=== PATIENT | female | born 1960 | race Caucasian/White ===

== ENCOUNTER 2016-04-24 13:39 | Emergency (ER) | payer OTHER ==
[~2016-04-24] VITALS: Ht 162.6 cm; Wt 106.5 kg
[2016-04-24 13:49] VITALS: TEMP 36.8; Ht 162.6 cm; Wt 106.5 kg
[2016-04-24] MEDS ORDERED: PROMETHAZINE HCL INJ 25 MG/ML 1 ML VIAL IM STA (14:34)
[2016-04-24] MEDS ORDERED: HYDROmorphone INJ 1 MG/ML SYR IM STA (14:34)
[2016-04-24] MEDS ORDERED: SODIUM CHLORIDE 0.9% 1000ML 1,000 ML IV STA (14:34)
--- NOTE | 2016-04-24 14:44 | EMERGENCY ROOM VISIT NOTE ---
History Report prepared by Edmond: Eh Boyle Under the Supervision of: Dr. Kvng Vallejo M.D. First contact with patient: 14:28 Chief Complaint: DIARRHEA Stated Complaint: BOWEL PAIN, DIARRHEA, DRAINED FEELING Nursing Triage Summary: Triage note: pt reports right lower abd pain, nausea, vomitting, diarrhea since yesterday. History of Present Illness The patient is a 55 year old female who presents to the Emergency Room with complaints of constant RLQ abdominal pain beginning yesterday. She has associated nausea, diarrhea and subjective fevers. She was seen in the ED last week with similar symptoms. The patient has a history of an appendectomy. She denies any vomiting. She has a history of similar abdominal pain for many years. Extensive previous surgical history. No medications [employer]. Nothing makes better nor worse. No sick contacts. States similar pain to what she always has. Source of History: patient Onset: Yesterday Position: abdomen (RLQ) Timing: constant Associated Symptoms: + diarrhea, + fevers (subjective), + nausea, No vomiting Review of Systems See HPI for pertinent positives & negatives. A total of 10 systems reviewed and were otherwise negative. Past Medical & Surgical Medical Problems: (1) Benign hypertension (2) Chronic abdominal pain (3) Depression (4) Enterohemorrhagic E. coli infection (5) Fibromyalgia (6) Gastroparesis (7) History of Clostridium difficile colitis (8) History of renal calculi (9) History of suicide attempt (10) Hyperlipidemia (11) Hypothyroidism (12) Migraine Surgical Problems: (1) History of appendectomy (2) History of feeding tube placement (3) S/P appendectomy (4) S/P cholecystectomy (5) S/P tonsillectomy and adenoidectomy (6) Status post hernia repair (7) Status post hysterectomy (8) Status post left oophorectomy (9) Status post right oophorectomy (10) Status post sinus surgery Family History Cancer Diabetes mellitus FATHER FHx: diabetes FHx: gallbladder disease FHx: heart disease FATHER FHx: hypertension FATHER MOTHER FHx: seizures Social History Smoking Status: Never Smoker Alcohol Use: none Drug Use: none Marital Status: Housing Status: lives with significant other Occupation Status: disabled Current/Historical Medications Scheduled Atorvastatin (Atorvastatin Calcium), 10 MG PO HS Lamotrigine (Lamictal), 200 MG PO QAM Losartan Potassium (Losartan Potassium), 50 MG PO HS Olanzapine (Olanzapine), 15 MG PO HS Ranitidine Hcl (Zantac), 300 MG PO BID Topiramate (Topamax), 50 MG PO BID Venlafaxine Hcl (Effexor Extended Rel), 225 MG PO QAM Scheduled PRN Lorazepam (Lorazepam), 1 MG PO BID PRN for Anxiety/Insomnia Allergies Coded Allergies: CI Pigment Blue 63 (Verified Allergy, Unknown, shut down, heart and breathing slowed, 04/24/16) Fentanyl (Verified Adverse Reaction, Intermediate, GI SYMPTOMS, 04/24/16) Metoclopramide (Verified Adverse Reaction, Mild, TARDITIVE DYSKENESIA, 04/24) Ondansetron (Verified Adverse Reaction, Mild, HEADACHE, 04/14/16) Tramadol (Verified Adverse Reaction, Mild, VOMITING, 04/24/16) Chlorpromazine (Verified Adverse Reaction, Unknown, dry mouth, 04/24/16) Duloxetine (Verified Adverse Reaction, Unknown, LETHARGIC, 04/24/16) Physical Exam Vital Signs Date Time Temp Pulse Resp B/P Pulse Ox O2 Delivery O2 Flow Rate FiO2 04/24/16 16:04 89 16 175/113 95 Room Air 04/24/16 15:45 93 16 181/108 95 Room Air 04/24/16 13:49 36.8 102 18 163/82 96 Room Air Physical Exam GENERAL: Patient is well appearing and in no acute distress. HEENT: No acute trauma, normocephalic atraumatic, mucous membranes moist, no nasal congestion, no scleral icterus. NECK: No stridor, no adenopathy, no meningismus, trachea is midline. LUNGS: No dyspnea. Clear to auscultation and equal bilaterally. No wheeze, no rhonchi. HEART: Regular rate and rhythm. No murmurs, rubs, gallops appreciated. ABDOMEN: Extensive scarring of the abdomen. Mild RLQ tenderness to palpation. Soft, bowel sounds positive, no masses appreciated, no peritonitis. BACK: No midline tenderness, no CVA tenderness EXTREMITIES: Normal motion all extremities, no cyanosis, no edema. NEUROLOGIC: Alert and oriented, no acute motor or sensory deficits, no focal weakness, cranial nerves grossly intact. SKIN: No rash, no jaundice, no diaphoresis. Medical Decision & Procedures Laboratory Results 04/24/16 14:55 04/24/16 14:55 Test 04/24/16 14:55 Red Blood Count 4.36 M/uL (4.2-5.4) Mean Corpuscular Volume 97.0 fL (80-100) Mean Corpuscular Hemoglobin 33.7 pg (25-34) Mean Corpuscular Hemoglobin Concent 34.8 g/dl (32-36) RDW Standard Deviation 45.6 fL (36.4-46.3) RDW Coefficient of Variation 12.9 % (11.5-14.5) Mean Platelet Volume 9.8 fL (7.4-10.4) Anion Gap 11.0 mmol/L (3-11) Est Creatinine Clear Calc Drug Dose 91.2 ml/min Estimated GFR () 90.7 Estimated GFR (Non- 78.2 BUN/Creatinine Ratio 15.3 (10-20) Calcium Level 9.3 mg/dl (8.5-10.1) Laboratory results as reviewed by me. Medications Administered Medications (Trade) Dose Ordered Sig/Van Route Start Time Stop Time Status Last Admin Dose Admin Hydromorphone HCl (Dilaudid Inj) 1 mg NOW STAT IM 04/24/16 14:34 04/24/16 14:36 DC 04/24/16 14:45 1 MG Promethazine HCl 25 mg 25 mg NOW STAT IM 04/24/16 14:34 04/24/16 14:36 DC 04/24/16 14:45 25 MG Sodium Chloride (Nss 1000ml) 1,000 ml @ 999 mls/hr Q1H1M STAT IV 04/24/16 14:34 04/24/16 15:34 DC 04/24/16 15:03 999 MLS/HR ED Course 1429: The patient was evaluated in room C5. A complete history and physical exam was performed. 1434: Ordered NSS 1000 mL @ 999 mL/hr IV, Phenergan Inj 25 mg IM, Dilaudid Inj 1 mg IM. 1600: Reevaluated the patient. She would like to go home. Discussed results and discharge instructions: she verbalized understanding and agreement. The patient is ready for discharge. Medical Decision Differential: Appendicitis, Diverticulitis, PUD/Gastritis, Biliary Pathology, UTI, Pyelonephritis, Renal Colic, Bowel Obstruction, Aortic Pathology, Acute Coronary Syndrome, amongst other pathologies entertained. 55 yr old female arrives for evaluation of chronic abdominal pain. I know her well and she has had this for a long time. Labs are unremarkable. Exam is benign and patient feeling better with above. She is not septic, does not have acute abdomen, labs are normal and vitals are OK. I feel that given the chronicity of this and the many previous evaluations that doing further imaging/ testing is not necessary at this time. Stable at time of discharge. Impression Primary Impression: Chronic abdominal pain Additional Impressions: Nausea, Diarrhea Scribe Attestation The scribe's documentation has been prepared under my direction and personally reviewed by me in its entirety. I confirm that the note above accurately reflects all work, treatment, procedures, and medical decision making performed by me. Departure Information Dispostion Home / Self-Care Referrals Armando Ward D.O. (PCP) Patient Instructions A Signature Page, Diarrhea, My [facility]
[2016-04-24 15:05] LABS: HEMATOCRIT 42.3 % (37-47); MEAN CORPUSCULAR HEMOGLOBIN 33.7 pg (25-34); MEAN CORPUSCULAR HGB CONC 34.8 g/dl (32-36); MEAN PLATELET VOLUME 9.8 fL (7.4-10.4); PLATELET COUNT 268 K/uL (130-400); RED BLOOD COUNT 4.36 M/uL (4.2-5.4); WHITE BLOOD COUNT 10.28 K/uL (4.8-10.8)
[2016-04-24 15:22] LABS: BUN/CREATININE RATIO 15.3 (10-20); CALCIUM 9.3 mg/dl (8.5-10.1); CREATININE 0.85 mg/dl (0.60-1.20); POTASSIUM 4.2 mmol/L (3.5-5.1)
[2016-04-24 16:04] VITALS: BP 175/113; PULSE 89; O2SAT 95
[2016-05-17] MEDS ORDERED: COLE1TAB5 PO (19:00)
[2016-06-03] MEDS ORDERED: GABA-112 PO (08:38)
[2016-06-17] MEDS ORDERED: OXYC-57 PO (14:58)
[2016-07-02] MEDS ORDERED: AZIT-60 PO (20:29)
[2016-08-05] MEDS ORDERED: ZYP10 PO (15:41)
[2016-08-05] MEDS ORDERED: VNTHFA/IN INH (15:41)
[2016-08-05] MEDS ORDERED: EFFSR75 PO (18:39)
[2016-08-05] MEDS ORDERED: LAMO200T35 PO (20:31)
== END 2016-04-24 16:30 | disposition home or self-care (01) ==
LOC: C.EDB 13:41 → C.EDC 16:30
DX: R10.9 Unspecified abdominal pain (principal); G89.29 Other chronic pain; R11.0 Nausea; R19.7 Diarrhea, unspecified; E03.9 Hypothyroidism, unspecified; E78.5 Hyperlipidemia, unspecified; I10 Essential (primary) hypertension

== ENCOUNTER 2016-04-29 18:29 | Emergency (ER) | payer OTHER ==
[~2016-04-29] VITALS: Ht 162.6 cm; Wt 106.5 kg
[2016-04-29 18:34] VITALS: TEMP 36.8; Ht 162.6 cm; Wt 106.5 kg
[2016-04-29] MEDS ORDERED: PROMETHAZINE HCL INJ 25 MG/ML 1 ML VIAL IV STA (18:46)
[2016-04-29] MEDS ORDERED: SODIUM CHLORIDE 0.9% 1000ML 1,000 ML IV STA (18:46)
--- NOTE | 2016-04-29 18:54 | EMERGENCY ROOM VISIT NOTE ---
History Report prepared by Edmond: Shelby Rodriguez Under the Supervision of: Dr. Kwesi Nielsen M.D. First contact with patient: 18:40 Chief Complaint: ABDOMINAL PAIN Stated Complaint: SEVERE ABD PAIN,DIARRHEA,NAUSEA Nursing Triage Summary: abd pain all day n/v/d History of Present Illness The patient is a 55 year old female who presents to the Emergency Room with complaints of constant abdominal pain for the past day. She woke up with diffuse abdominal pain that is worse in the RLQ. It radiates into her right leg. She is experiencing nausea, vomiting, and diarrhea. The patient rates her pain as a 10/10. She had a scheduled appointment with her PCP today and he put her on prednisone and a medication for her diarrhea. She had an x-ray of her back at the office. The patient states that she is still experiencing symptoms. She denies any recent trauma or injury to her abdomen. She denies urinary symptoms. The patient has a history of abdominal pain, but notes that today's pain feels different than her typical pain. She was feeling fine yesterday. Source of History: patient Onset: the past day Position: abdomen Symptom Intensity: 10/10 Quality: other (radiating) Timing: constant Associated Symptoms: + diarrhea, + nausea, + vomiting, No urinary symptoms Review of Systems See HPI for pertinent positives & negatives. A total of 10 systems reviewed and were otherwise negative. Past Medical & Surgical Medical Problems: (1) Benign hypertension (2) Chronic abdominal pain (3) Depression (4) Enterohemorrhagic E. coli infection (5) Fibromyalgia (6) Gastroparesis (7) History of Clostridium difficile colitis (8) History of renal calculi (9) History of suicide attempt (10) Hyperlipidemia (11) Hypothyroidism (12) Migraine Surgical Problems: (1) History of appendectomy (2) History of feeding tube placement (3) S/P appendectomy (4) S/P cholecystectomy (5) S/P tonsillectomy and adenoidectomy (6) Status post hernia repair (7) Status post hysterectomy (8) Status post left oophorectomy (9) Status post right oophorectomy (10) Status post sinus surgery Family History Cancer Diabetes mellitus FATHER FHx: diabetes FHx: gallbladder disease FHx: heart disease FATHER FHx: hypertension FATHER MOTHER FHx: seizures Social History Smoking Status: Current Every Day Smoker Alcohol Use: none Drug Use: none Marital Status: Housing Status: lives with significant other Occupation Status: disabled Current/Historical Medications Scheduled Atorvastatin (Atorvastatin Calcium), 10 MG PO HS Colestipol Hcl (Colestipol Hcl), 1 GM PO BID Lamotrigine (Lamictal), 200 MG PO QAM Losartan Potassium (Losartan Potassium), 50 MG PO HS Olanzapine (Olanzapine), 15 MG PO HS Prednisone (Prednisone), 0 PO UD Ranitidine Hcl (Zantac), 300 MG PO BID Topiramate (Topamax), 50 MG PO BID Venlafaxine Hcl (Effexor Extended Rel), 225 MG PO QAM Scheduled PRN Lorazepam (Lorazepam), 1 MG PO BID PRN for Anxiety/Insomnia Allergies Coded Allergies: CI Pigment Blue 63 (Verified Allergy, Unknown, shut down, heart and breathing slowed, 04/29/16) Fentanyl (Verified Adverse Reaction, Intermediate, GI SYMPTOMS, 04/29/16) Metoclopramide (Verified Adverse Reaction, Mild, TARDITIVE DYSKENESIA, 04/29) Ondansetron (Verified Adverse Reaction, Mild, HEADACHE, 04/29/16) Tramadol (Verified Adverse Reaction, Mild, VOMITING, 04/29/16) Chlorpromazine (Verified Adverse Reaction, Unknown, dry mouth, 04/29/16) Duloxetine (Verified Adverse Reaction, Unknown, LETHARGIC, 04/29/16) Physical Exam Vital Signs Date Time Temp Pulse Resp B/P Pulse Ox O2 Delivery O2 Flow Rate FiO2 04/29/16 21:24 91 18 148/93 95 04/29/16 20:17 102 20 165/102 94 Room Air 04/29/16 18:34 36.8 114 20 187/83 93 Room Air Physical Exam GENERAL: Patient is in no acute distress. HEENT: No acute trauma, normocephalic atraumatic, mucous membranes moist, no nasal congestion, no scleral icterus. NECK: No stridor, no adenopathy, no meningismus, trachea is midline. LUNGS: Clear to auscultation bilaterally, no wheeze, no rhonchi, breath sounds equal. HEART: Mildly tachycardic, regular rhythm, without murmurs gallops or rubs. ABDOMEN: Soft, moderately tender in the RLQ, bowel sounds positive, no hernias, no peritonitis. EXTREMITIES: No cyanosis or edema, full range of motion of all the joints without pain or difficulty, no signs for acute trauma. NEUROLOGIC: Oriented x 3, no acute motor or sensory deficits, no focal weakness. SKIN: No rash, no jaundice, no diaphoresis. Medical Decision & Procedures Laboratory Results 04/29/16 19:44 Red Blood Count 4.38, Mean Corpuscular Volume 95.7, Mean Corpuscular Hemoglobin 34.2, Mean Corpuscular Hemoglobin Concent 35.8, Mean Platelet Volume 10.0, Neutrophils (%) (Auto) 87.3, Lymphocytes (%) (Auto) 10.8, Monocytes (%) (Auto) 1.4, Eosinophils (%) (Auto) 0.0, Basophils (%) (Auto) 0.1, Neutrophils # (Auto) 11.13, Lymphocytes # (Auto) 1.38, Monocytes # (Auto) 0.18, Eosinophils # (Auto) 0.00, Basophils # (Auto) 0.01 04/29/16 19:44 Test 04/29/16 19:44 04/29/16 20:00 White Blood Count 12.75 K/uL (4.8-10.8) Red Blood Count 4.38 M/uL (4.2-5.4) Hemoglobin 15.0 g/dL (12.0-16.0) Hematocrit 41.9 % (37-47) Mean Corpuscular Volume 95.7 fL (80-100) Mean Corpuscular Hemoglobin 34.2 pg (25-34) Mean Corpuscular Hemoglobin Concent 35.8 g/dl (32-36) Platelet Count 283 K/uL (130-400) Mean Platelet Volume 10.0 fL (7.4-10.4) Neutrophils (%) (Auto) 87.3 % Lymphocytes (%) (Auto) 10.8 % Monocytes (%) (Auto) 1.4 % Eosinophils (%) (Auto) 0.0 % Basophils (%) (Auto) 0.1 % Neutrophils # (Auto) 11.13 K/uL (1.4-6.5) Lymphocytes # (Auto) 1.38 K/uL (1.2-3.4) Monocytes # (Auto) 0.18 K/uL (0.11-0.59) Eosinophils # (Auto) 0.00 K/uL (0-0.5) Basophils # (Auto) 0.01 K/uL (0-0.2) RDW Standard Deviation 44.6 fL (36.4-46.3) RDW Coefficient of Variation 12.7 % (11.5-14.5) Immature Granulocyte % (Auto) 0.4 % Immature Granulocyte # (Auto) 0.05 K/uL (0.00-0.02) Urine Color YELLOW Urine Appearance CLEAR (CLEAR) Urine pH 6.0 (4.5-7.5) Urine Specific [place] 1.017 (1.000-1.030) Urine Protein NEG (NEG) Urine Glucose (UA) NEG (NEG) Urine Ketones NEG (NEG) Urine Occult Blood TRACE (NEG) Urine Nitrite NEG (NEG) Urine Bilirubin NEG (NEG) Urine Urobilinogen NEG (NEG) Urine Leukocyte Esterase NEG (NEG) Urine WBC (Auto) 1-5 /hpf (0-5) Urine RBC (Auto) 0-4 /hpf (0-4) Urine Hyaline Casts (Auto) 0 /lpf (0-5) Urine Epithelial Cells (Auto) >30 /lpf (0-5) Urine Bacteria (Auto) NEG (NEG) Anion Gap 12.0 mmol/L (3-11) Est Creatinine Clear Calc Drug Dose 77.5 ml/min Estimated GFR () 74.5 Estimated GFR (Non- 64.3 BUN/Creatinine Ratio 17.9 (10-20) Calcium Level 9.1 mg/dl (8.5-10.1) Total Bilirubin 0.2 mg/dl (0.2-1) Aspartate Amino Transf (AST/SGOT) 32 U/L (15-37) Alanine Aminotransferase (ALT/SGPT) 53 U/L (12-78) Alkaline Phosphatase 150 U/L (45-117) Total Protein 7.7 gm/dl (6.4-8.2) Albumin 3.6 gm/dl (3.4-5.0) Globulin 4.1 gm/dl (2.5-4.0) Albumin/Globulin Ratio 0.9 (0.9-2) Lipase 222 U/L (73-393) Lactic Acid Level 1.3 mmol/L (0.4-2.0) Laboratory results reviewed by me. Medications Administered Medications (Trade) Dose Ordered Sig/Van Route Start Time Stop Time Status Last Admin Dose Admin Promethazine HCl 12.5 mg 12.5 mg NOW STAT IV 04/29/16 18:46 04/29/16 18:52 DC 04/29/16 20:07 12.5 MG Sodium Chloride (Nss 1000ml) 1,000 ml @ 200 mls/hr Q5H STAT IV 04/29/16 18:46 04/29/16 21:46 DC 04/29/16 20:07 200 MLS/HR Hydromorphone HCl (Dilaudid Inj) 1 mg Q30M PRN IV 04/29/16 19:00 04/29/16 21:46 DC 04/29/16 20:09 1 MG Hydromorphone HCl (Dilaudid Inj) 1 mg STK-MED ONCE .ROUTE 04/29/16 21:15 04/29/16 21:16 DC 04/29/16 21:19 1 MG ED Course 1841: The patient was evaluated in room A11B. A complete history and physical exam was performed. 1846: NSS 1000 ml @ 200 mls/hr IV, Phenergan 12.5 mg IV 1900: Dilaudid 1 mg IV PRN 6: I reassessed the patient at this time. She is feeling better and resting comfortably. I discussed the results and treatment plan with the patient. I answered all pertaining questions that she had. She expressed understanding and verbalized agreement. The patient will be discharged home. 2107: Dilaudid 1 mg IV Medical Decision Differential diagnoses includes acute on chronic pain, hernia, UTI, adhesions, dehydration, renal failure, peritonitis, musculoskeletal pain, nerve impingement. There is a mild leukocytosis which could be consistent with infection or just her pain. No concerning anemia. No significant electrolyte abnormality, kidney failure, hepatitis or pancreatitis. Urinalysis does not show any significant hematuria or evidence for infection. On exam, there was no peritonitis, the patient was not febrile or toxic. The patient received IV Phenergan, IV saline and IV Dilaudid. She feels improved, her heart rate has decreased. The patient presents with abdominal pain, she has had chronic abdominal pain issues for a long time. Nothing today appears truly acute or new, I do think she can be discharged, she was advised to follow with pain management. Impression Primary Impression: Right sided abdominal pain Scribe Attestation The scribe's documentation has been prepared under my direction and personally reviewed by me in its entirety. I confirm that the note above accurately reflects all work, treatment, procedures, and medical decision making performed by me. Departure Information Dispostion Home / Self-Care Referrals Armando Ward D.O. (PCP) Forms Call Back Authorization, HOME CARE DOCUMENTATION FORM, IMPORTANT VISIT INFORMATION, My [facility] Patient Instructions A Signature Page Additional Instructions I would recommend pain management talk with your [facility] md monday about a pain management referral return for worsening symptoms
[2016-04-29] MEDS ORDERED: HYDROmorphone INJ 2 MG/ML SYR/VIAL IV PRN (19:00)
[2016-04-29] MEDS ORDERED: PRED10TA PO (19:06)
[2016-04-29] MEDS ORDERED: HYDROmorphone INJ 1 MG/ML SYR ONE ×2 (19:54→21:15)
[2016-04-29 20:09] LABS: BASO % 0.1 %; BASO ABS # 0.01 K/uL (0-0.2); COMPLETE YES; HEMATOCRIT 41.9 % (37-47); IG% 0.4 %; LYMPH % 10.8 %; LYMPH ABS # 1.38 K/uL (1.2-3.4); MEAN CELL VOLUME 95.7 fL (80-100); MEAN CORPUSCULAR HEMOGLOBIN 34.2 pg (25-34); MEAN CORPUSCULAR HGB CONC 35.8 g/dl (32-36); MONO % 1.4 %; NEUT % 87.3 %; PLATELET COUNT 283 K/uL (130-400); RED BLOOD COUNT 4.38 M/uL (4.2-5.4); WHITE BLOOD COUNT 12.75 K/uL (4.8-10.8)
[2016-04-29 20:14] LABS: URINE APPEARANCE CLEAR (CLEAR); URINE BILIRUBIN NEG (NEG); URINE COLOR YELLOW; URINE EPITHELIAL CELL AUTO >30 /lpf (0-5); URINE NITRITE NEG (NEG); URINE SPECIFIC GRAVITY 1.017 (1.000-1.030); UROBILINOGEN NEG (NEG); ZZUR CULT IF INDIC CLEAN CATCH NO
[2016-04-29 20:17] LABS: MANUAL MICROSCOPIC REQUIRED? NO; REVIEW REQ? NO
[2016-04-29 20:35] LABS: BUN/CREATININE RATIO 17.9 (10-20); CALCIUM 9.1 mg/dl (8.5-10.1); POTASSIUM 3.7 mmol/L (3.5-5.1)
[2016-04-29 20:38] LABS: ALB/GLOB RATIO 0.9 (0.9-2)
[2016-04-29] MEDS ORDERED: HYDROmorphone INJ 2 MG/ML SYR/VIAL IV STA (21:08)
[2016-04-29 21:24] VITALS: BP 148/93; PULSE 91; O2SAT 95
[2016-05-17] MEDS ORDERED: COLE1TAB5 PO (19:00)
[2016-06-03] MEDS ORDERED: GABA-112 PO (08:38)
[2016-06-17] MEDS ORDERED: OXYC-57 PO (14:58)
[2016-08-05] MEDS ORDERED: ZYP10 PO (15:41)
[2016-08-05] MEDS ORDERED: VNTHFA/IN INH (15:41)
[2016-08-05] MEDS ORDERED: EFFSR75 PO (18:39)
== END 2016-04-29 21:25 | disposition home or self-care (01) ==
LOC: C.EDB 18:32 → C.EDA 21:25
DX: R10.31 Right lower quadrant pain (principal); G89.29 Other chronic pain; R11.2 Nausea with vomiting, unspecified; R19.7 Diarrhea, unspecified; I10 Essential (primary) hypertension; E03.9 Hypothyroidism, unspecified; E78.5 Hyperlipidemia, unspecified; F32.9 Major depressive disorder, single episode, unspecified; Z79.899 Other long term (current) drug therapy; Z88.5 Allergy status to narcotic agent; Z88.6 Allergy status to analgesic agent; Z88.8 Allergy status to other drugs, medicaments and biological substances

== ENCOUNTER 2016-05-17 20:36 | Emergency (ER) | payer OTHER ==
[~2016-05-17] VITALS: Ht 162.6 cm; Wt 108.1 kg
[~2016-05-17 20:36] MED LIST: COLE1TAB5 PO; PRED10TA PO
[2016-05-17 20:40] VITALS: TEMP 36.5; Ht 162.6 cm; Wt 108.1 kg
--- NOTE | 2016-05-17 21:09 | EMERGENCY ROOM VISIT NOTE ---
History Report prepared by Edmond: Fei Mackenzie Under the Supervision of: Dr. Kvng Vallejo M.D. First contact with patient: 21:00 Chief Complaint: ABDOMINAL PAIN Stated Complaint: SEVERE ABD PAIN, DIARRHEA, NAUSEA History of Present Illness The patient is a 55 year old female who presents to the Emergency Room with complaints of episodes of black diarrhea that started earlier this afternoon. She also complains of abdominal pain, nausea, and pain radiating to her back. The patient notes that it is hard to breathe. She says she has not had any problems with her stools being black before. The patient denies any swelling to her ankles or legs, or any recent falls or injuries. She notes that nobody else is sick at her home. She does not take any blood thinners. The patient did take Tylenol today. She says she has not had any major bleeding in her bowels before. Source of History: patient Onset: Earlier this afternoon Position: other (global - black diarrhea) Timing: other (episodes) Associated Symptoms: + abdominal pain, + back pain, + nausea Note: Associated symptoms: Hard to breathe. Denies any swelling to ankles or legs. Review of Systems See HPI for pertinent positives & negatives. A total of 10 systems reviewed and were otherwise negative. Past Medical & Surgical Medical Problems: (1) Benign hypertension (2) Chronic abdominal pain (3) Depression (4) Enterohemorrhagic E. coli infection (5) Fibromyalgia (6) Gastroparesis (7) History of Clostridium difficile colitis (8) History of renal calculi (9) History of suicide attempt (10) Hyperlipidemia (11) Hypothyroidism (12) Migraine Surgical Problems: (1) History of appendectomy (2) History of feeding tube placement (3) S/P appendectomy (4) S/P cholecystectomy (5) S/P tonsillectomy and adenoidectomy (6) Status post hernia repair (7) Status post hysterectomy (8) Status post left oophorectomy (9) Status post right oophorectomy (10) Status post sinus surgery Family History Cancer Diabetes mellitus FATHER FHx: diabetes FHx: gallbladder disease FHx: heart disease FATHER FHx: hypertension FATHER MOTHER FHx: seizures Social History Smoking Status: Current Every Day Smoker Alcohol Use: none Drug Use: none Marital Status: Housing Status: lives with significant other Occupation Status: disabled Current/Historical Medications Scheduled Atorvastatin (Atorvastatin Calcium), 10 MG PO HS Colestipol Hcl (Colestipol Hcl), 1 GM PO BID Lamotrigine (Lamictal), 200 MG PO QAM Losartan Potassium (Losartan Potassium), 50 MG PO HS Lubiprostone (Amitiza), 24 MCG PO BID Olanzapine (Olanzapine), 15 MG PO HS Ranitidine Hcl (Zantac), 300 MG PO BID Topiramate (Topamax), 50 MG PO BID Venlafaxine Hcl (Effexor Extended Rel), 225 MG PO QAM Scheduled PRN Lorazepam (Lorazepam), 1 MG PO BID PRN for Anxiety/Insomnia Sumatriptan Succinate (Sumatriptan Succinate), 4 MG INJ UD PRN for Migraine Allergies Coded Allergies: CI Pigment Blue 63 (Verified Allergy, Unknown, shut down, heart and breathing slowed, 04/29/16) Fentanyl (Verified Adverse Reaction, Intermediate, GI SYMPTOMS, 04/29/16) Metoclopramide (Verified Adverse Reaction, Mild, TARDITIVE DYSKENESIA, 04/29) Ondansetron (Verified Adverse Reaction, Mild, HEADACHE, 04/29/16) Tramadol (Verified Adverse Reaction, Mild, VOMITING, 04/29/16) Chlorpromazine (Verified Adverse Reaction, Unknown, dry mouth, 04/29/16) Duloxetine (Verified Adverse Reaction, Unknown, LETHARGIC, 04/29/16) Physical Exam Vital Signs Date Time Temp Pulse Resp B/P Pulse Ox O2 Delivery O2 Flow Rate FiO2 05/17/16 21:52 89 20 141/89 96 Room Air 05/17/16 20:40 36.5 109 18 171/84 97 Room Air Physical Exam GENERAL: Patient is very anxious appearing and in mild distress. HEENT: No acute trauma, normocephalic atraumatic, mucous membranes moist, no nasal congestion, no scleral icterus. NECK: No stridor, no adenopathy, no meningismus, trachea is midline. LUNGS: No dyspnea. Clear to auscultation and equal bilaterally. No wheeze, no rhonchi. HEART: Mildly tachycardic rate and regular rhythm. No murmurs, rubs, gallops appreciated. ABDOMEN: Soft, vague tenderness over entire abdomen, bowel sounds positive, no masses appreciated, no peritonitis. BACK: No midline tenderness, no CVA tenderness EXTREMITIES: Normal motion all extremities, no cyanosis, no edema. RECTAL EXAM: Normal brown stool, no blood, heme negative. NEUROLOGIC: Alert and oriented, no acute motor or sensory deficits, no focal weakness, cranial nerves grossly intact. SKIN: No rash, no jaundice, no diaphoresis. Medical Decision & Procedures Laboratory Results 05/17/16 21:00 Red Blood Count 4.27, Mean Corpuscular Volume 94.8, Mean Corpuscular Hemoglobin 33.7, Mean Corpuscular Hemoglobin Concent 35.6, Mean Platelet Volume 9.9, Neutrophils (%) (Auto) 60.1, Lymphocytes (%) (Auto) 30.9, Monocytes (%) (Auto) 7.6, Eosinophils (%) (Auto) 1.0, Basophils (%) (Auto) 0.2, Neutrophils # (Auto) 7.88, Lymphocytes # (Auto) 4.05, Monocytes # (Auto) 1.00, Eosinophils # (Auto) 0.13, Basophils # (Auto) 0.03 05/17/16 21:00 Test 05/17/16 21:00 White Blood Count 13.11 K/uL (4.8-10.8) Red Blood Count 4.27 M/uL (4.2-5.4) Hemoglobin 14.4 g/dL (12.0-16.0) Hematocrit 40.5 % (37-47) Mean Corpuscular Volume 94.8 fL (80-100) Mean Corpuscular Hemoglobin 33.7 pg (25-34) Mean Corpuscular Hemoglobin Concent 35.6 g/dl (32-36) Platelet Count 274 K/uL (130-400) Mean Platelet Volume 9.9 fL (7.4-10.4) Neutrophils (%) (Auto) 60.1 % Lymphocytes (%) (Auto) 30.9 % Monocytes (%) (Auto) 7.6 % Eosinophils (%) (Auto) 1.0 % Basophils (%) (Auto) 0.2 % Neutrophils # (Auto) 7.88 K/uL (1.4-6.5) Lymphocytes # (Auto) 4.05 K/uL (1.2-3.4) Monocytes # (Auto) 1.00 K/uL (0.11-0.59) Eosinophils # (Auto) 0.13 K/uL (0-0.5) Basophils # (Auto) 0.03 K/uL (0-0.2) RDW Standard Deviation 44.3 fL (36.4-46.3) RDW Coefficient of Variation 12.9 % (11.5-14.5) Immature Granulocyte % (Auto) 0.2 % Immature Granulocyte # (Auto) 0.02 K/uL (0.00-0.02) Anion Gap 15.0 mmol/L (3-11) Est Creatinine Clear Calc Drug Dose 84.9 ml/min Estimated GFR () 82.4 Estimated GFR (Non- 71.1 BUN/Creatinine Ratio 11.6 (10-20) Calcium Level 9.2 mg/dl (8.5-10.1) Total Bilirubin 0.2 mg/dl (0.2-1) Direct Bilirubin < 0.1 mg/dl (0-0.2) Aspartate Amino Transf (AST/SGOT) 28 U/L (15-37) Alanine Aminotransferase (ALT/SGPT) 53 U/L (12-78) Alkaline Phosphatase 141 U/L (45-117) Total Protein 7.4 gm/dl (6.4-8.2) Albumin 3.7 gm/dl (3.4-5.0) Lipase 189 U/L (73-393) Laboratory results as reviewed by me. Medications Administered Medications (Trade) Dose Ordered Sig/Van Route Start Time Stop Time Status Last Admin Dose Admin Promethazine HCl (Phenergan Inj) 25 mg NOW STAT IM 05/17/16 21:10 05/17/16 21:12 DC 05/17/16 21:33 25 MG Diphenoxylate HCl/ Atropine (Lomotil Tab) 2 tab NOW ONCE PO 05/17/16 21:15 05/17/16 21:16 DC 05/17/16 21:33 2 TAB Diphenhydramine HCl (Benadryl Inj) 50 mg NOW STAT IM 05/17/16 21:10 05/17/16 21:12 DC 05/17/16 21:33 50 MG ED Course 2101: The patient was evaluated in room A4B. A complete history and physical exam was performed. 2109: Ordered Benadryl Inj 50 mg IM, Phenergan Inj 25 mg IM. 2114: Ordered Lomotil Tab 2 tab PO. 2199: I reevaluated the patient and she is resting comfortably. The patient verbally expressed understanding and agreement of the treatment plan. The patient will be discharged. Medical Decision Differential: Viral, Bacterial, Parasitic, Iatrogenic, C-Diff, Malabsorption, Irritable Bowel Disease, IBS, Ischemic Bowel, amongst other pathologies entertained. 55 yr old female well known to me and department arrives with complaint of diarrhea, nausea and associated lower abdominal cramping. She notes black stools though on exam they are brown and heme negative. Her HgB is stable and no evidence of acute GI bleed at this time. She requests that I give her dose of Narcotics and "count it" towards next month as she has been her twice already for her chronic abdominal pain. This pain is very much previously documented, she currently has no peritonitis nor surgical findings on exam, her WBC is at baseline, she does not have fever, is not actively vomiting nor appearing obstructed thus I feel it would be inappropriate to treat her with narcotics at this time. She was given nausea meds. While stating she has terrible pain she clearly does not appear in that much distress. She is stable and looks as she always does without evidence of acute surgical issue nor sepsis. She has had many previous CT scans and agrees with holding off on it. Impression Primary Impression: Diarrhea Additional Impression: Chronic abdominal pain Scribe Attestation The scribe's documentation has been prepared under my direction and personally reviewed by me in its entirety. I confirm that the note above accurately reflects all work, treatment, procedures, and medical decision making performed by me. Departure Information Dispostion Home / Self-Care Referrals Armando Ward D.O. (PCP) Patient Instructions Diarrhea, My [facility] Problem Qualifiers Primary Impression: Diarrhea Diarrhea type: presumed infectious Qualified Codes: A09 - Infectious gastroenteritis and colitis, unspecified
[2016-05-17] MEDS ORDERED: DiphenhydrAMINE HCL 50 MG/ML VIAL IM STA (21:10)
[2016-05-17] MEDS ORDERED: PROMETHAZINE HCL INJ 25 MG/ML 1 ML VIAL IM STA (21:10)
[2016-05-17] MEDS ORDERED: DIPHENOXYLATE/ATROPINE 2.5/0.025MG TAB PO ONE (21:15)
[2016-05-17 21:22] LABS: BASO % 0.2 %; BASO ABS # 0.03 K/uL (0-0.2); COMPLETE YES; HEMATOCRIT 40.5 % (37-47); IG% 0.2 %; LYMPH % 30.9 %; LYMPH ABS # 4.05 K/uL (1.2-3.4); MEAN CELL VOLUME 94.8 fL (80-100); MEAN CORPUSCULAR HEMOGLOBIN 33.7 pg (25-34); MEAN CORPUSCULAR HGB CONC 35.6 g/dl (32-36); MEAN PLATELET VOLUME 9.9 fL (7.4-10.4); MONO % 7.6 %; NEUT % 60.1 %; PLATELET COUNT 274 K/uL (130-400); RED BLOOD COUNT 4.27 M/uL (4.2-5.4); WHITE BLOOD COUNT 13.11 K/uL (4.8-10.8)
[2016-05-17 21:39] LABS: ALT/SGPT 53 U/L (12-78); BLOOD UREA NITROGEN 11 mg/dl (7-18); BUN/CREATININE RATIO 11.6 (10-20); CALCIUM 9.2 mg/dl (8.5-10.1); CARBON DIOXIDE 19 mmol/L (21-32); CHLORIDE 109 mmol/L (98-107); CREATININE 0.92 mg/dl (0.60-1.20); GLUCOSE 134 mg/dl (70-99); POTASSIUM 3.3 mmol/L (3.5-5.1); SODIUM 143 mmol/L (136-145)
[2016-05-17 21:42] LABS: ALKALINE PHOSPHATASE 141 U/L (45-117); AST/SGOT 28 U/L (15-37)
[2016-05-17 21:52] VITALS: BP 141/89; PULSE 89; O2SAT 96
[2016-06-03] MEDS ORDERED: GABA-112 PO (08:38)
[2016-06-17] MEDS ORDERED: OXYC-57 PO (14:58)
[2016-08-05] MEDS ORDERED: VNTHFA/IN INH (15:41)
[2016-08-05] MEDS ORDERED: ZYP10 PO (15:41)
[2016-08-05] MEDS ORDERED: EFFSR75 PO (18:39)
== END 2016-05-17 22:20 | disposition home or self-care (01) ==
LOC: C.EDB 20:38 → C.EDA 22:20
DX: A09 Infectious gastroenteritis and colitis, unspecified (principal); G89.29 Other chronic pain; R10.9 Unspecified abdominal pain; R11.0 Nausea; E78.5 Hyperlipidemia, unspecified; I10 Essential (primary) hypertension; Z86.39 Personal history of other endocrine, nutritional and metabolic disease; Z83.3 Family history of diabetes mellitus; Z82.49 Family history of ischemic heart disease and other diseases of the circulatory system; Z82.0 Family history of epilepsy and other diseases of the nervous system

== ENCOUNTER 2016-06-03 20:40 | Emergency (ER) | payer OTHER ==
[~2016-06-03] VITALS: Ht 162.6 cm; Wt 110.2 kg
[~2016-06-03 20:40] MED LIST changes: +GABA-112 PO; -PRED10TA PO
[2016-06-03 20:45] VITALS: TEMP 36.9; Ht 162.6 cm; Wt 110.2 kg
[2016-06-03] MEDS ORDERED: PROMETHAZINE HCL INJ 25 MG in SODIUM CHLORIDE 0.9% 50ML 50 ML IV STA (21:24)
[2016-06-03] MEDS ORDERED: SODIUM CHLORIDE 0.9% 1000ML 1,000 ML IV STA (21:24)
--- NOTE | 2016-06-03 21:38 | EMERGENCY ROOM VISIT NOTE ---
History Report prepared by Edmond: Lokesh Currie Under the Supervision of: Dr. Danilo Reeder D.O. First contact with patient: 21:14 Chief Complaint: ABDOMINAL PAIN Stated Complaint: PAIN IN RT ABD & RT LEG Nursing Triage Summary: Pt reports she is having right lower quadrant pain radiating down right leg. Pain most severe in right thigh. Pt recently admitted to [facility] May 25- for rlq pain. Reports they think the pain is caused from her "pain stimulation in my back". Pt has stimulator in back from chronic right foot pain. Is to have it removed, per her request, on 06/17. Denies nausea, vomiting. Has had normal bms. History of Present Illness The patient is a 56 year old female who presents to the Emergency Room with complaints of constant right lower abdominal pain beginning one day prior to arrival. She currently rates her discomfort as a 9/10 in severity. The patient associates right lower abdominal pain that radiates into her right leg and mid abdominal pain with today's symptoms. She states she has a stimulator in her back for chronic back pain. The patient notes she follows with Dr. Lundberg for her back, and she is scheduled to get the stimulator removed in two weeks for further evaluation of her symptoms. She states she was admitted to [facility] for observation in the beginning of May for three days. The patient notes she had a CT and upper GI performed that concluded her abdominal discomfort was not due to her bowels. She is concerned about the right leg pain that began one day ago. The patient denies a history of blood clots in her legs or lungs. She denies having a Doppler in the past. The patient states a history of a hernia repair, hysterectomy, cholecystectomy, and a feeding tube at one point. She denies vomiting. 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 A total of 10 systems reviewed and were otherwise negative. Past Medical & Surgical Medical Problems: (1) Benign hypertension (2) Chronic abdominal pain (3) Depression (4) Enterohemorrhagic E. coli infection (5) Fibromyalgia (6) Gastroparesis (7) History of Clostridium difficile colitis (8) History of renal calculi (9) History of suicide attempt (10) Hyperlipidemia (11) Hypothyroidism (12) Migraine Surgical Problems: (1) History of appendectomy (2) History of feeding tube placement (3) S/P appendectomy (4) S/P cholecystectomy (5) S/P tonsillectomy and adenoidectomy (6) Status post hernia repair (7) Status post hysterectomy (8) Status post left oophorectomy (9) Status post right oophorectomy (10) Status post sinus surgery Family History Cancer Diabetes mellitus FATHER FHx: diabetes FHx: gallbladder disease FHx: heart disease FATHER FHx: hypertension FATHER MOTHER FHx: seizures Social History Smoking Status: Current Every Day Smoker Alcohol Use: none Drug Use: none Marital Status: Housing Status: lives with significant other Occupation Status: disabled Current/Historical Medications Scheduled Atorvastatin (Atorvastatin Calcium), 10 MG PO HS Gabapentin (Neurontin), 100 MG PO TID Lamotrigine (Lamictal), 200 MG PO QAM Losartan Potassium (Losartan Potassium), 50 MG PO HS Lubiprostone (Amitiza), 24 MCG PO BID Olanzapine (Olanzapine), 15 MG PO HS Ranitidine Hcl (Zantac), 300 MG PO BID Topiramate (Topamax), 50 MG PO BID Venlafaxine Hcl (Effexor Extended Rel), 225 MG PO QAM Scheduled PRN Lorazepam (Lorazepam), 1 MG PO BID PRN for Anxiety/Insomnia Sumatriptan Succinate (Sumatriptan Succinate), 4 MG INJ UD PRN for Migraine Allergies Coded Allergies: CI Pigment Blue 63 (Verified Allergy, Unknown, shut down, heart and breathing slowed, 06/03/16) Fentanyl (Verified Adverse Reaction, Intermediate, GI SYMPTOMS, 06/03/16) Metoclopramide (Verified Adverse Reaction, Mild, TARDITIVE DYSKENESIA, 02/07) Ondansetron (Verified Adverse Reaction, Mild, HEADACHE, 06/03/16) Tramadol (Verified Adverse Reaction, Mild, VOMITING, 06/03/16) Chlorpromazine (Verified Adverse Reaction, Unknown, dry mouth, 06/03/16) Duloxetine (Verified Adverse Reaction, Unknown, LETHARGIC, 06/03/16) Physical Exam Vital Signs Date Time Temp Pulse Resp B/P Pulse Ox O2 Delivery O2 Flow Rate FiO2 06/03/16 23:06 88 18 133/81 96 Room Air 06/03/16 22:22 93 06/03/16 22:03 96 17 145/81 94 Room Air 06/03/16 20:45 36.9 105 18 153/89 96 Room Air Physical Exam GENERAL: Patient is awake, alert, and in no acute distress. Patient is resting comfortably and showing no signs of anxiety EYES: The conjunctivae are clear. The pupils are round and reactive. EARS, NOSE, MOUTH AND THROAT: The nose is without any evidence of any deformity. Mucous membranes are moist tongue is midline NECK: The neck is nontender and supple. RESPIRATORY: Normal respiratory effort is noted there is no evidence of wheezing rhonchi or rales CARDIOVASCULAR: Regular rate and rhythm noted there no murmurs rubs or gallops normal S1 normal S2 GASTROINTESTINAL: The abdomen is moderately distended but soft. There was no specific guarding or rigidity noted. Bowel sounds are present in all quadrants. BACK: Low lumbar spine tenderness to palpation. Range of motion appeared intact. No midline tenderness or or step-off noted range of motion in flexion extension as well as rotation no signs of muscle spasm noted MUSCULOSKELETAL/EXTREMITIES: There is no evidence of gross deformity full range of motion is noted in the hips and shoulders SKIN: There is no obvious evidence of any rash. There are no petechiae, pallor or cyanosis noted. NEUROLOGIC: Patient is awake alert and oriented x3 strength is symmetric patellar reflexes are 2+ bilaterally Medical Decision & Procedures ER Provider Diagnostic Interpretation: Radiology results as stated below per my review and radiologist interpretation: PA CHEST RADIOGRAPH AND UPRIGHT AND SUPINE AP RADIOGRAPHS OF THE ABDOMEN CLINICAL HISTORY: Abdominal pain. COMPARISON STUDY: Chest radiograph and abdominal series and CT of the abdomen and pelvis February 17, 2016. FINDINGS: Elevation of the right hemidiaphragm is unchanged. Intracanalicular electrodes are noted. Cardiac size is normal. Mediastinal contours are normal. There is no evidence of pulmonary edema. Linear left basilar opacity suggest atelectasis. No consolidation is identified. There are cholecystectomy clips. There is no free air. The bowel gas pattern is normal. Pelvic calcifications were shown to represent phleboliths on prior CT. IMPRESSION: 1. No free air or evidence of bowel obstruction. 2. No acute cardiopulmonary findings. Electronically signed by: Ric Hull M.D. 06/03/2016 10:44 PM RIGHT LOWER EXTREMITY VENOUS DOPPLER CLINICAL HISTORY: Right lower extremity pain. COMPARISON STUDY: Right lower extremity venous Doppler August. TECHNIQUE: Sonography of the deep venous system of the right lower extremity was performed. Compression and augmentation were evaluated. FINDINGS: The right common femoral, superficial femoral and popliteal veins were compressible. Augmentation was normal. Flow was shown within the deep calf vessels. IMPRESSION: No evidence of deep venous thrombus within the right lower extremity. Electronically signed by: Ric Hull M.D. 06/03/2016 10:50 PM Laboratory Results 06/03/16 21:50 Red Blood Count 4.04, Mean Corpuscular Volume 96.5, Mean Corpuscular Hemoglobin 33.7, Mean Corpuscular Hemoglobin Concent 34.9, Mean Platelet Volume 9.9, Neutrophils (%) (Auto) 51.8, Lymphocytes (%) (Auto) 37.1, Monocytes (%) (Auto) 9.2, Eosinophils (%) (Auto) 1.3, Basophils (%) (Auto) 0.3, Neutrophils # (Auto) 5.06, Lymphocytes # (Auto) 3.62, Monocytes # (Auto) 0.90, Eosinophils # (Auto) 0.13, Basophils # (Auto) 0.03 06/03/16 21:50 Test 06/03/16 21:50 06/03/16 22:00 White Blood Count 9.77 K/uL (4.8-10.8) Red Blood Count 4.04 M/uL (4.2-5.4) Hemoglobin 13.6 g/dL (12.0-16.0) Hematocrit 39.0 % (37-47) Mean Corpuscular Volume 96.5 fL (80-100) Mean Corpuscular Hemoglobin 33.7 pg (25-34) Mean Corpuscular Hemoglobin Concent 34.9 g/dl (32-36) Platelet Count 243 K/uL (130-400) Mean Platelet Volume 9.9 fL (7.4-10.4) Neutrophils (%) (Auto) 51.8 % Lymphocytes (%) (Auto) 37.1 % Monocytes (%) (Auto) 9.2 % Eosinophils (%) (Auto) 1.3 % Basophils (%) (Auto) 0.3 % Neutrophils # (Auto) 5.06 K/uL (1.4-6.5) Lymphocytes # (Auto) 3.62 K/uL (1.2-3.4) Monocytes # (Auto) 0.90 K/uL (0.11-0.59) Eosinophils # (Auto) 0.13 K/uL (0-0.5) Basophils # (Auto) 0.03 K/uL (0-0.2) RDW Standard Deviation 46.1 fL (36.4-46.3) RDW Coefficient of Variation 13.1 % (11.5-14.5) Immature Granulocyte % (Auto) 0.3 % Immature Granulocyte # (Auto) 0.03 K/uL (0.00-0.02) Anion Gap 10.0 mmol/L (3-11) Est Creatinine Clear Calc Drug Dose 78.1 ml/min Estimated GFR () 74.0 Estimated GFR (Non- 63.8 BUN/Creatinine Ratio 8.8 (10-20) Calcium Level 8.7 mg/dl (8.5-10.1) Total Bilirubin 0.2 mg/dl (0.2-1) Direct Bilirubin < 0.1 mg/dl (0-0.2) Aspartate Amino Transf (AST/SGOT) 27 U/L (15-37) Alanine Aminotransferase (ALT/SGPT) 47 U/L (12-78) Alkaline Phosphatase 142 U/L (45-117) Total Protein 7.3 gm/dl (6.4-8.2) Albumin 3.2 gm/dl (3.4-5.0) Lipase 280 U/L (73-393) Urine Color YELLOW Urine Appearance CLEAR (CLEAR) Urine pH 6.5 (4.5-7.5) Urine Specific [place] 1.001 (1.000-1.030) Urine Protein NEG (NEG) Urine Glucose (UA) NEG (NEG) Urine Ketones NEG (NEG) Urine Occult Blood NEG (NEG) Urine Nitrite NEG (NEG) Urine Bilirubin NEG (NEG) Urine Urobilinogen NEG (NEG) Urine Leukocyte Esterase NEG (NEG) Laboratory results per my review. Medications Administered Medications (Trade) Dose Ordered Sig/Van Route Start Time Stop Time Status Last Admin Dose Admin Sodium Chloride 1,000 ml @ 999 mls/hr Q1H1M STAT IV 06/03/16 21:24 06/03/16 22:24 DC 06/03/16 21:58 999 MLS/HR Promethazine HCl/ Sodium Chloride (Phenergan Inj/ Nss 50ml) 51 ml @ 204 mls/hr NOW STAT IV 06/03/16 21:24 06/03/16 21:38 DC 06/03/16 21:58 204 MLS/HR Hydromorphone HCl (Dilaudid Inj) 1 mg Q30M PRN IV 06/03/16 21:30 06/17/16 21:29 06/03/16 23:22 1 MG ED Course 2121: The patient was evaluated in room A12B. A complete history and physical examination were performed. 2123: Ordered Promethazine HCl 25 mg/Sodium Chloride 51 ml @ 204 mls/hr IV, Sodium Chloride 1,000 ml @ 999 mls/hr IV. 2129: Ordered Dilaudid Inj 1 mg IV. 0: Upon reevaluation, the patient is doing well. I discussed the results and treatment plan with her. She verbalized agreement of the treatment plan. The patient was discharged home. Medical Decision Etiologies such as DVT, musculoskeletal, infection, joint effusion, trauma, lymphedema, idiopathic, CHF, as well as others were entertained.. Nursing notes reviewed. Patient's previous electronic medical records reviewed. The patient is a 56-year-old female who presented to the emergency department with multiple complaints. The patient has been noticing diffuse abdominal pain. She also noticed right sided back pain which radiates to her right leg. The symptoms have been intermittent and ongoing for quite some time. She has known back problems. She also has a stimulator in her back. She has follow-up appointment scheduled with her back specialist. The patient has no focal neurologic deficits. She was able to ambulate without difficulty. I discussed the patient's laboratory and radiographic studies with her. She was treated with IV fluids and IV pain medication in the emergency department. On subsequent reevaluation she was feeling much better. She was encouraged to rest and avoid any strenuous activity. She was also encouraged to call her primary care physician to schedule a follow-up appointment and keep her appointment with her primary back specialist. Otherwise she was encouraged to return to the emergency department immediately if symptoms change worsen or the need arises. Impression Primary Impression: Lumbar radiculopathy Additional Impression: Chronic abdominal pain Scribe Attestation The scribe's documentation has been prepared under my direction and personally reviewed by me in its entirety. I confirm that the note above accurately reflects all work, treatment, procedures, and medical decision making performed by me. Departure Information Dispostion Home / Self-Care Referrals Armando Ward D.O. (PCP) Forms Call Back Authorization, HOME CARE DOCUMENTATION FORM, IMPORTANT VISIT INFORMATION Patient Instructions ED Back Pain Acute Chronic, My [facility] Additional Instructions Continue all medications as prescribed. Rest and avoid any strenuous activity. Problem Qualifiers
[2016-06-03] MEDS: HYDROmorphone INJ 1 MG/ML SYR IV PRN ×2 (21:58→23:22)
[2016-06-03 22:11] LABS: BASO % 0.3 %; BASO ABS # 0.03 K/uL (0-0.2); COMPLETE YES; EOS % 1.3 %; IG% 0.3 %; LYMPH % 37.1 %; LYMPH ABS # 3.62 K/uL (1.2-3.4); MEAN CELL VOLUME 96.5 fL (80-100); MEAN CORPUSCULAR HEMOGLOBIN 33.7 pg (25-34); MEAN CORPUSCULAR HGB CONC 34.9 g/dl (32-36); MEAN PLATELET VOLUME 9.9 fL (7.4-10.4); MONO % 9.2 %; NEUT % 51.8 %; PLATELET COUNT 243 K/uL (130-400); RED BLOOD COUNT 4.04 M/uL (4.2-5.4); WHITE BLOOD COUNT 9.77 K/uL (4.8-10.8)
[2016-06-03 22:20] LABS: MANUAL MICROSCOPIC REQUIRED? NO; REVIEW REQ? NO; URINE APPEARANCE CLEAR (CLEAR); URINE BILIRUBIN NEG (NEG); URINE COLOR YELLOW; URINE NITRITE NEG (NEG); URINE PH 6.5 (4.5-7.5); URINE SPECIFIC GRAVITY 1.001 (1.000-1.030); UROBILINOGEN NEG (NEG)
[2016-06-03 22:30] LABS: ALT/SGPT 47 U/L (12-78); BLOOD UREA NITROGEN 9 mg/dl (7-18); BUN/CREATININE RATIO 8.8 (10-20); CALCIUM 8.7 mg/dl (8.5-10.1); CARBON DIOXIDE 22 mmol/L (21-32); CHLORIDE 111 mmol/L (98-107); GLUCOSE 119 mg/dl (70-99); POTASSIUM 3.3 mmol/L (3.5-5.1); SODIUM 143 mmol/L (136-145)
[2016-06-03 22:33] LABS: ALKALINE PHOSPHATASE 142 U/L (45-117); AST/SGOT 27 U/L (15-37)
--- NOTE | 2016-06-03 22:45 | DIAGNOSTIC IMAGING REPORT ---
PA CHEST RADIOGRAPH AND UPRIGHT AND SUPINE AP RADIOGRAPHS OF THE ABDOMEN CLINICAL HISTORY: Abdominal pain. COMPARISON STUDY: Chest radiograph and abdominal series and CT of the abdomen and pelvis February 17, 2016. FINDINGS: Elevation of the right hemidiaphragm is unchanged. Intracanalicular electrodes are noted. Cardiac size is normal. Mediastinal contours are normal. There is no evidence of pulmonary edema. Linear left basilar opacity suggest atelectasis. No consolidation is identified. There are cholecystectomy clips. There is no free air. The bowel gas pattern is normal. Pelvic calcifications were shown to represent phleboliths on prior CT. IMPRESSION: 1. No free air or evidence of bowel obstruction. 2. No acute cardiopulmonary findings. Electronically signed by: Ric Hull M.D. 06/03/2016 10:44 PM Dictated Date/Time: 06/03/2016 10:42 PM
--- NOTE | 2016-06-03 22:51 | DIAGNOSTIC IMAGING REPORT ---
RIGHT LOWER EXTREMITY VENOUS DOPPLER CLINICAL HISTORY: Right lower extremity pain. COMPARISON STUDY: Right lower extremity venous Doppler August. TECHNIQUE: Sonography of the deep venous system of the right lower extremity was performed. Compression and augmentation were evaluated. FINDINGS: The right common femoral, superficial femoral and popliteal veins were compressible. Augmentation was normal. Flow was shown within the deep calf vessels. IMPRESSION: No evidence of deep venous thrombus within the right lower extremity. Electronically signed by: Ric Hull M.D. 06/03/2016 10:50 PM Dictated Date/Time: 06/03/2016 10:49 PM
[2016-06-03 23:06] VITALS: BP 133/81; PULSE 88; O2SAT 96
[2016-06-17] MEDS ORDERED: OXYC-57 PO (14:58)
[2016-08-05] MEDS ORDERED: VNTHFA/IN INH (15:41)
[2016-08-05] MEDS ORDERED: ZYP10 PO (15:41)
[2016-08-05] MEDS ORDERED: EFFSR75 PO (18:39)
== END 2016-06-03 23:30 | disposition home or self-care (01) ==
LOC: C.EDB 20:41 → C.EDA 23:30
DX: M54.16 Radiculopathy, lumbar region (principal); R10.9 Unspecified abdominal pain; G89.29 Other chronic pain; I10 Essential (primary) hypertension; E78.5 Hyperlipidemia, unspecified; F32.9 Major depressive disorder, single episode, unspecified; G43.909 Migraine, unspecified, not intractable, without status migrainosus; M79.7 Fibromyalgia; F17.200 Nicotine dependence, unspecified, uncomplicated; Z97.8 Presence of other specified devices; Z79.899 Other long term (current) drug therapy; Z83.3 Family history of diabetes mellitus; Z82.49 Family history of ischemic heart disease and other diseases of the circulatory system

== ENCOUNTER 2016-06-06 19:39 | Emergency (ER) | payer OTHER ==
[~2016-06-06] VITALS: Ht 162.6 cm; Wt 109.0 kg
[~2016-06-06 19:39] MED LIST changes: -COLE1TAB5 PO
[2016-06-06 19:52] VITALS: TEMP 37.2; Ht 162.6 cm; Wt 109.0 kg
[2016-06-06] MEDS ORDERED: PROMETHAZINE HCL INJ 12.5 MG in SODIUM CHLORIDE 0.9% 50ML 50 ML IV STA (20:58)
[2016-06-06] MEDS ORDERED: SODIUM CHLORIDE 0.9% 500ML 500 ML IV STA (20:58)
[2016-06-06] MEDS ORDERED: HYDROmorphone INJ 2 MG/ML SYR/VIAL IV PRN (21:00)
[2016-06-06] MEDS ORDERED: AMT24 PO (21:01)
[2016-06-06] MEDS ORDERED: ZYP15 PO (21:07)
--- NOTE | 2016-06-06 21:24 | EMERGENCY ROOM VISIT NOTE ---
History Report prepared by [place]: Michelle Mckenna Under the Supervision of: Dr. Kwesi Nielsen M.D. First contact with patient: 20:56 Chief Complaint: BACK PAIN Stated Complaint: ABD/BACK/RT LEG PAIN History of Present Illness The patient is a 56 year old female who presents to the Emergency Room with complaints of right leg pain that has been constant over the past 4 days. The pain starts in her right hip and radiates down her entire leg. The patient also complains of back pain and abdominal pain. She has a history of chronic right sided abdominal pain that she has been worked up for in the past. The patient notes that she has not been able to sleep the past 2 days secondary to her symptoms. The patient was in the emergency room on June 03 for right sided abdominal pain and right leg pain. She had an obstruction series and right lower extremity ultrasound which were both unrevealing and was discharged from the ED after receiving pain medications and fluids. The patient notes that she had a stimulator placed in her back about 3 years ago for left foot pain which she was told could be causing her right leg pain. She is having the stimulator removed on the . The patient notes that she has had diarrhea throughout the day today. The patient denies any recent falls or injuries. Denies fever, urinary symptoms, or other complaints. Source of History: patient Onset: 4 days ago Position: leg (right) Timing: constant Associated Symptoms: + abdominal pain, + back pain, + diarrhea, No fevers, No urinary symptoms Review of Systems See HPI for pertinent positives & negatives. A total of 10 systems reviewed and were otherwise negative. Past Medical & Surgical Medical Problems: (1) Benign hypertension (2) Chronic abdominal pain (3) Depression (4) Enterohemorrhagic E. coli infection (5) Fibromyalgia (6) Gastroparesis (7) History of Clostridium difficile colitis (8) History of renal calculi (9) History of suicide attempt (10) Hyperlipidemia (11) Hypothyroidism (12) Migraine Surgical Problems: (1) History of appendectomy (2) History of feeding tube placement (3) S/P appendectomy (4) S/P cholecystectomy (5) S/P tonsillectomy and adenoidectomy (6) Status post hernia repair (7) Status post hysterectomy (8) Status post left oophorectomy (9) Status post right oophorectomy (10) Status post sinus surgery Family History Cancer Diabetes mellitus FATHER FHx: diabetes FHx: gallbladder disease FHx: heart disease FATHER FHx: hypertension FATHER MOTHER FHx: seizures Social History Smoking Status: Current Every Day Smoker Alcohol Use: none Drug Use: none Marital Status: Housing Status: lives with significant other Occupation Status: disabled Current/Historical Medications Scheduled Atorvastatin (Atorvastatin Calcium), 10 MG PO HS Gabapentin (Gabapentin), 100 MG PO TID Lamotrigine (Lamictal), 200 MG PO QAM Losartan Potassium (Losartan Potassium), 50 MG PO HS Lubiprostone (Amitiza), 24 MCG PO BID Olanzapine (Olanzapine), 15 MG PO HS Ranitidine Hcl (Zantac), 300 MG PO BID Topiramate (Topamax), 50 MG PO BID Venlafaxine Hcl (Effexor Extended Rel), 225 MG PO QAM Scheduled PRN Lorazepam (Lorazepam), 1 MG PO BID PRN for Anxiety/Insomnia Sumatriptan Succinate (Sumatriptan Succinate), 4 MG INJ UD PRN for Migraine Allergies Coded Allergies: CI Pigment Blue 63 (Verified Allergy, Unknown, shut down, heart and breathing slowed, 06/06/16) Fentanyl (Verified Adverse Reaction, Intermediate, GI SYMPTOMS, 06/06/16) Metoclopramide (Verified Adverse Reaction, Mild, TARDITIVE DYSKENESIA, ) Ondansetron (Verified Adverse Reaction, Mild, HEADACHE, 06/06/16) Tramadol (Verified Adverse Reaction, Mild, VOMITING, 06/06/16) Chlorpromazine (Verified Adverse Reaction, Unknown, dry mouth, 06/06/16) Duloxetine (Verified Adverse Reaction, Unknown, LETHARGIC, 06/06/16) Physical Exam Vital Signs Date Time Temp Pulse Resp B/P Pulse Ox O2 Delivery O2 Flow Rate FiO2 06/06/16 19:52 37.2 109 20 165/87 95 Room Air Physical Exam GENERAL: Patient is in mild distress secondary to pain. HEENT: No acute trauma, normocephalic atraumatic, mucous membranes moist, no nasal congestion, no scleral icterus. NECK: No stridor, no adenopathy, no meningismus, trachea is midline. LUNGS: Clear to auscultation bilaterally, no wheeze, no rhonchi, breath sounds equal. HEART: Mildly tachycardic with a regular rhythm, no murmurs. ABDOMEN: Soft, tender in the right upper quadrant, bowel sounds positive, no hernias, no peritonitis. BACK: No bony step off in the lumbar area, no rash, diffusely mildly tender in the lumbar region. EXTREMITIES: No cyanosis, very mild bilateral pedal edema, no cellulitis, pain to palpate the right lateral hip, full range of motion of all the joints without pain or difficulty, no signs for acute trauma. NEUROLOGIC: Oriented x 3, no acute motor or sensory deficits, no focal weakness. SKIN: No rash, no jaundice, no diaphoresis. Medical Decision & Procedures ER Provider Diagnostic Interpretation: Radiology results and stated below per my review and radiologist interpretation: LUMBAR SPINE 5 VIEWS CLINICAL HISTORY: Chronic low back pain. FINDINGS: 5 views of the lumbar spine are correlated with CT scan of lumbar spine dated 09/02/2015. The skeletal structures are osteopenic. There is no radiographic evidence of fracture or malalignment. Vertebral body height and alignment are maintained. Anterior osteophytes are seen throughout. The transverse and spinous processes are intact. There is no evidence of spondylolysis. There is mild multilevel degenerative disc space narrowing. Mild facet arthropathy seen in the lower lumbar region. The visualized bony pelvis appears intact. There is a nonobstructed abdominal bowel gas pattern noting moderate colonic fecal retention. A neurostimulator device projects over the right lower quadrant. The leads likely anterior the central canal in the thoracic region. This is not visualized. Cholecystectomy clips are identified in the right upper quadrant. Calcified phleboliths are present in the pelvis. IMPRESSION: No acute bony abnormality is seen involving the lumbosacral spine. Electronically signed by: Kwesi Martinez M.D. 06/06/2016 9:32 PM Dictated Date/Time: 06/06/2016 9:30 PM SINGLE VIEW PELVIS CLINICAL HISTORY: Right hip pain. FINDINGS: An AP pelvic radiograph is correlated with pelvic CT dated 02/17/2016. The skeletal structures are osteopenic. No fracture is identified. A large enthesophyte arises from the right anterior superior iliac spine. There is only minimal arthritic change is noted in the hip joints. The sacroiliac joints are normal as imaged. A neurostimulator device projects over the right lower quadrant. Phleboliths are observed in the pelvis. There is a nonobstructed abdominal bowel gas pattern. IMPRESSION: No acute bony abnormality is seen in the hips or pelvis. Electronically signed by: Kwesi Martinez M.D. 06/06/2016 9:34 PM Dictated Date/Time: 06/06/2016 9:33 PM Laboratory Results 06/06/16 21:45 Red Blood Count 4.10, Mean Corpuscular Volume 97.1, Mean Corpuscular Hemoglobin 34.1, Mean Corpuscular Hemoglobin Concent 35.2, Mean Platelet Volume 10.0, Neutrophils (%) (Auto) 58.5, Lymphocytes (%) (Auto) 31.6, Monocytes (%) (Auto) 8.2, Eosinophils (%) (Auto) 1.0, Basophils (%) (Auto) 0.3, Neutrophils # (Auto) 6.52, Lymphocytes # (Auto) 3.52, Monocytes # (Auto) 0.91, Eosinophils # (Auto) 0.11, Basophils # (Auto) 0.03 06/06/16 21:45 Test 06/06/16 21:45 White Blood Count 11.13 K/uL (4.8-10.8) Red Blood Count 4.10 M/uL (4.2-5.4) Hemoglobin 14.0 g/dL (12.0-16.0) Hematocrit 39.8 % (37-47) Mean Corpuscular Volume 97.1 fL (80-100) Mean Corpuscular Hemoglobin 34.1 pg (25-34) Mean Corpuscular Hemoglobin Concent 35.2 g/dl (32-36) Platelet Count 232 K/uL (130-400) Mean Platelet Volume 10.0 fL (7.4-10.4) Neutrophils (%) (Auto) 58.5 % Lymphocytes (%) (Auto) 31.6 % Monocytes (%) (Auto) 8.2 % Eosinophils (%) (Auto) 1.0 % Basophils (%) (Auto) 0.3 % Neutrophils # (Auto) 6.52 K/uL (1.4-6.5) Lymphocytes # (Auto) 3.52 K/uL (1.2-3.4) Monocytes # (Auto) 0.91 K/uL (0.11-0.59) Eosinophils # (Auto) 0.11 K/uL (0-0.5) Basophils # (Auto) 0.03 K/uL (0-0.2) RDW Standard Deviation 45.6 fL (36.4-46.3) RDW Coefficient of Variation 12.9 % (11.5-14.5) Immature Granulocyte % (Auto) 0.4 % Immature Granulocyte # (Auto) 0.04 K/uL (0.00-0.02) Anion Gap 12.0 mmol/L (3-11) Est Creatinine Clear Calc Drug Dose 77.6 ml/min Estimated GFR () 74.0 Estimated GFR (Non- 63.8 BUN/Creatinine Ratio 10.9 (10-20) Calcium Level 8.7 mg/dl (8.5-10.1) Total Bilirubin 0.2 mg/dl (0.2-1) Aspartate Amino Transf (AST/SGOT) 27 U/L (15-37) Alanine Aminotransferase (ALT/SGPT) 40 U/L (12-78) Alkaline Phosphatase 141 U/L (45-117) Total Protein 7.4 gm/dl (6.4-8.2) Albumin 3.2 gm/dl (3.4-5.0) Globulin 4.2 gm/dl (2.5-4.0) Albumin/Globulin Ratio 0.8 (0.9-2) Chemistry Specimen Hemolysis Laboratory results reviewed by me. Medications Administered Medications (Trade) Dose Ordered Sig/Van Route Start Time Stop Time Status Last Admin Dose Admin Hydromorphone HCl 1 mg 1 mg Q30M PRN IV 06/06/16 21:00 06/20/16 20:59 06/06/16 21:59 1 MG Promethazine HCl 12.5 mg/Sodium Chloride 50.5 ml @ 204 mls/hr NOW STAT IV 06/06/16 20:58 06/06/16 21:12 DC 06/06/16 21:58 204 MLS/HR Sodium Chloride (Nss 500ml) 500 ml @ 999 mls/hr Q31M STAT IV 06/06/16 20:58 06/06/16 21:28 DC 06/06/16 21:58 999 MLS/HR Hydromorphone HCl (Dilaudid Inj) 1 mg NOW STAT IV 06/06/16 22:30 06/06/16 22:31 DC 06/06/16 22:38 1 MG ED Course 2056: The patient was evaluated in room B6. A complete history and physical exam was performed. Ordered NSS 500 ml @ 999 mls/hr IV, Promethazine HCl 12.5 mg /NSS 50.5 ml @ 204 mls/hr IV, Dilaudid Inj 1 mg IV. 2227: Reevaluated the patient. Discussed results and discharge instructions: She verbalized understanding and agreement. The patient is ready for discharge. 2229: Ordered Dilaudid Inj 1 mg IV. Medical Decision Differentials include musculoskeletal pain, sciatica, lumbar fracture, nerve impingement, DVT, cellulitis, acute on chronic pain, herniated disc. The patient presents with her chronic abdominal pain. She has had this issue for a long time. Her issue tonight though is complicating by some right leg pain. She was seen in this ER a few days ago and an ultrasound of the leg was negative, no clot was seen. She was told that her pain was likely sciatica. Patient received IV Dilaudid, IV Phenergan, IV saline, she does feel improved. There is a mild leukocytosis, this has been documented with her in the past, I think this is likely from her pain. There was no worrisome anemia. No significant electrolyte abnormality or kidney failure. There was no hepatitis. Films of the pelvis were done, no hip fracture, no significant arthritis. Lumbar spine series showed no malalignment or bony fracture. The patient was somewhat reassured. She is being discharged to follow as an outpatient for her up-coming surgery. She was encouraged to follow with her doctors office. She can return if worsening. Impression Primary Impression: RUQ abdominal pain Additional Impression: Right leg pain Scribe Attestation The scribe's documentation has been prepared under my direction and personally reviewed by me in its entirety. I confirm that the note above accurately reflects all work, treatment, procedures, and medical decision making performed by me. Departure Information Dispostion Home / Self-Care Referrals Armando Ward D.O. (PCP) Patient Instructions My [facility] Additional Instructions see your doctor in follow up xrays today were ok return for fever or if worsening Problem Qualifiers
--- NOTE | 2016-06-06 21:34 | DIAGNOSTIC IMAGING REPORT ---
LUMBAR SPINE 5 VIEWS CLINICAL HISTORY: Chronic low back pain. FINDINGS: 5 views of the lumbar spine are correlated with CT scan of lumbar spine dated 09/02/2015. The skeletal structures are osteopenic. There is no radiographic evidence of fracture or malalignment. Vertebral body height and alignment are maintained. Anterior osteophytes are seen throughout. The transverse and spinous processes are intact. There is no evidence of spondylolysis. There is mild multilevel degenerative disc space narrowing. Mild facet arthropathy seen in the lower lumbar region. The visualized bony pelvis appears intact. There is a nonobstructed abdominal bowel gas pattern noting moderate colonic fecal retention. A neurostimulator device projects over the right lower quadrant. The leads likely anterior the central canal in the thoracic region. This is not visualized. Cholecystectomy clips are identified in the right upper quadrant. Calcified phleboliths are present in the pelvis. IMPRESSION: No acute bony abnormality is seen involving the lumbosacral spine. Electronically signed by: Kwesi Martinez M.D. 06/06/2016 9:32 PM Dictated Date/Time: 06/06/2016 9:30 PM
--- NOTE | 2016-06-06 21:36 | DIAGNOSTIC IMAGING REPORT ---
SINGLE VIEW PELVIS CLINICAL HISTORY: Right hip pain. FINDINGS: An AP pelvic radiograph is correlated with pelvic CT dated 02/17/2016. The skeletal structures are osteopenic. No fracture is identified. A large enthesophyte arises from the right anterior superior iliac spine. There is only minimal arthritic change is noted in the hip joints. The sacroiliac joints are normal as imaged. A neurostimulator device projects over the right lower quadrant. Phleboliths are observed in the pelvis. There is a nonobstructed abdominal bowel gas pattern. IMPRESSION: No acute bony abnormality is seen in the hips or pelvis. Electronically signed by: Kwesi Martinez M.D. 06/06/2016 9:34 PM Dictated Date/Time: 06/06/2016 9:33 PM
[2016-06-06 22:00] LABS: BASO % 0.3 %; BASO ABS # 0.03 K/uL (0-0.2); COMPLETE YES; HEMATOCRIT 39.8 % (37-47); IG% 0.4 %; LYMPH % 31.6 %; LYMPH ABS # 3.52 K/uL (1.2-3.4); MEAN CELL VOLUME 97.1 fL (80-100); MEAN CORPUSCULAR HEMOGLOBIN 34.1 pg (25-34); MEAN CORPUSCULAR HGB CONC 35.2 g/dl (32-36); MONO % 8.2 %; NEUT % 58.5 %; PLATELET COUNT 232 K/uL (130-400); WHITE BLOOD COUNT 11.13 K/uL (4.8-10.8)
[2016-06-06] MEDS ORDERED: NRN100 PO (22:02)
[2016-06-06 22:24] LABS: ALB/GLOB RATIO 0.8 (0.9-2); BUN/CREATININE RATIO 10.9 (10-20); CALCIUM 8.7 mg/dl (8.5-10.1); POTASSIUM 3.6 mmol/L (3.5-5.1)
[2016-06-06] MEDS ORDERED: HYDROmorphone INJ 2 MG/ML SYR/VIAL IV STA (22:30)
[2016-06-06 23:08] VITALS: BP 139/92; PULSE 90; O2SAT 93
[2016-06-17] MEDS ORDERED: OXYC-57 PO (14:58)
[2016-08-05] MEDS ORDERED: ZYP10 PO (15:41)
[2016-08-05] MEDS ORDERED: VNTHFA/IN INH (15:41)
[2016-08-05] MEDS ORDERED: EFFSR75 PO (18:39)
== END 2016-06-06 23:09 | disposition home or self-care (01) ==
LOC: C.EDB 19:40
DX: R10.11 Right upper quadrant pain (principal); M79.604 Pain in right leg; I10 Essential (primary) hypertension; F32.9 Major depressive disorder, single episode, unspecified; M79.7 Fibromyalgia; K31.84 Gastroparesis; Z87.442 Personal history of urinary calculi; E78.5 Hyperlipidemia, unspecified; E03.9 Hypothyroidism, unspecified; G43.909 Migraine, unspecified, not intractable, without status migrainosus; F17.210 Nicotine dependence, cigarettes, uncomplicated; Z80.9 Family history of malignant neoplasm, unspecified; Z83.3 Family history of diabetes mellitus; Z83.79 Family history of other diseases of the digestive system; Z82.49 Family history of ischemic heart disease and other diseases of the circulatory system; Z79.899 Other long term (current) drug therapy

== ENCOUNTER 2016-06-17 12:20 | Day surgery (SDC) | payer OTHER ==
[2016-06-03 08:39] VITALS: BMI 41.0
--- NOTE | 2016-06-03 09:06 | PAT Medication Instructions ---
Service Date Jun 03, 2016. Current Home Medication List Atorvastatin (Atorvastatin Calcium), 10 MG PO HS Gabapentin (Neurontin), 100 MG PO TID Lamotrigine (Lamictal), 200 MG PO QAM Lorazepam (Lorazepam), 1 MG PO BID PRN for Anxiety/Insomnia Losartan Potassium (Losartan Potassium), 50 MG PO HS Lubiprostone (Amitiza), 24 MCG PO BID Olanzapine (Olanzapine), 15 MG PO HS Ranitidine Hcl (Zantac), 300 MG PO BID Sumatriptan Succinate (Sumatriptan Succinate), 4 MG INJ UD PRN for Migraine Topiramate (Topamax), 50 MG PO BID Venlafaxine Hcl (Effexor Extended Rel), 225 MG PO QAM Medication Instructions For Your Scheduled Surgery - Hold the following medications the morning of surgery: Lubiprostone (Amitiza), 24 MCG PO BID - Take the following medications the morning of surgery with a sip of water OTHERWISE NOTHING TO EAT OR DRINK AFTER MIDNIGHT: Gabapentin (Neurontin), 100 MG PO TID Ranitidine Hcl (Zantac), 300 MG PO BID Topiramate (Topamax), 50 MG PO BID Lamotrigine (Lamictal), 200 MG PO QAM Lorazepam (Lorazepam), 1 MG PO BID PRN for Anxiety/Insomnia Sumatriptan Succinate (Sumatriptan Succinate), 4 MG INJ UD PRN for Migraine Venlafaxine Hcl (Effexor Extended Rel), 225 MG PO QAM - Take the following medications as scheduled the night before surgery: Atorvastatin (Atorvastatin Calcium), 10 MG PO HS Gabapentin (Neurontin), 100 MG PO TID Ranitidine Hcl (Zantac), 300 MG PO BID Topiramate (Topamax), 50 MG PO BID Lorazepam (Lorazepam), 1 MG PO BID PRN for Anxiety/Insomnia Sumatriptan Succinate (Sumatriptan Succinate), 4 MG INJ UD PRN for Migraine Olanzapine (Olanzapine), 15 MG PO HS Lubiprostone (Amitiza), 24 MCG PO BID - DO NOT TAKE the following medications the night before surgery: Losartan Potassium (Losartan Potassium), 50 MG PO HS If you have any questions please call us at [phone] or [phone] or [phone]
[2016-06-03 11:29] LABS: URINE APPEARANCE CLEAR (CLEAR); URINE BILIRUBIN NEG (NEG); URINE COLOR YELLOW; URINE NITRITE NEG (NEG); URINE PH 5.5 (4.5-7.5); URINE SPECIFIC GRAVITY 1.001 (1.000-1.030); UROBILINOGEN NEG (NEG)
[2016-06-03 11:30] LABS: MANUAL MICROSCOPIC REQUIRED? NO; REVIEW REQ? NO
[~2016-06-17] VITALS: Ht 162.6 cm; Wt 109.2 kg
--- NOTE | 2016-06-17 07:28 | History & Physical Bridge Note ---
H&P Re-Evaluation Bridge Note: I have examined the patient, reviewed the History & Physical and in the interval since the performance of the History & Physical I have noted the following changes of clinical significance: No changes noted
--- NOTE | 2016-06-17 09:51 | History and Physical ---
History & Physical Date & Time of Service: Jun 17, 2016 at 09:47 Chief Complaint: Lumbar Stenosis Primary Care Physician: Armando Ward D.O. History of Present Illness Source: patient Patient has a non functioning SCS and presents for removal. Past Medical/Surgical History Medical Problems: (1) Benign hypertension Status: Chronic (2) Chronic abdominal pain Status: Chronic (3) Depression Status: Chronic (4) Enterohemorrhagic E. coli infection Status: Resolved (5) Fibromyalgia Status: Chronic (6) Gastroparesis Status: Chronic (7) History of Clostridium difficile colitis Status: Chronic (8) History of renal calculi Status: Chronic (9) History of suicide attempt Status: Chronic (10) Hyperlipidemia Status: Chronic (11) Hypothyroidism Status: Chronic (12) Migraine Status: Chronic Surgical Problems: (1) History of appendectomy Status: Resolved (2) History of feeding tube placement Permanent Comment: removed 2010 Status: Chronic (3) S/P appendectomy Status: Chronic (4) S/P cholecystectomy Status: Chronic (5) S/P tonsillectomy and adenoidectomy Status: Chronic (6) Status post hernia repair Status: Chronic (7) Status post hysterectomy Status: Chronic (8) Status post left oophorectomy Status: Chronic (9) Status post right oophorectomy Status: Chronic (10) Status post sinus surgery Status: Chronic Family History Cancer Diabetes mellitus FATHER FHx: diabetes FHx: gallbladder disease FHx: heart disease FATHER FHx: hypertension FATHER MOTHER FHx: seizures Social History Smoking Status: Current Every Day Smoker Drug Use: none Marital Status: Housing status: lives with significant other Occupational Status: disabled Immunizations History of Influenza Vaccine: Yes History of Tetanus Vaccine?: Yes Tetanus Immunization Date: Aug 11, 2003 History of Pneumococcal: No Pneumococcal Date: Jun 04, 2008 History of Hepatitis B Vaccine: No Multi-Drug Resistant Organisms History of MDRO: No Allergies Coded Allergies: CI Pigment Blue 63 (Verified Allergy, Unknown, shut down, heart and breathing slowed, 06/06/16) Fentanyl (Verified Adverse Reaction, Intermediate, GI SYMPTOMS, 06/06/16) Metoclopramide (Verified Adverse Reaction, Mild, TARDITIVE DYSKENESIA, ) Ondansetron (Verified Adverse Reaction, Mild, HEADACHE, 06/06/16) Tramadol (Verified Adverse Reaction, Mild, VOMITING, 06/06/16) Chlorpromazine (Verified Adverse Reaction, Unknown, dry mouth, 06/06/16) Duloxetine (Verified Adverse Reaction, Unknown, LETHARGIC, 06/06/16) Home Medications Scheduled Atorvastatin (Atorvastatin Calcium), 10 MG PO HS Gabapentin (Gabapentin), 100 MG PO TID Lamotrigine (Lamictal), 200 MG PO QAM Losartan Potassium (Losartan Potassium), 50 MG PO HS Lubiprostone (Amitiza), 24 MCG PO BID Olanzapine (Olanzapine), 15 MG PO HS Ranitidine Hcl (Zantac), 300 MG PO BID Topiramate (Topamax), 50 MG PO BID Venlafaxine Hcl (Effexor Extended Rel), 225 MG PO QAM Scheduled PRN Lorazepam (Lorazepam), 1 MG PO BID PRN for Anxiety/Insomnia Sumatriptan Succinate (Sumatriptan Succinate), 4 MG INJ UD PRN for Migraine Physical Exam General Appearance: WD/WN Head: normocephalic Eyes: normal inspection ENT: normal ENT inspection Neck: supple Respiratory/Chest: chest non-tender Cardiovascular: regular rate, rhythm Abdomen/GI: normal bowel sounds Back: normal inspection Extremities/Musculoskelatal: normal inspection, non-tender Neurologic/Psych: 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 Impression Assessment and Plan Non functioning SCS. Plan to surgically remove it today. Risks and benefits reviewed.
[~2016-06-17 12:20] MED LIST changes: +AMT24 PO; +CEFAZOLIN 1000MG/55 ML D5W IV SCH; -GABA-112 PO; +LACTATED RINGER'S 1000ML 1,000 ML IV SCH; +NRN100 PO; +ZYP15 PO
[2016-06-17] MEDS ORDERED: CEFAZOLIN 2000 MG/60 ML D5W IV SCH (12:45)
[2016-06-17 12:49] VITALS: BP 140/68; PULSE 96; TEMP 36.5; O2SAT 98; Ht 162.6 cm; Wt 109.2 kg
[2016-06-17] MEDS ORDERED: ATROPINE SULFATE 0.1 MG/ML 5ML SYR IV PRN (13:45)
[2016-06-17] MEDS ORDERED: ONDANSETRON INJ 2 MG/ML 2 ML VIAL IV PRN (13:45)
[2016-06-17] MEDS ORDERED: LABETALOL HCL IV 5 MG/ML 20ML IV PRN (13:45)
[2016-06-17] MEDS ORDERED: HYDROmorphone INJ 2 MG/ML SYR/VIAL IV PRN (13:45)
[2016-06-17] MEDS ORDERED: BUPIVACAINE/EPINEPHRINE 0.5% MPF 1:200,000 30 ML VIAL ONE (14:06)
[2016-06-17] MEDS ORDERED: BACITRACIN 50000 UNIT VIAL ONE (14:07)
[2016-06-17] MEDS ORDERED: FENTANYL CITRATE INJ 50 MCG/1 ML 2 ML VIAL ONE ×2 (14:09→14:28)
[2016-06-17] MEDS ORDERED: MIDAZOLAM HCL 1 MG/ML 2ML VIAL ONE (14:09)
[2016-06-17] MEDS ORDERED: HYDROmorphone INJ 2 MG/ML SYR/VIAL ONE (14:28)
[2016-06-17] MEDS ORDERED: NEOSTIGMINE METHYLSULFATE 1 MG/ML 10ML VIAL ONE (14:42)
[2016-06-17] MEDS ORDERED: GLYCOPYRROLATE INJ 0.2 MG/ML VIAL ONE (14:42)
[2016-06-17] MEDS ORDERED: ROCURONIUM BROMIDE 10 MG/ML 5 ML VIAL ONE (14:42)
[2016-06-17] MEDS ORDERED: DEXAMETHASONE SOD INJ 4 MG/ML VIAL ONE (14:42)
[2016-06-17] MEDS ORDERED: LIDOCAINE HCL 2% 2 ML VIAL (20MG/ML) ONE (14:42)
[2016-06-17] MEDS ORDERED: ONDANSETRON INJ 2 MG/ML 2 ML VIAL ONE (14:42)
[2016-06-17] MEDS ORDERED: KETOROLAC TROMETHAMINE 30 MG/ML VIAL ONE (14:42)
[2016-06-17] MEDS ORDERED: PROPOFOL IV EMULSION 10 MG/ML 20 ML VIAL IV ONE (14:42)
[2016-06-17] MEDS ORDERED: FLOSEAL HEMOSTATIC MATRIX 5ML TOP ONE (14:54)
--- NOTE | 2016-06-17 14:57 | [facility] Post Operative Brief Note ---
Immediate Operative Summary Operative Date Jun 17, 2016. Pre-Operative Diagnosis Non-functioning spinal cord stimulator Post-Operative Diagnosis Non-functioning spinal cord stimulator Procedure(s) Performed Dorsal Stim Removal Surgeon Dr. Lundberg Radiation Protection Engineer Surgeon(s) JB Mensah Estimated Blood Loss 5ML Findings none Specimens A) Dorsal Stim Explant
[2016-06-17] MEDS ORDERED: OXYC-57 PO (14:58)
--- NOTE | 2016-06-17 14:59 | Discharge Instructions ---
Discharge Instructions Admission Reason for Admission: Lumbar Stenosis Discharge Discharge Diagnosis / Problem: back pain Discharge Goals Goal(s): Improve function Activity Recommendations Activity Limitations: per Instructions/Follow-up section . Instructions / Follow-Up Instructions / Follow-Up ACTIVITY RECOMMENDATIONS: SELF CARE INSTRUCTIONS AFTER A LAMINECTOMY 1. No prolonged sitting (less than 30 minutes for the first 3 weeks after surgery). 2. No bending, lifting more than 5 pounds, or twisting (roll like a log when turning in bed). 3. You may shower 3 days after surgery if no drainage from wound. Thoroughly dry wound. Do not soak in the tub. 4. Please walk as much as you can for exercise. Gradually increase the distance that you walk as your endurance increases. 5. You may drive in 7-10 days if you are comfortable and no longer requiring pain medications. SPECIAL CARE INSTRUCTIONS: VERY IMPORTANT TO READ AND REVIEW A. Your surgical incision has been closed with a cosmetic suture under the skin that will dissolve in about 6 weeks. In 14 days, you can use a pair of clean scissors and cut the suture that is left outside of the skin at the ends of your incision. B. Complications are uncommon, but please contact us if you have any signs or symptoms of: 1. wound infection (fever higher than 102.5 degrees F, redness, separation of wound, drainage, or increasing pain from the incision) 2. blood clots in legs (pain, swelling, redness and warmth in legs) 3. urinary tract infection (fever higher than 102.5 degrees, burning upon urination or increased frequency of urination) 4. nerve problems (inability to walk on your toes or heels, numbness, loss of bowel or bladder control) 5. any other symptoms that concern you. C. Please call the office at if you have any concerns or questions about your operation or recovery. MANAGING PAIN AFTER SPINAL SURGERY 1. Narcotic medication is intended for short-term use and will be provided for surgical pain. Surgical pain usually lasts for a period of 4-6 weeks. Narcotic medication includes Percocet, Vicodin, Darvocet, Tylenol #3 or Lortab. 2. Longer-term pain is more appropriately treated with non-narcotic medication such as Tylenol ES. 3. Muscle spasm is not appropriately treated with narcotics. Muscle relaxers such as Soma, Flexeril or Skelaxin can be used along with Tylenol ES. 4. Remember that we all live with some "aches and pains". This is not unusual or uncommon after an injury or as we get older. 5. We will provide appropriate medication within the normal guidelines of their prescribed use. We will also be very cautious and aware of potential abuse and extended duration of patients' medication needs. 6. Please allow 2-3 days to process refills. Prescriptions will not be mailed but must be picked up at the office. FOLLOW UP VISIT: Keep your scheduled follow-up appointment. Any questions, please call the office at . Current Hospital Diet Patient's current hospital diet: Discharge Diet Recommended Diet: Regular Diet Procedures Procedures Performed: Dorsal Stim Removal Pending Studies Studies pending at discharge: no Medical Emergencies . Who to Call and When: Medical Emergencies: If at any time you feel your situation is an emergency, please call 911 immediately. . Non-Emergent Contact Non-Emergency issues call your: Primary Care Provider . "Provider Documentation" section prepared by Jonas Lundberg. VTE Core Measure Inpt VTE Proph given/why not?: Ronda Lopez, SCD's
[2016-06-17] MEDS ORDERED: ACETAMINOPHEN 325 MG TAB PO PRN (15:00)
[2016-06-17] MEDS ORDERED: HYDROmorphone INJ 1 MG/ML SYR IV PRN (15:00)
[2016-06-17] MEDS ORDERED: ACETAMINOPHEN 650 MG SUPP PR PRN (15:00)
[2016-06-17] MEDS ORDERED: KETOROLAC TROMETHAMINE 30 MG/ML VIAL IV. PRN (15:00)
--- NOTE | 2016-06-17 15:01 | DIAGNOSTIC IMAGING REPORT ---
LUMBAR SPINE, INTRAOPERATIVE FLUOROSCOPY HISTORY: Battery exchange/removal. FLUOROSCOPY TIME: 7 seconds. FINDINGS: Intraoperative fluoroscopy was provided for the lumbar spine. 4 fluoroscopic spot images were obtained. IMPRESSION: Fluoroscopy provided for a lead and battery removal. Electronically signed by: Eugenio Davidson M.D. 06/17/2016 3:00 PM Dictated Date/Time: 06/17/2016 2:58 PM
--- NOTE | 2016-06-17 15:25 | OPERATIVE REPORT ---
DATE OF OPERATION: 06/17/2016 PREOPERATIVE DIAGNOSIS: Nonfunctional spinal cord stimulator. POSTOPERATIVE DIAGNOSIS: Same. PROCEDURES PERFORMED: 1. Revision laminotomy T10. 2. Removal of dorsal column stimulator paddle and battery. SURGEON: Dr. Jonas Lundberg. DOUBLE NEEDLE OPERATOR: Juan Carlos Mckeon PA-C. Due to the complex nature of the procedure, the entire surgery was performed with the operational assistance of JB Rocha. The neurosurgical physician assistant, under direct supervision, was involved in the actual performance of all aspects of the surgical procedure including hemostasis, tissue retraction and incision, instrument management, patient positioning, and wound closure. ANESTHESIA: General. DISPOSITION: The patient awakened and taken to PACU in stable condition. HISTORY OF PATIENT'S PROBLEMS: A 56-year-old female that presents with the above-mentioned diagnosis. Subsequently, she elected to have the dorsal column stimulator removed. Risks, benefits, pros, cons, and alternatives were outlined in detail preoperatively. OPERATION AND FINDINGS: The patient was met with preoperatively, case discussed and all questions were addressed. At that point the patient was taken back to the operative suite and after undergoing successful general endotracheal intubation via the department of anesthesia was placed in prone position on [place] table with a chest pad and hip bolsters. All bony prominences were well padded and the eyes were inspected to ensure there was no external pressure placed upon them. At this point the thoracolumbar spine was prepped and draped in normal sterile fashion. With the assistance of fluoroscopy, we identified the T10 laminotomy site and sharp dissection with the assistance of Bovie cautery was performed down to and exposing the leads and laminotomy site of T10. I then performed a small revision decompression to adequately free up the dorsal column stimulator paddle from all scarring. It was removed without incident. The battery site was also exposed and battery removed without difficulty. We verified removal of all of the implant with fluoroscopy and copiously irrigated the incision sites and closed with subcutaneous Vicryl and 4-0 Monocryl for final skin closure. Steri-Strips and sterile dressing placed. The patient was awakened and taken to PACU in stable condition. I attest to the content of the Intraoperative Record and any orders documented therein. Any exceptio ns are noted below.
--- NOTE | 2016-06-17 15:46 | Anesthesiology Progress Note ---
Anesthesia Post Op Note Date & Time Jun 17, 2016 at 15:46 Vital Signs Pain Intensity: 1 Vital Signs Past 12 Hours Date Time Temp Pulse Resp B/P Pulse Ox O2 Delivery O2 Flow Rate FiO2 06/17/16 15:30 90 16 169/88 95 Mask 15 06/17/16 15:20 36.3 90 16 198/95 95 Mask 15 06/17/16 12:49 36.5 96 18 140/68 98 Room Air Notes Mental Status: alert / awake / arousable, participated in evaluation Pt Amnestic to Procedure: Yes Nausea / Vomiting: adequately controlled Pain: adequately controlled Airway Patency, RR, SpO2: stable & adequate BP & HR: stable & adequate Hydration State: stable & adequate Anesthetic Complications: no major complications apparent
[2016-06-17 16:05] VITALS: BP 155/65; PULSE 84; TEMP 36.4; O2SAT 93
[2016-06-17] MEDS ORDERED: OXYCODONE/ACETAMINOPHEN 5-325 TAB ONE (16:17)
[2016-06-17] MEDS ORDERED: NURSING VERBAL MED ORDER ONE (16:30)
[2016-06-17 16:35] VITALS: BP 138/64; PULSE 80; O2SAT 93
[2016-06-17 17:05] VITALS: BP 150/90; PULSE 80; TEMP 36.6; O2SAT 93
[2016-08-05] MEDS ORDERED: ZYP10 PO (15:41)
[2016-08-05] MEDS ORDERED: VNTHFA/IN INH (15:41)
[2016-08-05] MEDS ORDERED: EFFSR75 PO (18:39)
== END 2016-06-17 17:22 | disposition home or self-care (01) ==
LOC: C.ACU 12:20
PROVIDERS: ATTEND Orthopaedic Surgery Orthopaedic Surgery of the Spine
DX: T85.192A Other mechanical complication of implanted electronic neurostimulator of spinal cord electrode (lead), initial encounter (principal); Y84.8 Other medical procedures as the cause of abnormal reaction of the patient, or of later complication, without mention of misadventure at the time of the procedure; I10 Essential (primary) hypertension; M79.7 Fibromyalgia; K31.84 Gastroparesis; E78.5 Hyperlipidemia, unspecified; G43.909 Migraine, unspecified, not intractable, without status migrainosus; Z90.710 Acquired absence of both cervix and uterus; Z87.442 Personal history of urinary calculi; Z98.890 Other specified postprocedural states; Z90.49 Acquired absence of other specified parts of digestive tract

== ENCOUNTER → 2016-06-25 | Outpatient (CLI) | payer OTHER ==
[~2016-06-25] MED LIST changes: +ATV1 PO; +AZIT250T5 PO; -CEFAZOLIN 1000MG/55 ML D5W IV SCH; +CZR50 PO; +EFFSR75 PO; +FURO20TA PO; -LACTATED RINGER'S 1000ML 1,000 ML IV SCH; +LAMO200T38 PO; +LPT10 PO; +OXYC-57 PO; +POTA1CAP2 PO; +PRED20TA PO; +PRED50TA PO; +RANI300T PO; +TPM/50 PO; +VNTHFA/IN INH; +ZYP10 PO; +[UNRECOGNIZED DRUG - CODE] INJ
--- NOTE | 2016-06-25 16:12 | DIAGNOSTIC IMAGING REPORT ---
ULTRASOUND LEFT LOWER EXTREMITY VENOUS CLINICAL HISTORY: Left leg pain. Edema. COMPARISON STUDY: Left lower extremity venous ultrasound dated 11/23/2010. TECHNIQUE: Real-time, grayscale, and color Doppler sonography of the deep veins of the left lower extremity was performed from the inguinal crease to the calf. Compression and augmentation were utilized. FINDINGS: There is no sonographic evidence of deep venous thrombosis identified in the left lower extremity. The common femoral, superficial femoral, and popliteal veins are patent and normally compressible. The greater saphenous vein and the profunda femoris vein at the junction with the common femoral vein are clear. The visualized calf veins are patent. A popliteal cyst measures 3.7 x 1.3 x 3.3 cm. IMPRESSION: 1. There is no sonographic evidence of deep venous thrombosis identified in the left lower extremity. 2. Popliteal cyst. Electronically signed by: Kwesi Martinez M.D. 06/25/2016 4:11 PM Dictated Date/Time: 06/25/2016 4:10 PM
== END | disposition home or self-care (01) ==
LOC: C.ULTR 15:18
PROVIDERS: ATTEND Internal Medicine
DX: R60.0 Localized edema (principal); M79.662 Pain in left lower leg; Z98.890 Other specified postprocedural states; R63.5 Abnormal weight gain; M71.22 Synovial cyst of popliteal space [Baker], left knee

== ENCOUNTER 2016-06-26 08:01 | Emergency (ER) | payer OTHER ==
[~2016-06-26] VITALS: Ht 162.6 cm; Wt 113.0 kg
[~2016-06-26 08:01] MED LIST changes: -ATV1 PO; -AZIT250T5 PO; -CZR50 PO; -EFFSR75 PO; -FURO20TA PO; -LAMO200T38 PO; -LPT10 PO; -POTA1CAP2 PO; -PRED20TA PO; -PRED50TA PO; -RANI300T PO; -TPM/50 PO; -VNTHFA/IN INH; -ZYP10 PO; -[UNRECOGNIZED DRUG - CODE] INJ
[2016-06-26 08:04] VITALS: TEMP 36.4; Ht 162.6 cm; Wt 113.0 kg
--- NOTE | 2016-06-26 08:18 | EMERGENCY ROOM VISIT NOTE ---
History Report prepared by Edmond: Jaime Claudio Under the Supervision of: Dr. Ilan Brown M.D. First contact with patient: 08:10 Chief Complaint: SWELLING TO EXTREMITY Stated Complaint: PAIN/SWELLING OF FEET, ANKLES AND LEGS History of Present Illness The patient is a 56 year old female who presents to the Emergency Room with complaints of persistent bilateral leg pain for the past several days. The pain is rated 8/10 in severity. She also notes increased swelling of the lower extremities and shortness of breath. The patient's symptoms started after having a stimulator removed from her back by Dr. Lundberg. The patient has an ultrasound yesterday to rule out DVT. She is not currently on any diuretics. Source of History: patient Onset: several days Position: leg (bilateral) Symptom Intensity: 8/10 Timing: other (persistent) Associated Symptoms: + SOB Review of Systems All systems have been listed, reviewed, and are negative other than those previously mentioned. Please see Additional Medical History Sheet. Past Medical & Surgical Medical Problems: (1) Benign hypertension (2) Chronic abdominal pain (3) Depression (4) Enterohemorrhagic E. coli infection (5) Fibromyalgia (6) Gastroparesis (7) History of Clostridium difficile colitis (8) History of renal calculi (9) History of suicide attempt (10) Hyperlipidemia (11) Hypothyroidism (12) Migraine Surgical Problems: (1) History of appendectomy (2) History of feeding tube placement (3) S/P appendectomy (4) S/P cholecystectomy (5) S/P tonsillectomy and adenoidectomy (6) Status post hernia repair (7) Status post hysterectomy (8) Status post left oophorectomy (9) Status post right oophorectomy (10) Status post sinus surgery Family History Cancer Diabetes mellitus FATHER FHx: diabetes FHx: gallbladder disease FHx: heart disease FATHER FHx: hypertension FATHER MOTHER FHx: seizures Social History Smoking Status: Current Every Day Smoker Alcohol Use: none Drug Use: none Marital Status: Housing Status: lives with significant other Occupation Status: disabled Current/Historical Medications Scheduled Atorvastatin (Atorvastatin Calcium), 10 MG PO HS Furosemide (Lasix), 20 MG PO DAILY Lamotrigine (Lamictal), 200 MG PO QAM Losartan Potassium (Losartan Potassium), 50 MG PO HS Lubiprostone (Amitiza), 24 MCG PO BID Olanzapine (Olanzapine), 15 MG PO HS Ranitidine Hcl (Zantac), 300 MG PO BID Topiramate (Topamax), 50 MG PO BID Venlafaxine Hcl (Effexor Extended Rel), 225 MG PO QAM Scheduled PRN Lorazepam (Lorazepam), 1 MG PO BID PRN for Anxiety/Insomnia Oxycodone/Acetaminophen 5MG/325MG (Percocet 5MG/325MG), 1-2 TABLETS PO Q6 PRN for Pain Sumatriptan Succinate (Sumatriptan Succinate), 4 MG INJ UD PRN for Migraine Allergies Coded Allergies: CI Pigment Blue 63 (Verified Allergy, Unknown, shut down, heart and breathing slowed, 06/26/16) Fentanyl (Verified Adverse Reaction, Intermediate, GI SYMPTOMS, 06/26/16) Metoclopramide (Verified Adverse Reaction, Mild, TARDITIVE DYSKENESIA, 06/26) Ondansetron (Verified Adverse Reaction, Mild, HEADACHE, 06/26/16) Tramadol (Verified Adverse Reaction, Mild, VOMITING, 06/26/16) Chlorpromazine (Verified Adverse Reaction, Unknown, dry mouth, 06/26/16) Duloxetine (Verified Adverse Reaction, Unknown, LETHARGIC, 06/26/16) Physical Exam Vital Signs Date Time Temp Pulse Resp B/P Pulse Ox O2 Delivery O2 Flow Rate FiO2 06/26/16 08:53 90 20 152/86 95 06/26/16 08:04 36.4 104 18 165/92 96 Room Air Physical Exam GENERAL: Patient awake, alert, oriented x 3. Patient follows commands. Patient does not appear toxic. Patient is adequately hydrated and well- nourished. SKIN: No erythema, pallor, cyanosis or rash HEENT: Normal head, pupils equal, reactive to light and accommodation. Ears normal. Oral cavity and posterior pharynx appear normal. Neck: Without adenopathy, no neck vein distention. LUNGS: Clear to auscultation. No wheezes, no rales, no rhonchi. HEART: No murmurs. No gallops. No rubs ABDOMEN: Obese. BACK: Three healing incisions noted. EXTREMITIES: No signs of trauma. There is 2+ nonpitting pretibial edema. No calf or thigh tenderness. NEUROLOGIC: Cranial nerves II-XII within normal limits. No gross motor sensory function deficits. Medical Decision & Procedures Medications Administered Medications (Trade) Dose Ordered Sig/Van Route Start Time Stop Time Status Last Admin Dose Admin Furosemide (Lasix Tab) 20 mg NOW ONCE PO 06/26/16 08:30 06/26/16 08:31 DC 06/26/16 08:27 20 MG ED Course 0812: Past medical records reviewed. The patient was evaluated in room B9. A complete history and physical examination was performed. 0830: Lasix 20 mg PO. 0845: Reassessed the patient. Discussed the discharge instructions with her. She verbalized understanding and agreement. The patient is ready for discharge. Medical Decision I considered multiple diagnoses including CHF, peripheral edema, DVT. The patient recently had ultrasound to evaluate for DVTs. None was found. Patient has peripheral edema but does not appear to have any congestive failure by exam. The patient will be put on low-dose Lasix. I believe that will help to decrease swelling and ultimate pain. The patient is to follow-up with family physician. Electrolytes were checked within the past 3 weeks. Impression Primary Impression: Peripheral edema Scribe Attestation The scribe's documentation has been prepared under my direction and personally reviewed by me in its entirety. I confirm that the note above accurately reflects all work, treatment, procedures, and medical decision making performed by me. Departure Information Dispostion Home / Self-Care Prescriptions Furosemide (LASIX) 20 Mg Tab 20 MG PO DAILY for 30 Days, #30 TABS Prov: Ilan Brown M.D. 06/26/16 Referrals Armando Ward D.O. (PCP) Forms HOME CARE DOCUMENTATION FORM, IMPORTANT VISIT INFORMATION Patient Instructions ED Leg Swelling Bilateral, My [facility] Additional Instructions 20 mg of Lasix daily. Continue all of your current medications as prescribed. Follow-up with your family physician within the next 10 days. Elevate your legs as much as possible.
[2016-06-26] MEDS ORDERED: FUROSEMIDE 40 MG TAB PO ONE (08:30)
[2016-06-26] MEDS ORDERED: FURO20TA PO (08:40)
[2016-06-26 08:53] VITALS: BP 152/86; PULSE 90; O2SAT 95
[2016-08-05] MEDS ORDERED: VNTHFA/IN INH (15:41)
[2016-08-05] MEDS ORDERED: ZYP10 PO (15:41)
[2016-08-05] MEDS ORDERED: EFFSR75 PO (18:39)
== END 2016-06-26 08:54 | disposition home or self-care (01) ==
LOC: C.EDB 08:03
DX: R60.9 Edema, unspecified (principal); M79.604 Pain in right leg; M79.605 Pain in left leg; R06.02 Shortness of breath; E66.9 Obesity, unspecified; I10 Essential (primary) hypertension; E78.5 Hyperlipidemia, unspecified; E03.9 Hypothyroidism, unspecified; M79.7 Fibromyalgia; F32.9 Major depressive disorder, single episode, unspecified; Z79.899 Other long term (current) drug therapy; Z88.5 Allergy status to narcotic agent; Z88.8 Allergy status to other drugs, medicaments and biological substances; Z86.19 Personal history of other infectious and parasitic diseases; Z87.442 Personal history of urinary calculi; Z82.0 Family history of epilepsy and other diseases of the nervous system; Z82.49 Family history of ischemic heart disease and other diseases of the circulatory system; Z83.3 Family history of diabetes mellitus; Z83.79 Family history of other diseases of the digestive system; F17.200 Nicotine dependence, unspecified, uncomplicated

== ENCOUNTER 2016-06-28 14:33 | Emergency (ER) | payer OTHER ==
[~2016-06-28] VITALS: Ht 162.6 cm; Wt 111.0 kg
[~2016-06-28 14:33] MED LIST changes: +FURO20TA PO; -NRN100 PO
[2016-06-28 14:36] VITALS: TEMP 36.9; Ht 162.6 cm; Wt 111.0 kg
[2016-06-28 15:12] VITALS: O2SAT 97
[2016-06-28] MEDS ORDERED: HYDROmorphone INJ 2 MG/ML SYR/VIAL IV PRN (15:30)
[2016-06-28] MEDS ORDERED: PROMETHAZINE HCL INJ 25 MG/ML 1 ML VIAL IV STA (15:30)
[2016-06-28 15:45] LABS: BASO % 0.3 %; BASO ABS # 0.03 K/uL (0-0.2); COMPLETE YES; EOS % 2.2 %; HEMATOCRIT 39.4 % (37-47); IG% 0.3 %; LYMPH % 29.8 %; LYMPH ABS # 2.72 K/uL (1.2-3.4); MEAN CELL VOLUME 97.3 fL (80-100); MEAN CORPUSCULAR HEMOGLOBIN 34.1 pg (25-34); MEAN PLATELET VOLUME 9.8 fL (7.4-10.4); MONO % 7.7 %; NEUT % 59.7 %; PLATELET COUNT 243 K/uL (130-400); RED BLOOD COUNT 4.05 M/uL (4.2-5.4); WHITE BLOOD COUNT 9.13 K/uL (4.8-10.8)
[2016-06-28 15:48] LABS: URINE APPEARANCE CLEAR (CLEAR); URINE BILIRUBIN NEG (NEG); URINE COLOR YELLOW; URINE NITRITE NEG (NEG); URINE PH 6.5 (4.5-7.5); URINE SPECIFIC GRAVITY 1.003 (1.000-1.030); UROBILINOGEN NEG (NEG)
[2016-06-28 16:00] LABS: MANUAL MICROSCOPIC REQUIRED? NO; REVIEW REQ? NO
[2016-06-28] MEDS ORDERED: PROMETHAZINE HCL INJ 25 MG in SODIUM CHLORIDE 0.9% 50ML 50 ML IV ONE (16:00)
[2016-06-28] MEDS ORDERED: HYDROmorphone INJ 1 MG/ML SYR ONE (16:08)
[2016-06-28 16:12] LABS: ALT/SGPT 51 U/L (12-78); BLOOD UREA NITROGEN 6 mg/dl (7-18); BUN/CREATININE RATIO 7.3 (10-20); CALCIUM 8.7 mg/dl (8.5-10.1); CARBON DIOXIDE 23 mmol/L (21-32); CHLORIDE 109 mmol/L (98-107); CREATININE 0.81 mg/dl (0.60-1.20); GLUCOSE 82 mg/dl (70-99); POTASSIUM 3.2 mmol/L (3.5-5.1); SODIUM 144 mmol/L (136-145)
--- NOTE | 2016-06-28 16:13 | DIAGNOSTIC IMAGING REPORT ---
PA CHEST WITH ABDOMINAL SERIES CLINICAL HISTORY: Generalized abdominal pain. FINDINGS: A PA chest radiograph is compared to study dated 06/03/16. The examination is degraded by large body habitus. The cardiomediastinal silhouette is unremarkable. There is mild chronic elevation of the right hemidiaphragm and bibasilar atelectasis. The lungs and pleural spaces are otherwise clear. No pneumothorax is seen. The skeletal structures are osteopenic. The bony thorax is grossly intact. Supine and erect abdominal radiographs are compared to study dated 06/03/16 and correlated with abdominal CT dated 02/17/2016. Cholecystectomy clips are identified in the right upper quadrant. There is a nonobstructed abdominal bowel gas pattern noting mild colonic fecal retention. No intraperitoneal free air is seen. There is no radiographic evidence of nephrolithiasis. There is mild lumbosacral spondylosis. The bony pelvis appears intact. Calcified phleboliths in the pelvis are unchanged. IMPRESSION: 1. Mild bibasilar atelectasis with no active disease in the chest. 2. Nonobstructed abdominal bowel gas pattern. Electronically signed by: Kwesi Martinez M.D. 06/28/2016 4:11 PM Dictated Date/Time: 06/28/2016 4:07 PM
[2016-06-28 16:15] LABS: ALKALINE PHOSPHATASE 141 U/L (45-117); AST/SGOT 34 U/L (15-37)
[2016-06-28] MEDS ORDERED: POTA1CAP2 PO (16:37)
[2016-06-28 16:42] VITALS: BP 135/96; PULSE 93; O2SAT 95
--- NOTE | 2016-06-28 17:53 | EMERGENCY ROOM VISIT NOTE ---
ED Visit Note First contact with patient: 14:41 Patient was seen by our PA/PLANE CAPTAIN. I was involved in the patient's care and did evaluate the patient myself. I was involved in the care throughout the ER stay. The patient presents with abdominal pain, this is a ongoing issue for her. Her workup is benign, she is being discharged home.
--- NOTE | 2016-07-01 06:50 | EMERGENCY ROOM VISIT NOTE ---
ED Visit Note First contact with patient: 14:41 Chief Complaint: Abdominal pain and left leg swelling. History of Present Illness: Ms. Otto is a 56-year-old white female who ambulates into the ED accompanied by her complaining of right lower quadrant abdominal pain and left leg swelling. Historically patient has a history of chronic right lower quadrant abdominal pain and has been evaluated multiple times over the last month for her pain and no cause has been identified. Additionally on her last visit to the ED 2 days ago she was evaluated for her leg swelling including a ultrasound and no DVT was found. She was placed on Lasix and encouraged to keep her feet elevated and has not had follow-up with her PCP. Patient reports a acute onset of lower quadrant abdominal pain with right sided prominence that started approximately 4 hours ago. Since that time the pain has been constant. The pain is currently described as sharp. She rates her discomfort 9/10. The pain is nonradiating. She has not identified any aggravating or alleviating factors related to the pain. She has not taken any medications for her pain prior to arrival at the hospital. Associated with her pain she reports she has been nauseated but has not vomited and had one episode of watery stools. She has not taken any medications for her symptoms prior to arrival at the hospital. Additionally she reports she continues to have swelling in both legs with prominence in the left lower extremity. She reports she has been taking her Lasix as prescribed and does not feel like she has been urinating as much as she thought she would and has not seen any reduction in the swelling. She denies any associated symptoms with her swelling. Patient denies fevers, chills, sweats, skin eruptions, skin color changes, upper respiratory tract symptoms, shortness of breath, chest pain, constipation , rectal bleeding, black/tarry stools, urinary symptoms, hematuria, vaginal bleeding, vaginal discharge, back/flank pain. Review of Systems: As noted above in history of present illness. All body systems were reviewed and found to be negative as noted above. Past Medical History: (1) Benign hypertension (2) Chronic abdominal pain (3) Depression (4) Enterohemorrhagic E. coli infection (5) Fibromyalgia (6) Gastroparesis (7) History of Clostridium difficile colitis (8) History of renal calculi (9) History of suicide attempt (10) Hyperlipidemia (11) Hypothyroidism (12) Migraine Surgical Problems: (1) History of appendectomy (2) History of feeding tube placement (3) S/P appendectomy (4) S/P cholecystectomy (5) S/P tonsillectomy and adenoidectomy (6) Status post hernia repair (7) Status post hysterectomy (8) Status post left oophorectomy (9) Status post right oophorectomy (10) Status post sinus surgery Current Medications: Medications Dose Route/Sig Max Daily Dose Days Date Category Lasix (Furosemide) 20 Mg Tab 20 Mg PO DAILY 30 06/26/16 Rx Percocet 5MG/325MG (Oxycodone/Acetaminophen) Tab 1-2 Tablets PO Q6 PRN 30 06/17/16 Rx Sumatriptan Succinate 4 Mg/0.5 Ml Inj 4 Mg INJ UD PRN 05/17/16 Reported Amitiza (Lubiprostone) 24 Mcg Cap 24 Mcg PO BID 05/17/16 Reported Lorazepam 1 Mg Tab 1 Mg PO BID PRN 10/06/15 Reported Losartan Potassium 50 Mg Tab 50 Mg PO HS 10/06/15 Reported Atorvastatin Calcium (Atorvastatin) 10 Mg Tab 10 Mg PO HS 10/06/15 Reported Zantac (Ranitidine Hcl) 300 Mg Tab 300 Mg PO BID 10/06/15 Reported Olanzapine 15 Mg Tab 15 Mg PO HS 10/06/15 Reported Topamax (Topiramate) 50 Mg Tab 50 Mg PO BID 10/06/15 Reported Effexor Extended Rel (Venlafaxine Hcl) 75 Mg Capcr 225 Mg PO QAM 08/18/15 Reported Lamictal (Lamotrigine) 200 Mg Tab 200 Mg PO QAM 05/10/11 Reported Allergies to Medications: Fentanyl, tramadol, Zofran, Cymbalta, Reglan. Social History: Patient is not currently employed; she lives with her and feels safe in her home environment; she admits to tobacco use and denies alcohol use. Physical Examination: Vital Signs: Date Time Temp Pulse Resp B/P Pulse Ox O2 Delivery O2 Flow Rate FiO2 06/28/16 16:42 93 20 135/96 95 06/28/16 16:35 93 20 135/96 95 Room Air 06/28/16 16:22 85 16 139/77 95 Room Air 06/28/16 15:32 88 06/28/16 15:12 97 Room Air 06/28/16 14:36 36.9 85 18 150/94 95 Room Air GENERAL: 56-year-old female in mild to moderate distress due to pain, nontoxic- appearing, afebrile and hemodynamically stable. NEUROLOGICAL: Awake, alert and oriented to person, place and time. Answering questions appropriately and following commands. Normal gait. Good hand eye coordination. SKIN: Warm, dry and pink. No soft tissue eruptions or trauma noted. HEENT: Atraumatic and normocephalic. PERRLA. Sclera white and conjunctiva pink. Oral cavity moist and pink. Pharynx is nonerythematous or edematous. Speech normal. No lymphadenopathy. Trachea midline. No jugular venous distention. BACK: No tenderness over the bony spine. No CVA tenderness. THORAX: Lungs sounds are clear to auscultation and equal bilaterally with symmetrical chest wall. No wheezing, rales or rhonchi. No crepitus, tenderness , subcutaneous air or deformities noted. HEART: Regular rate and rhythm. No gallops, rubs or murmurs are appreciated. ABDOMEN: Flat and soft with mild tenderness in the right lower quadrant and no tenderness in the left lower quadrant. Positive bowel sounds in all quadrants. No guarding, rigidity or organomegaly. EXTREMITIES: Moves all extremities well on command and with purpose. All distal neurovascular statuses are intact and equal bilaterally. Trace dependent edema bilaterally slightly more prominent on the right. No calf tenderness or cords. ED Course: Patient is assessed as noted above. Laboratory Testing: Test 06/28/16 14:55 06/28/16 15:33 Range/Units Urine Color YELLOW Urine Appearance CLEAR CLEAR Urine pH 6.5 4.5-7.5 Urine Specific [place] 1.003 1.000-1.030 Urine Protein NEG NEG Urine Glucose (UA) NEG NEG Urine Ketones NEG NEG Urine Occult Blood NEG NEG Urine Nitrite NEG NEG Urine Bilirubin NEG NEG Urine Urobilinogen NEG NEG Urine Leukocyte Esterase NEG NEG White Blood Count 9.13 4.8-10.8 K/uL Red Blood Count 4.05 4.2-5.4 M/uL Hemoglobin 13.8 12.0-16.0 g/dL Hematocrit 39.4 37-47 % Mean Corpuscular Volume 97.3 80-100 fL Mean Corpuscular Hemoglobin 34.1 25-34 pg Mean Corpuscular Hemoglobin Concent 35.0 32-36 g/dl Platelet Count 243 130-400 K/uL Mean Platelet Volume 9.8 7.4-10.4 fL Neutrophils (%) (Auto) 59.7 % Lymphocytes (%) (Auto) 29.8 % Monocytes (%) (Auto) 7.7 % Eosinophils (%) (Auto) 2.2 % Basophils (%) (Auto) 0.3 % Neutrophils # (Auto) 5.45 1.4-6.5 K/uL Lymphocytes # (Auto) 2.72 1.2-3.4 K/uL Monocytes # (Auto) 0.70 0.11-0.59 K/uL Eosinophils # (Auto) 0.20 0-0.5 K/uL Basophils # (Auto) 0.03 0-0.2 K/uL RDW Standard Deviation 47.1 36.4-46.3 fL RDW Coefficient of Variation 13.3 11.5-14.5 % Immature Granulocyte % (Auto) 0.3 % Immature Granulocyte # (Auto) 0.03 0.00-0.02 K/uL Sodium Level 144 136-145 mmol/L Potassium Level 3.2 3.5-5.1 mmol/L Chloride Level 109 98-107 mmol/L Carbon Dioxide Level 23 21-32 mmol/L Anion Gap 12.0 3-11 mmol/L Blood Urea Nitrogen 6 7-18 mg/dl Creatinine 0.81 0.60-1.20 mg/dl Est Creatinine Clear Calc Drug Dose 96.8 ml/min Estimated GFR () 95.4 Estimated GFR (Non- 82.3 BUN/Creatinine Ratio 7.3 10-20 Random Glucose 82 70-99 mg/dl Calcium Level 8.7 8.5-10.1 mg/dl Total Bilirubin 0.2 0.2-1 mg/dl Direct Bilirubin < 0.1 0-0.2 mg/dl Aspartate Amino Transf (AST/SGOT) 34 15-37 U/L Alanine Aminotransferase (ALT/SGPT) 51 12-78 U/L Alkaline Phosphatase 141 45-117 U/L Total Protein 7.1 6.4-8.2 gm/dl Albumin 3.2 3.4-5.0 gm/dl Lipase 149 73-393 U/L Acute abdominal series: Read by myself and the radiologist and showed mild bibasilar atelectasis but no active disease process in the chest. Nonspecific and nonobstructive abdominal bowel gas pattern and no free air under the diaphragm. Patient was hydrated with normal saline, and she received 1 mg of Dilaudid IV for pain and 25 mg of promethazine IV for nausea. Patient was reassessed multiple times during her stay in the emergency department. Patient's case was reviewed with Dr. Nielsen; in apparently assessed the patient we agreed on diagnostic approach, treatment, disposition and plan. Patient was educated about claudia's findings and instructed on her treatment plan; she verbalizes understanding and agreement with this plan. Clinical Impression: Right lower quadrant abdominal pain. Hypokalemia. Left leg swelling. Decision-Making: Initially my differential diagnosis I considered bowel obstruction, perforated viscus, constipation, urinary tract infection, renal calculi, acute on chronic pain and other causes. Disposition: Patient discharged home in stable condition accompanied by her ; prior to departure patient was reassessed and subjectively reported she was feeling much better and rated her discomfort 3/10 and reported resolution of nausea. Plan: Patient was encouraged to continue her current medications as prescribed. Patient was prescribed 10 mEq of potassium 2 times a day until follow-up with family physician. Patient was encouraged to supplement her potassium with bananas and oranges. Patient was reminded that narcotics and bananas make her constipated she consider using a stool softener. Patient was encouraged to keep her feet elevated while at rest. Patient was encouraged to follow-up with family physician for recheck and reevaluation of her potassium. Patient was encouraged return ED for worsening/uncontrolled pain, fevers, worsening swelling, bloody stools or any new/concerning symptoms. Patient was encouraged to follow-up with personal physician for recheck in 1-2 days. Patient was encouraged return the ED for worsening symptoms, fevers, or any new/ concerning symptoms.
[2016-08-05] MEDS ORDERED: ZYP10 PO (15:41)
[2016-08-05] MEDS ORDERED: VNTHFA/IN INH (15:41)
[2016-08-05] MEDS ORDERED: EFFSR75 PO (18:39)
== END 2016-06-28 16:44 | disposition home or self-care (01) ==
LOC: C.EDB 14:36
DX: R10.31 Right lower quadrant pain (principal); E87.6 Hypokalemia; M79.89 Other specified soft tissue disorders; I10 Essential (primary) hypertension; F32.9 Major depressive disorder, single episode, unspecified; M79.7 Fibromyalgia; Z87.442 Personal history of urinary calculi; E78.5 Hyperlipidemia, unspecified; E03.9 Hypothyroidism, unspecified; G43.909 Migraine, unspecified, not intractable, without status migrainosus; Z79.899 Other long term (current) drug therapy; Z72.0 Tobacco use

== ENCOUNTER 2016-07-02 15:59 | Emergency (ER) | payer OTHER ==
[~2016-07-02] VITALS: Ht 162.6 cm; Wt 108.8 kg
[~2016-07-02 15:59] MED LIST changes: +POTA1CAP2 PO
[2016-07-02 16:02] VITALS: TEMP 36.5; Ht 162.6 cm; Wt 108.8 kg
[2016-07-02] MEDS ORDERED: SODIUM CHLORIDE 0.9% 1000ML 1,000 ML IV STA (16:18)
[2016-07-02] MEDS ORDERED: ALBUT/IPRATROP 3MG/0.5MG NEB 3 ML VIAL INH STA (16:18)
[2016-07-02] MEDS ORDERED: PROMETHAZINE HCL INJ 25 MG in SODIUM CHLORIDE 0.9% 50ML 50 ML IV STA (16:25)
[2016-07-02] MEDS ORDERED: HYDROmorphone INJ 1 MG/ML SYR IV STA (16:25)
[2016-07-02 16:30] VITALS: O2SAT 94
--- NOTE | 2016-07-02 16:36 | EMERGENCY ROOM VISIT NOTE ---
History First contact with patient: 16:05 Chief Complaint: FLU LIKE SX Stated Complaint: COUGH,CONGESTION,SHORT OF BREATH,DIARRHEA, CHILLS History of Present Illness The patient is a 56 year old female who presents to the Emergency Room via private vehicle accompanied by with complaints of "cough, congestion, shortness of breath, diarrhea, chills". The patient states that 4-5 days ago she began with a head cold, and that has settled in her chest 3 days ago and now she has shortness of breath. She also notes that she has diarrhea which is chronic for her, but now her abdominal pain has worsened. She denies any blood in the stool. She notes the stool is whitish in color. She states that if she coughs, she almost has a diarrhea episode. Her cough is nonproductive. She states that the abdominal pain is in the lower and upper quadrants, and states this is chronic and is similar to previous. She also states that the diarrhea is also chronic, and is not new for her. She does have a history of C. difficile, but is unsure if this is similar. With the shortness of breath, she states that she does cough and this is new onset. She does also have a minor headache, and sore throat as well as chest congestion/pain. She was at her family doctor on Monday, who prescribed her 2 prescriptions but her insurance did not cover these therefore she did not pick them up. They also performed a flu swab at that time but she does not know the results. Surgically, she has had a cholecystectomy, appendectomy and hysterectomy. She denies any recent steroid use, antibiotic use, history of asthma, history of COPD, neck pain, nausea, vomiting, chance of , control use, urinary symptoms, vaginal discharge, history of heart problems or blood clots, blood in the stool. Review of Systems A complete 10-point Review of Systems was discussed with the patient, with pertinent positives and negatives listed in the History of Present Illness. All remaining Review of Systems questions can be considered negative unless otherwise specified. Past Medical/Surgical History Medical Problems: (1) Benign hypertension (2) Chronic abdominal pain (3) Depression (4) Enterohemorrhagic E. coli infection (5) Fibromyalgia (6) Gastroparesis (7) History of Clostridium difficile colitis (8) History of renal calculi (9) History of suicide attempt (10) Hyperlipidemia (11) Hypothyroidism (12) Migraine Surgical Problems: (1) History of appendectomy (2) History of feeding tube placement (3) S/P appendectomy (4) S/P cholecystectomy (5) S/P tonsillectomy and adenoidectomy (6) Status post hernia repair (7) Status post hysterectomy (8) Status post left oophorectomy (9) Status post right oophorectomy (10) Status post sinus surgery Family History Cancer Diabetes mellitus FATHER FHx: diabetes FHx: gallbladder disease FHx: heart disease FATHER FHx: hypertension FATHER MOTHER FHx: seizures Social History Smoking Status: Current Every Day Smoker Alcohol Use: none Drug Use: none Marital Status: Housing Status: lives with significant other Occupation Status: disabled Current/Historical Medications Scheduled Atorvastatin (Atorvastatin Calcium), 10 MG PO HS Azithromycin (Zithromax), 250 MG PO DAILY Furosemide (Lasix), 20 MG PO DAILY Lamotrigine (Lamictal), 200 MG PO QAM Losartan Potassium (Losartan Potassium), 50 MG PO HS Lubiprostone (Amitiza), 24 MCG PO BID Olanzapine (Olanzapine), 15 MG PO HS Potassium Chloride (Potassium Chloride Er), 1 CAP PO BID Prednisone (Prednisone), 50 MG PO DAILY Ranitidine Hcl (Zantac), 300 MG PO BID Topiramate (Topamax), 50 MG PO BID Venlafaxine Hcl (Effexor Extended Rel), 225 MG PO QAM Scheduled PRN Lorazepam (Lorazepam), 1 MG PO BID PRN for Anxiety/Insomnia Sumatriptan Succinate (Sumatriptan Succinate), 4 MG INJ UD PRN for Migraine Allergies Coded Allergies: CI Pigment Blue 63 (Verified Allergy, Unknown, shut down, heart and breathing slowed, 07/02/16) Fentanyl (Verified Adverse Reaction, Intermediate, GI SYMPTOMS, 07/02/16) Metoclopramide (Verified Adverse Reaction, Mild, TARDITIVE DYSKENESIA, 03/10) Ondansetron (Verified Adverse Reaction, Mild, HEADACHE, 07/02/16) Tramadol (Verified Adverse Reaction, Mild, VOMITING, 07/02/16) Chlorpromazine (Verified Adverse Reaction, Unknown, dry mouth, 07/02/16) Duloxetine (Verified Adverse Reaction, Unknown, LETHARGIC, 07/02/16) Physical Exam Vital Signs Date Time Temp Pulse Resp B/P Pulse Ox O2 Delivery O2 Flow Rate FiO2 07/02/16 20:35 79 16 147/91 95 Room Air 07/02/16 18:42 91 22 173/101 96 Room Air 07/02/16 17:22 91 24 166/107 94 Room Air 07/02/16 16:33 94 07/02/16 16:30 94 Room Air 07/02/16 16:02 36.5 109 18 171/92 95 Room Air Physical Exam VITAL SIGNS - Vital signs and nursing notes were reviewed. GENERAL -56-year-old female appearing her stated age who is in no acute distress the patient is tachycardic, and does appear to be short of breath upon my exam. She is speaking in shorter sentences. Communicates well with provider and answers questions appropriately. SKIN - Without rashes. HEAD - NC/AT. EYES - Sclera anicteric. Palpebral conjunctiva pink and moist with no injection noted. EARS - No deformities of external structures noted on gross examination bilaterally. No pain elicited with palpation of the tragus bilaterally. External auditory canals without discharge or otorrhea. Tympanic membranes pearly quick without retraction or bulging. No fluid or purulent material visualized behind the TM. Handle of malleus, umbo, cone of light, pars tensa/ flaccid all easily visualized. NOSE - Midline and without cyanosis. No epistaxis or purulent drainage noted. Septum midline without deviation or septal hematoma noted. MOUTH/OROPHARYNX - Without perioral cyanosis. Buccal mucosa pink and moist and without leukoplakia. Tongue midline with equal elevation of palate bilaterally. No tonsillar hypertrophy, erythema, or exudates noted. No evidence of tonsillitis. No exudate of pharyngitis. Fair dentition noted. NECK - Neck with FROM. Supple to palpation. No lymphadenopathy noted. No nuchal rigidity. No meningismus. LUNGS - Chest wall symmetric without accessory muscle use, intercostals retractions, or central cyanosis. Normal vesicular breath sounds CTA B/L. No wheezes, rales, or rhonchi appreciated. CARDIAC - RRR with S1/S2. No murmur, rubs, or gallops appreciated. She still tachycardic. ABDOMEN - Abdominal contour without pulsations or visible masses. BS normoactive all four quadrants. There is generalized abdominal tenderness. No palpable masses, hepatosplenomegaly, or ascites noted. EXTREMITIES - No clubbing or peripheral cyanosis. No pretibial edema present. + 5/5 strength noted in UE/LE bilaterally. NEUROLOGIC - Cranial nerves II through XII grossly intact. Sensory intact to light touch throughout. PSYCH - Pt is very pleasant and interacts well with examiner. Medical Decision & Procedures ER Provider Diagnostic Interpretation: ABDOMEN 2VIEW W/PA CHEST RTN CLINICAL HISTORY: Atypical chest pain and dyspnea. Abdominal pain. Chills. Flulike symptoms. COMPARISON STUDY: 06/28/2016 FINDINGS: There is mild elevation right hemidiaphragm. There is no failure. There is no focal pulmonary consolidation. There are minor right basilar atelectatic changes.] Supine views the abdomen reveal surgical clips in the right paraspinal region. There are surgical clips the right upper quadrant consistent with a prior cholecystectomy. There are no abnormally dilated loops of large or small bowel. There are no transition zones indicate bowel obstruction. There are nonspecific pelvic basin calcifications, likely representing phleboliths. IMPRESSION: No evidence of bowel obstruction. No evidence of free air. Mild elevation of the right hemidiaphragm. Electronically signed by: Balwinder Sheridan M.D. 07/02/2016 5:58 PM Dictated Date/Time: 07/02/2016 5:[address] ANGIOGRAM OF THE CHEST CLINICAL HISTORY: Atypical chest pain and shortness of breath COMPARISON STUDY: Chest x-ray dated 07/02/2016 TECHNIQUE: Following the IV administration of 90 mL of Optiray-320, CT angiogram of the thorax was performed from the thoracic inlet to the lung bases utilizing the pulmonary embolus protocol. Images are reviewed in the axial, sagittal, and coronal planes. IV contrast was administered without complication. MIP imaging was performed. CT DOSE: 668.06 mGy.cm FINDINGS: There is hepatic steatosis. There is air present with focal fatty sparing within the lateral segment of the left lobe. The gallbladder surgically absent. Mediastinal and hilar lymph nodes are the upper limits of normal in size. There is no pathologic axillary lymphadenopathy. There was no evidence of thoracic aortic dilatation. There were no pulmonary artery filling defects to indicate acute pulmonary embolism. No pleural effusions are visualized. There is elevation right hemidiaphragm. There is mild right basilar atelectatic change. There is a 5 mm subpleural right lower lobe pulmonary nodule as visualized in image #117/273. There is a 3 mm right upper lobe pulmonary nodule as visualized in image #215/273. There is a 7 mm left lower lobe pulmonary nodule as visualized in image #115/273. IMPRESSION: 1. No CT evidence of acute pulmonary embolism 2. Elevation right hemidiaphragm with mild right basilar atelectatic change 3. Bilateral subcentimeter pulmonary nodules including a 7 mm left lower lobe pulmonary nodule. Follow-up per Fleischner criteria is recommended 4. Hepatic steatosis Please refer to below summary of Fleischner criteria recommendations for follow-up of incidental CT nodules (Ashley Thomas, Guidelines for management of small pulmonary nodules detected on CT scans: A statement from the Fleischner Society, Radiology 237: [phone].) Low Risk Patient: Minimal or no smoking or other known risk factors for malignancy <=4 mm: No follow-up needed. >4-6 mm: Initial follow-up CT at 12 months; if unchanged, no further follow-up. >6-8 mm: Initial follow-up CT at 6-12 months then at 18-24 months if no change. >8 mm: Follow-up CT at \\R\\3, 9, 24 months, or PET and/or biopsy. High Risk Patient: History of smoking or other known risk factors <=4 mm: Follow-up at 12 months; if unchanged, no further follow-up. >4-6 mm: Initial follow-up CT at 6-12 months then at 18-24 months if no change. >6-8 mm: Initial follow-up CT at 3-6 months then at 9-12 and 24 months if no change. >8 mm: Same as low risk patient. Note: Nodule size measured as average of length and width. Ground glass or partly solid nodules may require longer follow-up to exclude indolent adenocarcinoma. Laboratory Results 07/02/16 16:35 Red Blood Count 4.18, Mean Corpuscular Volume 96.9, Mean Corpuscular Hemoglobin 33.7, Mean Corpuscular Hemoglobin Concent 34.8, Mean Platelet Volume 10.2, Neutrophils (%) (Auto) 47.1, Lymphocytes (%) (Auto) 37.1, Monocytes (%) (Auto) 12.2, Eosinophils (%) (Auto) 2.8, Basophils (%) (Auto) 0.6, Neutrophils # (Auto ) 3.07, Lymphocytes # (Auto) 2.41, Monocytes # (Auto) 0.79, Eosinophils # (Auto ) 0.18, Basophils # (Auto) 0.04 07/02/16 16:35 Test 07/02/16 16:35 07/02/16 16:44 07/02/16 16:50 07/02/16 19:52 White Blood Count 6.50 K/uL (4.8-10.8) Red Blood Count 4.18 M/uL (4.2-5.4) Hemoglobin 14.1 g/dL (12.0-16.0) Hematocrit 40.5 % (37-47) Mean Corpuscular Volume 96.9 fL (80-100) Mean Corpuscular Hemoglobin 33.7 pg (25-34) Mean Corpuscular Hemoglobin Concent 34.8 g/dl (32-36) Platelet Count 255 K/uL (130-400) Mean Platelet Volume 10.2 fL (7.4-10.4) Neutrophils (%) (Auto) 47.1 % Lymphocytes (%) (Auto) 37.1 % Monocytes (%) (Auto) 12.2 % Eosinophils (%) (Auto) 2.8 % Basophils (%) (Auto) 0.6 % Neutrophils # (Auto) 3.07 K/uL (1.4-6.5) Lymphocytes # (Auto) 2.41 K/uL (1.2-3.4) Monocytes # (Auto) 0.79 K/uL (0.11-0.59) Eosinophils # (Auto) 0.18 K/uL (0-0.5) Basophils # (Auto) 0.04 K/uL (0-0.2) RDW Standard Deviation 47.1 fL (36.4-46.3) RDW Coefficient of Variation 13.3 % (11.5-14.5) Immature Granulocyte % (Auto) 0.2 % Immature Granulocyte # (Auto) 0.01 K/uL (0.00-0.02) Prothrombin Time 10.0 SECONDS (9.0-12.0) Prothromb Time International Ratio 0.9 (0.9-1.1) Activated Partial Thromboplast Time 25.7 SECONDS (21.0-31.0) Partial Thromboplastin Ratio 1.0 Anion Gap 10.0 mmol/L (3-11) Est Creatinine Clear Calc Drug Dose 85.2 ml/min Estimated GFR () 82.9 Estimated GFR (Non- 71.5 BUN/Creatinine Ratio 12.0 (10-20) Calcium Level 8.7 mg/dl (8.5-10.1) Magnesium Level 2.2 mg/dl (1.8-2.4) Total Bilirubin 0.2 mg/dl (0.2-1) Aspartate Amino Transf (AST/SGOT) 36 U/L (15-37) Alanine Aminotransferase (ALT/SGPT) 50 U/L (12-78) Alkaline Phosphatase 130 U/L (45-117) Total Creatine Kinase 335 U/L (26-192) Creatine Kinase MB 2.7 ng/ml (0.5-3.6) Creatine Kinase MB Ratio (0-3.0) Total Protein 7.2 gm/dl (6.4-8.2) Albumin 3.3 gm/dl (3.4-5.0) Globulin 3.9 gm/dl (2.5-4.0) Albumin/Globulin Ratio 0.8 (0.9-2) Lipase 287 U/L (73-393) Thyroid Stimulating Hormone (TSH) 1.130 uIu/ml (0.300-4.500) Monoscreen NEG (NEG) Bedside D-Dimer > 450 ng/mlFEU (0-450) IU-Hbn-J-Type Natriuretic Peptide 18 pg/ml (0-900) Influenza Type A Antigen Neg for Influ A (NEG) Influenza Type B Antigen Neg for Influ B (NEG) Bedside Troponin I 0.000 ng/ml (0-0.045) Medications Administered Medications (Trade) Dose Ordered Sig/Van Route Start Time Stop Time Status Last Admin Dose Admin Albuterol/ Ipratropium 3 ml 3 ml NOW STAT INH 07/02/16 16:18 07/02/16 16:23 DC 07/02/16 16:49 3 ML Sodium Chloride (Nss 1000ml) 1,000 ml @ 999 mls/hr Q1H1M STAT IV 07/02/16 16:18 07/02/16 17:18 DC 07/02/16 16:49 999 MLS/HR Hydromorphone HCl 1 mg 1 mg NOW STAT IV 07/02/16 16:25 07/02/16 16:26 DC 07/02/16 16:50 1 MG Promethazine HCl/ Sodium Chloride (Phenergan Inj/ Nss 50ml) 51 ml @ 204 mls/hr NOW STAT IV 07/02/16 16:25 07/02/16 16:39 DC 07/02/16 17:07 204 MLS/HR Hydromorphone HCl (Dilaudid Inj) 0.5 mg NOW STAT IV 07/02/16 19:23 07/02/16 19:24 DC 07/02/16 19:35 0.5 MG Azithromycin (Zithromax Tab) 500 mg NOW STAT PO 07/02/16 20:11 07/02/16 20:12 DC 07/02/16 20:38 500 MG Albuterol (Ventolin Hfa Inhaler) 2 puffs ONE STAT INH 07/02/16 20:11 07/02/16 20:12 DC 07/02/16 20:38 2 PUFFS Medical Decision Patient was seen and evaluated as above. After obtaining a thorough history and physical examination IV access was established, and the above workup was initiated secondary to subjective, and objective examination findings. The patient presents with a constellation of symptoms, to include a headache, sore throat, cough, chest discomfort/pain, abdominal pain, diarrhea. The patient is clinically nontoxic, however does appear to be short of breath. She was given a DuoNeb with little relief. There was concern for pulmonary embolism, and the appropriate workup was initiated. Patient's EKG reveals a normal sinus rhythm, rate of 94 bpm without ectopy or ischemic change. This was compared with EKG was performed on 12/05/2015, and no significant change was found. Patient's troponin was negative 2. D-dimer was elevated. CT scan of the chest was initiated. Prior to obtaining this I did elect to get a abdomen and chest 2 view. The patient has had several CT scans of the abdomen, and I do not feel that the benefit outweighs the risk of obtaining the scan. This was discussed with the patient. The diarrhea abdominal pain appear to be chronic. Rapid strep was negative. Flu swab was negative. Monospot was also negative. Red blood cell count of the low at 4.18, and is actually improved from her last previous visits. Coagulation studies were within normal limits except the point care d-dimer was elevated. Potassium was low at 3.4, however this is elevated from previous and the patient notes she is taking potassium supplementation. Chloride slightly elevated at 113. This has been noted to be elevated on previous visits. She did request something for pain, and was given promethazine and Dilaudid. This was 1 mg of Dilaudid, 25 mg of Phenergan IV. She was reevaluated still experiencing pain therefore another 0.5 mg was given. CPK was slightly elevated, however I do believe that increasing fluids will help this. CK-MB was also ordered noted to be within normal limits. With the negative troponin, no ischemic change on EKG I do not suspect any emergent cardiac abnormalities. With the CT scan the chest showing no pulmonary embolism , but there was evidence of pulmonary nodules these were discussed the patient. She was aware of these and is already receiving serial CAT scans, but nevertheless was instructed to follow-up with family doctor regarding this. She was hydrated here with 1 L of normal saline. The alkaline phosphatase was elevated at 1:30, total CK 335 as noted above. Albumin slightly low at 3.3, and TSH and lipase within normal limits. The alkaline phosphatase is noted below that has been on previous visits. Monospot and flu were both negative. I suspect the patient is experiencing perhaps bronchitis, with acute exacerbation of her chronic abdominal pain and diarrhea. Because of her poor air exchange clinically, I do feel that a bronchodilator will be beneficial therefore an inhaler was ordered with a narrow space chamber. Given the patient 's presentation I do believe that treatment with azithromycin is warranted, she was given 500 mg here by mouth with the remainder of the Z-Yoel dose sent to the pharmacy. She will also be prescribed prednisone for the next 4 days to help with the bronchitis. I do suspect this will be beneficial. She was educated upon today's findings, and was ready for discharge and appeared well. She seemed happy with plan of care. She was educated upon today's findings, educated upon the importance of follow-up with her family doctor as soon as possible, had questions answered prior to discharge, was educated upon worrisome symptoms which to return, and was discharged home in good condition. It is important to note that stool studies were ordered initially however samples were not obtained. I do not suspect C. difficile in this case after reviewing the labwork and further clinical history/physical examination, and do not believe that these would be diagnostic or would change my decision making, hence these were canceled. In the evaluation and treatment this patient the following differential diagnoses were entertained: Acute cardiac event, pulmonary embolism, pneumonia, acute exacerbation of chronic abdominal pain, diverticulitis, among others. Impression Primary Impression: Influenza-like symptoms Additional Impressions: Hypokalemia Acute bronchitis Departure Information Dispostion Home / Self-Care Condition GOOD Prescriptions Azithromycin (ZITHROMAX) 250 Mg Tab 250 MG PO DAILY, #4 TAB Prov: Matteo Wang PA-C 07/02/16 Prednisone (Prednisone) 50 Mg Tab 50 MG PO DAILY for 4 Days, #4 TAB Prov: Matteo Wang PA-C 07/02/16 Referrals Armando Ward D.O. (PCP) Patient Instructions My [facility] Additional Instructions You've been seen in the emergency Department for a flulike illness, and diagnosed with acute bronchitis. You've been sent home with an inhaler. This is one to 2 puffs every 6 hours as needed. You have prescribed azithromycin. This started 50 mg daily for the next 4 days. You have been prescribed Prednisone 50 mg to be taken orally once a day for the next 4 days. This is an anti-inflammatory medicine to be used to help minimize your symptoms. You should take the COMPLETE course of the medication. Please follow-up with her family doctor regarding today's visit as we discussed regarding the lung nodules, and blood work. Please have this repeated. Please drink plenty of fluids and eat a well-balanced healthy diet. Please return to the emergency department with any new/concerning symptoms. Problem Qualifiers Additional Impressions:
[2016-07-02 16:50] LABS: BASO % 0.6 %; BASO ABS # 0.04 K/uL (0-0.2); COMPLETE YES; EOS % 2.8 %; HEMATOCRIT 40.5 % (37-47); IG% 0.2 %; LYMPH % 37.1 %; LYMPH ABS # 2.41 K/uL (1.2-3.4); MEAN CELL VOLUME 96.9 fL (80-100); MEAN CORPUSCULAR HEMOGLOBIN 33.7 pg (25-34); MEAN CORPUSCULAR HGB CONC 34.8 g/dl (32-36); MEAN PLATELET VOLUME 10.2 fL (7.4-10.4); MONO % 12.2 %; NEUT % 47.1 %; PLATELET COUNT 255 K/uL (130-400); RED BLOOD COUNT 4.18 M/uL (4.2-5.4)
[2016-07-02 16:59] LABS: INR 0.9 (0.9-1.1)
[2016-07-02 17:04] LABS: CALCIUM 8.7 mg/dl (8.5-10.1); CREATININE 0.91 mg/dl (0.60-1.20); MAGNESIUM 2.2 mg/dl (1.8-2.4); POTASSIUM 3.4 mmol/L (3.5-5.1)
[2016-07-02 17:06] LABS: POINT OF CARE PRO-BNP 18 pg/ml (0-900)
[2016-07-02 17:15] LABS: ALB/GLOB RATIO 0.8 (0.9-2); THYROID STIMULATING HORMONE 1.13 uIu/ml (0.300-4.500)
[2016-07-02] MEDS ORDERED: OPTIRAY 320 IV PRN (17:45)
--- NOTE | 2016-07-02 17:59 | DIAGNOSTIC IMAGING REPORT ---
ABDOMEN 2VIEW W/PA CHEST RTN CLINICAL HISTORY: Atypical chest pain and dyspnea. Abdominal pain. Chills. Flulike symptoms. COMPARISON STUDY: 06/28/2016 FINDINGS: There is mild elevation right hemidiaphragm. There is no failure. There is no focal pulmonary consolidation. There are minor right basilar atelectatic changes.] Supine views the abdomen reveal surgical clips in the right paraspinal region. There are surgical clips the right upper quadrant consistent with a prior cholecystectomy. There are no abnormally dilated loops of large or small bowel. There are no transition zones indicate bowel obstruction. There are nonspecific pelvic basin calcifications, likely representing phleboliths. IMPRESSION: No evidence of bowel obstruction. No evidence of free air. Mild elevation of the right hemidiaphragm. Electronically signed by: Balwinder Sheridan M.D. 07/02/2016 5:58 PM Dictated Date/Time: 07/02/2016 5:56 PM
--- NOTE | 2016-07-02 18:32 | EMERGENCY ROOM VISIT NOTE ---
ED Visit Note First contact with patient: 16:05 I did evaluate and examine this patient myself. I did guide management for the patient. I agree with the PA's assessment as discussed. Please see the PAs dictation for further details. I did independently review the x-rays, CT scan and blood work.
--- NOTE | 2016-07-02 18:49 | DIAGNOSTIC IMAGING REPORT ---
CT ANGIOGRAM OF THE CHEST CLINICAL HISTORY: Atypical chest pain and shortness of breath COMPARISON STUDY: Chest x-ray dated 07/02/2016 TECHNIQUE: Following the IV administration of 90 mL of Optiray-320, CT angiogram of the thorax was performed from the thoracic inlet to the lung bases utilizing the pulmonary embolus protocol. Images are reviewed in the axial, sagittal, and coronal planes. IV contrast was administered without complication. MIP imaging was performed. CT DOSE: 668.06 mGy.cm FINDINGS: There is hepatic steatosis. There is air present with focal fatty sparing within the lateral segment of the left lobe. The gallbladder surgically absent. Mediastinal and hilar lymph nodes are the upper limits of normal in size. There is no pathologic axillary lymphadenopathy. There was no evidence of thoracic aortic dilatation. There were no pulmonary artery filling defects to indicate acute pulmonary embolism. No pleural effusions are visualized. There is elevation right hemidiaphragm. There is mild right basilar atelectatic change. There is a 5 mm subpleural right lower lobe pulmonary nodule as visualized in image #117/[id number]. There is a 3 mm right upper lobe pulmonary nodule as visualized in image #215/[id number]. There is a 7 mm left lower lobe pulmonary nodule as visualized in image #115/273. IMPRESSION: 1. No CT evidence of acute pulmonary embolism 2. Elevation right hemidiaphragm with mild right basilar atelectatic change 3. Bilateral subcentimeter pulmonary nodules including a 7 mm left lower lobe pulmonary nodule. Follow-up per Fleischner criteria is recommended 4. Hepatic steatosis Please refer to below summary of Fleischner criteria recommendations for follow-up of incidental CT nodules (Ashley Thomas, Guidelines for management of small pulmonary nodules detected on CT scans: A statement from the Fleischner Society, Radiology 237: [phone].) Low Risk Patient: Minimal or no smoking or other known risk factors for malignancy <=4 mm: No follow-up needed. >4-6 mm: Initial follow-up CT at 12 months; if unchanged, no further follow-up. >6-8 mm: Initial follow-up CT at 6-12 months then at 18-24 months if no change. >8 mm: Follow-up CT at \R\3, 9, 24 months, or PET and/or biopsy. High Risk Patient: History of smoking or other known risk factors <=4 mm: Follow-up at 12 months; if unchanged, no further follow-up. >4-6 mm: Initial follow-up CT at 6-12 months then at 18-24 months if no change. >6-8 mm: Initial follow-up CT at 3-6 months then at 9-12 and 24 months if no change. >8 mm: Same as low risk patient. Note: Nodule size measured as average of length and width. Ground glass or partly solid nodules may require longer follow-up to exclude indolent adenocarcinoma. Electronically signed by: Balwinder Sheridan M.D. 07/02/2016 6:47 PM Dictated Date/Time: 07/02/2016 6:41 PM
[2016-07-02] MEDS ORDERED: HYDROmorphone INJ 0.5 MG/0.5 ML SYR IV STA (19:23)
[2016-07-02] MEDS ORDERED: ALBUTEROL HFA 8 GM INHALER INH STA (20:11)
[2016-07-02] MEDS ORDERED: AZITHROMYCIN 250 MG TAB PO STA (20:11)
[2016-07-02] MEDS ORDERED: PRED50TA PO (20:29)
[2016-07-02] MEDS ORDERED: AZIT250T5 PO (20:29)
[2016-07-02 20:35] VITALS: BP 147/91; PULSE 79; O2SAT 95
[2016-08-05] MEDS ORDERED: ZYP10 PO (15:41)
[2016-08-05] MEDS ORDERED: VNTHFA/IN INH (15:41)
[2016-08-05] MEDS ORDERED: EFFSR75 PO (18:39)
== END 2016-07-02 20:48 | disposition home or self-care (01) ==
LOC: C.EDB 16:01
DX: R09.89 Other specified symptoms and signs involving the circulatory and respiratory systems (principal); E87.6 Hypokalemia; J20.9 Acute bronchitis, unspecified; D68.9 Coagulation defect, unspecified; R91.8 Other nonspecific abnormal finding of lung field; I10 Essential (primary) hypertension; F32.9 Major depressive disorder, single episode, unspecified; E78.5 Hyperlipidemia, unspecified; F17.200 Nicotine dependence, unspecified, uncomplicated; Z79.899 Other long term (current) drug therapy; Z86.19 Personal history of other infectious and parasitic diseases; Z83.3 Family history of diabetes mellitus; Z82.49 Family history of ischemic heart disease and other diseases of the circulatory system

== ENCOUNTER 2016-07-09 19:03 | Emergency (ER) | payer OTHER ==
[~2016-07-09] VITALS: Ht 162.6 cm; Wt 109.7 kg
[~2016-07-09 19:03] MED LIST changes: +AZIT250T5 PO; -OXYC-57 PO
[2016-07-09 19:11] VITALS: TEMP 37; Ht 162.6 cm; Wt 109.7 kg
[2016-07-09] MEDS ORDERED: LORAZEPAM 0.5 MG TAB PO STA (20:18)
[2016-07-09] MEDS ORDERED: ALBUT/IPRATROP 3MG/0.5MG NEB 3 ML VIAL INH STA (20:18)
[2016-07-09] MEDS ORDERED: DIPHENOXYLATE/ATROPINE 2.5/0.025MG TAB PO ONE (20:30)
--- NOTE | 2016-07-09 20:35 | DIAGNOSTIC IMAGING REPORT ---
CHEST ONE VIEW PORTABLE CLINICAL HISTORY: B08 - cough, shortness of breath dyspnea COMPARISON STUDY: 07/02/2016 FINDINGS: The bones soft tissues and hemidiaphragms are normal. The cardiomediastinal silhouette is normal. The lungs are clear. The pulmonary vasculature is normal. IMPRESSION: Negative chest. Electronically signed by: Eugenio Davidson M.D. 07/09/2016 8:34 PM Dictated Date/Time: 07/09/2016 8:33 PM
--- NOTE | 2016-07-09 22:39 | EMERGENCY ROOM VISIT NOTE ---
History Report prepared by Edmond: Princess Villarreal Under the Supervision of: Dr. Kvng Vallejo M.D. First contact with patient: 20:13 Chief Complaint: RESPIRATORY PROBLEMS Stated Complaint: HAD BRONCHITIS MOVED TO CHEST HURTS HARD TO BREATH Nursing Triage Summary: bronchitis settled in chest. abdominal pain and diarrhea. History of Present Illness The patient is a 56 year old female who presents to the Emergency Room with complaints of persistent shortness of breath starting this morning. She reports that she has bronchitis and is having trouble breathing. She has used her inhaler, but has experienced no significant relief. She also has chest pain, abdominal pain, and a dry cough which makes her gag occasionally. She has been having diarrhea every 15-20 minutes which is not watery, but soft. She is currently on antibiotics for the bronchitis. She has had C diff before. She denies being on any blood thinners. One week ago, she had a CTA of her chest with no acute findings, other than some lung nodules that will need follow up. Onset: this morning Position: other (global) Quality: other (SOB) Timing: other (persistent) Associated Symptoms: + abdominal pain, + chest pain, + cough (dry), + diarrhea Review of Systems See HPI for pertinent positives & negatives. A total of 10 systems reviewed and were otherwise negative. Past Medical & Surgical Medical Problems: (1) Benign hypertension (2) Chronic abdominal pain (3) Depression (4) Enterohemorrhagic E. coli infection (5) Fibromyalgia (6) Gastroparesis (7) History of Clostridium difficile colitis (8) History of renal calculi (9) History of suicide attempt (10) Hyperlipidemia (11) Hypothyroidism (12) Migraine Surgical Problems: (1) History of appendectomy (2) History of feeding tube placement (3) S/P appendectomy (4) S/P cholecystectomy (5) S/P tonsillectomy and adenoidectomy (6) Status post hernia repair (7) Status post hysterectomy (8) Status post left oophorectomy (9) Status post right oophorectomy (10) Status post sinus surgery Family History Cancer Diabetes mellitus FATHER FHx: diabetes FHx: gallbladder disease FHx: heart disease FATHER FHx: hypertension FATHER MOTHER FHx: seizures Social History Smoking Status: Current Every Day Smoker Alcohol Use: none Drug Use: none Marital Status: Housing Status: lives with significant other Occupation Status: disabled Current/Historical Medications Scheduled Atorvastatin (Atorvastatin Calcium), 10 MG PO HS Azithromycin (Zithromax), 250 MG PO DAILY Furosemide (Lasix), 20 MG PO DAILY Lamotrigine (Lamictal), 200 MG PO QAM Losartan Potassium (Losartan Potassium), 50 MG PO HS Lubiprostone (Amitiza), 24 MCG PO BID Olanzapine (Olanzapine), 15 MG PO HS Potassium Chloride (Potassium Chloride Er), 1 CAP PO BID Ranitidine Hcl (Zantac), 300 MG PO BID Topiramate (Topamax), 50 MG PO BID Venlafaxine Hcl (Effexor Extended Rel), 225 MG PO QAM Scheduled PRN Lorazepam (Lorazepam), 1 MG PO BID PRN for Anxiety/Insomnia Sumatriptan Succinate (Sumatriptan Succinate), 4 MG INJ UD PRN for Migraine Allergies Coded Allergies: CI Pigment Blue 63 (Verified Allergy, Unknown, shut down, heart and breathing slowed, 07/02/16) Fentanyl (Verified Adverse Reaction, Intermediate, GI SYMPTOMS, 07/02/16) Metoclopramide (Verified Adverse Reaction, Mild, TARDITIVE DYSKENESIA, 03/10) Ondansetron (Verified Adverse Reaction, Mild, HEADACHE, 07/02/16) Tramadol (Verified Adverse Reaction, Mild, VOMITING, 07/02/16) Chlorpromazine (Verified Adverse Reaction, Unknown, dry mouth, 07/02/16) Duloxetine (Verified Adverse Reaction, Unknown, LETHARGIC, 07/02/16) Physical Exam Vital Signs Date Time Temp Pulse Resp B/P Pulse Ox O2 Delivery O2 Flow Rate FiO2 07/09/16 22:09 95 20 145/92 97 Room Air 07/09/16 19:11 37.0 107 22 157/85 96 Room Air Physical Exam GENERAL: Patient is anxious appearing and in minimal distress. HEENT: No acute trauma, normocephalic atraumatic, mucous membranes moist, no nasal congestion, no scleral icterus. NECK: No stridor, no adenopathy, no meningismus, trachea is midline. LUNGS: Faint wheezing in the apexes of lungs. No rhonchi. HEART: Regular rate and rhythm. No murmurs, rubs, gallops appreciated. ABDOMEN: Soft, nontender, hyperactive bowel sounds, no masses appreciated, no peritonitis. BACK: No midline tenderness, no CVA tenderness EXTREMITIES: Normal motion all extremities, no cyanosis, no edema. NEUROLOGIC: Alert and oriented, no acute motor or sensory deficits, no focal weakness, cranial nerves grossly intact. SKIN: No rash, no jaundice, no diaphoresis. Medical Decision & Procedures ER Provider Diagnostic Interpretation: X ray results are stated below per my interpretation and the radiologist's interpretation. CHEST ONE VIEW PORTABLE CLINICAL HISTORY: B08 - cough, shortness of breath dyspnea COMPARISON STUDY: 07/02/2016 FINDINGS: The bones soft tissues and hemidiaphragms are normal. The cardiomediastinal silhouette is normal. The lungs are clear. The pulmonary vasculature is normal. IMPRESSION: Negative chest. Electronically signed by: Eugenio Davidson M.D. 07/09/2016 8:34 PM Dictated Date/Time: 07/09/2016 8:33 PM Laboratory Results Date/Time Source Procedure Growth Status 07/09/16 20:55 Stool C.difficile Toxin B Gene (PCR) - Final No C. difficile toxin B gene detected Complete Laboratory results as reviewed by me. Medications Administered Medications (Trade) Dose Ordered Sig/Van Route Start Time Stop Time Status Last Admin Dose Admin Lorazepam (Ativan Tab) 0.5 mg NOW STAT PO 07/09/16 20:18 07/09/16 20:21 DC 07/09/16 20:56 0.5 MG Albuterol/ Ipratropium (Duoneb) 3 ml NOW STAT INH 07/09/16 20:18 07/09/16 20:21 DC 07/09/16 20:56 3 ML Diphenoxylate HCl/ Atropine (Lomotil Tab) 2 tab NOW ONCE PO 07/09/16 20:30 07/09/16 20:31 DC 07/09/16 20:56 2 TAB ECG Indication: chest pain Rate (beats per minute): 92 Rhythm: normal sinus Findings: no acute ischemic change, no ectopy ED Course 2013: The patient was evaluated in room B8. A complete history and physical exam was performed. 2018: Duoneb 3 ml INH, Lorazepam 0.5 mg PO. 2030: Lomotil Tab 2 tab PO. 8: I reevaluated the patient. I discussed results and discharge instructions : she verbalized understanding and agreement. The patient is ready for discharge. Medical Decision 56 yr old female well known to me and department for frequent visits of similar complaints. History of CDiff thus sent off stool sample which was negative. Complaining worsening cough though CXR clear and she has no hypoxia. Just had CTA chest a few days ago thus I do not feel indication to repeat this. She just finished round zpack and I do not feel this is needed to repeat either. Neb made her feel better and she has inhalers at home. With stable vitals and no distress I do not feel that extensive labs necessary as just done last week. Impression Primary Impression: Diarrhea Additional Impression: Cough Scribe Attestation The scribe's documentation has been prepared under my direction and personally reviewed by me in its entirety. I confirm that the note above accurately reflects all work, treatment, procedures, and medical decision making performed by me. Departure Information Dispostion Home / Self-Care Referrals Armando Ward D.O. (PCP) Patient Instructions Diarrhea, My [facility] Problem Qualifiers Primary Impression: Diarrhea Diarrhea type: unspecified type Qualified Codes: R19.7 - Diarrhea, unspecified
[2016-07-09 22:46] VITALS: BP 136/100; PULSE 93; O2SAT 94
[2016-08-05] MEDS ORDERED: ZYP10 PO (15:41)
[2016-08-05] MEDS ORDERED: VNTHFA/IN INH (15:41)
[2016-08-05] MEDS ORDERED: EFFSR75 PO (18:39)
== END 2016-07-09 22:50 | disposition home or self-care (01) ==
LOC: C.EDB 19:04
DX: R19.7 Diarrhea, unspecified (principal); R05 Cough; R06.02 Shortness of breath; Z86.19 Personal history of other infectious and parasitic diseases; I10 Essential (primary) hypertension; Z87.442 Personal history of urinary calculi; E78.5 Hyperlipidemia, unspecified; E03.9 Hypothyroidism, unspecified; Z90.89 Acquired absence of other organs; Z90.49 Acquired absence of other specified parts of digestive tract; Z90.710 Acquired absence of both cervix and uterus; Z90.722 Acquired absence of ovaries, bilateral; F32.9 Major depressive disorder, single episode, unspecified; Z83.3 Family history of diabetes mellitus; Z83.79 Family history of other diseases of the digestive system; Z82.49 Family history of ischemic heart disease and other diseases of the circulatory system; Z82.0 Family history of epilepsy and other diseases of the nervous system; F17.210 Nicotine dependence, cigarettes, uncomplicated; Z91.048 Other nonmedicinal substance allergy status; Z88.5 Allergy status to narcotic agent; Z88.8 Allergy status to other drugs, medicaments and biological substances

== ENCOUNTER 2016-07-30 10:44 | Emergency (ER) | payer OTHER ==
[~2016-07-30] VITALS: Ht 162.6 cm; Wt 108.8 kg
[~2016-07-30 10:44] MED LIST changes: -AZIT250T5 PO
[2016-07-30 10:51] VITALS: TEMP 36.6; Ht 162.6 cm; Wt 108.8 kg
--- NOTE | 2016-07-30 11:38 | DIAGNOSTIC IMAGING REPORT ---
CHEST 2 VIEWS ROUTINE CLINICAL HISTORY: cough, wheezing COMPARISON STUDY: 07/09/2016 FINDINGS: The heart is normal in size. There is borderline elevation of the right hemidiaphragm.. There is no evidence of focal pulmonary consolidation. There is no evidence of failure. No pleural effusions are visualized.[ IMPRESSION: No active disease in the chest. Electronically signed by: Balwinder Sheridan M.D. 07/30/2016 11:36 AM Dictated Date/Time: 07/30/2016 11:35 AM
[2016-07-30] MEDS ORDERED: VNTHFA/IN INH (12:28)
[2016-07-30 12:47] VITALS: BP 141/104; PULSE 98; O2SAT 95
--- NOTE | 2016-08-05 09:30 | EMERGENCY ROOM VISIT NOTE ---
ED Visit Note First contact with patient: 11:10 CHIEF COMPLAINT: Congestion, aches, and cough HISTORY OF PRESENT ILLNESS: This 56-year-old white female patient has had diffuse body aches, a frequent cough, and head congestion for 6 days. They deny any nausea, vomiting, diarrhea, or shortness of breath. She states the cough is making her chest hurt. Cough is nonproductive. No ear pain, dizziness, or lightheadedness. No sore throat. No difficulty with speech or gait, no confusion or incoordination. Pain is 8/10. No treatment yet. No other complaints. No known ill contacts. REVIEW OF SYSTEM: HEENT: No dizziness, visual problems, hearing loss, or tinnitus. There is no difficulty swallowing and no oral lesions are present. LYMPH: No adenopathy. PULMONARY: No shortness of breath, sputum production or hemoptysis. CARDIOVASCULAR: No chest pain, palpitations, shortness of breath or peripheral edema. GASTROINTESTINAL: No diarrhea, constipation, nausea, vomiting, or abdominal pain. GENITOURINARY: No dysuria, frequency, urgency or nocturia. NEUROLOGIC: No weakness, muscle tenderness, epilepsy or history of neurological problems. MUSCULOSKELETAL: No history of joint tenderness/swelling. No history of arthritis or arthralgias. SKIN: No rashes or lesions. ENDOCRINE: No history of diabetes, thyroid disorders, or abnormal hair growth. PMH: Supplemental sheet was reviewed and signed. Previous surgeries: Hysterectomy, foot surgery, cholecystectomy, herniorrhaphy, tonsillectomy, G- tube placement and removal, pain stimulator placement and removal Medical history: Significant for hypertension, gastroparesis, cholecystectomy, kidney stones, fibromyalgia, depression, anxiety, and PTSD Current medications: Reviewed and filed in patient's chart Allergies: Extensive list. Reviewed and filed in patient's chart Family history: Significant for diabetes, heart disease, hypertension, cancer, gallbladder disease, seizures. Father is . SOCIAL HISTORY: Patient lives with her and son. Unemployed. Positive tobacco use of one pack per day, no EtOH use. PHYSICAL EXAM: Vital Signs: Temp 36.6. BP 173/117. Pulse 100. Respirations 16 O2 sat 93% on room air. Recheck of her BP reveals 141/104. Gen: Well- developed, well-nourished, middle-aged white female, in no acute distress. She is sitting on the bed. Alert and oriented. Skin: Warm and dry with good turgor. No rashes or lesions. No ecchymosis or erythema. The patient is not diaphoretic. No abrasions. HEAD: Atraumatic, without temporal or scalp tenderness. EYES: PERRL, EOMI, no discharge or injection. Nares: Clear nasal drainage is present. No epistaxis. THROAT: Pharynx without injection, exudate or tonsillar hypertrophy. Airway patent. Lymphatics: Anterior and posterior chains are palpated without enlargement or tenderness. HEART: Tachycardic with regular rhythm without murmurs, ectopy, gallops, or rubs. Peripheral pulses are 2+. LUNGS: Clear to auscultation and breath sounds equal, no wheezes, rales , or rhonchi. Good air movement. Patient is able to take a deep breath. Frequent deep cough. ABDOMEN: Was inspected, auscultated, and palpated. Soft, nontender, no hepatosplenomegaly, or masses. No rebound. No CVA tenderness. Neurologic: Gross sensation is intact across the upper and lower extremities by soft touch. Musculoskeletal: Patient has no discomfort with palpation over the cervical spine. Full range of motion of the neck. EMERGENCY DEPARTMENT COURSE: Chest x-ray obtained today was read by radiology as negative for active disease within the chest. No evidence of focal pulmonary consolidation or failure. DIAGNOSIS: Cough. Acute bronchitis. DISCHARGE INSTRUCTIONS: Patient was educated regarding today's findings. Conservative care measures were discussed. Maintain hydration. Rest as able. Stop smoking. Ibuprofen, 600 mg every 6 hours for fever or pain. Add Tylenol every 6 hours for breakthrough discomfort or fever. Delsym syrup 2 teaspoons b.i.d. as needed for cough. See your doctor in a few days if the symptoms persist. She should also follow up with her PCP for a recheck of her blood pressure. She may add Mucinex D as directed on the package for congestion. She may also return to the ED if persisting vomiting develops, or if she is unable to keep her temperature below 102 at home. She has an albuterol inhaler at home and should use 2 puffs every 4 hours as needed for any shortness of breath. She was reassured that I do not suspect pneumonia, TB, TB, COPD exacerbation, or tumor. Problem List Medical Problems: (1) Benign hypertension Status: Chronic (2) Bronchitis Status: Resolved (3) Chronic abdominal pain Status: Chronic (4) Depression Status: Chronic (5) Enterohemorrhagic E. coli infection Status: Resolved (6) Fibromyalgia Status: Chronic (7) Gastroparesis Status: Chronic (8) History of Clostridium difficile colitis Status: Chronic (9) History of renal calculi Status: Chronic (10) History of suicide attempt Status: Chronic (11) Hyperlipidemia Status: Chronic (12) Hypothyroidism Status: Chronic (13) Migraine Status: Chronic Surgical Problems: (1) History of appendectomy Status: Resolved (2) History of feeding tube placement Permanent Comment: removed 2010 Status: Chronic (3) S/P appendectomy Status: Chronic (4) S/P cholecystectomy Status: Chronic (5) S/P tonsillectomy and adenoidectomy Status: Chronic (6) Status post hernia repair Status: Chronic (7) Status post hysterectomy Status: Chronic (8) Status post left oophorectomy Status: Chronic (9) Status post right oophorectomy Status: Chronic (10) Status post sinus surgery Status: Chronic Current/Historical Medications Scheduled Atorvastatin (Atorvastatin Calcium), 10 MG PO HS Lamotrigine (Lamictal), 200 MG PO QAM Losartan Potassium (Losartan Potassium), 50 MG PO HS Olanzapine (Olanzapine), 10 MG PO DAILY Ranitidine Hcl (Zantac), 300 MG PO BID Topiramate (Topamax), 50 MG PO BID Venlafaxine Hcl (Effexor Extended Rel), 225 MG PO QAM Scheduled PRN Albuterol Hfa (Ventolin Hfa), 2 PUFFS INH Q4H PRN for SOB/Wheezing Lorazepam (Lorazepam), 1 MG PO BID PRN for Anxiety/Insomnia Sumatriptan Succinate (Sumatriptan Succinate), 4 MG INJ UD PRN for Migraine Allergies Coded Allergies: CI Pigment Blue 63 (Verified Allergy, Unknown, shut down, heart and breathing slowed, 07/30/16) Fentanyl (Verified Adverse Reaction, Intermediate, GI SYMPTOMS, 07/30/16) Metoclopramide (Verified Adverse Reaction, Mild, TARDITIVE DYSKENESIA, 07/30) Ondansetron (Verified Adverse Reaction, Mild, HEADACHE, 07/30/16) Tramadol (Verified Adverse Reaction, Mild, VOMITING, 07/30/16) Chlorpromazine (Verified Adverse Reaction, Unknown, dry mouth, 07/30/16) Duloxetine (Verified Adverse Reaction, Unknown, LETHARGIC, 07/30/16) Vital Signs Date Time Temp Pulse Resp B/P Pulse Ox O2 Delivery O2 Flow Rate FiO2 07/30/16 12:47 98 20 141/104 95 Room Air 07/30/16 11:06 93 Room Air 07/30/16 10:51 36.6 100 16 173/117 93 Room Air Departure Information Impression Primary Impression: Cough Additional Impression: Acute bronchitis Dispostion Home / Self-Care Condition GOOD Forms ALBUTEROL INHALER INSTRUCTIONS, HOME CARE DOCUMENTATION FORM, COOL MIST HUMIDIFIER, IMPORTANT VISIT INFORMATION Patient Instructions My [facility] Additional Instructions Use your albuterol inhaler 2 puffs every 4 hours as needed for shortness of breath/wheezing Maintain hydration Stop smoking Delsym syrup every 12 hours as needed for cough Add Mucinex D as directed on the package for congestion Problem Qualifiers
[2016-08-05] MEDS ORDERED: ZYP10 PO (15:41)
[2016-08-05] MEDS ORDERED: VNTHFA/IN INH (15:41)
[2016-08-05] MEDS ORDERED: EFFSR75 PO (18:39)
== END 2016-07-30 12:49 | disposition home or self-care (01) ==
LOC: C.EDB 10:45 → C.EDC 12:49
DX: J20.9 Acute bronchitis, unspecified (principal); R05 Cough; I10 Essential (primary) hypertension; E03.9 Hypothyroidism, unspecified; E78.5 Hyperlipidemia, unspecified; M79.7 Fibromyalgia; F32.9 Major depressive disorder, single episode, unspecified; F17.210 Nicotine dependence, cigarettes, uncomplicated

== ENCOUNTER 2016-08-01 14:56 | Emergency (ER) | payer OTHER ==
[~2016-08-01] VITALS: Ht 162.6 cm; Wt 108.3 kg
[~2016-08-01 14:56] MED LIST changes: +VNTHFA/IN INH
[2016-08-01 15:02] VITALS: TEMP 36.7; Ht 162.6 cm; Wt 108.3 kg
[2016-08-01] MEDS ORDERED: SODIUM CHLORIDE 0.9% 1000ML 1,000 ML IV STA (15:21)
[2016-08-01] MEDS ORDERED: MoRPHine SULFATE 10 MG/ML CARP/VIAL IV STA (15:21)
[2016-08-01] MEDS ORDERED: METHYLPREDNISOLONE 125 MG VIAL IV STA (15:21)
[2016-08-01] MEDS ORDERED: ALBUT/IPRATROP 3MG/0.5MG NEB 3 ML VIAL INH STA (15:21)
[2016-08-01 16:31] LABS: BASO % 0.3 %; BASO ABS # 0.03 K/uL (0-0.2); COMPLETE YES; EOS % 1.9 %; HEMATOCRIT 43.6 % (37-47); IG% 0.2 %; LYMPH % 33.2 %; LYMPH ABS # 3.32 K/uL (1.2-3.4); MEAN CORPUSCULAR HEMOGLOBIN 34.1 pg (25-34); MEAN CORPUSCULAR HGB CONC 35.6 g/dl (32-36); MONO % 7.2 %; NEUT % 57.2 %; PLATELET COUNT 286 K/uL (130-400); RED BLOOD COUNT 4.54 M/uL (4.2-5.4); WHITE BLOOD COUNT 10.01 K/uL (4.8-10.8)
[2016-08-01 16:35] VITALS: O2SAT 94
[2016-08-01 16:42] LABS: PARTIAL THROMBOPLASTIN RATIO 0.9; PROTHROMBIN TIME (PATIENT) 10.2 SECONDS (9.0-12.0)
[2016-08-01 16:46] LABS: URINE APPEARANCE CLOUDY (CLEAR); URINE BILIRUBIN NEG (NEG); URINE COLOR YELLOW; URINE EPITHELIAL CELL AUTO >30 /lpf (0-5); URINE NITRITE NEG (NEG); URINE SPECIFIC GRAVITY 1.024 (1.000-1.030); UROBILINOGEN NEG (NEG)
[2016-08-01 17:04] LABS: MANUAL MICROSCOPIC REQUIRED? NO; REVIEW REQ? YES
--- NOTE | 2016-08-01 17:11 | DIAGNOSTIC IMAGING REPORT ---
ABDOMEN 2VIEW W/PA CHEST RTN CLINICAL HISTORY: generalized abd pain pain. Nausea. COMPARISON STUDY: No previous studies for comparison. FINDINGS: The soft tissues, psoas shadows, renal outlines and intestinal gas pattern appear normal. There is no evidence for bowel obstruction. There is no evidence for free intraperitoneal air. No abnormal abdominal calcifications are seen. A frontal view of the chest was performed and is unremarkable. IMPRESSION: Normal study. Electronically signed by: Eugenio Davidson M.D. 08/01/2016 5:09 PM Dictated Date/Time: 08/01/2016 5:09 PM
[2016-08-01 17:23] LABS: ALKALINE PHOSPHATASE 150 U/L (45-117); ALT/SGPT 54 U/L (12-78); BLOOD UREA NITROGEN 11 mg/dl (7-18); BUN/CREATININE RATIO 9.7 (10-20); CALCIUM 8.9 mg/dl (8.5-10.1); CARBON DIOXIDE 20 mmol/L (21-32); CHLORIDE 110 mmol/L (98-107); GLUCOSE 114 mg/dl (70-99); SODIUM 140 mmol/L (136-145); THYROID STIMULATING HORMONE 0.419 uIu/ml (0.300-4.500)
[2016-08-01 18:38] LABS: AST/SGOT 72 U/L (15-37); MAGNESIUM 2.2 mg/dl (1.8-2.4); POTASSIUM 3.7 mmol/L (3.5-5.1)
[2016-08-01] MEDS ORDERED: MoRPHine SULFATE 4 MG/ML 1 ML CARP\\VIAL IV STA (18:40)
[2016-08-01] MEDS ORDERED: PRED20TA PO (19:05)
[2016-08-01 19:15] VITALS: BP 136/68; PULSE 97; O2SAT 94
--- NOTE | 2016-08-01 23:21 | EMERGENCY ROOM VISIT NOTE ---
History Report prepared by Edmond: Lokesh Currie Under the Supervision of: Dr. Davon Garcia M.D. First contact with patient: 15:11 Chief Complaint: ABDOMINAL PAIN Stated Complaint: COLD,COUGH,ABDOMINAL PAIN,DIARHHEA,DIZZY, History of Present Illness The patient is a 56 year old female who presents to the Emergency Room with complaints of persistent abdominal pain beginning nine days prior to arrival. She currently rates her discomfort as a 9/10 in severity. The patient associates diarrhea, dry cough, chest and back discomfort with coughing, dizziness with coughing, and muffled hearing with today's symptoms. The patient notes she sleeps in her recliner to alleviate her cough. She states she was seen in the ED two days ago and diagnosed with acute bronchitis. The patient notes she was told to take Mucinex and Delsym for her symptoms. She states she experienced episodes of diarrhea last month but this is a new episode. The patient notes she experiences around four episodes of diarrhea per day. She states she has been using her inhaler for her symptoms. The patient notes she is an everyday smoker. Pt denies LOC, headache, fevers, chills, diaphoresis, visual changes, neck pain, breathing difficulties, nausea, vomiting, melena, hematochezia, urinary symptoms, numbness, weakness, swelling in the legs, lymphadenopathy, rash, or other complaints. 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 Review of Systems See HPI for pertinent positives and negatives. A total of ten systems were reviewed and were otherwise negative. Past Medical & Surgical Medical Problems: (1) Benign hypertension (2) Bronchitis (3) Chronic abdominal pain (4) Depression (5) Enterohemorrhagic E. coli infection (6) Fibromyalgia (7) Gastroparesis (8) History of Clostridium difficile colitis (9) History of renal calculi (10) History of suicide attempt (11) Hyperlipidemia (12) Hypothyroidism (13) Migraine Surgical Problems: (1) History of appendectomy (2) History of feeding tube placement (3) S/P appendectomy (4) S/P cholecystectomy (5) S/P tonsillectomy and adenoidectomy (6) Status post hernia repair (7) Status post hysterectomy (8) Status post left oophorectomy (9) Status post right oophorectomy (10) Status post sinus surgery Family History Cancer Diabetes mellitus FATHER FHx: diabetes FHx: gallbladder disease FHx: heart disease FATHER FHx: hypertension FATHER MOTHER FHx: seizures Social History Smoking Status: Current Every Day Smoker Alcohol Use: none Drug Use: none Marital Status: Housing Status: lives with significant other Occupation Status: disabled Current/Historical Medications Scheduled Atorvastatin (Atorvastatin Calcium), 10 MG PO HS Lamotrigine (Lamictal), 200 MG PO QAM Losartan Potassium (Losartan Potassium), 50 MG PO HS Olanzapine (Olanzapine), 10 MG PO DAILY Prednisone (Prednisone), 40 MG PO DAILY Ranitidine Hcl (Zantac), 300 MG PO BID Topiramate (Topamax), 50 MG PO BID Venlafaxine Hcl (Effexor Extended Rel), 225 MG PO QAM Scheduled PRN Albuterol Hfa (Ventolin Hfa), 2 PUFFS INH Q4H PRN for SOB/Wheezing Lorazepam (Lorazepam), 1 MG PO BID PRN for Anxiety/Insomnia Sumatriptan Succinate (Sumatriptan Succinate), 4 MG INJ UD PRN for Migraine Allergies Coded Allergies: CI Pigment Blue 63 (Verified Allergy, Unknown, shut down, heart and breathing slowed, 07/30/16) Fentanyl (Verified Adverse Reaction, Intermediate, GI SYMPTOMS, 07/30/16) Metoclopramide (Verified Adverse Reaction, Mild, TARDITIVE DYSKENESIA, 07/30) Ondansetron (Verified Adverse Reaction, Mild, HEADACHE, 07/30/16) Tramadol (Verified Adverse Reaction, Mild, VOMITING, 07/30/16) Chlorpromazine (Verified Adverse Reaction, Unknown, dry mouth, 07/30/16) Duloxetine (Verified Adverse Reaction, Unknown, LETHARGIC, 07/30/16) Physical Exam Vital Signs Date Time Temp Pulse Resp B/P Pulse Ox O2 Delivery O2 Flow Rate FiO2 08/01/16 19:15 97 22 136/68 94 08/01/16 17:52 90 4/10/17 16:35 94 Room Air 08/01/16 16:30 95 22 129/74 94 Room Air 08/01/16 15:02 36.7 102 18 150/94 96 Room Air Physical Exam GENERAL: Awake, alert, uncomfortable-appearing, in no distress. Nonproductive cough present. HENT: Normocephalic, atraumatic. Oropharynx unremarkable. EYES: Normal conjunctiva. Sclera non-icteric. NECK: Supple. No nuchal rigidity. FROM. No JVD. RESPIRATORY: Clear to auscultation. CARDIAC: Regular rate, normal rhythm. Extremities warm and well perfused. Pulses equal. ABDOMEN: Generalized abdominal pain. Soft, non-distended. No rebound or guarding. No masses. RECTAL: Deferred. MUSCULOSKELETAL: Chest examination reveals no tenderness. The back is symmetrical on inspection without obvious abnormality. There is no CVA tenderness to palpation. No joint edema. LOWER EXTREMITIES: Calves are equal size bilaterally and non-tender. No edema. No discoloration. NEURO: Normal sensorium. No sensory or motor deficits noted. SKIN: No rash or jaundice noted. Medical Decision & Procedures ER Provider Diagnostic Interpretation: X-ray: Per my interpretation, radiologist review. ABDOMEN 2VIEW W/PA CHEST RTN CLINICAL HISTORY: generalized abd pain pain. Nausea. COMPARISON STUDY: No previous studies for comparison. FINDINGS: The soft tissues, psoas shadows, renal outlines and intestinal gas pattern appear normal. There is no evidence for bowel obstruction. There is no evidence for free intraperitoneal air. No abnormal abdominal calcifications are seen. A frontal view of the chest was performed and is unremarkable. IMPRESSION: Normal study. Electronically signed by: Eugenio Davidson M.D. 08/01/2016 5:09 PM Laboratory Results 08/01/16 16:17 Red Blood Count 4.54, Mean Corpuscular Volume 96.0, Mean Corpuscular Hemoglobin 34.1, Mean Corpuscular Hemoglobin Concent 35.6, Mean Platelet Volume 10.0, Neutrophils (%) (Auto) 57.2, Lymphocytes (%) (Auto) 33.2, Monocytes (%) (Auto) 7.2, Eosinophils (%) (Auto) 1.9, Basophils (%) (Auto) 0.3, Neutrophils # (Auto) 5.73, Lymphocytes # (Auto) 3.32, Monocytes # (Auto) 0.72, Eosinophils # (Auto) 0.19, Basophils # (Auto) 0.03 08/01/16 16:17 08/01/16 17:45 Test 08/01/16 16:00 08/01/16 16:17 08/01/16 17:45 Urine Color YELLOW Urine Appearance CLOUDY (CLEAR) Urine pH 5.0 (4.5-7.5) Urine Specific [place] 1.024 (1.000-1.030) Urine Protein NEG (NEG) Urine Glucose (UA) NEG (NEG) Urine Ketones NEG (NEG) Urine Occult Blood NEG (NEG) Urine Nitrite NEG (NEG) Urine Bilirubin NEG (NEG) Urine Urobilinogen NEG (NEG) Urine Leukocyte Esterase NEG (NEG) Urine WBC (Auto) 1-5 /hpf (0-5) Urine RBC (Auto) 0-4 /hpf (0-4) Urine Hyaline Casts (Auto) 5-10 /lpf (0-5) Urine Epithelial Cells (Auto) >30 /lpf (0-5) Urine Bacteria (Auto) 1+ (NEG) White Blood Count 10.01 K/uL (4.8-10.8) Red Blood Count 4.54 M/uL (4.2-5.4) Hemoglobin 15.5 g/dL (12.0-16.0) Hematocrit 43.6 % (37-47) Mean Corpuscular Volume 96.0 fL (80-100) Mean Corpuscular Hemoglobin 34.1 pg (25-34) Mean Corpuscular Hemoglobin Concent 35.6 g/dl (32-36) Platelet Count 286 K/uL (130-400) Mean Platelet Volume 10.0 fL (7.4-10.4) Neutrophils (%) (Auto) 57.2 % Lymphocytes (%) (Auto) 33.2 % Monocytes (%) (Auto) 7.2 % Eosinophils (%) (Auto) 1.9 % Basophils (%) (Auto) 0.3 % Neutrophils # (Auto) 5.73 K/uL (1.4-6.5) Lymphocytes # (Auto) 3.32 K/uL (1.2-3.4) Monocytes # (Auto) 0.72 K/uL (0.11-0.59) Eosinophils # (Auto) 0.19 K/uL (0-0.5) Basophils # (Auto) 0.03 K/uL (0-0.2) RDW Standard Deviation 45.6 fL (36.4-46.3) RDW Coefficient of Variation 13.1 % (11.5-14.5) Immature Granulocyte % (Auto) 0.2 % Immature Granulocyte # (Auto) 0.02 K/uL (0.00-0.02) Prothrombin Time 10.2 SECONDS (9.0-12.0) Prothromb Time International Ratio 1.0 (0.9-1.1) Activated Partial Thromboplast Time 23.3 SECONDS (21.0-31.0) Partial Thromboplastin Ratio 0.9 Anion Gap 10.0 mmol/L (3-11) Est Creatinine Clear Calc Drug Dose 70.3 ml/min Estimated GFR () 65.9 Estimated GFR (Non- 56.9 BUN/Creatinine Ratio 9.7 (10-20) Calcium Level 8.9 mg/dl (8.5-10.1) Total Bilirubin 0.5 mg/dl (0.2-1) Alanine Aminotransferase (ALT/SGPT) 54 U/L (12-78) Alkaline Phosphatase 150 U/L (45-117) Troponin I < 0.015 ng/ml (0-0.045) Total Protein 7.7 gm/dl (6.4-8.2) Albumin 3.5 gm/dl (3.4-5.0) Lipase 230 U/L (73-393) Thyroid Stimulating Hormone (TSH) 0.419 uIu/ml (0.300-4.500) Magnesium Level 2.2 mg/dl (1.8-2.4) Direct Bilirubin mg/dl (0-0.2) Aspartate Amino Transf (AST/SGOT) 72 U/L (15-37) Laboratory results reviewed by me Medications Administered Medications (Trade) Dose Ordered Sig/Van Route Start Time Stop Time Status Last Admin Dose Admin Sodium Chloride (Nss 1000ml) 1,000 ml @ 999 mls/hr Q1H1M STAT IV 08/01/16 15:21 08/01/16 16:21 DC 08/01/16 16:35 999 MLS/HR Albuterol/ Ipratropium (Duoneb) 3 ml NOW STAT INH 08/01/16 15:21 08/01/16 15:25 DC 08/01/16 16:35 3 ML Methylprednisolone Sodium Succinate (Solu-Medrol IV) 125 mg NOW STAT IV 08/01/16 15:21 08/01/16 15:25 DC 08/01/16 16:35 125 MG Morphine Sulfate (MoRPHine SULFATE INJ) 6 mg NOW STAT IV 08/01/16 15:21 08/01/16 15:25 DC 08/01/16 16:35 6 MG Morphine Sulfate (MoRPHine SULFATE INJ) 2 mg NOW STAT IV 08/01/16 18:40 08/01/16 18:41 DC 08/01/16 18:51 2 MG ECG Indication: abdominal pain Rate (beats per minute): 96 Rhythm: normal sinus Findings: no acute ischemic change, no ectopy, other (poor R wave progression) ED Course 151: The patient was evaluated in room B12B. A complete history and physical exam was performed. 1521: Ordered Morphine Sulfate 6 mg IV, Solu-Medrol IV 125 mg IV, Duoneb 3 ml INH, Sodium Chloride 1,000 ml @ 999 mls/hr IV. 1616: Reevaluated the patient at this time, and she notes her lungs are feeling a little better. 1715: Reevaluated the patient at this time, and she is feeling a little better. 1817: Reevaluated the patient at this time, and she is feeling better but would like more medication for her discomfort. 1840: Ordered Morphine Sulfate 2 mg IV. 1855: I reevaluated the patient. Discussed results and discharge instructions: She verbalized understanding and agreement. The patient is ready for discharge. Medical Decision Triage Nursing notes reviewed. The patient's presentation and history were concerning for cough, abdominal pain , and diarrhea. Etiologies such as pneumonia, COPD, reactive airway disease, CHF, cardiac ischemia, pulmonary embolism, pneumothorax, musculoskeletal, infections, gastrointestinal, C. difficile colitis, infectious diarrhea, obstruction, as well as others were entertained. The Patient Was Evaluated. She Did Not Have Any Peritoneal Findings. She Had a Nonproductive Cough Present. She Was Given Solu-Medrol, DuoNeb, and Fluids. She Also Of Generalized Pain Mostly from Her Muscles with Coughing. She was feeling better after the DuoNeb. The patient also had some relief with the pain. X- ray imaging did not reveal any acute findings. CBC was unremarkable. Coags and urinalysis are also unremarkable. Chest x-ray did not reveal any evidence of pneumonia. Chemistry panel was unremarkable. The patient did not provide a stool specimen the patient did receive a small dose of morphine initially to help with her pains and cramping. She requested a second dose and was given a 2 mg dose. She was informed that she is on a limited treatment plan. I gave my usual and customary discussion regarding this issue. The patient has bronchitis -like symptoms. She has a history of C. difficile. I think that since she has no evidence of pneumonia and has no leukocytosis or fever treatment of her symptoms with an antibiotic would be inappropriate. The patient was in agreement. I did recommend Tessalon Perles for her cough as her current over- the-counter medications are not helping as much. The patient states that she cannot fill the Tessalon since her insurance won't cover. The patient will continue to use her current medications. Given the fact that she is a smoker I did recommend a short course of prednisone. She is not diabetic. The patient will continue her inhaler. By the evaluation outlined above other emergent etiologies such as those listed in the differential, as well as others, were deemed relatively unlikely. Patient and were Informed about the findings as listed above. All questions were answered and they were pleased with the treatment. Return instructions were outlined and the patient was discharged in stable condition. The patient was referred to her PCP for follow-up for a recheck of the current condition. The chart was completed utilizing [employer] Speech voice recognition software. Grammatical errors, random word insertions, pronoun errors, and incomplete sentences are an occasional consequence of this system due to software limitations, ambient noise, and hardware issues. Any formal questions or concerns about the content, text, or information contained within the body of this dictation should be directly addressed to the physician for clarification. Impression Primary Impression: Cough Additional Impressions: Generalized abdominal pain Diarrhea Acute bronchitis Scribe Attestation The scribe's documentation has been prepared under my direction and personally reviewed by me in its entirety. I confirm that the note above accurately reflects all work, treatment, procedures, and medical decision making performed by me. Departure Information Dispostion Home / Self-Care Prescriptions Prednisone (Prednisone) 20 Mg Tab 40 MG PO DAILY for 3 Days, #6 TAB Prov: Davon Garcia MD 08/01/16 Referrals Armando Ward D.O. (PCP) Forms Call Back Authorization, HOME CARE DOCUMENTATION FORM, IMPORTANT VISIT INFORMATION Patient Instructions My [facility] Additional Instructions Prednisone 40 mg: Once daily until the prescription is finished. Continue the cough medicine as previously prescribed. Acetaminophen(Tylenol) may be used for fever or pain. Use 1000mg every six hours as needed. Avoid using more than 4000mg in a 24 hour period. Albuterol Inhaler: Take 2 puffs four times daily for seven days, then as needed. Rest and drink plenty of fluids. Wash your hands after nose blowing, sneezing, or coughing. Most germs are spread through contact, therefore improper hygiene may result in your close contacts and loved ones becoming ill just like you. Return to the ER for severe headache, neck stiffness, chest pain, difficulty breathing, fevers, vomiting, worsening of your condition, or as needed. Follow up with your primary physician this week for a recheck of your current condition. Problem Qualifiers
[2016-08-05] MEDS ORDERED: VNTHFA/IN INH (15:41)
[2016-08-05] MEDS ORDERED: ZYP10 PO (15:41)
[2016-08-05] MEDS ORDERED: EFFSR75 PO (18:39)
== END 2016-08-01 19:22 | disposition home or self-care (01) ==
LOC: C.EDB 14:58
DX: R05 Cough (principal); R10.84 Generalized abdominal pain; R19.7 Diarrhea, unspecified; J20.9 Acute bronchitis, unspecified; I10 Essential (primary) hypertension; E78.5 Hyperlipidemia, unspecified; E03.9 Hypothyroidism, unspecified; F32.9 Major depressive disorder, single episode, unspecified; K31.84 Gastroparesis; M79.7 Fibromyalgia; Z83.3 Family history of diabetes mellitus; Z82.49 Family history of ischemic heart disease and other diseases of the circulatory system; Z82.0 Family history of epilepsy and other diseases of the nervous system; F17.200 Nicotine dependence, unspecified, uncomplicated

== ENCOUNTER 2016-08-05 20:17 | Emergency (ER) | payer OTHER ==
[~2016-08-05] VITALS: Ht 162.6 cm; Wt 109.6 kg
[~2016-08-05 20:17] MED LIST changes: -AMT24 PO; +EFFSR75 PO; -FURO20TA PO; -POTA1CAP2 PO; +PRED20TA PO; +ZYP10 PO; -ZYP15 PO
[2016-08-05 20:21] VITALS: TEMP 36.3; Ht 162.6 cm; Wt 109.6 kg
[2016-08-05] MEDS ORDERED: LAMO200T38 PO (20:31)
[2016-08-05] MEDS ORDERED: HYDROmorphone INJ 1 MG/ML SYR IV STA ×2 (20:32→22:27)
[2016-08-05] MEDS ORDERED: SODIUM CHLORIDE 0.9% 1000ML 1,000 ML IV STA (20:32)
[2016-08-05] MEDS ORDERED: KETOROLAC TROMETHAMINE 30 MG/ML VIAL IV STA (20:32)
[2016-08-05] MEDS ORDERED: PROMETHAZINE HCL INJ 25 MG in SODIUM CHLORIDE 0.9% 50ML 50 ML IV STA (20:32)
--- NOTE | 2016-08-05 20:34 | EMERGENCY ROOM VISIT NOTE ---
History Report prepared by Edmond: Pinky Rivas Under the Supervision of: Dr. Juancarlos Issa M.D. First contact with patient: 20:28 Chief Complaint: ABDOMINAL PAIN Stated Complaint: ABD PAIN,NAUSEA History of Present Illness The patient is a 56 year old female who presents to the Emergency Room with complaints of worsening lower abdominal pain beginning a few hours prior to arrival. The patient states that she has chronic abdominal pain and that these symptoms are baseline with her chronic pain. She is also experiencing nausea. The patient notes she feels constipated. Source of History: patient Onset: a fews hours [employer] REPA[employer]ER Position: abdomen (lower) Timing: worsening Associated Symptoms: + nausea Note: Patient has chronic abdominal pain and is experiencing constipation. Review of Systems See HPI for pertinent positives & negatives. A total of 10 systems reviewed and were otherwise negative. Past Medical & Surgical Medical Problems: (1) Benign hypertension (2) Bronchitis (3) Chronic abdominal pain (4) Depression (5) Enterohemorrhagic E. coli infection (6) Fibromyalgia (7) Gastroparesis (8) History of Clostridium difficile colitis (9) History of renal calculi (10) History of suicide attempt (11) Hyperlipidemia (12) Hypothyroidism (13) Migraine Surgical Problems: (1) History of appendectomy (2) History of feeding tube placement (3) S/P appendectomy (4) S/P cholecystectomy (5) S/P tonsillectomy and adenoidectomy (6) Status post hernia repair (7) Status post hysterectomy (8) Status post left oophorectomy (9) Status post right oophorectomy (10) Status post sinus surgery Family History Cancer Diabetes mellitus FATHER FHx: diabetes FHx: gallbladder disease FHx: heart disease FATHER FHx: hypertension FATHER MOTHER FHx: seizures Social History Smoking Status: Current Every Day Smoker Alcohol Use: none Drug Use: none Marital Status: Housing Status: lives with significant other Occupation Status: disabled Current/Historical Medications Scheduled Atorvastatin (Atorvastatin Calcium), 10 MG PO HS Lamotrigine (Lamictal), 200 MG PO QAM Losartan Potassium (Losartan Potassium), 50 MG PO HS Olanzapine (Olanzapine), 10 MG PO DAILY Ranitidine Hcl (Zantac), 300 MG PO BID Topiramate (Topamax), 50 MG PO BID Venlafaxine Hcl (Effexor Extended Rel), 225 MG PO QAM Scheduled PRN Albuterol Hfa (Ventolin Hfa), 2 PUFFS INH Q4H PRN for SOB/Wheezing Lorazepam (Lorazepam), 1 MG PO BID PRN for Anxiety/Insomnia Sumatriptan Succinate (Sumatriptan Succinate), 4 MG INJ UD PRN for Migraine Allergies Coded Allergies: CI Pigment Blue 63 (Verified Allergy, Unknown, shut down, heart and breathing slowed, 07/30/16) Fentanyl (Verified Adverse Reaction, Intermediate, GI SYMPTOMS, 07/30/16) Metoclopramide (Verified Adverse Reaction, Mild, TARDITIVE DYSKENESIA, 07/30) Ondansetron (Verified Adverse Reaction, Mild, HEADACHE, 07/30/16) Tramadol (Verified Adverse Reaction, Mild, VOMITING, 07/30/16) Chlorpromazine (Verified Adverse Reaction, Unknown, dry mouth, 07/30/16) Duloxetine (Verified Adverse Reaction, Unknown, LETHARGIC, 07/30/16) Physical Exam Vital Signs Date Time Temp Pulse Resp B/P Pulse Ox O2 Delivery O2 Flow Rate FiO2 08/05/16 22:46 86 20 131/78 95 Room Air 08/05/16 21:09 95 08/05/16 21:00 95 20 165/91 94 Room Air 08/05/16 20:21 36.3 106 18 164/82 93 Room Air Physical Exam GENERAL: Patient is a healthy-appearing well-nourished HEAD: Normocephalic atraumatic EYES: Ocular movements intact pupils equal and react to light OROPHARYNX mucous membranes are moist no exudates present no erythema or edema present NECK: Supple no nuchal rigidity CHEST: Good equal expansion LUNGS: Clear and equal to auscultation CARDIAC: Normal S1 and S2 ABDOMEN: Soft nontender no guarding BACK: No CVA tenderness EXTREMITIES: No pain upon palpation normal muscle strength in all groups no clubbing cyanosis or edema NEURO: Patient is following commands is answering questions appropriately. Alert and oriented x3 Cranial Nerves 2-12 grossly intact Medical Decision & Procedures ER Provider Diagnostic Interpretation: X-ray results as stated below per interpretation by me and the radiologist: PA CHEST WITH ABDOMINAL SERIES CLINICAL HISTORY: Generalized abdominal pain. FINDINGS: A PA chest radiograph is compared to study dated 08/01/2016. The examination is degraded by large body habitus. The cardiomediastinal silhouette is unremarkable. There is chronic elevation of the right hemidiaphragm and bibasilar atelectasis. The lungs and pleural spaces are otherwise clear. No pneumothorax is seen. The skeletal structures are osteopenic. The bony thorax is grossly intact. Supine and erect abdominal radiographs are compared to study dated 08/01/2016 and correlated with abdominal CT dated 02/17/2016. Cholecystectomy clips are identified in the right upper quadrant. There is a nonobstructed abdominal bowel gas pattern noting mild colonic fecal retention. No intraperitoneal free air is seen. There is no radiographic evidence of nephrolithiasis. There is mild lumbosacral spondylosis. The bony pelvis appears intact. Calcified phleboliths in the pelvis are unchanged. IMPRESSION: 1. Mild bibasilar atelectasis with no active disease in the chest. 2. Nonobstructed abdominal bowel gas pattern. 3. No significant change from 08/01/2016. Electronically signed by: Kwesi Martinez M.D. 08/05/2016 9:57 PM Dictated Date/Time: 08/05/2016 9:56 PM Laboratory Results 08/05/16 20:55 Red Blood Count 4.36, Mean Corpuscular Volume 94.7, Mean Corpuscular Hemoglobin 33.0, Mean Corpuscular Hemoglobin Concent 34.9, Mean Platelet Volume 9.9, Neutrophils (%) (Auto) 53.5, Lymphocytes (%) (Auto) 33.4, Monocytes (%) (Auto) 10.4, Eosinophils (%) (Auto) 2.1, Basophils (%) (Auto) 0.3, Neutrophils # (Auto ) 6.26, Lymphocytes # (Auto) 3.89, Monocytes # (Auto) 1.21, Eosinophils # (Auto ) 0.24, Basophils # (Auto) 0.03 08/05/16 20:55 Test 08/05/16 20:40 08/05/16 20:55 Urine Color YELLOW Urine Appearance CLEAR (CLEAR) Urine pH 5.5 (4.5-7.5) Urine Specific [place] 1.006 (1.000-1.030) Urine Protein NEG (NEG) Urine Glucose (UA) NEG (NEG) Urine Ketones NEG (NEG) Urine Occult Blood NEG (NEG) Urine Nitrite NEG (NEG) Urine Bilirubin NEG (NEG) Urine Urobilinogen NEG (NEG) Urine Leukocyte Esterase NEG (NEG) White Blood Count 11.66 K/uL (4.8-10.8) Red Blood Count 4.36 M/uL (4.2-5.4) Hemoglobin 14.4 g/dL (12.0-16.0) Hematocrit 41.3 % (37-47) Mean Corpuscular Volume 94.7 fL (80-100) Mean Corpuscular Hemoglobin 33.0 pg (25-34) Mean Corpuscular Hemoglobin Concent 34.9 g/dl (32-36) Platelet Count 290 K/uL (130-400) Mean Platelet Volume 9.9 fL (7.4-10.4) Neutrophils (%) (Auto) 53.5 % Lymphocytes (%) (Auto) 33.4 % Monocytes (%) (Auto) 10.4 % Eosinophils (%) (Auto) 2.1 % Basophils (%) (Auto) 0.3 % Neutrophils # (Auto) 6.26 K/uL (1.4-6.5) Lymphocytes # (Auto) 3.89 K/uL (1.2-3.4) Monocytes # (Auto) 1.21 K/uL (0.11-0.59) Eosinophils # (Auto) 0.24 K/uL (0-0.5) Basophils # (Auto) 0.03 K/uL (0-0.2) RDW Standard Deviation 44.4 fL (36.4-46.3) RDW Coefficient of Variation 12.8 % (11.5-14.5) Immature Granulocyte % (Auto) 0.3 % Immature Granulocyte # (Auto) 0.03 K/uL (0.00-0.02) Anion Gap 10.0 mmol/L (3-11) Est Creatinine Clear Calc Drug Dose 81.1 ml/min Estimated GFR () 77.7 Estimated GFR (Non- 67.0 BUN/Creatinine Ratio 10.7 (10-20) Calcium Level 8.8 mg/dl (8.5-10.1) Total Bilirubin 0.3 mg/dl (0.2-1) Direct Bilirubin mg/dl (0-0.2) Aspartate Amino Transf (AST/SGOT) U/L (15-37) Alanine Aminotransferase (ALT/SGPT) 69 U/L (12-78) Alkaline Phosphatase 150 U/L (45-117) Total Protein 7.2 gm/dl (6.4-8.2) Albumin 3.4 gm/dl (3.4-5.0) Lipase 289 U/L (73-393) Labs reviewed by ED physician. Medications Administered Medications (Trade) Dose Ordered Sig/Van Route Start Time Stop Time Status Last Admin Dose Admin Hydromorphone HCl 1 mg 1 mg NOW STAT IV 08/05/16 20:32 08/05/16 20:34 DC 08/05/16 20:47 1 MG Sodium Chloride (Nss 1000ml) 1,000 ml @ 999 mls/hr Q1H1M STAT IV 08/05/16 20:32 08/05/16 21:32 DC 08/05/16 21:03 999 MLS/HR Ketorolac Tromethamine 30 mg 30 mg NOW STAT IV 08/05/16 20:32 08/05/16 20:34 DC 08/05/16 20:46 30 MG Promethazine HCl/ Sodium Chloride (Phenergan Inj/ Nss 50ml) 51 ml @ 204 mls/hr NOW STAT IV 08/05/16 20:32 08/05/16 20:46 DC 08/05/16 20:47 204 MLS/HR Hydromorphone HCl (Dilaudid Inj) 1 mg NOW STAT IV 08/05/16 22:27 08/05/16 22:28 DC 08/05/16 22:34 1 MG ED Course 2030: Past medical records reviewed. The patient was evaluated in room A10. A complete history and physical examination was performed. 2031: Promethazine HCl 25 mg/ Sodium Chloride 51 ml @ 204 mls/hr IV, Toradol Inj 30 mg IV, Sodium Chloride 1,000 ml @ 999 mls/hr IV, Dilaudid Inj 1 mg IV. 7: Dilaudid Inj 1 mg IV. 2231: Upon reexamination the patient is hemodynamically stable. I discussed results and treatment plan with the patient. She verbalizes agreement and understanding. The patient is ready for discharge. Medical Decision The patient is a 56 year old female who presents to the ED with complaints of abdominal pain. Differential diagnosis: Etiologies such as appendicitis, diverticulitis, PUD, biliary pathology, UTI, pancreatitis, obstruction, mesenteric ischemia, aortic pathology, infections, inflammatory bowel disease, renal colic, as well as others were entertained. This is a 56-year-old female who presents emergency department complaining of abdominal pain. The patient reports that this is her chronic abdominal pain area serial abdominal examinations were performed on the patient in the emergency department and at no time did she exhibit a surgical abdomen. Based on these findings I felt that the radiation exposure from a CAT scan would not justify doing 1. Patient does have a slight elevation in her white blood cell count however she is afebrile. She has no evidence of urinary tract infection. Her renal profile pancreas and liver profile are normal. She has is no evidence of obstruction. The patient is on a treatment plan for 2 shots a month. This is her second visit for this month's to receive a shot. For this reason she was given 1 mg of Ativan along with Phenergan. I do believe that the patient can be safely discharged home for follow-up with her primary care physician. Patient was in agreement with the treatment plan. Impression Primary Impression: Recurrent abdominal pain Scribe Attestation The scribe's documentation has been prepared under my direction and personally reviewed by me in its entirety. I confirm that the note above accurately reflects all work, treatment, procedures, and medical decision making performed by me. Departure Information Dispostion Home / Self-Care Referrals Armando Ward D.O. (PCP) Forms Call Back Authorization, HOME CARE DOCUMENTATION FORM, IMPORTANT VISIT INFORMATION, School Instructions, Work Instructions Patient Instructions ED Abd Pain Unkn Cause Fem, ED Diet Clear Liquid, My [facility] Additional Instructions You received narcotic or benzodiazepene medication while in the emergency room today. Do not drive, operate heavy machinery, or drink alcohol under the influence of this medication. Clear liquid diet next 48 hours You have been examined and treated today on an emergency basis only. This is not a substitute for, or an effort to provide, complete comprehensive medical care. It is impossible to recognize and treat all injuries or illnesses in a single emergency department visit. It is therefore important that you follow up closely with Dr Ward. Call as soon as possible for an appointment. Thank you for your time and consideration. I look forward to speaking with you again soon. Please don't hesitate to call us if you have any questions.
[2016-08-05] MEDS ORDERED: [UNRECOGNIZED DRUG - CODE] INJ (21:01)
[2016-08-05 21:06] LABS: HEMATOCRIT 41.3 % (37-47); MEAN CELL VOLUME 94.7 fL (80-100); MEAN CORPUSCULAR HGB CONC 34.9 g/dl (32-36); MEAN PLATELET VOLUME 9.9 fL (7.4-10.4); PLATELET COUNT 290 K/uL (130-400); RED BLOOD COUNT 4.36 M/uL (4.2-5.4); WHITE BLOOD COUNT 11.66 K/uL (4.8-10.8)
[2016-08-05 21:06] LABS: URINE APPEARANCE CLEAR (CLEAR); URINE BILIRUBIN NEG (NEG); URINE COLOR YELLOW; URINE NITRITE NEG (NEG); URINE PH 5.5 (4.5-7.5); URINE SPECIFIC GRAVITY 1.006 (1.000-1.030); UROBILINOGEN NEG (NEG)
[2016-08-05 21:07] LABS: MANUAL MICROSCOPIC REQUIRED? NO; REVIEW REQ? NO
[2016-08-05] MEDS ORDERED: RANI300T PO (21:07)
[2016-08-05] MEDS ORDERED: LPT10 PO (21:07)
[2016-08-05] MEDS ORDERED: TPM/50 PO (21:07)
[2016-08-05] MEDS ORDERED: CZR50 PO (21:07)
[2016-08-05] MEDS ORDERED: ATV1 PO (21:10)
[2016-08-05 21:27] LABS: ALKALINE PHOSPHATASE 150 U/L (45-117); ALT/SGPT 69 U/L (12-78); BLOOD UREA NITROGEN 10 mg/dl (7-18); BUN/CREATININE RATIO 10.7 (10-20); CARBON DIOXIDE 21 mmol/L (21-32); CHLORIDE 110 mmol/L (98-107); CREATININE 0.96 mg/dl (0.60-1.20); GLUCOSE 113 mg/dl (70-99); SODIUM 141 mmol/L (136-145)
[2016-08-05 21:33] LABS: BASO % 0.3 %; BASO ABS # 0.03 K/uL (0-0.2); COMPLETE YES; EOS % 2.1 %; IG% 0.3 %; LYMPH % 33.4 %; LYMPH ABS # 3.89 K/uL (1.2-3.4); MONO % 10.4 %; NEUT % 53.5 %
--- NOTE | 2016-08-05 21:59 | DIAGNOSTIC IMAGING REPORT ---
PA CHEST WITH ABDOMINAL SERIES CLINICAL HISTORY: Generalized abdominal pain. FINDINGS: A PA chest radiograph is compared to study dated 08/01/2016. The examination is degraded by large body habitus. The cardiomediastinal silhouette is unremarkable. There is chronic elevation of the right hemidiaphragm and bibasilar atelectasis. The lungs and pleural spaces are otherwise clear. No pneumothorax is seen. The skeletal structures are osteopenic. The bony thorax is grossly intact. Supine and erect abdominal radiographs are compared to study dated 08/01/2016 and correlated with abdominal CT dated 02/17/2016. Cholecystectomy clips are identified in the right upper quadrant. There is a nonobstructed abdominal bowel gas pattern noting mild colonic fecal retention. No intraperitoneal free air is seen. There is no radiographic evidence of nephrolithiasis. There is mild lumbosacral spondylosis. The bony pelvis appears intact. Calcified phleboliths in the pelvis are unchanged. IMPRESSION: 1. Mild bibasilar atelectasis with no active disease in the chest. 2. Nonobstructed abdominal bowel gas pattern. 3. No significant change from 08/01/2016. Electronically signed by: Kwesi Martinez M.D. 08/05/2016 9:57 PM Dictated Date/Time: 08/05/2016 9:56 PM
[2016-08-05 22:03] LABS: CALCIUM 8.8 mg/dl (8.5-10.1)
[2016-08-05 22:46] VITALS: BP 131/78; PULSE 86; O2SAT 95
== END 2016-08-05 22:49 | disposition home or self-care (01) ==
LOC: C.EDB 20:18 → C.EDA 22:49
DX: R10.30 Lower abdominal pain, unspecified (principal); I10 Essential (primary) hypertension; E78.5 Hyperlipidemia, unspecified; E03.9 Hypothyroidism, unspecified; K31.84 Gastroparesis; F32.9 Major depressive disorder, single episode, unspecified; G89.29 Other chronic pain; F17.200 Nicotine dependence, unspecified, uncomplicated; Z87.442 Personal history of urinary calculi; Z86.19 Personal history of other infectious and parasitic diseases; Z90.710 Acquired absence of both cervix and uterus; Z90.722 Acquired absence of ovaries, bilateral; Z90.49 Acquired absence of other specified parts of digestive tract; Z98.890 Other specified postprocedural states; Z79.899 Other long term (current) drug therapy; Z88.8 Allergy status to other drugs, medicaments and biological substances; Z80.9 Family history of malignant neoplasm, unspecified; Z83.3 Family history of diabetes mellitus; Z83.79 Family history of other diseases of the digestive system; Z82.49 Family history of ischemic heart disease and other diseases of the circulatory system; Z82.0 Family history of epilepsy and other diseases of the nervous system

== ENCOUNTER 2016-08-27 17:50 | Emergency (ER) | payer OTHER ==
[~2016-08-27] VITALS: Ht 162.6 cm; Wt 108.9 kg
[~2016-08-27 17:50] MED LIST changes: +ATV1 PO; +CZR50 PO; +LAMO200T38 PO; +LPT10 PO; -PRED20TA PO; +RANI300T PO; +TPM/50 PO; +[UNRECOGNIZED DRUG - CODE] INJ
[2016-08-27 17:56] VITALS: TEMP 36.8; Ht 162.6 cm; Wt 108.9 kg
[2016-08-27] MEDS ORDERED: SODIUM CHLORIDE 0.9% 1000ML 1,000 ML IV STA (18:30)
[2016-08-27] MEDS ORDERED: PROMETHAZINE HCL INJ 25 MG/ML 1 ML VIAL IV STA (18:30)
[2016-08-27] MEDS ORDERED: MoRPHine SULFATE 10 MG/ML CARP/VIAL IV PRN (18:30)
[2016-08-27] MEDS ORDERED: SODIUM CHLORIDE 0.9% 1000ML 500 ML IV STA (18:30)
[2016-08-27] MEDS ORDERED: KETOROLAC TROMETHAMINE 30 MG/ML VIAL IV STA (18:30)
--- NOTE | 2016-08-27 18:37 | EMERGENCY ROOM VISIT NOTE ---
History Report prepared by Edmond: Fei Mackenzie Under the Supervision of: Dr. Kwesi Nielsen M.D. First contact with patient: 18:22 Chief Complaint: ABDOMINAL PAIN Stated Complaint: ABD PAIN Nursing Triage Summary: Lower abd pain with a burning sensation per the pt, started at approx 2 pm today. History of Present Illness The patient is a 56 year old female who presents to the Emergency Room with complaints of worsening lower abdominal pain that started around 4 and a half hours ago. The patient says she has gotten this pain in the past before intermittently, but now it won't go away this afternoon. She describes the pain as a burning and a 9 out of 10 in severity. The patient notes that the pain is more on the right side. She says that she is also nauseous. The patient says that her bowel movements have been really soft, and she had to stop half way on the way here to go to the bathroom. She denies any fevers, vomiting, or urinary symptoms. The patient is scheduled to see a surgeon in [place] in 12 days. The patient's surgeon says that the patient's problem may be due to adhesions. She has a vast abdominal surgery history, including a hysterectomy, an oophorectomy , a cholecystectomy, hernia surgery, an appendectomy, and a feeding tube. Source of History: patient, spouse/significant other Onset: 4 and a half hours ago Position: abdomen (lower) Symptom Intensity: 9/10 Quality: burning Timing: worsening Associated Symptoms: + nausea, No fevers, No urinary symptoms, No vomiting Note: Associated symptoms: Soft bowels. Review of Systems See HPI for pertinent positives & negatives. A total of 10 systems reviewed and were otherwise negative. Past Medical & Surgical Medical Problems: (1) Benign hypertension (2) Bronchitis (3) Chronic abdominal pain (4) Depression (5) Enterohemorrhagic E. coli infection (6) Fibromyalgia (7) Gastroparesis (8) History of Clostridium difficile colitis (9) History of renal calculi (10) History of suicide attempt (11) Hyperlipidemia (12) Hypothyroidism (13) Migraine Surgical Problems: (1) History of appendectomy (2) History of feeding tube placement (3) S/P appendectomy (4) S/P cholecystectomy (5) S/P tonsillectomy and adenoidectomy (6) Status post hernia repair (7) Status post hysterectomy (8) Status post left oophorectomy (9) Status post right oophorectomy (10) Status post sinus surgery Family History Cancer Diabetes mellitus FATHER FHx: diabetes FHx: gallbladder disease FHx: heart disease FATHER FHx: hypertension FATHER MOTHER FHx: seizures Social History Smoking Status: Current Every Day Smoker Alcohol Use: none Drug Use: none Marital Status: Housing Status: lives with significant other Occupation Status: disabled Current/Historical Medications Scheduled Atorvastatin (Atorvastatin Calcium), 10 MG PO HS Lamotrigine (Lamictal), 200 MG PO QAM Losartan Potassium (Losartan Potassium), 50 MG PO HS Olanzapine (Olanzapine), 10 MG PO DAILY Potassium Chloride (Potassium Chloride Er), 10 MEQ PO BID Ranitidine Hcl (Zantac), 300 MG PO BID Topiramate (Topamax), 50 MG PO BID Venlafaxine Hcl (Effexor Extended Rel), 225 MG PO QAM Scheduled PRN Lorazepam (Lorazepam), 1 MG PO BID PRN for Anxiety/Insomnia Sumatriptan Succinate (Sumatriptan Succinate), 4 MG INJ UD PRN for Migraine Allergies Coded Allergies: CI Pigment Blue 63 (Verified Allergy, Unknown, shut down, heart and breathing slowed, 07/30/16) Fentanyl (Verified Adverse Reaction, Intermediate, GI SYMPTOMS, 07/30/16) Metoclopramide (Verified Adverse Reaction, Mild, TARDITIVE DYSKENESIA, 07/30) Ondansetron (Verified Adverse Reaction, Mild, HEADACHE, 07/30/16) Tramadol (Verified Adverse Reaction, Mild, VOMITING, 07/30/16) Chlorpromazine (Verified Adverse Reaction, Unknown, dry mouth, 07/30/16) Duloxetine (Verified Adverse Reaction, Unknown, LETHARGIC, 07/30/16) Physical Exam Vital Signs Date Time Temp Pulse Resp B/P Pulse Ox O2 Delivery O2 Flow Rate FiO2 08/27/16 21:12 84 18 142/83 95 08/27/16 19:40 90 18 158/109 95 Room Air 08/27/16 17:56 36.8 105 20 157/83 96 Room Air Physical Exam GENERAL: Patient is in no acute distress. HEENT: No acute trauma, normocephalic atraumatic, mucous membranes moist, no nasal congestion, no scleral icterus. NECK: No stridor, no adenopathy, no meningismus, trachea is midline. LUNGS: Clear to auscultation bilaterally, no wheeze, no rhonchi, breath sounds equal. HEART: Without murmurs gallops or rubs, regular rate and rhythm. ABDOMEN: Soft, tender along the lower quadrants and pelvis bilaterally, bowel sounds positive, no hernias, no peritonitis. EXTREMITIES: No cyanosis or edema, full range of motion of all the joints without pain or difficulty, no signs for acute trauma. NEUROLOGIC: Oriented x 3, no acute motor or sensory deficits, no focal weakness. SKIN: No rash, no jaundice, no diaphoresis. Medical Decision & Procedures Laboratory Results 08/27/16 19:05 Red Blood Count 4.71, Mean Corpuscular Volume 96.8, Mean Corpuscular Hemoglobin 32.7, Mean Corpuscular Hemoglobin Concent 33.8, Mean Platelet Volume 9.6, Neutrophils (%) (Auto) 53.7, Lymphocytes (%) (Auto) 33.0, Monocytes (%) (Auto) 11.1, Eosinophils (%) (Auto) 1.8, Basophils (%) (Auto) 0.2, Neutrophils # (Auto ) 4.84, Lymphocytes # (Auto) 2.97, Monocytes # (Auto) 1.00, Eosinophils # (Auto ) 0.16, Basophils # (Auto) 0.02 08/27/16 19:05 Test 08/27/16 19:05 08/27/16 19:45 White Blood Count 9.01 K/uL (4.8-10.8) Red Blood Count 4.71 M/uL (4.2-5.4) Hemoglobin 15.4 g/dL (12.0-16.0) Hematocrit 45.6 % (37-47) Mean Corpuscular Volume 96.8 fL (80-100) Mean Corpuscular Hemoglobin 32.7 pg (25-34) Mean Corpuscular Hemoglobin Concent 33.8 g/dl (32-36) Platelet Count 282 K/uL (130-400) Mean Platelet Volume 9.6 fL (7.4-10.4) Neutrophils (%) (Auto) 53.7 % Lymphocytes (%) (Auto) 33.0 % Monocytes (%) (Auto) 11.1 % Eosinophils (%) (Auto) 1.8 % Basophils (%) (Auto) 0.2 % Neutrophils # (Auto) 4.84 K/uL (1.4-6.5) Lymphocytes # (Auto) 2.97 K/uL (1.2-3.4) Monocytes # (Auto) 1.00 K/uL (0.11-0.59) Eosinophils # (Auto) 0.16 K/uL (0-0.5) Basophils # (Auto) 0.02 K/uL (0-0.2) RDW Standard Deviation 46.0 fL (36.4-46.3) RDW Coefficient of Variation 13.0 % (11.5-14.5) Immature Granulocyte % (Auto) 0.2 % Immature Granulocyte # (Auto) 0.02 K/uL (0.00-0.02) Anion Gap 10.0 mmol/L (3-11) Est Creatinine Clear Calc Drug Dose 70.5 ml/min Estimated GFR () 65.9 Estimated GFR (Non- 56.9 BUN/Creatinine Ratio 10.5 (10-20) Calcium Level 9.1 mg/dl (8.5-10.1) Total Bilirubin 0.3 mg/dl (0.2-1) Aspartate Amino Transf (AST/SGOT) 39 U/L (15-37) Alanine Aminotransferase (ALT/SGPT) 57 U/L (12-78) Alkaline Phosphatase 150 U/L (45-117) Total Protein 7.0 gm/dl (6.4-8.2) Albumin 3.5 gm/dl (3.4-5.0) Globulin 3.5 gm/dl (2.5-4.0) Albumin/Globulin Ratio 1.0 (0.9-2) Lipase 253 U/L (73-393) Urine Color DK YELLOW Urine Appearance CLOUDY (CLEAR) Urine pH 5.5 (4.5-7.5) Urine Specific [place] 1.025 (1.000-1.030) Urine Protein NEG (NEG) Urine Glucose (UA) NEG (NEG) Urine Ketones TRACE (NEG) Urine Occult Blood TRACE (NEG) Urine Nitrite NEG (NEG) Urine Bilirubin NEG (NEG) Urine Urobilinogen NEG (NEG) Urine Leukocyte Esterase NEG (NEG) Urine WBC (Auto) 1-5 /hpf (0-5) Urine RBC (Auto) 0-4 /hpf (0-4) Urine Hyaline Casts (Auto) 1-5 /lpf (0-5) Urine Epithelial Cells (Auto) >30 /lpf (0-5) Urine Bacteria (Auto) 1+ (NEG) Laboratory results reviewed by me. Medications Administered Medications (Trade) Dose Ordered Sig/Van Route Start Time Stop Time Status Last Admin Dose Admin Sodium Chloride (Nss 1000ml) 500 ml @ 999 mls/hr Q31M STAT IV 08/27/16 18:30 08/27/16 19:00 DC 08/27/16 19:41 999 MLS/HR Morphine Sulfate (MoRPHine SULFATE INJ) 6 mg Q30M PRN IV 08/27/16 18:30 08/27/16 21:37 DC 08/27/16 19:42 6 MG Ketorolac Tromethamine 30 mg 30 mg NOW STAT IV 08/27/16 18:30 08/27/16 18:33 DC 08/27/16 19:42 30 MG Promethazine HCl/ Sodium Chloride (Phenergan Inj/ Nss 50ml) 50.5 ml @ 202 mls/hr NOW ONCE IV 08/27/16 19:15 08/27/16 19:29 DC 08/27/16 19:41 202 MLS/HR ED Course 1826: The patient was evaluated in room C9. A complete history and physical exam was performed. 1829: Ordered Toradol Inj 30 mg IV, Morphine Sulfate Inj 6 mg IV PRN, NSS 1000 ml @ 200 mls/hr IV, Phenergan Inj 12.5 mg IV, NSS 500 ml @ 999 mls/hr IV. 1914: Ordered Promethazine HCl 12.5/Sodium Chloride 50.5 ml @ 202 mls/hr IV. 2043: Reevaluated the patient. Discussed results and discharge instructions: She verbalized understanding and agreement. The patient is ready for discharge. Medical Decision Differential diagnosis includes but is not limited to adhesions, bowel obstruction, acute on chronic pain, UTI, pancreatitis, hernia, diverticulitis. There is no leukocytosis or concerning anemia. No significant electrolyte abnormality, kidney failure, hepatitis or pancreatitis. Urinalysis shows contamination, no obvious infection. On exam, the patient was not febrile or toxic. There was no peritonitis. Looking at her old records, she has been to this ER before for complaints of abdominal pain. The patient was given IV saline, IV morphine, IV Toradol and IV Phenergan. She does feel improved. She is comfortable. She is being discharged home. She was encouraged to follow with her surgeon as scheduled. I think her presentation today is consistent with her previous presentations, she has chronic abdominal pain. Impression Primary Impression: Lower abdominal pain Scribe Attestation The scribe's documentation has been prepared under my direction and personally reviewed by me in its entirety. I confirm that the note above accurately reflects all work, treatment, procedures, and medical decision making performed by me. Departure Information Dispostion Home / Self-Care Referrals Armando Ward D.O. (PCP) Forms Call Back Authorization, HOME CARE DOCUMENTATION FORM, IMPORTANT VISIT INFORMATION Patient Instructions My [facility] Additional Instructions fluids rest follow with surgery as scheduled all testing today was ok as we discussed return if worsening
[2016-08-27] MEDS ORDERED: POTA1CAP2 PO (18:51)
[2016-08-27] MEDS ORDERED: PROMETHAZINE HCL INJ 12.5 MG in SODIUM CHLORIDE 0.9% 50ML 50 ML IV ONE (19:15)
[2016-08-27 19:16] LABS: BASO % 0.2 %; BASO ABS # 0.02 K/uL (0-0.2); COMPLETE YES; EOS % 1.8 %; HEMATOCRIT 45.6 % (37-47); IG% 0.2 %; LYMPH ABS # 2.97 K/uL (1.2-3.4); MEAN CELL VOLUME 96.8 fL (80-100); MEAN CORPUSCULAR HEMOGLOBIN 32.7 pg (25-34); MEAN CORPUSCULAR HGB CONC 33.8 g/dl (32-36); MEAN PLATELET VOLUME 9.6 fL (7.4-10.4); MONO % 11.1 %; NEUT % 53.7 %; PLATELET COUNT 282 K/uL (130-400); RED BLOOD COUNT 4.71 M/uL (4.2-5.4); WHITE BLOOD COUNT 9.01 K/uL (4.8-10.8)
[2016-08-27 19:28] LABS: CALCIUM 9.1 mg/dl (8.5-10.1)
[2016-08-27 19:32] LABS: BUN/CREATININE RATIO 10.5 (10-20); CREATININE 1.1 mg/dl (0.60-1.20); POTASSIUM 3.4 mmol/L (3.5-5.1)
[2016-08-27 20:02] LABS: MANUAL MICROSCOPIC REQUIRED? NO; REVIEW REQ? NO; URINE APPEARANCE CLOUDY (CLEAR); URINE BILIRUBIN NEG (NEG); URINE COLOR DK YELLOW; URINE EPITHELIAL CELL AUTO >30 /lpf (0-5); URINE NITRITE NEG (NEG); URINE PH 5.5 (4.5-7.5); URINE SPECIFIC GRAVITY 1.025 (1.000-1.030); UROBILINOGEN NEG (NEG); ZZUR CULT IF INDIC CLEAN CATCH YES
[2016-08-27 21:12] VITALS: BP 142/83; PULSE 84; O2SAT 95
== END 2016-08-27 21:14 | disposition home or self-care (01) ==
LOC: C.EDB 17:51 → C.EDC 21:14
DX: R10.30 Lower abdominal pain, unspecified (principal); E03.9 Hypothyroidism, unspecified; R11.0 Nausea; I10 Essential (primary) hypertension; F32.9 Major depressive disorder, single episode, unspecified; M79.7 Fibromyalgia; E78.5 Hyperlipidemia, unspecified; Z79.899 Other long term (current) drug therapy; Z86.19 Personal history of other infectious and parasitic diseases; Z87.09 Personal history of other diseases of the respiratory system; Z87.19 Personal history of other diseases of the digestive system; Z87.442 Personal history of urinary calculi; Z91.5 Personal history of self-harm; Z82.0 Family history of epilepsy and other diseases of the nervous system; Z82.49 Family history of ischemic heart disease and other diseases of the circulatory system; Z83.3 Family history of diabetes mellitus; Z83.79 Family history of other diseases of the digestive system; F17.200 Nicotine dependence, unspecified, uncomplicated

== ENCOUNTER 2016-08-29 18:21 | Emergency (ER) | payer OTHER ==
[~2016-08-29] VITALS: Ht 162.6 cm; Wt 110.0 kg
[~2016-08-29 18:21] MED LIST changes: +POTA1CAP2 PO; -VNTHFA/IN INH
[2016-08-29 18:25] VITALS: TEMP 36.8; Ht 162.6 cm; Wt 110.0 kg
[2016-08-29] MEDS ORDERED: PROMETHAZINE HCL INJ 25 MG/ML 1 ML VIAL IM STA (18:45)
[2016-08-29] MEDS ORDERED: MoRPHine SULFATE 10 MG/ML CARP/VIAL IM STA (18:45)
--- NOTE | 2016-08-29 18:52 | EMERGENCY ROOM VISIT NOTE ---
History Report prepared by Edmond: Bryan Ge Under the Supervision of: Dr. Juancarlos Landa D.O. First contact with patient: 18:37 Chief Complaint: ABDOMINAL PAIN Stated Complaint: ABD PAIN,VOMITING Nursing Triage Summary: Pt c/o severe abd pain with vomiting "I was here the other night with it." History of Present Illness The patient is a 56 year old female who presents to the Emergency Room with complaints of worsening abdominal pain that began recently. She rates her pain a 10/10 in severity. She was here in the ED two days ago with the same symptoms. She states that she has had multiple CT scans that were all normal. She also had a colonoscopy as well that was normal. She is waiting on her colon biopsy results. Her pain is causing her to experience episodes of emesis. She is supposed to see a Surgeon in [place] in ten days. She says that the doctors she has seen think that it has something to do with adhesions. She denies any fevers or urinary symptoms. Source of History: patient Onset: recently Position: abdomen Symptom Intensity: 10/10 Quality: sharp Timing: worsening Associated Symptoms: + vomiting, No fevers, No urinary symptoms Review of Systems See HPI for pertinent positives & negatives. A total of 10 systems reviewed and were otherwise negative. Past Medical & Surgical Medical Problems: (1) Benign hypertension (2) Bronchitis (3) Chronic abdominal pain (4) Depression (5) Enterohemorrhagic E. coli infection (6) Fibromyalgia (7) Gastroparesis (8) History of Clostridium difficile colitis (9) History of renal calculi (10) History of suicide attempt (11) Hyperlipidemia (12) Hypothyroidism (13) Migraine Surgical Problems: (1) History of appendectomy (2) History of feeding tube placement (3) S/P appendectomy (4) S/P cholecystectomy (5) S/P tonsillectomy and adenoidectomy (6) Status post hernia repair (7) Status post hysterectomy (8) Status post left oophorectomy (9) Status post right oophorectomy (10) Status post sinus surgery Family History Cancer Diabetes mellitus FATHER FHx: diabetes FHx: gallbladder disease FHx: heart disease FATHER FHx: hypertension FATHER MOTHER FHx: seizures Social History Smoking Status: Current Every Day Smoker Alcohol Use: none Drug Use: none Marital Status: Housing Status: lives with significant other Occupation Status: disabled Current/Historical Medications Scheduled Atorvastatin (Atorvastatin Calcium), 10 MG PO HS Lamotrigine (Lamictal), 200 MG PO QAM Losartan Potassium (Losartan Potassium), 50 MG PO HS Olanzapine (Olanzapine), 10 MG PO DAILY Potassium Chloride (Potassium Chloride Er), 10 MEQ PO BID Ranitidine Hcl (Zantac), 300 MG PO BID Topiramate (Topamax), 50 MG PO BID Venlafaxine Hcl (Effexor Extended Rel), 225 MG PO QAM Scheduled PRN Lorazepam (Lorazepam), 1 MG PO BID PRN for Anxiety/Insomnia Sumatriptan Succinate (Sumatriptan Succinate), 4 MG INJ UD PRN for Migraine Allergies Coded Allergies: CI Pigment Blue 63 (Verified Allergy, Unknown, shut down, heart and breathing slowed, 07/30/16) Fentanyl (Verified Adverse Reaction, Intermediate, GI SYMPTOMS, 07/30/16) Metoclopramide (Verified Adverse Reaction, Mild, TARDITIVE DYSKENESIA, 07/30) Ondansetron (Verified Adverse Reaction, Mild, HEADACHE, 07/30/16) Tramadol (Verified Adverse Reaction, Mild, VOMITING, 07/30/16) Chlorpromazine (Verified Adverse Reaction, Unknown, dry mouth, 07/30/16) Duloxetine (Verified Adverse Reaction, Unknown, LETHARGIC, 07/30/16) Physical Exam Vital Signs Date Time Temp Pulse Resp B/P Pulse Ox O2 Delivery O2 Flow Rate FiO2 08/29/16 18:25 36.8 112 18 155/86 95 Room Air Physical Exam CONSTITUTIONAL/VITAL SIGNS: Reviewed / noted above. GENERAL: Non-toxic in appearance. INTEGUMENTARY: Warm, dry, and [place]. HEAD: Normocephalic. EYES: without scleral icterus or trauma. ENT/OROPHARYNX: clear and moist. LYMPHADENOPATHY/NECK: Is supple without lymphadenopathy or meningismus. RESPIRATORY: Lungs clear and equal. CARDIOVASCULAR: Regular rate and rhythm. GI/ABDOMEN: Soft and nontender. No organomegaly or pulsatile mass. No rebound or guarding. Normal bowel sounds. EXTREMITIES: Warm and well perfused. BACK: No CVA tenderness. NEUROLOGICAL: Intact without focal deficits. PSYCHIATRIC: normal affect. MUSCULOSKELETAL: Normally developed with good muscle tone. Medical Decision & Procedures ED Course 1837: Previous medical records were reviewed. The patient was evaluated in room A4. A complete history and physical examination was performed. 1844: Ordered Phenergan Inj 25 mg IM, Morphine Sulfate 10 mg IM 1853: On reevaluation, the patient is resting. I discussed the results and findings with the patient. She verbalized agreement of the treatment plan. She was discharged home. Medical Decision Differential diagnosis: Etiologies such as appendicitis, diverticulitis, PUD, biliary pathology, UTI, pancreatitis, obstruction, mesenteric ischemia, aortic pathology, infections, inflammatory bowel disease, renal colic, as well as others were entertained. This is a 56-year-old female who presents to the ED with a chief complaint of abdominal pain. The patient's symptoms are chronic. She has been seen 3 times so far the past 30 days. She had blood work done and x-rays done 2 days ago. The source of her pain is on discovered. The patient does have follow-up with Gen. surgery in [place] for possible adhesions. The patient has been seen by GI and multiple visits here. She is on 2 shots per month treatment plan and is requesting a second shot of the month. She was given morphine 10 mg IM and Phenergan 25 mg IM for her discomfort. At this point I did not feel workup would be beneficial as she was seen 2 days ago and her blood work at that time was unremarkable. She is felt to be stable for discharge. She is also not to receive prescription narcotics. Impression Primary Impression: Generalized abdominal pain Scribe Attestation The scribe's documentation has been prepared under my direction and personally reviewed by me in its entirety. I confirm that the note above accurately reflects all work, treatment, procedures, and medical decision making performed by me. Departure Information Dispostion Home / Self-Care Referrals Armando Ward D.O. (PCP) Forms Call Back Authorization, HOME CARE DOCUMENTATION FORM, IMPORTANT VISIT INFORMATION Patient Instructions My [facility] Additional Instructions Follow-up with your doctor for further care and evaluation in 1-2 days. Return to the emergency department for worsening or new symptoms or any concerns. You have been examined and treated today on an emergency basis only. This is not a substitute for, or an effort to provide, complete comprehensive medical care. It is impossible to recognize and treat all injuries or illnesses in a single emergency department visit. It is therefore important that you follow up closely with your doctor. Call as soon as possible for an appointment.
[2016-08-29 19:12] VITALS: BP 138/98; PULSE 102; O2SAT 95
== END 2016-08-29 19:15 | disposition home or self-care (01) ==
LOC: C.EDB 18:22 → C.EDA 19:15
DX: R10.84 Generalized abdominal pain (principal); I10 Essential (primary) hypertension; E78.5 Hyperlipidemia, unspecified; E03.9 Hypothyroidism, unspecified; F33.41 Major depressive disorder, recurrent, in partial remission; Z83.3 Family history of diabetes mellitus; Z82.49 Family history of ischemic heart disease and other diseases of the circulatory system; Z82.0 Family history of epilepsy and other diseases of the nervous system; F17.200 Nicotine dependence, unspecified, uncomplicated

== ENCOUNTER 2016-09-14 14:55 | Emergency (ER) | payer OTHER ==
[~2016-09-14] VITALS: Ht 162.6 cm; Wt 107.3 kg
[2016-09-14 15:00] VITALS: Ht 162.6 cm; Wt 107.3 kg
[2016-09-14] MEDS ORDERED: SODIUM CHLORIDE 0.9% 1000ML 1,000 ML IV STA (15:27)
[2016-09-14] MEDS ORDERED: PROMETHAZINE HCL INJ 12.5 MG in SODIUM CHLORIDE 0.9% 50ML 50 ML IV STA (15:31)
[2016-09-14] MEDS ORDERED: ONDANSETRON INJ 2 MG/ML 2 ML VIAL IV STA (15:33)
[2016-09-14] MEDS ORDERED: KETOROLAC TROMETHAMINE 30 MG/ML VIAL IV STA (15:34)
[2016-09-14 16:03] LABS: URINE APPEARANCE CLEAR (CLEAR); URINE BILIRUBIN NEG (NEG); URINE COLOR DK YELLOW; URINE EPITHELIAL CELL AUTO >30 /lpf (0-5); URINE NITRITE NEG (NEG); URINE SPECIFIC GRAVITY 1.027 (1.000-1.030); UROBILINOGEN NEG (NEG); ZZUR CULT IF INDIC CLEAN CATCH YES
[2016-09-14 16:04] LABS: MANUAL MICROSCOPIC REQUIRED? NO; REVIEW REQ? NO
[2016-09-14 16:05] LABS: BASO % 0.2 %; BASO ABS # 0.02 K/uL (0-0.2); COMPLETE YES; EOS % 0.6 %; HEMATOCRIT 46.4 % (37-47); IG% 0.3 %; LYMPH % 24.5 %; LYMPH ABS # 2.64 K/uL (1.2-3.4); MEAN CELL VOLUME 96.5 fL (80-100); MEAN CORPUSCULAR HEMOGLOBIN 33.7 pg (25-34); MEAN CORPUSCULAR HGB CONC 34.9 g/dl (32-36); MEAN PLATELET VOLUME 10.2 fL (7.4-10.4); NEUT % 66.4 %; PLATELET COUNT 259 K/uL (130-400); RED BLOOD COUNT 4.81 M/uL (4.2-5.4); WHITE BLOOD COUNT 10.79 K/uL (4.8-10.8)
[2016-09-14 16:23] LABS: ALT/SGPT 57 U/L (12-78); AMYLASE 28 U/L (25-115); AST/SGOT 44 U/L (15-37); BLOOD UREA NITROGEN 10 mg/dl (7-18); BUN/CREATININE RATIO 9.9 (10-20); CALCIUM 8.7 mg/dl (8.5-10.1); CARBON DIOXIDE 21 mmol/L (21-32); CHLORIDE 114 mmol/L (98-107); CREATININE 0.97 mg/dl (0.60-1.20); GLUCOSE 108 mg/dl (70-99); POTASSIUM 3.4 mmol/L (3.5-5.1); SODIUM 146 mmol/L (136-145)
[2016-09-14 16:28] LABS: ALKALINE PHOSPHATASE 179 U/L (45-117)
--- NOTE | 2016-09-14 17:11 | DIAGNOSTIC IMAGING REPORT ---
ABDOMINAL ULTRASOUND, RIGHT UPPER QUADRANT HISTORY: Epigastric abdominal pain, emesis, nausea, yellow stools. COMPARISON: CT of the abdomen and pelvis February 17, 2016. FINDINGS: This exam is compromised by suboptimal penetration. Hepatic echogenicity is diffusely increased. Mild dilatation of the common bile duct is unchanged since CT of February 17, 2016 and likely related to prior cholecystectomy. The pancreas is largely obscured by overlying bowel gas. There is no right hydronephrosis. IMPRESSION: 1. Fatty infiltration of the liver. 2. Mild dilatation of the common bile duct which is unchanged since CT of February 17, 2016 and likely related to prior cholecystectomy. 3. Largely obscured pancreas. Electronically signed by: Ric Hull M.D. 09/14/2016 5:10 PM Dictated Date/Time: 09/14/2016 5:05 PM
--- NOTE | 2016-09-14 17:13 | DIAGNOSTIC IMAGING REPORT ---
PA CHEST RADIOGRAPH AND UPRIGHT AND SUPINE AP RADIOGRAPHS OF THE ABDOMEN CLINICAL HISTORY: Epigastric abdominal pain. COMPARISON STUDY: Radiograph abdominal series August 05, 2016. FINDINGS: Mild elevation of the right hemidiaphragm is unchanged. No consolidation is identified. There is no evidence of pulmonary edema. Cardiomediastinal silhouette is normal. There are abdominal surgical clips. There is no free air. The bowel gas pattern is normal. Pelvic calcifications likely reflect phleboliths. IMPRESSION: 1. No free air or evidence of bowel obstruction. 2. No acute cardiopulmonary findings. Electronically signed by: Ric Hull M.D. 09/14/2016 5:11 PM Dictated Date/Time: 09/14/2016 5:10 PM
--- NOTE | 2016-09-14 18:00 | EMERGENCY ROOM VISIT NOTE ---
History First contact with patient: 15:18 Chief Complaint: GI ASSESSMENT Stated Complaint: YELLOW BOWEL,V/D,UPPER ABD PAIN, PANCRIATITIS SENT Nursing Triage Summary: Patient c/o left upper abdominal pain, vomiting and yellow diarrhea x 3 days. Has lost 8 pounds. Hx pancreatitis. History of Present Illness The patient is a 56 year old female who presents to the Emergency Room via private vehicle with complaints of "yellow bile, vomiting/diarrhea, upper abdominal pain, pancreatitis, sent by family doctor". The patient states that 3 days ago she began with bright yellow diarrhea, and minimal epigastric pain. She notes that this has increased now to a 10/10 in the epigastric region. She began with emesis this morning. She also has an 8 pound weight loss in the past 3 days. She states that she is unable to eat or drink because the vomiting and diarrhea. She points to the epigastric region as the location of pain. There is associated chills. She denies any history of heart troubles, blood clots, urinary symptoms, blood in the vomit, or stool. Review of Systems A complete 10-point Review of Systems was discussed with the patient, with pertinent positives and negatives listed in the History of Present Illness. All remaining Review of Systems questions can be considered negative unless otherwise specified. Past Medical/Surgical History Medical Problems: (1) Benign hypertension (2) Bronchitis (3) Chronic abdominal pain (4) Depression (5) Enterohemorrhagic E. coli infection (6) Fibromyalgia (7) Gastroparesis (8) History of Clostridium difficile colitis (9) History of renal calculi (10) History of suicide attempt (11) Hyperlipidemia (12) Hypothyroidism (13) Migraine Surgical Problems: (1) History of appendectomy (2) History of feeding tube placement (3) S/P appendectomy (4) S/P cholecystectomy (5) S/P tonsillectomy and adenoidectomy (6) Status post hernia repair (7) Status post hysterectomy (8) Status post left oophorectomy (9) Status post right oophorectomy (10) Status post sinus surgery Family History Cancer Diabetes mellitus FATHER FHx: diabetes FHx: gallbladder disease FHx: heart disease FATHER FHx: hypertension FATHER MOTHER FHx: seizures Social History Smoking Status: Current Every Day Smoker Alcohol Use: none Drug Use: none Marital Status: Housing Status: lives with significant other Occupation Status: disabled Current/Historical Medications Scheduled Atorvastatin (Atorvastatin Calcium), 10 MG PO HS Lamotrigine (Lamictal), 200 MG PO QAM Losartan Potassium (Losartan Potassium), 50 MG PO HS Olanzapine (Olanzapine), 10 MG PO HS Potassium Chloride (Potassium Chloride Er), 10 MEQ PO BID Ranitidine Hcl (Zantac), 300 MG PO BID Topiramate (Topamax), 50 MG PO BID Venlafaxine Hcl (Effexor Extended Rel), 225 MG PO QAM Scheduled PRN Lorazepam (Lorazepam), 1 MG PO BID PRN for Anxiety/Insomnia Sumatriptan Succinate (Sumatriptan Succinate), 4 MG INJ UD PRN for Migraine Allergies Coded Allergies: CI Pigment Blue 63 (Verified Allergy, Unknown, shut down, heart and breathing slowed, 09/14/16) Fentanyl (Verified Adverse Reaction, Intermediate, GI SYMPTOMS, 09/14/16) Metoclopramide (Verified Adverse Reaction, Mild, TARDITIVE DYSKENESIA, ) Ondansetron (Verified Adverse Reaction, Mild, HEADACHE, 09/14/16) Tramadol (Verified Adverse Reaction, Mild, VOMITING, 09/14/16) Chlorpromazine (Verified Adverse Reaction, Unknown, dry mouth, 09/14/16) Duloxetine (Verified Adverse Reaction, Unknown, LETHARGIC, 09/14/16) Physical Exam Vital Signs Date Time Temp Pulse Resp B/P Pulse Ox O2 Delivery O2 Flow Rate FiO2 09/14/16 18:10 37.3 93 20 176/99 98 09/14/16 17:59 37.3 09/14/16 17:28 91 20 120/89 97 Room Air 09/14/16 15:00 36.7 109 22 152/90 95 Room Air Physical Exam VITAL SIGNS - Vital signs and nursing notes were reviewed. Patient is afebrile , hypertensive at 152/90, pulse of 109 bpm, and is saturating well on room air 95%. GENERAL -56-year-old female appearing her stated age who is in no acute distress. Communicates well with provider and answers questions appropriately. SKIN - Without rashes. No petechial rashes. HEAD - NC/AT. EYES - Sclera anicteric. Palpebral conjunctiva pink and moist with no injection noted. EARS - No deformities of external structures noted on gross examination bilaterally. NOSE - Midline and without cyanosis. No epistaxis or purulent drainage noted. MOUTH/OROPHARYNX - Without perioral cyanosis. Buccal mucosa pink and moist and without leukoplakia. Tongue midline with equal elevation of palate bilaterally. No tonsillar hypertrophy, erythema, or exudates noted. Fair dentition noted. No blood in the posterior pharynx. NECK - no meningismus. LUNGS - Chest wall symmetric without accessory muscle use, intercostals retractions, or central cyanosis. Normal vesicular breath sounds CTA B/L. No wheezes, rales, or rhonchi appreciated. CARDIAC - RRR with S1/S2. No murmur, rubs, or gallops appreciated. ABDOMEN - Abdominal contour without pulsations or visible masses. BS normoactive all four quadrants. There is epigastric tenderness. No palpable masses, hepatosplenomegaly, or ascites noted. EXTREMITIES - No clubbing or peripheral cyanosis. No pretibial edema present. +5 /5 strength noted in UE/LE bilaterally. NEUROLOGIC - Cranial nerves II through XII grossly intact. Sensory intact to light touch throughout. PSYCH - Pt is very pleasant and interacts well with examiner. Medical Decision & Procedures ER Provider Diagnostic Interpretation: PA CHEST RADIOGRAPH AND UPRIGHT AND SUPINE AP RADIOGRAPHS OF THE ABDOMEN CLINICAL HISTORY: Epigastric abdominal pain. COMPARISON STUDY: Radiograph abdominal series August 05, 2016. FINDINGS: Mild elevation of the right hemidiaphragm is unchanged. No consolidation is identified. There is no evidence of pulmonary edema. Cardiomediastinal silhouette is normal. There are abdominal surgical clips. There is no free air. The bowel gas pattern is normal. Pelvic calcifications likely reflect phleboliths. IMPRESSION: 1. No free air or evidence of bowel obstruction. 2. No acute cardiopulmonary findings. Electronically signed by: Ric Hull M.D. 09/14/2016 5:11 PM Dictated Date/Time: 09/14/2016 5:10 PM ABDOMINAL ULTRASOUND, RIGHT UPPER QUADRANT HISTORY: Epigastric abdominal pain, emesis, nausea, yellow stools. COMPARISON: CT of the abdomen and pelvis February 17, 2016. FINDINGS: This exam is compromised by suboptimal penetration. Hepatic echogenicity is diffusely increased. Mild dilatation of the common bile duct is unchanged since CT of February 17, 2016 and likely related to prior cholecystectomy. The pancreas is largely obscured by overlying bowel gas. There is no right hydronephrosis. IMPRESSION: 1. Fatty infiltration of the liver. 2. Mild dilatation of the common bile duct which is unchanged since CT of February 17, 2016 and likely related to prior cholecystectomy. 3. Largely obscured pancreas. Electronically signed by: Ric Hull M.D. 09/14/2016 5:10 PM Dictated Date/Time: 09/14/2016 5:05 PM Laboratory Results 09/14/16 15:50 Red Blood Count 4.81, Mean Corpuscular Volume 96.5, Mean Corpuscular Hemoglobin 33.7, Mean Corpuscular Hemoglobin Concent 34.9, Mean Platelet Volume 10.2, Neutrophils (%) (Auto) 66.4, Lymphocytes (%) (Auto) 24.5, Monocytes (%) (Auto) 8.0, Eosinophils (%) (Auto) 0.6, Basophils (%) (Auto) 0.2, Neutrophils # (Auto) 7.18, Lymphocytes # (Auto) 2.64, Monocytes # (Auto) 0.86, Eosinophils # (Auto) 0.06, Basophils # (Auto) 0.02 09/14/16 15:50 Test 09/14/16 15:38 09/14/16 15:50 Urine Color DK YELLOW Urine Appearance CLEAR (CLEAR) Urine pH 5.0 (4.5-7.5) Urine Specific [place] 1.027 (1.000-1.030) Urine Protein TRACE (NEG) Urine Glucose (UA) NEG (NEG) Urine Ketones TRACE (NEG) Urine Occult Blood 1+ (NEG) Urine Nitrite NEG (NEG) Urine Bilirubin NEG (NEG) Urine Urobilinogen NEG (NEG) Urine Leukocyte Esterase NEG (NEG) Urine WBC (Auto) 1-5 /hpf (0-5) Urine RBC (Auto) 0-4 /hpf (0-4) Urine Hyaline Casts (Auto) 1-5 /lpf (0-5) Urine Epithelial Cells (Auto) >30 /lpf (0-5) Urine Bacteria (Auto) 1+ (NEG) White Blood Count 10.79 K/uL (4.8-10.8) Red Blood Count 4.81 M/uL (4.2-5.4) Hemoglobin 16.2 g/dL (12.0-16.0) Hematocrit 46.4 % (37-47) Mean Corpuscular Volume 96.5 fL (80-100) Mean Corpuscular Hemoglobin 33.7 pg (25-34) Mean Corpuscular Hemoglobin Concent 34.9 g/dl (32-36) Platelet Count 259 K/uL (130-400) Mean Platelet Volume 10.2 fL (7.4-10.4) Neutrophils (%) (Auto) 66.4 % Lymphocytes (%) (Auto) 24.5 % Monocytes (%) (Auto) 8.0 % Eosinophils (%) (Auto) 0.6 % Basophils (%) (Auto) 0.2 % Neutrophils # (Auto) 7.18 K/uL (1.4-6.5) Lymphocytes # (Auto) 2.64 K/uL (1.2-3.4) Monocytes # (Auto) 0.86 K/uL (0.11-0.59) Eosinophils # (Auto) 0.06 K/uL (0-0.5) Basophils # (Auto) 0.02 K/uL (0-0.2) RDW Standard Deviation 47.0 fL (36.4-46.3) RDW Coefficient of Variation 13.2 % (11.5-14.5) Immature Granulocyte % (Auto) 0.3 % Immature Granulocyte # (Auto) 0.03 K/uL (0.00-0.02) Anion Gap 11.0 mmol/L (3-11) Est Creatinine Clear Calc Drug Dose 79.3 ml/min Estimated GFR () 76.7 Estimated GFR (Non- 66.2 BUN/Creatinine Ratio 9.9 (10-20) Calcium Level 8.7 mg/dl (8.5-10.1) Total Bilirubin 0.4 mg/dl (0.2-1) Aspartate Amino Transf (AST/SGOT) 44 U/L (15-37) Alanine Aminotransferase (ALT/SGPT) 57 U/L (12-78) Alkaline Phosphatase 179 U/L (45-117) Troponin I < 0.015 ng/ml (0-0.045) Total Protein 7.6 gm/dl (6.4-8.2) Albumin 3.8 gm/dl (3.4-5.0) Globulin 3.8 gm/dl (2.5-4.0) Albumin/Globulin Ratio 1.0 (0.9-2) Amylase Level 28 U/L (25-115) Lipase 221 U/L (73-393) Medications Administered Medications (Trade) Dose Ordered Sig/Van Route Start Time Stop Time Status Last Admin Dose Admin Sodium Chloride (Nss 1000ml) 1,000 ml @ 999 mls/hr Q1H1M STAT IV 09/14/16 15:27 09/14/16 16:27 DC 09/14/16 16:00 999 MLS/HR Ondansetron HCl (Zofran Inj) 4 mg NOW STAT IV 09/14/16 15:33 09/14/16 15:35 DC 09/14/16 16:04 4 MG Ketorolac Tromethamine (Toradol Inj) 30 mg NOW STAT IV 09/14/16 15:34 09/14/16 15:36 DC 09/14/16 16:04 30 MG Medical Decision Patient was seen and evaluated as above. This is the patient's third visit for abdominal pain this month. Shortly into my history taking of the patient, the male accompanying the patient asked if I was wanted to give her her pain shot. The patient is on a 2 shot per month narcotic injection treatment plan. It was recommended that chronic pain medication is not provided this patient. This is as per the treatment plan set forth here in the emergency department. The patient does not appear toxic. I informed the patient that I would not be able to provide her narcotic medications unless she has a diagnosis of which would warrant higher pain medication. She then seemed to become agitated, and I offered her Toradol and she said that does not work. She said nothing else works. I was concerned of this behavior, as this does seem drug seeking in nature. I informed her that I be happy to provide her any other pain medication other than narcotic medication at this time that would be beneficial. She initially declined Toradol but then requested. I also provided her Zofran, and although she does have an allergy listed she states that now it is no longer causes her headaches. She was also hydrated with normal saline. Patient has had numerous CT scans in the past, and benefits versus risk was discussed with the patient regarding obtaining a CT scan. Clinically there are no signs of peritonitis or of which would need to be assessed up on CT scan. An ultrasound was obtained of the abdomen, as well as plain films. Plain tones were negative. Ultrasound unremarkable for acute process, pancreas obscured on imaging. However, amylase and lipase are within normal limits. It is possible she may be experiencing pancreatitis, however labs and imaging are unremarkable. I do believe that treatment for a viral GI process or potential pancreatitis is reasonable. She was told to begin with a bland diet, drink plenty of fluids such as water and slowly increase her diet. She is to return if worsening. The male who was present did ask if the patient could be admitted, and I informed him that if we would pursue with a by mouth fluid trial or eating and the patient was unable to tolerate this that that may be warranted. The patient and states that she just wanted to go home. At this time I do believe this is reasonable, as she has not vomited since her time here in the emergency department and I'm aware of. She appears nontoxic. CBC reveals no leukocytosis or anemia. Hemoglobin is slightly elevated, she may be dehydrated. Sodium high at 146, potassium of 3.4, chloride high at 114. Random glucose 108. AST high at 44. Alkaline phosphatase elevated at 179. This appears to be a chronic elevation. She has had a higher value in the past. Troponin negative. Amylase and lipase unremarkable. Urine reveals trace protein, trace ketones, 1+ occult blood, greater than 30 epithelial cells and 1+ urine bacteria. No acute findings. She is to follow-up with her family doctor regarding today's findings. She did request discharge. I do believe this is reasonable. No emergent process identified. No surgical process in a fight. She was educated upon worrisome symptoms which to return, had questions prior to discharge, and was discharged home. In evaluation treatment this patient following differential diagnoses were entertained: Chronic pain syndrome, fibromyalgia, drug-seeking behavior, pancreatitis, GERD, hiatal hernia, PR, PE, peritonitis, among others. Impression Primary Impression: Epigastric abdominal pain Additional Impressions: Nausea & vomiting Diarrhea Hypokalemia Departure Information Dispostion Home / Self-Care Condition GOOD Referrals Armando Ward D.O. (PCP) Patient Instructions My [facility] Additional Instructions You have been treated in the Emergency Department your Abdominal Pain. Laboratory results and imaging studies have ruled out any emergent causes for your abdominal pain which would warrant admission or surgery. For pain control, you can use the following [id number] medicines (if >12 yo): If you are not allergic. - Regular strength (325mg/tab) Tylenol (acetaminophen) 2 tabs every 4-6 hours as needed. Do not exceed 12 tablets in a 24 hour period. Avoid taking more than 3 grams (3000 mg) of Tylenol per day. This includes any other sources of acetaminophen you may take on a regular basis. - Regular strength (200 mg/tab) Advil (ibuprofen) 1-2 tabs every 4-6 hours as needed. Do not exceed a dose of 3200 mg per day. Drink plenty of water and stay well hydrated. Please start with a soft and bland diet for the next 2 days. As with any trip to the Emergency Department, you should follow-up with your Primary Care Provider from today's visit. Please call them first thing tomorrow morning to schedule follow-up. Return to the emergency department if your symptoms persist despite treatment plan outlined above or if the following symptoms occur: increased fevers, chills , worsening nausea/vomiting, blood in your stool or urine. Please return to the emergency department with any new/concerning symptoms. Problem Qualifiers
[2016-09-14 18:10] VITALS: BP 176/99; PULSE 93; TEMP 37.3; O2SAT 98
== END 2016-09-14 18:11 | disposition home or self-care (01) ==
LOC: C.EDB 14:57 → C.EDA 18:11
DX: R10.13 Epigastric pain (principal); R11.2 Nausea with vomiting, unspecified; R19.7 Diarrhea, unspecified; E87.6 Hypokalemia; R63.4 Abnormal weight loss; I10 Essential (primary) hypertension; E78.5 Hyperlipidemia, unspecified; E03.9 Hypothyroidism, unspecified; F32.9 Major depressive disorder, single episode, unspecified; Z79.899 Other long term (current) drug therapy; Z87.09 Personal history of other diseases of the respiratory system; Z87.19 Personal history of other diseases of the digestive system; Z87.442 Personal history of urinary calculi; Z82.0 Family history of epilepsy and other diseases of the nervous system; Z82.49 Family history of ischemic heart disease and other diseases of the circulatory system; Z83.3 Family history of diabetes mellitus; Z83.79 Family history of other diseases of the digestive system; F17.200 Nicotine dependence, unspecified, uncomplicated

== ENCOUNTER 2016-10-01 17:40 | Emergency (ER) | payer OTHER ==
[~2016-10-01] VITALS: Ht 162.6 cm; Wt 111.5 kg
[2016-10-01 17:42] VITALS: TEMP 36.7; Ht 162.6 cm; Wt 111.5 kg
[2016-10-01] MEDS ORDERED: SODIUM CHLORIDE 0.9% 500ML 500 ML IV STA (18:08)
[2016-10-01] MEDS ORDERED: PROMETHAZINE HCL INJ 25 MG/ML 1 ML VIAL IM STA (18:17)
[2016-10-01] MEDS ORDERED: MoRPHine SULFATE 10 MG/ML CARP/VIAL IM STA (18:17)
[2016-10-01] MEDS ORDERED: MoRPHine SULFATE 4 MG/ML 1 ML CARP\\VIAL ONE (18:39)
[2016-10-01] MEDS ORDERED: PROMETHAZINE HCL INJ 25 MG/ML 1 ML VIAL ONE (18:39)
[2016-10-01 18:46] LABS: BASO % 0.4 %; BASO ABS # 0.04 K/uL (0-0.2); COMPLETE YES; EOS % 0.8 %; HEMATOCRIT 41.9 % (37-47); IG% 0.3 %; LYMPH % 27.6 %; LYMPH ABS # 2.72 K/uL (1.2-3.4); MEAN CELL VOLUME 96.3 fL (80-100); MEAN CORPUSCULAR HEMOGLOBIN 32.4 pg (25-34); MEAN CORPUSCULAR HGB CONC 33.7 g/dl (32-36); MEAN PLATELET VOLUME 9.9 fL (7.4-10.4); MONO % 8.3 %; NEUT % 62.6 %; PLATELET COUNT 227 K/uL (130-400); RED BLOOD COUNT 4.35 M/uL (4.2-5.4); WHITE BLOOD COUNT 9.84 K/uL (4.8-10.8)
[2016-10-01 18:49] LABS: URINE APPEARANCE CLEAR (CLEAR); URINE BILIRUBIN NEG (NEG); URINE COLOR YELLOW; URINE EPITHELIAL CELL AUTO >30 /lpf (0-5); URINE NITRITE NEG (NEG); URINE PH 6.5 (4.5-7.5); UROBILINOGEN NEG (NEG); ZZUR CULT IF INDIC CLEAN CATCH NO
[2016-10-01 18:53] LABS: MANUAL MICROSCOPIC REQUIRED? NO; REVIEW REQ? NO
[2016-10-01 19:03] LABS: ALT/SGPT 119 U/L (12-78); AST/SGOT 69 U/L (15-37); BLOOD UREA NITROGEN 8 mg/dl (7-18); CALCIUM 8.1 mg/dl (8.5-10.1); CARBON DIOXIDE 23 mmol/L (21-32); CHLORIDE 110 mmol/L (98-107); CREATININE 0.98 mg/dl (0.60-1.20); GLUCOSE 113 mg/dl (70-99); POTASSIUM 3.2 mmol/L (3.5-5.1); SODIUM 143 mmol/L (136-145)
--- NOTE | 2016-10-01 19:03 | DIAGNOSTIC IMAGING REPORT ---
PA CHEST RADIOGRAPH AND UPRIGHT AND SUPINE AP RADIOGRAPHS OF THE ABDOMEN CLINICAL HISTORY: Abdominal pain and diarrhea. COMPARISON STUDY: Chest radiograph with abdominal series September 14, 2016. FINDINGS: There is no pneumothorax or pleural effusion. Mild elevation the right hemidiaphragm is unchanged. Mild bibasilar opacities favor atelectasis. Cardiac size is normal. There is no evidence of pulmonary edema. There is no free air. Abdominal surgical clips are noted. Bowel gas pattern is normal. IMPRESSION: 1. No free air or evidence of bowel obstruction. 2. No acute cardiopulmonary findings. Electronically signed by: Ric Hull M.D. 10/01/2016 7:02 PM Dictated Date/Time: 10/01/2016 6:59 PM
[2016-10-01 19:08] LABS: ALKALINE PHOSPHATASE 188 U/L (45-117)
--- NOTE | 2016-10-01 20:59 | DIAGNOSTIC IMAGING REPORT ---
ABDOMINAL ULTRASOUND, RIGHT UPPER QUADRANT HISTORY: Elevated liver function tests. COMPARISON: CT of the abdomen and pelvis February 17, 2016 and right upper quadrant ultrasound September 14, 2016. FINDINGS: Hepatic echogenicity is increased. No hepatic lesions are identified. Caliber of the common bile duct is mildly increased status post cholecystectomy, measuring 7 mm. This is either stable or unchanged since prior exam. No common bile duct calculi are identified although the distal common bile duct is obscured. The pancreatic body is normal. The head and tail are obscured by overlying bowel gas. There is no right hydronephrosis. IMPRESSION: 1. Fatty infiltration of the liver. 2. No significant change in mild dilatation of the common bile duct, likely related to prior cholecystectomy. 3. Largely obscured pancreas. Electronically signed by: Ric Hull M.D. 10/01/2016 8:57 PM Dictated Date/Time: 10/01/2016 8:55 PM
[2016-10-01 21:26] VITALS: BP 134/90; PULSE 90; O2SAT 96
--- NOTE | 2016-10-02 00:22 | EMERGENCY ROOM VISIT NOTE ---
History Report prepared by Mitulibbasia: Carlos Alberto Coffman Under the Supervision of: Dr. Aaron Haile D.O. First contact with patient: 17:57 Chief Complaint: ABDOMINAL PAIN Stated Complaint: HORRIBLE ABD PAIN,SOFT STOOLS,NAUSEA History of Present Illness The patient is a 56 year old female who presents to the Emergency Room with complaints of worsening abdominal pain starting an hour ago. She reports the pain at a 10/10 in severity. The patient states that she typically has an abdominal pain flare ups and this feels exactly like her previous abdominal flareups. She states that she went to the bathroom an hour ago and felt a scratching pain in her abdomen. The patient reports that the pain is worse on her right lower side. The patient states that she also has been experiencing shortness of breath starting a week ago. He has been unchanged. She denies any chest pain. No exacerbating or remitting factors. The patient states that she smokes regularly. She admits to a history of a hysterectomy, cholecystectomy , appendectomy, bilateral oophorectomy, appendectomy, and hernia repair. The patient also states that she has been on a feeding tube before. The patient states that she is going to follow up on her abdominal pain with a surgeon in three days. The patient denies any headache, change in vision, fevers, chest pain, vomiting, diarrhea, pain with urination, hematochezia, and melena. She is not taking Tylenol on a regular basis. Source of History: patient Onset: an hour ENROLLED AGENT Position: abdomen Symptom Intensity: 10/10 Quality: other (scratching) Timing: worsening Associated Symptoms: + SOB, No fevers, No headache, No nausea, No vomiting, No melena, No hematochezia, No diarrhea, No urinary symptoms Review of Systems See HPI for pertinent positives & negatives. A total of 10 systems reviewed and were otherwise negative. Past Medical & Surgical Medical Problems: (1) Anxiety (2) Benign hypertension (3) Bronchitis (4) Chronic abdominal pain (5) Depression (6) Enterohemorrhagic E. coli infection (7) Fibromyalgia (8) Gastroparesis (9) History of Clostridium difficile colitis (10) History of renal calculi (11) History of suicide attempt (12) Hyperlipidemia (13) Hypothyroidism (14) Migraine (15) PTSD (post-traumatic stress disorder) Surgical Problems: (1) History of appendectomy (2) History of feeding tube placement (3) S/P appendectomy (4) S/P cholecystectomy (5) S/P tonsillectomy and adenoidectomy (6) Status post hernia repair (7) Status post hysterectomy (8) Status post left oophorectomy (9) Status post right oophorectomy (10) Status post sinus surgery Family History Cancer Diabetes mellitus FATHER FHx: diabetes FHx: gallbladder disease FHx: heart disease FATHER FHx: hypertension FATHER MOTHER FHx: seizures Social History Smoking Status: Current Every Day Smoker Alcohol Use: none Drug Use: none Marital Status: Housing Status: lives with significant other Occupation Status: disabled Current/Historical Medications Scheduled Atorvastatin (Atorvastatin Calcium), 10 MG PO HS Lamotrigine (Lamictal), 200 MG PO QAM Losartan Potassium (Losartan Potassium), 50 MG PO HS Olanzapine (Olanzapine), 10 MG PO HS Potassium Chloride (Potassium Chloride Er), 10 MEQ PO BID Ranitidine Hcl (Zantac), 300 MG PO BID Topiramate (Topamax), 50 MG PO BID Venlafaxine Hcl (Effexor Extended Rel), 225 MG PO QAM Scheduled PRN Lorazepam (Lorazepam), 1 MG PO BID PRN for Anxiety/Insomnia Sumatriptan Succinate (Sumatriptan Succinate), 4 MG INJ UD PRN for Migraine Allergies Coded Allergies: CI Pigment Blue 63 (Verified Allergy, Unknown, shut down, heart and breathing slowed, 10/01/16) Fentanyl (Verified Adverse Reaction, Intermediate, GI SYMPTOMS, 10/01/16) Metoclopramide (Verified Adverse Reaction, Mild, TARDITIVE DYSKENESIA, 02/07) Tramadol (Verified Adverse Reaction, Mild, VOMITING, 10/01/16) Chlorpromazine (Verified Adverse Reaction, Unknown, dry mouth, 10/01/16) Duloxetine (Verified Adverse Reaction, Unknown, LETHARGIC, 09/14/16) Physical Exam Vital Signs Date Time Temp Pulse Resp B/P (MAP) Pulse Ox O2 Delivery O2 Flow Rate FiO2 10/01/16 21:26 90 18 134/90 96 10/01/16 19:38 92 18 149/96 95 Room Air 10/01/16 17:42 36.7 106 20 141/75 96 Room Air Physical Exam GENERAL: sitting upright in bed. alert, well appearing, well nourished, no distress, non-toxic EYE EXAM: normal conjunctiva, PERRL and EOM's grossly intact OROPHARYNX: no exudate, no erythema, lips, buccal mucosa, and tongue normal and mucous membranes are moist NECK: supple, no nuchal rigidity, no adenopathy, non-tender LUNGS: Clear to auscultation. Normal chest wall mechanics HEART: no murmurs, S1 normal and S2 normal ABDOMEN: holding abdomen, but no pain when distracted. Old abdomen incisions in tact. abdomen soft, non-tender, normo-active bowel sounds, no masses, no rebound or guarding. BACK: Back is symmetrical on inspection and there is no deformity, no midline tenderness, no CVA tenderness. SKIN: no rashes and no bruising UPPER EXTREMITIES: upper extremities are grossly normal. LOWER EXTREMITIES:Calves are equal bilaterally No pitting edema. NEURO EXAM: Normal sensorium, cranial nerves II-XII grossly intact, normal speech, no gross weakness of arms, no gross weakness of legs. Medical Decision & Procedures ER Provider Diagnostic Interpretation: Radiology results as stated below per my review and the radiologist's interpretation: PA CHEST RADIOGRAPH AND UPRIGHT AND SUPINE AP RADIOGRAPHS OF THE ABDOMEN CLINICAL HISTORY: Abdominal pain and diarrhea. COMPARISON STUDY: Chest radiograph with abdominal series September 14, 2016. FINDINGS: There is no pneumothorax or pleural effusion. Mild elevation the right hemidiaphragm is unchanged. Mild bibasilar opacities favor atelectasis. Cardiac size is normal. There is no evidence of pulmonary edema. There is no free air. Abdominal surgical clips are noted. Bowel gas pattern is normal. IMPRESSION: 1. No free air or evidence of bowel obstruction. 2. No acute cardiopulmonary findings. Electronically signed by: Ric Hull M.D. 10/01/2016 7:02 PM Dictated Date/Time: 10/01/2016 6:59 PM Laboratory Results 10/01/16 18:30 Red Blood Count 4.35, Mean Corpuscular Volume 96.3, Mean Corpuscular Hemoglobin 32.4, Mean Corpuscular Hemoglobin Concent 33.7, Mean Platelet Volume 9.9, Neutrophils (%) (Auto) 62.6, Lymphocytes (%) (Auto) 27.6, Monocytes (%) (Auto) 8.3, Eosinophils (%) (Auto) 0.8, Basophils (%) (Auto) 0.4, Neutrophils # (Auto) 6.15, Lymphocytes # (Auto) 2.72, Monocytes # (Auto) 0.82, Eosinophils # (Auto) 0.08, Basophils # (Auto) 0.04 10/01/16 18:30 Test 10/01/16 18:18 10/01/16 18:30 Urine Color YELLOW Urine Appearance CLEAR (CLEAR) Urine pH 6.5 (4.5-7.5) Urine Specific [place] 1.010 (1.000-1.030) Urine Protein NEG (NEG) Urine Glucose (UA) NEG (NEG) Urine Ketones NEG (NEG) Urine Occult Blood NEG (NEG) Urine Nitrite NEG (NEG) Urine Bilirubin NEG (NEG) Urine Urobilinogen NEG (NEG) Urine Leukocyte Esterase NEG (NEG) Urine WBC (Auto) 1-5 /hpf (0-5) Urine RBC (Auto) 0-4 /hpf (0-4) Urine Hyaline Casts (Auto) 0 /lpf (0-5) Urine Epithelial Cells (Auto) >30 /lpf (0-5) Urine Bacteria (Auto) NEG (NEG) Urine Test NEG (NEG) White Blood Count 9.84 K/uL (4.8-10.8) Red Blood Count 4.35 M/uL (4.2-5.4) Hemoglobin 14.1 g/dL (12.0-16.0) Hematocrit 41.9 % (37-47) Mean Corpuscular Volume 96.3 fL (80-100) Mean Corpuscular Hemoglobin 32.4 pg (25-34) Mean Corpuscular Hemoglobin Concent 33.7 g/dl (32-36) Platelet Count 227 K/uL (130-400) Mean Platelet Volume 9.9 fL (7.4-10.4) Neutrophils (%) (Auto) 62.6 % Lymphocytes (%) (Auto) 27.6 % Monocytes (%) (Auto) 8.3 % Eosinophils (%) (Auto) 0.8 % Basophils (%) (Auto) 0.4 % Neutrophils # (Auto) 6.15 K/uL (1.4-6.5) Lymphocytes # (Auto) 2.72 K/uL (1.2-3.4) Monocytes # (Auto) 0.82 K/uL (0.11-0.59) Eosinophils # (Auto) 0.08 K/uL (0-0.5) Basophils # (Auto) 0.04 K/uL (0-0.2) RDW Standard Deviation 47.1 fL (36.4-46.3) RDW Coefficient of Variation 13.4 % (11.5-14.5) Immature Granulocyte % (Auto) 0.3 % Immature Granulocyte # (Auto) 0.03 K/uL (0.00-0.02) D-Dimer 350 ug/L FEU (0-500) Anion Gap 10.0 mmol/L (3-11) Est Creatinine Clear Calc Drug Dose 80.2 ml/min Estimated GFR () 75.8 Estimated GFR (Non- 65.4 BUN/Creatinine Ratio 8.0 (10-20) Calcium Level 8.1 mg/dl (8.5-10.1) Total Bilirubin 0.3 mg/dl (0.2-1) Direct Bilirubin < 0.1 mg/dl (0-0.2) Aspartate Amino Transf (AST/SGOT) 69 U/L (15-37) Alanine Aminotransferase (ALT/SGPT) 119 U/L (12-78) Alkaline Phosphatase 188 U/L (45-117) Troponin I < 0.015 ng/ml (0-0.045) Total Protein 6.8 gm/dl (6.4-8.2) Albumin 3.2 gm/dl (3.4-5.0) Lipase 224 U/L (73-393) Acetaminophen Level < 2 ug/ml (10-30) Laboratory results per my review. Medications Administered Medications (Trade) Dose Ordered Sig/Van Route Start Time Stop Time Status Last Admin Dose Admin Sodium Chloride 500 ml @ 999 mls/hr Q31M STAT IV 10/01/16 18:08 10/01/16 18:38 DC 10/01/16 18:08 999 MLS/HR Promethazine HCl (Phenergan Inj) 25 mg NOW STAT IM 10/01/16 18:17 10/01/16 18:19 DC 10/01/16 18:42 25 MG Morphine Sulfate (MoRPHine SULFATE INJ) 8 mg STK-MED ONCE .ROUTE 10/01/16 18:39 10/01/16 18:40 DC 10/01/16 18:43 8 MG ECG Indication: abdominal pain Rate (beats per minute): 97 Rhythm: sinus rhythm Findings: no ectopy, other (Flattening in inferior leads) Comparison ECG Date: 09/14/16 Change: no significant change ED Course ED COURSE: Vital signs were reviewed and showed hypertension and tachycardia. The patients medical record was reviewed The above diagnostic studies were performed and reviewed. ED treatments and interventions as stated above. 180: The patient was evaluated in room B08. A complete history and physical examination was performed. 1807: Ordered Sodium Chloride 500 ml @ 999 mls/hr IV. 1816: Phenergan Injection 25 mg IM 1838: Morphine Sulfate 8 mg IM. 2111 Upon reevaluation, the patient is feeling better. I discussed the findings and the treatment plan with the patient. She verbalizes agreement and understanding. She was discharged home. Medical Decision Differential diagnoses includes but is not limited to gastritis, peptic ulcer disease, GERD, gallbladder disease, pancreatitis, small bowel obstruction, acute coronary syndrome, pericarditis, ischemic bowel, irritable bowel disease, irritable bowel syndrome, appendicitis, diverticulitis, malignancy, hernia, urinary tract infection, torsion, /ectopic (if female), perforation, trauma, infectious. Patient is a 56-year-old female who presents the ER for lower abdominal pain which feels like her previous abdominal flareups. On exam she is no signs peritonitis. Previous cholecystectomy, appendectomy and complete hysterectomy. She is having normal bowel movements. CBC was unremarkable. BMP shows a mild hypokalemia. LFTs were elevated at 119 and 69. Tylenol level was normal. Ultrasound right upper quadrant shows a persistently elevated CBD without stones. Tylenol was negative. Lipase is negative. Urine was negative. was negative. Patient was given IM morphine and Phenergan with improvement. Ultrasound was performed following a discussion with GI. They recommend following up as an outpatient for possible ERCP versus MRCP. Patient has no right upper quadrant abdominal pain was discharged to follow-up with her primary care doctor and GI. Discussed with Pt concerning signs and symptoms to watch out for. Pt was instructed to follow up with their PCP and discussed with the patient their option to return to the ED at anytime for persistent or worsening symptoms. The appropriate anticipatory guidance and out-patient management, including indications for return to the emergency department, were explained at length to the patient and understood. Impression Primary Impression: Abdominal pain Additional Impression: Transaminitis Scribe Attestation The scribe's documentation has been prepared under my direction and personally reviewed by me in its entirety. I confirm that the note above accurately reflects all work, treatment, procedures, and medical decision making performed by me. Departure Information Dispostion Home / Self-Care Referrals Armando Ward D.O. (PCP) Forms Call Back Authorization, HOME CARE DOCUMENTATION FORM, IMPORTANT VISIT INFORMATION Patient Instructions Abdominal Pain - [facility], My [facility] Additional Instructions Please follow up with your primary care doctor with in the next 24 hours. Any worsening of your symptoms, please return to the ED immediately. This includes fevers greater than 100.4, worsening abdominal pain, persistent nausea vomiting , or any other concerning signs or symptoms from your standpoint. Please follow up with gastroenterology as your LFTs are slightly elevated. You may need additional imaging. Problem Qualifiers Primary Impression: Abdominal pain Abdominal location: unspecified location Qualified Codes: R10.9 - Unspecified abdominal pain
== END 2016-10-01 21:32 | disposition home or self-care (01) ==
LOC: C.EDB 17:40
DX: R10.9 Unspecified abdominal pain (principal); R78.89 Finding of other specified substances, not normally found in blood; I10 Essential (primary) hypertension; F41.9 Anxiety disorder, unspecified; K31.84 Gastroparesis; E78.5 Hyperlipidemia, unspecified; E03.9 Hypothyroidism, unspecified; F32.9 Major depressive disorder, single episode, unspecified; F17.200 Nicotine dependence, unspecified, uncomplicated; Z86.19 Personal history of other infectious and parasitic diseases; Z87.442 Personal history of urinary calculi; Z90.49 Acquired absence of other specified parts of digestive tract; Z90.710 Acquired absence of both cervix and uterus; Z90.722 Acquired absence of ovaries, bilateral; Z98.890 Other specified postprocedural states; Z88.8 Allergy status to other drugs, medicaments and biological substances; Z80.9 Family history of malignant neoplasm, unspecified; Z83.3 Family history of diabetes mellitus; Z83.79 Family history of other diseases of the digestive system; Z82.49 Family history of ischemic heart disease and other diseases of the circulatory system; Z82.0 Family history of epilepsy and other diseases of the nervous system

== ENCOUNTER 2016-10-14 19:02 | Emergency (ER) | payer OTHER ==
[~2016-10-14] VITALS: Ht 162.6 cm; Wt 110.0 kg
[2016-10-14 19:12] VITALS: TEMP 36.8; Ht 162.6 cm; Wt 110.0 kg
[2016-10-14] MEDS ORDERED: HYDROmorphone INJ 2 MG/ML SYR/VIAL IM STA (19:36)
[2016-10-14] MEDS ORDERED: PROMETHAZINE HCL INJ 25 MG/ML 1 ML VIAL IM STA (19:36)
--- NOTE | 2016-10-14 19:52 | EMERGENCY ROOM VISIT NOTE ---
History Report prepared by Mitulibbasia: Carlos Alberto Coffman Under the Supervision of: Dr. Juancarlos Landa D.O. First contact with patient: 19:29 Chief Complaint: ABDOMINAL PAIN Stated Complaint: HORRIBLE ABDOMINAL PAIN MAKING ME VOMIT History of Present Illness The patient is a 56 year old female who presents to the Emergency Room with complaints of worsening lower abdominal pain starting at 1300 today. She rates her pain as a 10/10 in severity. The patient states that she had an appendectomy with Dr. Thorne, surgery at [facility] when he found a hernia in her lower abdomen. She states that she has an appointment scheduled with Dr. Lizarraga, surgery at [facility] in three days to repair the hernia and adhesions. The patient states that she has been experiencing abdominal pain this afternoon that has been causing her to vomit. Source of History: patient Onset: 1300 Position: abdomen (lower) Symptom Intensity: 10/10 Timing: worsening Associated Symptoms: + vomiting Review of Systems See HPI for pertinent positives & negatives. A total of 10 systems reviewed and were otherwise negative. Past Medical & Surgical Medical Problems: (1) Anxiety (2) Benign hypertension (3) Bronchitis (4) Chronic abdominal pain (5) Depression (6) Enterohemorrhagic E. coli infection (7) Fibromyalgia (8) Gastroparesis (9) History of Clostridium difficile colitis (10) History of renal calculi (11) History of suicide attempt (12) Hyperlipidemia (13) Hypothyroidism (14) Migraine (15) PTSD (post-traumatic stress disorder) Surgical Problems: (1) History of appendectomy (2) History of feeding tube placement (3) S/P appendectomy (4) S/P cholecystectomy (5) S/P tonsillectomy and adenoidectomy (6) Status post hernia repair (7) Status post hysterectomy (8) Status post left oophorectomy (9) Status post right oophorectomy (10) Status post sinus surgery Family History Cancer Diabetes mellitus FATHER FHx: diabetes FHx: gallbladder disease FHx: heart disease FATHER FHx: hypertension FATHER MOTHER FHx: seizures Social History Smoking Status: Current Every Day Smoker Alcohol Use: none Drug Use: none Marital Status: Housing Status: lives with significant other Occupation Status: disabled Current/Historical Medications Scheduled Atorvastatin (Atorvastatin Calcium), 10 MG PO HS Lamotrigine (Lamictal), 200 MG PO QAM Losartan Potassium (Losartan Potassium), 50 MG PO HS Olanzapine (Olanzapine), 10 MG PO HS Potassium Chloride (Potassium Chloride Er), 10 MEQ PO BID Ranitidine Hcl (Zantac), 300 MG PO BID Topiramate (Topamax), 50 MG PO BID Venlafaxine Hcl (Effexor Extended Rel), 225 MG PO QAM Scheduled PRN Lorazepam (Lorazepam), 1 MG PO BID PRN for Anxiety/Insomnia Sumatriptan Succinate (Sumatriptan Succinate), 4 MG INJ UD PRN for Migraine Allergies Coded Allergies: CI Pigment Blue 63 (Verified Allergy, Unknown, shut down, heart and breathing slowed, 10/01/16) Fentanyl (Verified Adverse Reaction, Intermediate, GI SYMPTOMS, 10/01/16) Metoclopramide (Verified Adverse Reaction, Mild, TARDITIVE DYSKENESIA, 02/07) Tramadol (Verified Adverse Reaction, Mild, VOMITING, 10/01/16) Chlorpromazine (Verified Adverse Reaction, Unknown, dry mouth, 10/01/16) Duloxetine (Verified Adverse Reaction, Unknown, LETHARGIC, 09/14/16) Physical Exam Vital Signs Date Time Temp Pulse Resp B/P (MAP) Pulse Ox O2 Delivery O2 Flow Rate FiO2 10/14/16 19:12 36.8 106 20 151/92 95 Room Air Physical Exam CONSTITUTIONAL/VITAL SIGNS: Reviewed / noted above. GENERAL: Non-toxic in appearance. INTEGUMENTARY: Warm, dry, and Peerless. HEAD: Normocephalic. EYES: without scleral icterus or trauma. ENT/OROPHARYNX: clear and moist. LYMPHADENOPATHY/NECK: Is supple without lymphadenopathy or meningismus. RESPIRATORY: Lungs clear and equal. CARDIOVASCULAR: Regular rate and rhythm. GI/ABDOMEN: Soft and nontender. No organomegaly or pulsatile mass. No rebound or guarding. Normal bowel sounds. EXTREMITIES: Warm and well perfused. BACK: No CVA tenderness. NEUROLOGICAL: Intact without focal deficits. PSYCHIATRIC: normal affect. MUSCULOSKELETAL: Normally developed with good muscle tone. Medical Decision & Procedures ED Course 1926: Previous medical records were reviewed. The patient was evaluated in room C01. A complete history and physical examination was performed. 1936: Phenergan Injection 50 mg IM, Dilaudid Injection 2 mg IM. 1949: On reevaluation, the patient is doing well. I discussed the results and findings with the patient. She verbalized agreement of the treatment plan. She was discharged home. Medical Decision Differential considered: pancreatitis, hepatitis, or acute cholecystitis, AAA, UTI, pyelonephritis, kidney stones, appendicitis, diverticulitis, shingles, bowel obstruction mesenteric ischemia, intussusception,hernia, testicular torsion, ovarian torsion, ruptured ovarian cyst,ectopic , . Medication Reconciliation: I attest that I have personally reviewed the patient' s current medication list. Patient was found to have a slightly elevated blood pressure due to circumstances. I do not believe that the patient requires hypertension monitoring. This is a 56-year-old female who presents to the ED with a chief complaint of acute on chronic abdominal pain. The patient states that she is going to be having surgery next week by Dr. Hollingsworth in [place] to take care of adhesions and possibly a hernia. She reports this is a chronic pain. She is looking for some relief. She was advised that this would be the last shot that she would receive here as she is being referred to the narcotic list from the 2 shots per month plan. He states that she would not return. She was advised that she could return for emergent issues that she feels is necessary to evaluate but would not receive narcotics unless something was found with regards to her complaint. She understands this. She was given Dilaudid and Phenergan IM. She was discharged. Impression Primary Impression: Chronic abdominal pain Scribe Attestation The scribe's documentation has been prepared under my direction and personally reviewed by me in its entirety. I confirm that the note above accurately reflects all work, treatment, procedures, and medical decision making performed by me. Departure Information Dispostion Home / Self-Care Referrals Armando Ward D.O. (PCP) Patient Instructions My [facility] Additional Instructions Feel free to return for any concerns or problems you feel are emergencies. Routine narcotic pain management will no longer be provided for chronic issues or acute issues that are not substantiated with testing. Follow-up with your doctor for further care and evaluation in 1-5 days. Return to the emergency department for worsening or new symptoms or any concerns. You have been examined and treated today on an emergency basis only. This is not a substitute for, or an effort to provide, complete comprehensive medical care. It is impossible to recognize and treat all injuries or illnesses in a single emergency department visit. It is therefore important that you follow up closely with your doctor. Call as soon as possible for an appointment.
[2016-10-14 20:22] VITALS: BP 149/90; PULSE 72; O2SAT 95
== END 2016-10-14 20:23 | disposition home or self-care (01) ==
LOC: C.EDB 19:04 → C.EDC 20:23
DX: R10.30 Lower abdominal pain, unspecified (principal); G89.29 Other chronic pain; F41.9 Anxiety disorder, unspecified; I10 Essential (primary) hypertension; F32.9 Major depressive disorder, single episode, unspecified; M79.7 Fibromyalgia; K31.84 Gastroparesis; Z87.442 Personal history of urinary calculi; E78.5 Hyperlipidemia, unspecified; E03.9 Hypothyroidism, unspecified; F43.10 Post-traumatic stress disorder, unspecified; Z90.49 Acquired absence of other specified parts of digestive tract; Z90.710 Acquired absence of both cervix and uterus; Z80.9 Family history of malignant neoplasm, unspecified; Z83.3 Family history of diabetes mellitus; Z82.49 Family history of ischemic heart disease and other diseases of the circulatory system; Z82.0 Family history of epilepsy and other diseases of the nervous system; F17.210 Nicotine dependence, cigarettes, uncomplicated; Z79.899 Other long term (current) drug therapy

== ENCOUNTER → 2017-06-29 | Outpatient (CLI) | payer OTHER ==
[~2017-06-29] MED LIST changes: +LAMO200T35 PO; -LAMO200T38 PO
--- NOTE | 2017-06-29 11:27 | DIAGNOSTIC IMAGING REPORT ---
CT R LOWER EXTREMITY WITHOUT CT DOSE: 160.49 mGy.cm CLINICAL HISTORY: RIGHT ANKLE PAIN,DJD history of prior triple arthrodesis. TECHNIQUE: Helical images were acquired in the transverse plane. Sagittal and coronal reformatted images were acquired. A dose lowering technique was utilized adhering to the principles of ALARA. COMPARISON STUDY: None. FINDINGS: No soft tissue masses are visualized on this noncontrast study. There are postsurgical changes of a hindfoot arthrodesis. There is a 9 x 6 x 3 mm osteochondral defect involving the medial aspect of the talar dome. There are screws traversing the talo calcaneal joint, and calcaneocuboid joint, and talo navicular joint.. There is evidence for talocalcaneal, calcaneocuboid, and talo navicular joint fusion. IMPRESSION: 1. Postsurgical changes of a hindfoot triple arthrodesis with talocalcaneal, calcaneocuboid and talonavicular joint fusion 2. 9 x 6 x 3 mm osteochondral defect involving the medial aspect of the talar dome Electronically signed by: Balwinder Sheridan M.D. 06/29/2017 11:26 AM Dictated Date/Time: 06/29/2017 11:15 AM
== END | disposition home or self-care (01) ==
LOC: C.CTS 10:55
PROVIDERS: ATTEND Orthopaedic Surgery Sports Medicine
DX: M19.071 Primary osteoarthritis, right ankle and foot (principal)

== ENCOUNTER 2017-07-05 19:00 | Emergency (ER) | payer OTHER ==
[2017-07-05 19:14] VITALS: PULSE 108; TEMP 36.8; O2SAT 96; Ht 165.1 cm
[2017-07-05] MEDS ORDERED: OXYCODONE/ACETAMINOPHEN 5-325 TAB PO STA (20:02)
--- NOTE | 2017-07-05 20:39 | EMERGENCY ROOM VISIT NOTE ---
History First contact with patient: 19:18 Chief Complaint: BLEEDING Stated Complaint: HAD SURG ON R FOOT,BLEEDING THROUGH BANDAGE Nursing Triage Summary: Pt had surgery to the right ankle. Today had screws removed. Pt was getting changed for bed and noticed she had blood on her sue wrap. Did not visualize area in triage. Saturated sue wrap with blood. History of Present Illness The patient is a 57 year old female who presents to the Emergency Room via private vehicle accompanied by 2 males with complaints of "had surgery on right foot, bleeding through bandage". The patient states that earlier today at the [facility] around 1 PM she had screws removed from her right ankle/foot. She states that 2 hours after returning home around 4 PM she noticed that she took the boot off and there is a lot of blood coming from the bandage. She denies any blood thinners. There is pain to this region of which she notes which she was prescribed Percocet and have 1 tablet prior to coming here. She rates the pain as a 9/10. There has been no trauma or reinjury. Review of Systems A complete 6-point Review of Systems was discussed with the patient, with pertinent positives and negatives listed in the History of Present Illness. All remaining Review of Systems questions can be considered negative unless otherwise specified. Past Medical/Surgical History Medical Problems: (1) Anxiety (2) Benign hypertension (3) Bronchitis (4) Chronic abdominal pain (5) Depression (6) Enterohemorrhagic E. coli infection (7) Fibromyalgia (8) Gastroparesis (9) History of Clostridium difficile colitis (10) History of renal calculi (11) History of suicide attempt (12) Hyperlipidemia (13) Hypothyroidism (14) Migraine (15) PTSD (post-traumatic stress disorder) Surgical Problems: (1) History of appendectomy (2) History of feeding tube placement (3) S/P appendectomy (4) S/P cholecystectomy (5) S/P tonsillectomy and adenoidectomy (6) Status post hernia repair (7) Status post hysterectomy (8) Status post left oophorectomy (9) Status post right oophorectomy (10) Status post sinus surgery Family History Cancer Diabetes mellitus FATHER FHx: diabetes FHx: gallbladder disease FHx: heart disease FATHER FHx: hypertension FATHER MOTHER FHx: seizures Social History Smoking Status: Current Every Day Smoker Alcohol Use: none Drug Use: none Marital Status: Housing Status: lives with significant other Occupation Status: disabled Current/Historical Medications Scheduled Atorvastatin (Lipitor), 10 MG PO HS Lamotrigine (Lamictal), 200 MG PO QAM Losartan Potassium (Losartan Potassium), 50 MG PO HS Olanzapine (Olanzapine), 10 MG PO HS Potassium Chloride (Potassium Chloride Er), 10 MEQ PO BID Ranitidine Hcl (Zantac), 300 MG PO BID Topiramate (Topamax), 50 MG PO BID Venlafaxine Hcl (Effexor Extended Rel), 225 MG PO QAM Scheduled PRN Lorazepam (Lorazepam), 1 MG PO BID PRN for Anxiety/Insomnia Sumatriptan Succinate (Sumatriptan Succinate), 4 MG INJ UD PRN for Migraine Physical Exam Vital Signs Date Time Temp Pulse Resp B/P (MAP) Pulse Ox O2 Delivery O2 Flow Rate FiO2 07/05/17 20:46 155/96 07/05/17 19:14 36.8 108 20 158/95 96 Room Air Physical Exam VITAL SIGNS - Vital signs and nursing notes were reviewed. Stable. GENERAL - 57-year-old female appearing her stated age who is in no acute distress. Communicates well with provider and answers questions appropriately. SKIN - Without rashes. There are well approximated surgical incisions that are sutured on the patient's medial and lateral aspect of the ankle/foot. There is bleeding from the medial aspect. Sutures are in place. No evidence of additional trauma. These are dressed with a Xeroform bandage. EXTREMITIES -decreased range of motion of the right foot secondary to pain. She is neurovascularly intact this region. Good capillary refill. Medical Decision & Procedures Medications Administered Medications (Trade) Dose Ordered Sig/Van Route Start Time Stop Time Status Last Admin Dose Admin Oxycodone/ Acetaminophen (Percocet 5-325mg Tab) 1 tab NOW STAT PO 07/05/17 20:02 07/05/17 20:03 DC 07/05/17 20:22 1 TAB Medical Decision Patient was seen and evaluated as above. She presents to us today with bleeding status post surgical extraction of screws/hardware from her right foot review was performed of nursing notes and vital signs. After obtaining a thorough history and physical examination decision was made to place a pressure dressing. Patient tolerated this well. I then discussed the case with the on- call orthopedic surgeon who performed the surgery. I spoke with Dr. Vaughn. He recommended a pressure dressing, and refitting her with a dressing similar to that which she presented here today with. He would like to see her in the office likely this Monday. Patient is a call for follow-up. I did apply a pressure dressing to the patient's foot after applying Xeroform, gauze and then a well applied pressure dressing but care was taken to knuckle of circulation. Patient was observed then for about half an hour and was reevaluated and there was no persistence of bleeding. There was a small amount that I believe seeped out of the right but there is no active extravasation. I believe she is stable for outpatient management. She was fitted back into the boot which was provided at the [facility]. She was given 1 Percocet here for pain. The patient was educated upon management, had questions answered prior to discharge, and was discharged home in good condition. In the evaluation and treatment of this patient the following differential diagnoses were entertained: Fracture, dislocation, wound dehiscence, among others. Impression Primary Impression: Bleeding from wound Departure Information Dispostion Home / Self-Care Condition GOOD Referrals Armando Ward D.O. (PCP) Patient Instructions My [facility] Additional Instructions You were seen in the emergency department for bleeding through your surgical incision wound. Please keep the dressing in place until you see Dr. Vaughn. He request that you be seen on Monday. Please limit weightbearing to the right leg. Please keep this elevated. Please ice the region but do not soak it with water. Please return with any new/concerning symptoms.
[2017-07-05 20:46] VITALS: BP 155/96
== END 2017-07-05 20:46 | disposition home or self-care (01) ==
LOC: C.EDB 19:02 → C.EDD 20:46
DX: M96.830 Postprocedural hemorrhage of a musculoskeletal structure following a musculoskeletal system procedure (principal); Y83.1 Surgical operation with implant of artificial internal device as the cause of abnormal reaction of the patient, or of later complication, without mention of misadventure at the time of the procedure; F41.9 Anxiety disorder, unspecified; M79.7 Fibromyalgia; I10 Essential (primary) hypertension; E78.5 Hyperlipidemia, unspecified; E03.9 Hypothyroidism, unspecified; Z79.899 Other long term (current) drug therapy; F17.210 Nicotine dependence, cigarettes, uncomplicated

== ENCOUNTER 2017-07-23 17:03 | Emergency (ER) | payer OTHER ==
[~2017-07-23] VITALS: Ht 162.6 cm; Wt 100.8 kg
[~2017-07-23 17:03] MED LIST changes: -ATV1 PO; -CZR50 PO; -LAMO200T35 PO; -LPT10 PO; -RANI300T PO; -TPM/50 PO
[2017-07-23 17:09] VITALS: Ht 162.6 cm; Wt 100.8 kg
[2017-07-23] MEDS ORDERED: SODIUM CHLORIDE 0.9% 1000ML 2,000 ML IV STA (17:22)
[2017-07-23] MEDS ORDERED: OXYCODONE/ACETAMINOPHEN 5-325 TAB PO ONE (17:30)
--- NOTE | 2017-07-23 17:30 | EMERGENCY ROOM VISIT NOTE ---
History Report prepared by [place]: Khoa Funk Under the Supervision of: Dr. Brayan Centeno M.D. First contact with patient: 17:13 Chief Complaint: FOOT PAIN Stated Complaint: HAD SURGERY ON FOOT,ALOT OF PAIN FEELING SICK History of Present Illness The patient is a 57 year old female who presents to the Emergency Room with complaints of constant nausea beginning three days ago. The patient states she had screws taken out of her ankle a few weeks ago, and she just had the stitches removed four days ago. She reports since the stitches were removed, she has been experiencing more pain, nausea, warmth, chills, and body aches. She notes she also has a mild cough. The patient states she has been walking more often without wearing her boot. She reports she has tried icing and elevating her foot to decrease the swelling; it is not working. The patient notes she has been Tylenol for pain, but it is not helping. She states a history of hypertension and high cholesterol. The patient denies vomiting, diarrhea, being around anyone sick, changes to the color of the incision site, abdominal pain, chest pain, and shortness of breath. Source of History: patient Onset: three days ago Quality: other (nausea) Timing: constant Modifying Factors (Worsening): other (walking) Associated Symptoms: No chest pain, No SOB, No vomiting, No abdominal pain, No diarrhea Note: Denies: changes to the color of the incision site Review of Systems See HPI for pertinent positives and negatives. A total of ten systems were reviewed and were otherwise negative. Past Medical & Surgical Medical Problems: (1) Anxiety (2) Benign hypertension (3) Bronchitis (4) Chronic abdominal pain (5) Depression (6) Enterohemorrhagic E. coli infection (7) Fibromyalgia (8) Gastroparesis (9) History of Clostridium difficile colitis (10) History of renal calculi (11) History of suicide attempt (12) Hyperlipidemia (13) Hypothyroidism (14) Migraine (15) PTSD (post-traumatic stress disorder) Surgical Problems: (1) History of appendectomy (2) History of feeding tube placement (3) S/P appendectomy (4) S/P cholecystectomy (5) S/P tonsillectomy and adenoidectomy (6) Status post hernia repair (7) Status post hysterectomy (8) Status post left oophorectomy (9) Status post right oophorectomy (10) Status post sinus surgery Family History Cancer Diabetes mellitus FATHER FHx: diabetes FHx: gallbladder disease FHx: heart disease FATHER FHx: hypertension FATHER MOTHER FHx: seizures Social History Smoking Status: Current Every Day Smoker Alcohol Use: none Drug Use: none Marital Status: Housing Status: lives with significant other Occupation Status: disabled Current/Historical Medications Scheduled Atorvastatin (Lipitor), 10 MG PO HS Cephalexin Monohydrate (Keflex), 500 MG PO QID Lamotrigine (Lamictal), 200 MG PO QAM Losartan Potassium (Losartan Potassium), 50 MG PO HS Ranitidine Hcl (Zantac), 300 MG PO BID Topiramate (Topamax), 50 MG PO BID Venlafaxine Hcl (Venlafaxine Hcl Er), 225 MG PO DAILY Venlafaxine Hcl (Effexor Xr), 1 CAP PO DAILY Scheduled PRN Glycopyrrolate (Glycopyrrolate), 2 MG PO BID PRN for ABD PAIN Lorazepam (Lorazepam), 1 MG PO BID PRN for Anxiety/Insomnia Allergies Coded Allergies: CI Pigment Blue 63 (Verified Allergy, Unknown, shut down, heart and breathing slowed, 10/14/16) Fentanyl (Verified Adverse Reaction, Intermediate, GI SYMPTOMS, 10/14/16) Metoclopramide (Verified Adverse Reaction, Mild, TARDITIVE DYSKENESIA, ) Tramadol (Verified Adverse Reaction, Mild, VOMITING, 10/14/16) Chlorpromazine (Verified Adverse Reaction, Unknown, dry mouth, 10/14/16) Duloxetine (Verified Adverse Reaction, Unknown, LETHARGIC, 10/14/16) Physical Exam Vital Signs Date Time Temp Pulse Resp B/P (MAP) Pulse Ox O2 Delivery O2 Flow Rate FiO2 07/23/17 19:45 36.7 80 17 165/94 99 07/23/17 19:33 80 17 99 07/23/17 19:30 165/94 07/23/17 19:11 81 22 142/99 97 Room Air 07/23/17 19:03 80 21 96 07/23/17 18:33 84 30 95 07/23/17 18:30 149/91 07/23/17 18:25 89 22 154/100 97 Room Air 07/23/17 17:09 36.7 116 18 182/110 97 Room Air Physical Exam GENERAL: Awake, alert, fatigued, uncomfortable-appearing, in no distress HENT: Normocephalic, atraumatic. Oropharynx has dry and cracked mucous membranes , otherwise unremarkable. EYES: Normal conjunctiva. Sclera non-icteric. NECK: Supple. No nuchal rigidity. FROM. No JVD. RESPIRATORY: Clear to auscultation. CARDIAC: Regular rate, normal rhythm. Extremities warm and well perfused. Pulses equal. ABDOMEN: Soft, non-distended. No tenderness to palpation. No rebound or guarding. No masses. RECTAL: Deferred. MUSCULOSKELETAL: Chest examination reveals no tenderness. The back is symmetrical on inspection without obvious abnormality. There is no CVA tenderness to palpation. No joint edema. LOWER EXTREMITIES: Calves are equal size bilaterally and non-tender. No edema. No discoloration. Right foot has recent suture sites that is clean, dry, and intact. No erythema or warmth. Mild tenderness and pain with ROM. NEURO: Normal sensorium. No sensory or motor deficits noted. SKIN: No rash or jaundice noted. Medical Decision & Procedures ER Provider Diagnostic Interpretation: X-ray: Per my interpretation, radiologist review. SINGLE VIEW CHEST CLINICAL HISTORY: Generalized abdominal pain. FINDINGS: An AP, portable, upright chest radiograph is compared to study dated 10/01/2016. The examination is degraded by portable technique, large body habitus, and patient rotation. The cardiomediastinal silhouette is unremarkable. There is chronic elevation of right hemidiaphragm and bibasilar atelectasis. Chronic interstitial thickening is similar to previous. No airspace consolidation or large pleural effusion is identified. No pneumothorax is seen. The skeletal structures are osteopenic. The bony thorax is grossly intact. IMPRESSION: No active disease in the chest. Electronically signed by: Kwesi Martinez M.D. 07/23/2017 6:11 PM Dictated Date/Time: 07/23/2017 6:09 PM RIGHT ANKLE 3 VIEWS CLINICAL HISTORY: Right ankle pain following suture removal. FINDINGS: 3 views of the right ankle are compared to study dated 03/20/2013. The skeletal structures are osteopenic. No fracture is seen. The ankle mortise is intact. There are large dorsal and plantar calcaneal enthesophytes. There is near-complete bony fusion of the talus and calcaneus. A screw track is suggested in the talus. A small joint effusion is identified and soft tissue swelling is present around the ankle. No radiodense foreign body is identified. IMPRESSION: 1. Soft tissue swelling and joint effusion. No acute bony abnormality is seen. 2. There is near-complete bony fusion of the talus and calcaneus. Electronically signed by: Kwesi Martinez M.D. 07/23/2017 6:03 PM Dictated Date/Time: 07/23/2017 6:01 PM Laboratory Results 07/23/17 17:45 Red Blood Count 4.47, Mean Corpuscular Volume 94.4, Mean Corpuscular Hemoglobin 34.5, Mean Corpuscular Hemoglobin Concent 36.5, Mean Platelet Volume 9.5, Neutrophils (%) (Auto) 54.2, Lymphocytes (%) (Auto) 35.2, Monocytes (%) (Auto) 9.1, Eosinophils (%) (Auto) 0.8, Basophils (%) (Auto) 0.3, Neutrophils # (Auto) 6.18, Lymphocytes # (Auto) 4.01, Monocytes # (Auto) 1.04, Eosinophils # (Auto) 0.09, Basophils # (Auto) 0.03 07/23/17 17:45 Test 07/23/17 17:30 07/23/17 17:45 07/23/17 18:30 Influenza Type A (RT-PCR) Neg for Influ A (NEG) Influenza Type B (RT-PCR) Neg for Influ B (NEG) White Blood Count 11.39 K/uL (4.8-10.8) Red Blood Count 4.47 M/uL (4.2-5.4) Hemoglobin 15.4 g/dL (12.0-16.0) Hematocrit 42.2 % (37-47) Mean Corpuscular Volume 94.4 fL (80-100) Mean Corpuscular Hemoglobin 34.5 pg (25-34) Mean Corpuscular Hemoglobin Concent 36.5 g/dl (32-36) Platelet Count 266 K/uL (130-400) Mean Platelet Volume 9.5 fL (7.4-10.4) Neutrophils (%) (Auto) 54.2 % Lymphocytes (%) (Auto) 35.2 % Monocytes (%) (Auto) 9.1 % Eosinophils (%) (Auto) 0.8 % Basophils (%) (Auto) 0.3 % Neutrophils # (Auto) 6.18 K/uL (1.4-6.5) Lymphocytes # (Auto) 4.01 K/uL (1.2-3.4) Monocytes # (Auto) 1.04 K/uL (0.11-0.59) Eosinophils # (Auto) 0.09 K/uL (0-0.5) Basophils # (Auto) 0.03 K/uL (0-0.2) RDW Standard Deviation 45.2 fL (36.4-46.3) RDW Coefficient of Variation 13.1 % (11.5-14.5) Immature Granulocyte % (Auto) 0.4 % Immature Granulocyte # (Auto) 0.04 K/uL (0.00-0.02) Anion Gap 10.0 mmol/L (3-11) Est Creatinine Clear Calc Drug Dose 54.4 ml/min Estimated GFR () 51.1 Estimated GFR (Non- 44.1 BUN/Creatinine Ratio 7.9 (10-20) Calcium Level 9.3 mg/dl (8.5-10.1) Total Bilirubin 0.5 mg/dl (0.2-1) Direct Bilirubin mg/dl (0-0.2) Aspartate Amino Transf (AST/SGOT) U/L (15-37) Alanine Aminotransferase (ALT/SGPT) 46 U/L (12-78) Alkaline Phosphatase 164 U/L (45-117) Total Protein 7.7 gm/dl (6.4-8.2) Albumin 3.4 gm/dl (3.4-5.0) Lipase 295 U/L (73-393) Urine Color YELLOW Urine Appearance CLOUDY (CLEAR) Urine pH 5.0 (4.5-7.5) Urine Specific [place] 1.026 (1.000-1.030) Urine Protein NEG (NEG) Urine Glucose (UA) NEG (NEG) Urine Ketones TRACE (NEG) Urine Occult Blood 1+ (NEG) Urine Nitrite NEG (NEG) Urine Bilirubin NEG (NEG) Urine Urobilinogen NEG (NEG) Urine Leukocyte Esterase NEG (NEG) Urine WBC (Auto) 1-5 /hpf (0-5) Urine RBC (Auto) 5-10 /hpf (0-4) Urine Hyaline Casts (Auto) 5-10 /lpf (0-5) Urine Epithelial Cells (Auto) >30 /lpf (0-5) Urine Bacteria (Auto) 2+ (NEG) Laboratory results reviewed by me Medications Administered Medications (Trade) Dose Ordered Sig/Van Route Start Time Stop Time Status Last Admin Dose Admin Sodium Chloride 2,000 ml @ 999 mls/hr Q2H1M STAT IV 07/23/17 17:22 07/23/17 19:22 DC 07/23/17 18:19 999 MLS/HR Oxycodone/ Acetaminophen (Percocet 5-325mg Tab) 1 tab NOW ONCE PO 07/23/17 17:30 07/23/17 17:31 DC 07/23/17 18:19 1 TAB Cephalexin Monohydrate (Keflex 500MG Home Pack) 1 homepack NOW STAT PO 07/23/17 19:16 07/23/17 19:19 DC 07/23/17 19:37 1 HOMEPACK Cephalexin Monohydrate (Keflex Cap) 500 mg NOW STAT PO 07/23/17 19:16 07/23/17 19:19 DC 07/23/17 19:37 500 MG Oxycodone HCl (Roxicodone Immediate Rel 5MG Home Pack) 1 homepack UD ONCE PO 07/23/17 19:30 07/23/17 19:31 DC 07/23/17 19:36 1 HOMEPACK Dexamethasone Sodium Phosphate (Dexamethasone Inj Pf) 10 mg NOW ONCE IV 07/23/17 19:30 07/23/17 19:31 DC 07/23/17 19:37 10 MG ED Course 1717: The patient was evaluated in room C07. A complete history and physical exam was performed. 1910: I reevaluated the patient and discussed current exam findings. 1937: I reevaluated the patient. Discussed results and discharge instructions: she verbalized understanding and agreement. The patient is ready for discharge. Medical Decision I reviewed the patient's past medical history, medications, and the nursing notes as described above. Differential Diagnoses includes: cellulitis, abscess, viral illness, URI, dehydration, electrolyte abnormalities, bronchitis, pneumonia, and UTI. The patient is a 57-year-old woman with a past medical history of recent right ankle fracture with external fixation with subsequent external screw removal several weeks ago and now suture removal several days ago now presents emergency department with worsening right foot pain as well as nasal congestion fatigue and body aches per hpi. Arrival the patient is uncomfortable but no acute distress, afebrile stable vital signs. On exam the patient's right foot shows some mild edema which the patient says is stable since her surgery. There is also mild erythema surrounding the patient's suture sites without any significant warmth. Given the patient's nasal congestion, sx likely due to a viral upper respiratory infection. Influenza however negative. Chest x-ray negative. X-ray of ankle unremarkable. Patient does have a small amount of blood in her urine without any clear evidence of infection and she denies any urinary symptoms. Possibly related to dehydration as patient does demonstrate a mild SURINDER with Cr. 1.35. WBC 11. While the patient's right foot pain is most likely related to her increased activity since her 6 sutures were removed and was told she may ambulate tolerated, given her infectious symptoms will treat for a possible cellulitis, but also would treat a urinary tract infection should her cultures suggest urinary infection. Findings and plan for follow-up reviewed with patient. Patient agreeable and d/c'd per discharge instructions. Medication Reconcilliation Current Medication List: was personally reviewed by me Blood Pressure Screening Patient's blood pressure: Elevated blood pressure Blood pressure disposition: Elevated BP felt to be situational Impression Primary Impression: Viral upper respiratory illness Additional Impressions: Cellulitis Hematuria SURINDER (acute kidney injury) Scribe Attestation The scribe's documentation has been prepared under my direction and personally reviewed by me in its entirety. I confirm that the note above accurately reflects all work, treatment, procedures, and medical decision making performed by me. Departure Information Dispostion Home / Self-Care Prescriptions Cephalexin Monohydrate (Keflex) 500 Mg Cap 500 MG PO QID for 7 Days, #28 CAP Prov: Brayan Centeno M.D. 07/23/17 Referrals Armando Ward D.O. (PCP) Forms HOME CARE DOCUMENTATION FORM, IMPORTANT VISIT INFORMATION Patient Instructions ED Dehydration, ED Hematuria, ED Infec Skin Cellulitis, ED Insufficiency Renal, ED Upper Resp Infec No Abx Tx, My [facility] Additional Instructions Please follow up with your orthopedic surgeon' s office tomorrow for re- evaluation. You should also follow-up with your primary care doctor in the next 1-3 days for reevaluation and to repeat your kidney function test and monitor your urine analysis for resolution of the blood in your urine. Your symptoms are most likely due to viral upper respiratory infection. However given you had some mild warmth over your surgical site will additionally treat you for a possible skin infection. Otherwise, your exam, lab results, and xrays did not show signs of an emergent condition at this time. Acetaminophen for pain and fevers as needed. Oxycodone for breakthrough pain as needed. Drink plenty of fluids to ensure hydration. Return to the emergency department for worsening symptoms as described in the accompanying instructions. Problem Qualifiers
[2017-07-23 17:52] LABS: BASO % 0.3 %; BASO ABS # 0.03 K/uL (0-0.2); EOS % 0.8 %; EOS ABS # 0.09 K/uL (0-0.5); HEMATOCRIT 42.2 % (37-47); HEMOGLOBIN 15.4 g/dL (12.0-16.0); IG# 0.04 K/uL (0.00-0.02); LYMPH % 35.2 %; LYMPH ABS # 4.01 K/uL (1.2-3.4); MEAN CELL VOLUME 94.4 fL (80-100); MEAN CORPUSCULAR HEMOGLOBIN 34.5 pg (25-34); MEAN CORPUSCULAR HGB CONC 36.5 g/dl (32-36); MEAN PLATELET VOLUME 9.5 fL (7.4-10.4); MONO % 9.1 %; MONO ABS # 1.04 K/uL (0.11-0.59); NEUT % 54.2 %; NEUT ABS # 6.18 K/uL (1.4-6.5); PLATELET COUNT 266 K/uL (130-400); RED CELL DISTRIBUTION WIDTH CV 13.1 % (11.5-14.5); RED CELL DISTRIBUTION WIDTH SD 45.2 fL (36.4-46.3); WHITE BLOOD COUNT 11.39 K/uL (4.8-10.8)
[2017-07-23] MEDS ORDERED: VENL225T27 PO (18:03)
[2017-07-23] MEDS ORDERED: VENL75CA PO (18:03)
[2017-07-23] MEDS ORDERED: GLYC2TAB16 PO (18:03)
--- NOTE | 2017-07-23 18:04 | DIAGNOSTIC IMAGING REPORT ---
RIGHT ANKLE 3 VIEWS CLINICAL HISTORY: Right ankle pain following suture removal. FINDINGS: 3 views of the right ankle are compared to study dated 03/20/2013. The skeletal structures are osteopenic. No fracture is seen. The ankle mortise is intact. There are large dorsal and plantar calcaneal enthesophytes. There is near-complete bony fusion of the talus and calcaneus. A screw track is suggested in the talus. A small joint effusion is identified and soft tissue swelling is present around the ankle. No radiodense foreign body is identified. IMPRESSION: 1. Soft tissue swelling and joint effusion. No acute bony abnormality is seen. 2. There is near-complete bony fusion of the talus and calcaneus. Electronically signed by: Kwesi Martinez M.D. 07/23/2017 6:03 PM Dictated Date/Time: 07/23/2017 6:01 PM
[2017-07-23 18:12] LABS: ALBUMIN 3.4 gm/dl (3.4-5.0); CALCIUM 9.3 mg/dl (8.5-10.1); CREATININE 1.35 mg/dl (0.60-1.20)
--- NOTE | 2017-07-23 18:12 | DIAGNOSTIC IMAGING REPORT ---
SINGLE VIEW CHEST CLINICAL HISTORY: Generalized abdominal pain. FINDINGS: An AP, portable, upright chest radiograph is compared to study dated 10/01/2016. The examination is degraded by portable technique, large body habitus, and patient rotation. The cardiomediastinal silhouette is unremarkable. There is chronic elevation of right hemidiaphragm and bibasilar atelectasis. Chronic interstitial thickening is similar to previous. No airspace consolidation or large pleural effusion is identified. No pneumothorax is seen. The skeletal structures are osteopenic. The bony thorax is grossly intact. IMPRESSION: No active disease in the chest. Electronically signed by: Kwesi Martinez M.D. 07/23/2017 6:11 PM Dictated Date/Time: 07/23/2017 6:09 PM
[2017-07-23 18:14] LABS: TOTAL PROTEIN 7.7 gm/dl (6.4-8.2)
[2017-07-23 18:35] LABS: INFLUENZA A PCR Neg for Influ A (NEG); INFLUENZA B PCR Neg for Influ B (NEG)
[2017-07-23] MEDS ORDERED: CEPHALEXIN 500MG HOME PACK 1 EA BTL PO STA (19:16)
[2017-07-23] MEDS ORDERED: CEPHALEXIN MONOHYDRATE 250 MG CAP PO STA (19:16)
[2017-07-23] MEDS ORDERED: CEPH500C PO (19:20)
[2017-07-23] MEDS ORDERED: DEXAMETHASONE **PF** INJ 10 MG/ML VIAL IV ONE (19:30)
[2017-07-23] MEDS ORDERED: OXYCODONE IR HOME PACK PO ONE (19:30)
[2017-07-23 19:45] VITALS: BP 165/94; PULSE 80; TEMP 36.7; O2SAT 99
[2017-07-23] MEDS ORDERED: LAMO200T35 PO (20:31)
[2017-07-23] MEDS ORDERED: TPM/50 PO (21:07)
[2017-07-23] MEDS ORDERED: RANI300T PO (21:07)
[2017-07-23] MEDS ORDERED: LPT10 PO (21:07)
[2017-07-23] MEDS ORDERED: CZR50 PO (21:07)
[2017-07-23] MEDS ORDERED: ATV1 PO (21:10)
== END 2017-07-23 19:47 | disposition home or self-care (01) ==
LOC: C.EDB 17:04 → C.EDC 19:47
DX: J39.8 Other specified diseases of upper respiratory tract (principal); L03.115 Cellulitis of right lower limb; N17.9 Acute kidney failure, unspecified; R31.9 Hematuria, unspecified; I10 Essential (primary) hypertension; E78.5 Hyperlipidemia, unspecified; F32.9 Major depressive disorder, single episode, unspecified; F41.9 Anxiety disorder, unspecified; M79.7 Fibromyalgia; G43.909 Migraine, unspecified, not intractable, without status migrainosus; F17.200 Nicotine dependence, unspecified, uncomplicated; Z86.39 Personal history of other endocrine, nutritional and metabolic disease; Z91.048 Other nonmedicinal substance allergy status; Z88.6 Allergy status to analgesic agent; Z88.8 Allergy status to other drugs, medicaments and biological substances; Z88.5 Allergy status to narcotic agent

== ENCOUNTER 2017-08-14 19:28 | Emergency (ER) | payer OTHER ==
[~2017-08-14] VITALS: Ht 162.6 cm; Wt 100.9 kg
[~2017-08-14 19:28] MED LIST changes: +ATV1 PO; +CZR50 PO; -EFFSR75 PO; +GLYC2TAB16 PO; +LAMO200T35 PO; +LPT10 PO; -POTA1CAP2 PO; +RANI300T PO; +TPM/50 PO; +VENL225T27 PO; +VENL75CA PO; -ZYP10 PO; -[UNRECOGNIZED DRUG - CODE] INJ
[2017-08-14 19:33] VITALS: TEMP 36.8; Ht 162.6 cm; Wt 100.9 kg
[2017-08-14] MEDS ORDERED: KETOROLAC TROMETHAMINE 60 MG/2 ML VIAL IM STA (20:11)
[2017-08-14] MEDS ORDERED: CLIN300C2 PO (20:13)
--- NOTE | 2017-08-14 20:14 | EMERGENCY ROOM VISIT NOTE ---
History First contact with patient: 19:41 Chief Complaint: DENTAL PAIN Stated Complaint: SEVERE PAIN LT SIDE OF FACE DUE TO 2 TEETH Nursing Triage Summary: Pt reports she was seen at [facility] last week for right sided dental pain. She was told she had 2 abcessed teeth and put on an antibiotic. Pt was to get teeth removed, but states "I can't find anyone who will do it because I don't hace insurance and they don't have payment plans." Increasing pain. History of Present Illness The patient is a 57 year old female who presents to the Emergency Room with complaints of severe dental pain. The patient reports that for the past week, she has had severe pain in the right upper jaw. She was seen at a dentist earlier in the week and was told that she had 2 abscessed teeth. She was placed on Zithromax and instructed to have her teeth removed. She states that she has been unable to find anyone to remove her teeth because she does not have insurance and is unable to pay for this. She states she has a stabbing, constant pain in the right upper teeth and rates the discomfort a 10/10. The pain radiates into her jaw and ear. She is a smoker. She denies any fevers, facial swelling, drainage, difficulty breathing or swallowing. She has taken Tylenol and ibuprofen for the pain without relief. Review of Systems A complete 10 point review of systems was reviewed with the patient with pertinent positives and negatives as per history of present illness. All else were negative. Past Medical/Surgical History Medical Problems: (1) Anxiety (2) Benign hypertension (3) Bronchitis (4) Chronic abdominal pain (5) Depression (6) Enterohemorrhagic E. coli infection (7) Fibromyalgia (8) Gastroparesis (9) History of Clostridium difficile colitis (10) History of renal calculi (11) History of suicide attempt (12) Hyperlipidemia (13) Hypothyroidism (14) Migraine (15) PTSD (post-traumatic stress disorder) Surgical Problems: (1) History of appendectomy (2) History of feeding tube placement (3) S/P appendectomy (4) S/P cholecystectomy (5) S/P tonsillectomy and adenoidectomy (6) Status post hernia repair (7) Status post hysterectomy (8) Status post left oophorectomy (9) Status post right oophorectomy (10) Status post sinus surgery Family History Cancer Diabetes mellitus FATHER FHx: diabetes FHx: gallbladder disease FHx: heart disease FATHER FHx: hypertension FATHER MOTHER FHx: seizures Social History Smoking Status: Current Every Day Smoker Alcohol Use: none Drug Use: none Marital Status: Housing Status: lives with significant other Occupation Status: disabled Current/Historical Medications Scheduled Atorvastatin (Lipitor), 10 MG PO HS Clindamycin Hcl (Cleocin), 300 MG PO QID Lamotrigine (Lamictal), 200 MG PO QAM Losartan Potassium (Losartan Potassium), 50 MG PO HS Ranitidine Hcl (Zantac), 300 MG PO BID Topiramate (Topamax), 50 MG PO BID Venlafaxine Hcl (Venlafaxine Hcl Er), 225 MG PO DAILY Venlafaxine Hcl (Effexor Xr), 1 CAP PO DAILY Scheduled PRN Glycopyrrolate (Glycopyrrolate), 2 MG PO BID PRN for ABD PAIN Lorazepam (Lorazepam), 1 MG PO BID PRN for Anxiety/Insomnia Physical Exam Vital Signs Date Time Temp Pulse Resp B/P (MAP) Pulse Ox O2 Delivery O2 Flow Rate FiO2 08/14/17 20:40 85 16 172/89 95 08/14/17 19:33 36.8 101 18 158/84 97 Room Air Physical Exam VITALS: Vitals are noted on the nurse's note and reviewed by myself. Vital signs stable. GENERAL: This is a 57-year-old female, in no acute distress, nondiaphoretic, well-developed well-nourished. SKIN: The skin was without rashes. EARS: External auditory canals clear, tympanic membranes pearly quick without erythema or effusion bilaterally. EYES: Pupils equal round and reactive to light and accommodation. MOUTH: Mucous membranes moist. Poor dentition noted. No significant edema or erythema of the gums. No facial swelling. No drainage. NECK: Supple without nuchal rigidity. No lymphadenopathy. No thyromegaly. Cervical spine is nontender. No JVD. HEART: Regular rate and rhythm without murmurs gallops or rubs. LUNGS: Clear to auscultation bilaterally without wheezes, rales or rhonchi. NEURO: Patient was alert and oriented to person place and time. Medical Decision & Procedures Medications Administered Medications (Trade) Dose Ordered Sig/Van Route Start Time Stop Time Status Last Admin Dose Admin Clindamycin HCl (Cleocin 150MG Home Pack) 1 homepack UD ONCE PO 08/14/17 20:15 08/14/17 20:16 DC 08/14/17 20:30 1 HOMEPACK Ketorolac Tromethamine (Toradol Inj) 60 mg NOW STAT IM 08/14/17 20:11 08/14/17 20:13 DC 08/14/17 20:30 60 MG Medical Decision Differential diagnosis includes dental infection, dental abscess, Moe's angina, among others. The patient was evaluated as above. She does have very poor dentition noted on exam. There is no evidence of a significant dental abscess or facial cellulitis. Patient will be placed on clindamycin. She is given Toradol for pain. She was educated that she must follow-up with a dentist for definitive treatment of her dental issue. She verbalized understanding of my assessment and treatment plan and was discharged home in good condition. [facility] Drug Monitoring Program Search Results: patient reviewed within database Medication Reconcilliation Current Medication List: was personally reviewed by me Blood Pressure Screening Patient's blood pressure: Elevated blood pressure Blood pressure disposition: Elevated BP felt to be situational Impression Primary Impression: Dentalgia Departure Information Dispostion Home / Self-Care Condition GOOD Prescriptions Clindamycin Hcl (CLEOCIN) 300 Mg Cap 300 MG PO QID for 10 Days, #40 CAP Prov: Sydni Lino ., ONEL 08/14/17 Referrals No Doctor, Assigned (PCP) Patient Instructions My [facility] Additional Instructions You have been treated in the Emergency Department for Dental Pain. You were prescribed Clindamycin to be taken four times a day as prescribed. This is an antibiotic. All antibiotics have the potential to cause diarrhea. Stop this medication and contact a medical provider if you were to develop any significant adverse side effects including: wheezing, shortness of breath, passing out, vomiting, or a diffuse rash. Always take antibiotics as directed and COMPLETE the ENTIRE course regardless of the improvement of your symptoms. For pain control, you can use the following [id number] medicines (if >12 yo): - Regular strength (325mg/tab) Tylenol (acetaminophen) 2 tabs every 4-6 hours as needed. Do not exceed 12 tablets in a 24 hour period. Avoid taking more than 4 grams (4000 mg) of Tylenol per day. This includes any other sources of acetaminophen you may take on a regular basis. - Regular strength (200 mg/tab) Advil (ibuprofen) 1-2 tabs every 4-6 hours as needed. Do not exceed a dose of 3200 mg per day. Refrain from smoking cigarettes or using chewing tobacco until you have been evaluated by your dentist. Keeping beverages lukewarm and consuming soft foods can decrease your pain. Warm compresses over the affected area may offer some relief. You MUST seek evaluation of your dental pain by a dentist following your visit to the Emergency Department. The Emergency Department is not capable of treating dental issues long-term. You should call your dentist as soon as possible to make an appointment for evaluation of your dental pain. Return to the emergency department if you develop the following symptoms despite treatment course outlined above: fever, intractable pain, increased redness, swelling, or purulent discharge.
[2017-08-14] MEDS ORDERED: CLINDAMYCIN 150MG HOME PACK PO ONE (20:15)
[2017-08-14 20:40] VITALS: BP 172/89; PULSE 85; O2SAT 95
== END 2017-08-14 20:41 | disposition home or self-care (01) ==
LOC: C.EDB 19:29 → C.EDD 20:41
DX: K08.89 Other specified disorders of teeth and supporting structures (principal); I10 Essential (primary) hypertension; E78.5 Hyperlipidemia, unspecified; F41.9 Anxiety disorder, unspecified; F32.9 Major depressive disorder, single episode, unspecified; F17.200 Nicotine dependence, unspecified, uncomplicated; Z87.442 Personal history of urinary calculi; Z91.5 Personal history of self-harm; Z93.1 Gastrostomy status; Z90.49 Acquired absence of other specified parts of digestive tract; Z90.710 Acquired absence of both cervix and uterus; Z90.722 Acquired absence of ovaries, bilateral; Z90.89 Acquired absence of other organs; Z98.890 Other specified postprocedural states; Z83.3 Family history of diabetes mellitus; Z82.49 Family history of ischemic heart disease and other diseases of the circulatory system; Z82.0 Family history of epilepsy and other diseases of the nervous system; Z79.899 Other long term (current) drug therapy

== ENCOUNTER 2017-09-15 05:25 | Inpatient (IN) | payer OTHER ==
[2017-09-04 10:40] VITALS: BMI 35.0
--- NOTE | 2017-09-04 11:20 | PAT Medication Instructions ---
Service Date September 04, 2017. Current Home Medication List Atorvastatin (Lipitor), 10 MG PO HS Glycopyrrolate (Glycopyrrolate), 2 MG PO BID PRN for ABD PAIN Lamotrigine (Lamictal), 200 MG PO QAM Lorazepam (Lorazepam), 1 MG PO BID PRN for Anxiety/Insomnia Losartan Potassium (Losartan Potassium), 50 MG PO HS Ranitidine Hcl (Zantac), 300 MG PO BID Topiramate (Topamax), 50 MG PO BID Venlafaxine Hcl (Venlafaxine Hcl Er), 225 MG PO QA Venlafaxine Hcl (Effexor Xr), 1 CAP PO QAM Medication Instructions For Your Scheduled Surgery - Hold the following medications the morning of surgery: Glycopyrrolate (Glycopyrrolate), 2 MG PO BID PRN for ABD PAIN - Take the following medications the morning of surgery with a sip of water: Lamotrigine (Lamictal), 200 MG PO QAM Lorazepam (Lorazepam), 1 MG PO BID PRN for Anxiety/Insomnia (if needed) Ranitidine Hcl (Zantac), 300 MG PO BID Topiramate (Topamax), 50 MG PO BID Venlafaxine Hcl (Venlafaxine Hcl Er), 225 MG PO QAM Venlafaxine Hcl (Effexor Xr), 75 MG 1 CAP PO QAM - Take the following medications as scheduled the night before surgery: Atorvastatin (Lipitor), 10 MG PO HS Glycopyrrolate (Glycopyrrolate), 2 MG PO BID PRN for ABD PAIN (if needed) Lorazepam (Lorazepam), 1 MG PO BID PRN for Anxiety/Insomnia (if needed) Losartan Potassium (Losartan Potassium), 50 MG PO HS Ranitidine Hcl (Zantac), 300 MG PO BID Topiramate (Topamax), 50 MG PO BID If you have any questions please call us at [phone] or [phone] or [phone]
[2017-09-04 13:07] LABS: BASO % 0.4 %; BASO ABS # 0.04 K/uL (0-0.2); EOS % 1.1 %; EOS ABS # 0.12 K/uL (0-0.5); HEMATOCRIT 44.6 % (37-47); HEMOGLOBIN 15.5 g/dL (12.0-16.0); IG# 0.03 K/uL (0.00-0.02); LYMPH ABS # 3.82 K/uL (1.2-3.4); MEAN CELL VOLUME 98.2 fL (80-100); MEAN CORPUSCULAR HEMOGLOBIN 34.1 pg (25-34); MEAN CORPUSCULAR HGB CONC 34.8 g/dl (32-36); MEAN PLATELET VOLUME 9.8 fL (7.4-10.4); MONO % 8.9 %; MONO ABS # 0.95 K/uL (0.11-0.59); NEUT % 53.3 %; NEUT ABS # 5.66 K/uL (1.4-6.5); PLATELET COUNT 282 K/uL (130-400); RED CELL DISTRIBUTION WIDTH CV 12.9 % (11.5-14.5); RED CELL DISTRIBUTION WIDTH SD 46.4 fL (36.4-46.3); WHITE BLOOD COUNT 10.62 K/uL (4.8-10.8)
[2017-09-04 13:20] LABS: HEMOGLOBIN A1C 5.7 % (4.5-5.6)
[2017-09-04 13:21] LABS: ALBUMIN 3.7 gm/dl (3.4-5.0); CALCIUM 9.4 mg/dl (8.5-10.1); CREATININE 0.87 mg/dl (0.60-1.20); POTASSIUM 3.9 mmol/L (3.5-5.1)
--- NOTE | 2017-09-14 08:42 | History and Physical ---
History & Physical Date September 14, 2017. Chief Complaint right ankle pain History of Present Illness The patient is a 57 year old female with complaints of chronic right ankle pain for multiple years. She has had multiple other hindfoot and ankle surgeries, however the pain from her ankle DJD remained continuous despite other treatments. She failed all conservative management of her ankle DJD and is now being set up for a right STAR total ankle replacement. Past Medical/Surgical History Medical Problems: (1) Anxiety (2) Benign hypertension (3) Bronchitis (4) Chronic abdominal pain (5) Depression (6) Enterohemorrhagic E. coli infection (7) Fibromyalgia (8) Gastroparesis (9) History of Clostridium difficile colitis (10) History of renal calculi (11) History of suicide attempt (12) Hyperlipidemia (13) Hypothyroidism (14) Migraine (15) PTSD (post-traumatic stress disorder) Surgical Problems: (1) History of appendectomy (2) History of feeding tube placement (3) S/P appendectomy (4) S/P cholecystectomy (5) S/P tonsillectomy and adenoidectomy (6) Status post hernia repair (7) Status post hysterectomy (8) Status post left oophorectomy (9) Status post right oophorectomy (10) Status post sinus surgery Allergies Coded Allergies: CI Pigment Blue 63 (Verified Allergy, Unknown, shut down, heart and breathing slowed, 09/04/17) Fentanyl (Verified Adverse Reaction, Intermediate, GI SYMPTOMS, 09/04/17) Metoclopramide (Verified Adverse Reaction, Mild, TARDITIVE DYSKENESIA, ) Tramadol (Verified Adverse Reaction, Mild, VOMITING, 09/04/17) Chlorpromazine (Verified Adverse Reaction, Unknown, dry mouth, 09/04/17) Duloxetine (Verified Adverse Reaction, Unknown, LETHARGIC, 09/04/17) Home Medications Scheduled Atorvastatin (Lipitor), 10 MG PO HS Lamotrigine (Lamictal), 200 MG PO QAM Losartan Potassium (Losartan Potassium), 50 MG PO HS Ranitidine Hcl (Zantac), 300 MG PO BID Topiramate (Topamax), 50 MG PO BID Venlafaxine Hcl (Venlafaxine Hcl Er), 225 MG PO QA Venlafaxine Hcl (Effexor Xr), 1 CAP PO QAM Scheduled PRN Glycopyrrolate (Glycopyrrolate), 2 MG PO BID PRN for ABD PAIN Lorazepam (Lorazepam), 1 MG PO BID PRN for Anxiety/Insomnia Physical Examination Skin: warm/dry, no rash Eyes: normal inspection ENT: normal ENT inspection Head: normocephalic, atraumatic Neck: supple, no adenopathy, trachea midline Respiratory/Chest: lungs clear, normal breath sounds, no respiratory distress Cardiovascular: regular rate, rhythm Abdomen / GI: normal bowel sounds, non tender Extremities: + pertinent finding (Right ankle: Mild swelling of the ankle. Diffuse tenderness at the anterior and posterior ankle joint. Decrease ROM in all directions. Healed surgical incisions at the medial and lateral hindfoot. ) Neurologic/Psych: no motor/sensory deficits, alert, oriented x 3 Diagnosis Right ankle osteoarthritis Right ankle achilles contracture Plan of Treatment The patient will be scheduled for a right ankle STAR total ankle replacement, Yanira procedure, application PRP. All potential risks, benefits, complications, alternatives, and rehab have been discussed with the patient and she wishes to proceed as indicated. She will be scheduled for 09.15.17 with plan for ASA 81 mg BID x 30 days for DVT prophylaxis.
[~2017-09-15] VITALS: Ht 167.6 cm; Wt 89.0 kg
[2017-09-15] VITALS (8 sets, daily range): BP systolic 141–158; BP diastolic 80–87; PULSE 79–93; TEMP 36.3–37.2; O2SAT 93–100; Ht 167.6 cm; Wt 89.0 kg
[2017-09-15] MEDS ORDERED: MULT-506 PO (05:45)
[2017-09-15] MEDS ORDERED: CEFAZOLIN 2000MG IV PUSH 15 ML IV SCH (06:00)
[2017-09-15] MEDS ORDERED: LACTATED RINGER'S 1000ML 1,000 ML IV SCH (06:00)
[2017-09-15] MEDS ORDERED: ROPIVACAINE 5MG/ML 30 ML 150 MG, BUPIVACAINE 0.5% MPF INJ 30 ML, EpINEphrine HCL INJ 0.... INFIL SCH ×8 (06:00)
[2017-09-15] MEDS ORDERED: PROPOFOL IV EMULSION 10 MG/ML 20 ML VIAL ONE ×2 (06:35→08:18)
[2017-09-15] MEDS ORDERED: FENTANYL CITRATE INJ 50 MCG/1 ML 2 ML VIAL ONE ×4 (06:35→10:01)
[2017-09-15] MEDS ORDERED: LIDOCAINE HCL 2% 2 ML VIAL (20MG/ML) ONE (06:35)
[2017-09-15] MEDS ORDERED: ONDANSETRON INJ 2 MG/ML 2 ML VIAL ONE (06:35)
[2017-09-15] MEDS ORDERED: MIDAZOLAM HCL 1 MG/ML 2ML VIAL ONE ×2 (06:35→10:23)
[2017-09-15] MEDS ORDERED: BUPIVACAINE 0.25% 30 ML VIAL ONE (06:38)
[2017-09-15] MEDS ORDERED: ROPIVACAINE 0.5% 5 MG/ML 30 ML VIAL ONE (06:38)
[2017-09-15] MEDS ORDERED: THROMBIN 5000 UNITS KIT ONE (07:00)
[2017-09-15] MEDS ORDERED: CALCIUM CHLORIDE 10% 10 ML SYR ONE (07:01)
[2017-09-15] MEDS ORDERED: BACITRACIN 50000 UNIT VIAL ONE (07:01)
[2017-09-15] MEDS ORDERED: EpHEDrine SULFATE INJ 50 MG/ML AMP IV PRN (08:15)
[2017-09-15] MEDS ORDERED: ATROPINE SULFATE 0.1 MG/ML 5ML SYR IV PRN (08:15)
[2017-09-15] MEDS ORDERED: HYDROmorphone INJ 0.5 MG/0.5 ML SYR IV PRN (08:15)
[2017-09-15] MEDS ORDERED: ONDANSETRON INJ 2 MG/ML 2 ML VIAL IV PRN ×2 (08:15→11:15)
[2017-09-15] MEDS ORDERED: EpHEDrine SULFATE 50MG/5ML SYR ONE (08:17)
[2017-09-15] MEDS ORDERED: PHENYLEPHRINE 100MCG/ML 5ML SYR ONE (08:17)
[2017-09-15] MEDS ORDERED: PHENYLEPHRINE HCL INJ 10 MG/ML VIAL ONE (08:27)
--- NOTE | 2017-09-15 10:48 | DIAGNOSTIC IMAGING REPORT ---
INTRAOPERATIVE RIGHT ANKLE 2 VIEWS CLINICAL HISTORY: RT TOTAL ANKLE COMPARISON STUDY: 07/23/2017 FINDINGS: 140 seconds of fluoroscopic time was utilized. 2 intraoperative fluoroscopic spot images are provided for interpretation. There are 2 medial malleolar lag screws. There are postsurgical changes of a total right ankle arthroplasty. No correlating features are evident. There is evidence for a prior subtalar fusion. There are multiple screw tracks within the distal tibia. IMPRESSION: Postsurgical changes of a total right ankle arthroplasty. In addition two medial malleolar lag screws are visualized. Electronically signed by: Balwinder Sheridan M.D. 09/15/2017 10:46 AM Dictated Date/Time: 09/15/2017 10:44 AM
--- NOTE | 2017-09-15 10:49 | [facility] Post Operative Brief Note ---
Immediate Operative Summary Operative Date September 15, 2017. Pre-Operative Diagnosis Right ankle osteoarthritis/ DJD Right ankle achilles/gastrocnemius contracture Post-Operative Diagnosis Right ankle osteoarthritis/ DJD Right ankle achilles/ gastrocnemius contracture Procedure(s) Performed 1. Right STAR Total Ankle Replacement; Tibia-medium, Talus-extra small, Poly 7mm 2. Yanira Procedure 3. Application of Platelet-Rich Plasma Concentrate Surgeon Dr. Marvin [place] Tender Surgeon(s) Hubert Shaw PA-C Estimated Blood Loss 5 ml Findings Consistent with Post-Op Diagnosis Specimens none per surgeon Drains HV x 1 Anesthesia Type General Regional (and local) Complication(s) none Disposition Accompanied Pt To Recover: no Disposition: Recovery Room / PACU
[2017-09-15] MEDS ORDERED: LORAZEPAM 1 MG TAB PO PRN (11:15)
[2017-09-15] MEDS ORDERED: MAGNESIUM HYDROXIDE SUSP 30 ML UDC PO PRN (11:15)
[2017-09-15] MEDS ORDERED: CEFAZOLIN IV 2,000 MG in DEXTROSE 5% 50ML 50 ML IV SCH (11:15)
[2017-09-15] MEDS ORDERED: BISACODYL 10 MG SUPP PR PRN (11:15)
[2017-09-15] MEDS ORDERED: SOD PHOSPHATE/SOD BIPHOSPHATE ENEMA 132 ML BTL PR PRN (11:15)
[2017-09-15] MEDS ORDERED: ZOLPIDEM TARTRATE 5 MG TAB PO PRN (11:15)
[2017-09-15] MEDS ORDERED: MoRPHine SULFATE 4 MG/ML 1 ML CARP\\VIAL IV PRN (11:15)
[2017-09-15] MEDS ORDERED: GLYCOPYRROLATE 1 MG TAB PO PRN (11:15)
[2017-09-15] MEDS ORDERED: ALUMINUM/MAGNESIUM/SIMETH (MAALOX MAX) 30 ML UDC PO PRN (11:15)
[2017-09-15] MEDS ORDERED: LABETALOL HCL IV 5 MG/ML 20ML ONE (11:30)
[2017-09-15] MEDS ORDERED: NURSING VERBAL MED ORDER ONE (11:45)
--- NOTE | 2017-09-15 11:58 | OPERATIVE REPORT ---
DATE OF OPERATION: 09/15/2017 PREOPERATIVE DIAGNOSES: 1. Right ankle degenerative joint disease. 2. Osteoarthritis. 3. Achilles and gastrocnemius contracture. POSTOPERATIVE DIAGNOSES: 1. Right ankle degenerative joint disease. 2. Osteoarthritis. 3. Achilles and gastrocnemius contracture. PROCEDURE: 1. Right STAR total ankle replacement using a size medium tibia; a talus, which was extra small; and a 7-mm polyethylene. 2. Yanira procedure, right ankle. 3. Application of platelet rich plasma concentrate. SURGEON: Marvin Vaughn DO MAGICIAN/ILLUSIONIST: Huebrt Shaw PA-C, who was present for patient positioning, sterile prep and drape, management of retractors and instruments. He was present through the critical portions of the case including wound closure, application of sterile dressing and transport of the patient to recovery. ANESTHESIA: General LMA with adductor canal and popliteal block. SPECIMENS: None. DRAINS: Hemovac x1. COMPLICATIONS: None. BLOOD LOSS: 5 mL. PERTINENT HISTORY: This is a 57-year-old female who had traumatic injury to her right ankle. She has had multiple attempts at conservative management including use of a brace, anti-inflammatories, steroid injections, viscosupplementation, physical therapy, physician directed home exercises, arthroscopy, and modification of lifestyle activities. The patient had radiographs and MRI, which demonstrated advanced degenerative arthritis of the right ankle. The patient was then scheduled for surgery as indicated. All potential risks, benefits, complications, alternatives, rehab, potential for incomplete relief of symptoms, need for further surgery, DVT, PE, , persistent pain, swelling, scarring, weakness, neurovascular injury, wound complications, hardware failure, bone fracture, nonunion, malunion, and possible revision procedure was discussed with the patient. The patient decided to proceed with the procedure as indicated. DESCRIPTION OF PROCEDURE: The patient was taken to the operative suite after popliteal block was administered. The patient was placed supine on the operating room table. Tourniquet was applied over the right lower extremity. After the patient was anesthetized, LMA was placed. The right lower extremity was then sterilely prepped and draped in the usual sterile fashion [id number], elevated and exsanguinated with an Esmarch bandage, and tourniquet inflated to 350 mmHg. A 15 blade scalpel was used to make an incision along the medial aspect of the right lower leg at the junction between the gastrocnemius and the Achilles tendon. The incision was deepened through the subcutaneous tissue. Meticulous hemostasis was achieved with electrocautery. Full thickness skin flaps were developed and the fascia was then incised along the skin incision. [employer]-Navys x2 were placed to retract tissue and the gastrocnemius fascia was then identified and from the soleus. Metzenbaum scissor was then used to transect the gastrocnemius fascia to release it in its entirety. This incision was then copiously irrigated with sterile normal saline. The fascia was then closed using running 2-0 Vicryl. The dermis was closed using buried interrupted 3-0 Vicryl and the skin was closed using 4-0 nylon. Next, a 15-blade scalpel incision made in the midline of the right ankle taking care to identify the tibialis anterior. The incision was made lateral to the tibialis anterior and centered over the extensor hallucis longus tendon. The incision was deepened through subcutaneous tissue. Meticulous hemostasis was achieved with electrocautery. Full-thickness skin flaps were developed. Superficial peroneal nerve was identified, retracted, and protected. Next, the extensor retinaculum was incised along the skin incision to the lateral aspect of the tibialis anterior. Tibialis anterior was retracted medially. The extensor hallucis longus and the neurovascular bundle beneath were retracted laterally. The small crossing vessels were cauterized. The anterior capsule was then incised in its midline and then elevated medially and laterally with electrocautery. Appropriate soft tissue retractors were placed carefully to maintain essentially zero skin tension on the superficial skin. After the capsule was elevated and retracted medially and laterally to visualize the medial and lateral malleoli clearly, rongeur was used to perform synovectomy and remove any excess debris and loose bodies. Next, the wound was irrigated and suctioned. Good visualization was obtained. At this point the anterior lip of hypertrophic bone was resected from the tibia with an osteotome and mallet followed by resection of a small osteophyte medially at the medial malleolus. Next, the tibial plafond could be clearly visualized. The neck of the talus was then rongeured down to the true neck of the talus after all hypertrophic osteophytes were excised. Next, attention was directed toward the proximal tibia at which point a 15-blade scalpel incision was made anterior of the tibial tubercle the inferior aspect using the external alignment guide as a guide for pin placement which was essentially in the midline of the tibia with a slight degree of plantar flexion. Guide was placed anteriorly using a small osteotome in the medial gutter of the ankle joint to crop farm helper in alignment. Next, the small 2.4 mm pin was placed adjacent to the tibial tubercle and the alignment guide was placed approximately one fingerbreadth above the soft tissue and fastened there at approximately four notches medialized proximally. Next, the T-handle guide was placed anteriorly and then this was aligned with the small osteotome and placed in the medial gutter of the ankle joint to make this parallel and then also the orientation of the second ray of the foot was used to guide as well. Next, the more proximal alignment block was pinned unicortically followed by placement of the lateral alignment guide on the tibial alignment jig and the T-handle was removed. Distal cutting block was then fastened to the distal aspect of the tibial alignment guide and then x-rays obtained in AP and lateral projections of the ankle and tibia assuring appropriate alignment of the tibial alignment guide and the tibial cutting block. After appropriate alignment was established, the distal cutting block was then pinned in place with two 2.4 mm pins, one in the proximal and then secondarily in the distal aspect of the tibial cutting guide and the tibial cutting guide was aligned at the inferior aspect at the level of the tibial plafond. Next, after the tibial cutting blocks were aligned and confirmed, the medial and lateral saw capture pins were placed followed by resection of the distal tibia with a sagittal saw. The pins were removed and the distal cutting guide was then removed followed by removal of the distal tibial cut fragment after it was morselized with a small osteotome and resected with a rongeur. A cervical lamina lang interpreter was placed in the ankle joint to open the ankle joint followed by resection of the posterior fragments from the distal tibia cut. Next, the talar cutting guide paddle was placed at the distal tibial cutting guide and fastened in place. The ankle was held in neutral dorsiflexion. Four pins were placed in the talar cutting block fixing the talus in appropriate alignment. Next, after the saw capture pins were placed, the sagittal saw was used to resect the superior aspect of the talus. The talar cutting block guide was then removed as well as the pins and talus. This was then followed by placement of datum guide which was initially placed as an extra small position with regard to position on the talus as well as orientation along the second ray. Central pin was placed and then the posterior capture cutting guide was attached and the anterior milling guide was also fastened with two football screws. Next, the anterior mill was used to resect the anterior aspect of the talar dome. Posterior cut was made. This jig was then removed followed by placement of the shoulder cutting guide and the reciprocating saw was just resect the shoulder portions of the talus using the laser cut line. This guide was then removed leaving the central pin followed by resection of the fragments using a small osteotome and mallet. This was then elevated and resected. Next, the window trial was firmly affixed to the superior aspect of the talus using fluoroscopic confirmation of alignment and position. Next, the central keel was drilled. The window trial was then removed following use of the central keel punch. This was also confirmed using fluoroscopic machine assistant. The wound was copiously irrigated with pulsatile lavage with Bacitracin additive followed by suctioning of the talar component. Platelet-rich plasma concentrate harvested from he patient's venous blood was injected at this time at the undersurface of the implant as well as in the talar dome. The final talar component was impacted in place with fluoroscopic assistance. Next, a trial polyethylene 6 mm was placed in the joint and the posterior aspect of the tibia was measured both medially and laterally. Appropriate size tibial drill guide was then placed and fastened with two pins. This was confirmed with x-ray and then the barrel drills x 2 were performed making certain to aim proximally. Next, the barrel cutting jig was then used to perform the final punch medially and laterally. The trial plate was then removed after appropriate sized polyethylene was sized. Next, the joint was copiously irrigated with pulsatile lavage followed by suctioning of all surfaces. The tibia was then injected with platelet-rich plasma as well as the superior aspect of the tibial final plate implant. This was then impacted in place with the trial polyethylene liner in place to ensure adequate positioning. Next, the final impactor was used to seat the tibial base tray flush with the anterior aspect of the tibia followed by bone grafting of the anterior barrel holes with local bone graft. This was impacted in place with a mallet and bone tamp. This then followed by confirmation with C-arm and then final polyethylene was inserted without difficulty. Excellent range of motion and stability was obtained. No liftoff was noted. The platelet-rich plasma was then sprayed within the joint and all surfaces and also into the subcutaneous tissue and deep soft tissue. A 10-[place] single-lumen Hemovac drain was placed anterolaterally followed by closure of the ankle joint capsule with #1 Vicryl. The extensor retinaculum was closed using interrupted 2-0 Vicryl, the dermis closed buried 3-0 Vicryl, and skin was closed using 3-0 Monocryl. A sterile compressive bulky Troy Perez plaster splint was applied overwrapped with an Kurt wrap. Tourniquet was released. The patient was awakened and taken to recovery in stable condition. I attest to the content of the Intraoperative Record and any orders documented therein. Any exceptions are noted below. LADYD
[2017-09-15] MEDS ORDERED: LABETALOL HCL IV 5 MG/ML 20ML IV PRN (12:00)
--- NOTE | 2017-09-15 12:01 | Anesthesiology Progress Note ---
Anesthesia Post Op Note Date & Time September 15, 2017 at 12:00 Vital Signs Pain Intensity: 0 Vital Signs Past 12 Hours Date Time Temp Pulse Resp B/P (MAP) Pulse Ox O2 Delivery O2 Flow Rate FiO2 09/15/17 11:50 36.1 77 20 152/88 5 Nasal Cannula 4 09/15/17 11:40 78 20 151/79 93 Nasal Cannula 4 09/15/17 11:30 76 20 182/89 99 Oxymask 15 09/15/17 11:20 72 20 172/81 97 Oxymask 15 09/15/17 11:11 36.1 72 20 152/90 97 Oxymask 15 09/15/17 05:48 37.2 80 18 151/82 97 Room Air Notes Mental Status: alert / awake / arousable, participated in evaluation Pt Amnestic to Procedure: Yes Nausea / Vomiting: adequately controlled Pain: adequately controlled Airway Patency, RR, SpO2: stable & adequate BP & HR: stable & adequate Hydration State: stable & adequate Anesthetic Complications: no major complications apparent Anesthetic Complications: block functioning well
--- NOTE | 2017-09-15 12:12 | DIAGNOSTIC IMAGING REPORT ---
R ANKLE MIN 3 VIEWS ROUTINE CLINICAL HISTORY: Right ankle arthroplasty. Postop study COMPARISON: 07/23/2017 DISCUSSION: The fine bony details obscured by overlying plaster cast. There is evidence for old subtalar fusion. There are postsurgical changes of a total right ankle arthroplasty. 2 medial malleolar lag screws are also visualized. There are multiple screw tracks the distal tibia. IMPRESSION: Postsurgical changes of a total right knee arthroplasty. In addition two medial malleolar lag screws are visualized Electronically signed by: Balwinder Sheridan M.D. 09/15/2017 12:10 PM Dictated Date/Time: 09/15/2017 12:09 PM
[2017-09-15] MEDS: D5W AND 1/2NSS + 20MEQ KCL 1,000 ML IV SCH ×2 (12:46→22:03)
--- NOTE | 2017-09-15 13:29 | Medical Consult ---
Consultation Date of Consultation: September 15, 2017. Attending Physician: Marvin Vaughn D.O. Reason for Consultation: Medical consult History of Present Illness Pt is 57 y/o F with PMH HTN, HLD, depression, anxiety, migraine ALMENDAREZ, fibromyalgia , gastroparesis, chronic abdominal pain and others listed below is seen in medical consult for medical management after R total ankle arthroplasty today by Dr Vaughn. Pt states some slight nausea, no vomiting. Has some pain but feels moderately controlled at this time. Still has numbness sensation right foot/toes. Pt has urinated since procedure and denies any dysuria, difficulty urinating. Last BM yesterday. Denies fever/chills, diaphoresis,ALMENDAREZ, dizziness, vision changes, neck pain, CP, SOB, orthopnea, palpitations, cough, current abdominal pain, extremity edema, rashes. Past Medical/Surgical History Medical Problems: (1) Acute bronchitis Status: Resolved (2) Anxiety Status: Chronic (3) Benign hypertension Status: Chronic (4) Bronchitis Status: Resolved (5) Chronic abdominal pain Status: Chronic (6) Dentalgia Status: Resolved (7) Depression Status: Chronic (8) Diarrhea Status: Resolved (9) Enterohemorrhagic E. coli infection Status: Resolved (10) Fibromyalgia Status: Chronic (11) Gastroparesis Status: Chronic (12) History of Clostridium difficile colitis Status: Chronic (13) History of renal calculi Status: Chronic (14) History of suicide attempt Status: Chronic (15) Hyperlipidemia Status: Chronic (16) Hypokalemia Status: Resolved (17) Hypothyroidism Status: Chronic (18) Influenza-like symptoms Status: Resolved (19) Left knee pain Status: Resolved (20) Migraine Status: Chronic (21) Osteoarthritis of ankle, right Status: Chronic (22) PTSD (post-traumatic stress disorder) Status: Chronic (23) Pyelonephritis Status: Resolved (24) Recurrent abdominal pain Status: Resolved (25) Transaminitis Status: Resolved (26) Urinary incontinence Status: Resolved Surgical Problems: (1) History of appendectomy Status: Resolved (2) History of feeding tube placement Permanent Comment: removed 2010 Status: Chronic (3) S/P appendectomy Status: Chronic (4) S/P cholecystectomy Status: Chronic (5) S/P tonsillectomy and adenoidectomy Status: Chronic (6) Status post hernia repair Status: Chronic (7) Status post hysterectomy Status: Chronic (8) Status post left oophorectomy Status: Chronic (9) Status post right oophorectomy Status: Chronic (10) Status post sinus surgery Status: Chronic Family History Cancer Diabetes mellitus FATHER FHx: diabetes FHx: gallbladder disease FHx: heart disease FATHER FHx: hypertension FATHER MOTHER FHx: seizures Social History Smoking Status: Former Smoker (Quit 2 weeks ago. Smoked 1ppd x 35 years) Smokeless Tobacco Use: No Alcohol Use: none Drug Use: none Marital Status: Housing Status: lives with significant other Occupation Status: disabled Allergies Coded Allergies: CI Pigment Blue 63 (Verified Allergy, Unknown, shut down, heart and breathing slowed, 09/15/17) Fentanyl (Verified Adverse Reaction, Intermediate, GI SYMPTOMS, 09/15/17) Metoclopramide (Verified Adverse Reaction, Mild, TARDITIVE DYSKENESIA, ) Tramadol (Verified Adverse Reaction, Mild, VOMITING, 09/15/17) Chlorpromazine (Verified Adverse Reaction, Unknown, dry mouth, 09/15/17) Duloxetine (Verified Adverse Reaction, Unknown, LETHARGIC, 09/15/17) Home Medications Reported Home Medications Medications Dose Route/Sig Max Daily Dose Days Date Category Dose Instructions Multivitamin (Multivitamins) Tab 1 Tab PO DAILY 09/15/17 Reported Effexor Xr (Venlafaxine Hcl) 75 Mg Cap 1 Cap PO QAM 30 07/23/17 Reported Venlafaxine Hcl Er (Venlafaxine Hcl) 225 Mg Tab 225 Mg PO QA 07/23/17 Reported TAKE WITH A 75 MG TAB. Glycopyrrolate 2 Mg Tab 2 Mg PO BID PRN 07/23/17 Reported Lorazepam 1 Mg Tab 1 Mg PO BID PRN 10/06/15 Reported Losartan Potassium 50 Mg Tab 50 Mg PO HS 10/06/15 Reported Lipitor (Atorvastatin Calcium) 10 Mg Tab 10 Mg PO HS 10/06/15 Reported Zantac (Ranitidine Hcl) 300 Mg Tab 300 Mg PO BID 10/06/15 Reported Topamax (Topiramate) 50 Mg Tab 50 Mg PO BID 10/06/15 Reported Lamictal (Lamotrigine) 200 Mg Tab 200 Mg PO QAM 05/10/11 Reported Current Inpatient Medications Current Inpatient Medications Medications (Trade) Dose Ordered Sig/Van Route Start Time Stop Time Status Last Admin Dose Admin Lactated Ringer's 1,000 ml @ 15 mls/hr Q24H IV 09/15/17 06:00 09/16/17 05:59 Cefazolin Sodium 15 ml @ 3.75 mls/ min PREOP IV 09/15/17 06:00 09/15/17 18:00 09/15/17 07:46 3.75 MLS/MIN Hydromorphone HCl (Dilaudid Inj) 0.5 mg Q5M PRN IV 09/15/17 08:15 09/15/17 13:30 Ondansetron HCl (Zofran Inj) 4 mg ONE PRN IV 09/15/17 08:15 09/15/17 13:30 Ephedrine Sulfate (EpHEDrine SULFATE INJ) 5 mg Q5M PRN IV 09/15/17 08:15 09/15/17 13:30 Atropine Sulfate (Atropine Sulfate 0.1mg/ml Inj) 0.5 mg Q1M PRN IV 09/15/17 08:15 09/15/17 13:30 Potassium Chloride/Dextrose/ Sod Cl 1,000 ml @ 100 mls/hr Q10H IV 09/15/17 13:00 10/15/17 12:59 09/15/17 12:46 100 MLS/HR Ketorolac Tromethamine (Toradol Inj) 30 mg Q6 IV. 09/15/17 18:00 09/17/17 17:59 Oxycodone HCl (Roxicodone Immediate Rel Tab) 1-2 TABS FOR PAIN 1 TABLET ... Q4H PRN PO 09/15/17 11:15 09/29/17 11:14 Morphine Sulfate (MoRPHine SULFATE INJ) 2 mg Q2HWA PRN IV 09/15/17 11:15 09/29/17 11:14 Acetaminophen (Tylenol Tab) 1,000 mg Q8 PO 09/15/17 14:00 10/15/17 13:59 Magnesium Hydroxide (Milk Of Magnesia Susp) 30 ml Q6H PRN PO 09/15/17 11:15 10/15/17 11:14 Bisacodyl (Dulcolax Supp) 10 mg DAILY PRN MN 09/15/17 11:15 10/15/17 11:14 Sodium Biphosphate/ Sodium Phosphate (Fleet Enema) 132 ml DAILY PRN MN 09/15/17 11:15 10/15/17 11:14 Senna (Senokot Tab) 17.2 mg HS PO 09/15/17 21:00 10/15/17 20:59 Docusate Sodium (coLACE CAP) 100 mg BID PO 09/15/17 21:00 10/15/17 20:59 Diphenhydramine HCl (Benadryl Cap) 25 mg Q8H PRN PO 09/15/17 11:15 10/15/17 11:14 Al Hydrox/Mg Hydrox/Simethicone (Maalox Max Susp) 15 ml Q4H PRN PO 09/15/17 11:15 10/15/17 11:14 Zolpidem Tartrate (Ambien Tab) 5 mg HSZ PRN PO 09/15/17 11:15 10/15/17 11:14 Multivitamins (Multivitamin Tab) 1 tab QAM PO 09/16/17 09:00 10/16/17 08:59 Ondansetron HCl (Zofran Inj) 4 mg Q6H PRN IV 09/15/17 11:15 10/15/17 11:14 Atorvastatin Calcium (Lipitor Tab) 10 mg HS PO 09/15/17 21:00 10/15/17 20:59 Lamotrigine (Lamictal Tab) 200 mg QAM PO 09/16/17 09:00 10/16/17 08:59 Lorazepam (Ativan Tab) 1 mg BID PRN PO 09/15/17 11:15 10/15/17 11:14 Losartan Potassium (coZAAR TAB) 50 mg HS PO 09/15/17 21:00 10/15/17 20:59 Topiramate (Topamax Tab) 50 mg BID PO 09/15/17 21:00 10/15/17 20:59 Venlafaxine HCl (effeXOR EXTENDED REL CAP) 75 mg QAM PO 09/16/17 09:00 10/16/17 08:59 Glycopyrrolate (Robinul Tab) 2 mg BID PRN PO 09/15/17 11:15 10/15/17 11:14 Ranitidine HCl (zANTac TAB) 300 mg BID PO 09/15/17 21:00 10/15/17 20:59 Venlafaxine HCl (effeXOR EXTENDED REL CAP) 225 mg QAM PO 09/16/17 09:00 10/16/17 08:59 Labetalol HCl (Normodyne IV) 5 mg UD PRN IV 09/15/17 12:00 09/15/17 17:00 Cefazolin Sodium 2000 mg/Syringe 15 ml @ 3.75 mls/ min Q8H IV 09/15/17 16:00 09/16/17 00:03 Review of Systems See HPI for pertinent positives & negatives. All other systems reviewed and were otherwise negative Physical Exam Date Time Temp Pulse Resp B/P (MAP) Pulse Ox O2 Delivery O2 Flow Rate FiO2 09/15/17 12:46 36.3 80 16 152/82 (105) 94 Room Air 09/15/17 12:15 Nasal Cannula 4.0 09/15/17 12:15 36.6 79 14 148/82 (104) 96 Nasal Cannula 4.0 09/15/17 12:15 96 Nasal Cannula 4.0 09/15/17 12:00 76 16 138/85 97 Nasal Cannula 4 09/15/17 11:50 36.1 77 20 152/88 5 Nasal Cannula 4 09/15/17 11:40 78 20 151/79 93 Nasal Cannula 4 09/15/17 11:30 76 20 182/89 99 Oxymask 15 09/15/17 11:20 72 20 172/81 97 Oxymask 15 09/15/17 11:11 36.1 72 20 152/90 97 Oxymask 15 09/15/17 05:48 37.2 80 18 151/82 97 Room Air General Appearance: WD/WN, no apparent distress Head: normocephalic, atraumatic Eyes: normal inspection, sclerae normal ENT: hearing grossly normal, pharynx normal, + pertinent finding (mucous membranes moist) Neck: supple, trachea midline Respiratory/Chest: lungs clear, normal breath sounds, no respiratory distress Cardiovascular: regular rate, rhythm, no murmur Abdomen/GI: normal bowel sounds, non tender, soft Extremities/Musculoskelatal: + pertinent finding (RLE: right distal lower leg, ankle and foot with surgical dressing and wrap in place. +drain with small amount blood. R toes with active ROM, brisk capillary refill, no sensation to light touch. Remaining extremities with normal appearance without edema and ROM intact with distal pulses intact) Neurologic/Psych: alert, normal mood/affect, oriented x 3 Skin: warm/dry Assessment & Plan Pt post op day# 0 S/P R ankle replacement by Dr Vaughn -pain management per ortho -wound management per ortho -PT/OT as appropriate -DVT prophylaxis per ortho -incentive spirometry -monitor H&H for acute blood loss anemia HTN Stable at this time -continue losartan HLD -continue atorvastatin DEPRESSION/ANXIETY Stable -continue effexor, lamictal, ativan as needed GASTROPARESIS/GERD No current abdominal pain. Mild nausea, no vomiting. -continue ranitidine HX MIGRAINE No current ALMENDAREZ -continue topamax DVT Prophylaxis -per ortho Disposition admitted medsurg Full Code as per discussion with pt Follows with Dr Ward for routine care Pt was seen with Dr Rich. See addendum Dr Rich will follow pt through remaining hospital course. Additional Copies To Armando Ward D.O.
[2017-09-15] MEDS: ACETAMINOPHEN 500 MG TAB PO SCH ×2 (14:00→21:16)
[2017-09-15] MEDS: CEFAZOLIN IV 2,000 MG in SYRINGE 0 ML IV SCH ×2 (16:25→23:46)
[2017-09-15] MEDS: KETOROLAC TROMETHAMINE 30 MG/ML VIAL IV. SCH ×2 (17:52→23:46)
--- NOTE | 2017-09-15 20:56 | Discharge Instructions ---
Discharge Instructions Date of Service September 15, 2017. Admission Reason for Admission: Right Ankle And Foot Osteoarthritis Discharge Discharge Diagnosis / Problem: Right ankle arthritis Discharge Goals Goal(s): Decrease discomfort, Improve function, Increase independence Activity Recommendations Activity Limitations: as noted below Weightbearing Status: Right non-weightbearing . Instructions / Follow-Up Instructions / Follow-Up ACTIVITY RECOMMENDATIONS: Limitations: No weight bearing to affected limb at all times. SPECIAL CARE INSTRUCTIONS: * Some drainage onto the dressing is normal and is no cause for alarm. * Some swelling is natural especially after walking. * When resting, keep your foot elevated above the level of your heart. * Call [facility] if you notice: -Increased drainage -Fever over 101 degrees F -Severe constant pain BANDAGE: * Leave bandage/cast in place unless otherwise directed. * Keep bandage/cast dry at all times. FOLLOW UP VISIT WITH DR. MOISE If appointment is not already scheduled: Please call [facility] after you get home today to schedule a follow-up appointment for [address] Moise at . Current Hospital Diet Patient's current hospital diet: Regular Diet Discharge Diet Recommended Diet: Regular Diet Procedures Procedures Performed: 1. Right STAR Total Ankle Replacement; Tibia-medium, Talus-extra small, Poly 7mm 2. Yanira Procedure 3. Application of Platelet-Rich Plasma Concentrate Pending Studies Studies pending at discharge: no Laboratory Results Hemoglobin A1c Test 09/04/17 11:30 Range/Units Estimated Average Glucose 117 mg/dl Hemoglobin A1c 5.7 H 4.5-5.6 % Medical Emergencies . Who to Call and When: Medical Emergencies: If at any time you feel your situation is an emergency, please call 911 immediately. . Non-Emergent Contact Non-Emergency issues call your: Primary Care Provider, Surgeon . "Provider Documentation" section prepared by Eugenio Estrella. . [place] Drug Monitoring Program Search Results: patient reviewed within database, no issues identified
[2017-09-15] MEDS ORDERED: SENNA 8.6 MG TAB PO SCH (21:00)
[2017-09-15] MEDS ORDERED: ATORVASTATIN 10 MG TAB PO SCH (21:00)
[2017-09-15] MEDS ORDERED: LOSARTAN POTASSIUM 50 MG TAB PO SCH (21:00)
[2017-09-15] MEDS: RANITIDINE HCL 150 MG TAB PO SCH (21:14)
[2017-09-15] MEDS: ASPIRIN 81 MG ECTAB PO SCH (21:15)
[2017-09-15] MEDS: DOCUSATE SODIUM 100 MG CAP PO SCH (21:16)
[2017-09-15] MEDS: TOPIRAMATE 50 MG TAB PO SCH (21:16)
[2017-09-16] MEDS: OXYCODONE HCL IR 5 MG TAB (IMMEDIATE RELEASE) PO PRN ×2 (05:43→09:49)
[2017-09-16] MEDS: ACETAMINOPHEN 500 MG TAB PO SCH (05:45)
[2017-09-16] MEDS: KETOROLAC TROMETHAMINE 30 MG/ML VIAL IV. SCH (05:46)
[2017-09-16 06:12] LABS: HEMATOCRIT 44.2 % (37-47); HEMOGLOBIN 15.5 g/dL (12.0-16.0); MEAN CELL VOLUME 98.9 fL (80-100); MEAN CORPUSCULAR HEMOGLOBIN 34.7 pg (25-34); MEAN CORPUSCULAR HGB CONC 35.1 g/dl (32-36); MEAN PLATELET VOLUME 10.2 fL (7.4-10.4); PLATELET COUNT 223 K/uL (130-400); RED CELL DISTRIBUTION WIDTH CV 13.1 % (11.5-14.5); RED CELL DISTRIBUTION WIDTH SD 47.3 fL (36.4-46.3); WHITE BLOOD COUNT 11.11 K/uL (4.8-10.8)
--- NOTE | 2017-09-16 06:45 | Orthopedic Progress Note ---
Orthopedic Progress Note Date of Service September 16, 2017. Subjective Post OP Day: 1 Reports: feeling well, pain controlled w PO medications, Denies: complaints, chest pain, SOB, nausea / vomiting, light headedness, calf pain Objective N/V intact, splint C/D/I, capillary refill less than 2 sec., dressing C/D/I, A& O x3, toes mobile, hemovac drainage (150cc/8 hours) Date Time Temp Pulse Resp B/P (MAP) Pulse Ox O2 Delivery O2 Flow Rate FiO2 09/15/17 23:45 36.8 93 18 146/83 (104) 99 Room Air 09/15/17 23:45 Room Air 09/15/17 20:00 36.5 81 16 158/81 (106) 100 09/15/17 17:24 Room Air 09/15/17 15:04 36.4 83 18 153/80 (104) 95 09/15/17 14:15 81 18 141/87 (105) 93 Room Air 09/15/17 13:18 80 18 149/84 (105) 97 Nasal Cannula 2.0 09/15/17 12:46 36.3 80 16 152/82 (105) 94 Room Air 09/15/17 12:15 Nasal Cannula 4.0 09/15/17 12:15 36.6 79 14 148/82 (104) 96 Nasal Cannula 4.0 09/15/17 12:15 96 Nasal Cannula 4.0 09/15/17 12:00 76 16 138/85 97 Nasal Cannula 4 09/15/17 11:50 36.1 77 20 152/88 5 Nasal Cannula 4 09/15/17 11:40 78 20 151/79 93 Nasal Cannula 4 09/15/17 11:30 76 20 182/89 99 Oxymask 15 09/15/17 11:20 72 20 172/81 97 Oxymask 15 09/15/17 11:11 36.1 72 20 152/90 97 Oxymask 15 Laboratory Results 24 Hours: Test 09/16/17 05:14 Hematocrit 44.2 % Hemoglobin 15.5 g/dL Assessment & Plan Assessment: POD #1 s/p Right Total Ankle NWB x 6 weeks DVT proph with RAMBO/SCD/ASA 81mg po bid plan for d/c home later today Discharge Planning Discharge Planning: home DVT Prophylaxis: TEDs, SCDs, ASA
[2017-09-16] MEDS ORDERED: ASPI-320 PO (06:50)
[2017-09-16] MEDS ORDERED: OXYC-57 PO (06:50)
[2017-09-16] MEDS ORDERED: ONDA-170 PO (06:50)
[2017-09-16] MEDS ORDERED: CLC100 PO (06:50)
[2017-09-16 06:52] LABS: CALCIUM 8.3 mg/dl (8.5-10.1); CREATININE 0.83 mg/dl (0.60-1.20); POTASSIUM 3.4 mmol/L (3.5-5.1)
[2017-09-16] MEDS: DOCUSATE SODIUM 100 MG CAP PO SCH (07:35)
[2017-09-16] MEDS: ASPIRIN 81 MG ECTAB PO SCH (07:35)
[2017-09-16] MEDS: TOPIRAMATE 50 MG TAB PO SCH (07:35)
[2017-09-16] MEDS: RANITIDINE HCL 150 MG TAB PO SCH (07:36)
[2017-09-16 08:03] VITALS: BP 130/77; PULSE 81; TEMP 36.7; O2SAT 96
[2017-09-16] MEDS: D5W AND 1/2NSS + 20MEQ KCL 1,000 ML IV SCH (09:00)
[2017-09-16] MEDS ORDERED: MULTIVITAMIN TAB PO SCH ×2 (09:00)
[2017-09-16] MEDS ORDERED: VENLAFAXINE HCL XR 75 MG CAPXR PO SCH ×2 (09:00)
[2017-09-16 09:27] VITALS: BP 130/77; PULSE 81; TEMP 36.7; O2SAT 96
== END 2017-09-16 11:45 | disposition home or self-care (01) | DRG 469 ==
LOC: C.ACU 05:25 → C.3E 07:15 → ENRESERV 11:45
PROVIDERS: ADMIT Orthopaedic Surgery Sports Medicine; ATTEND Orthopaedic Surgery Sports Medicine
PROC: 0LSN0ZZ Reposition Right Lower Leg Tendon, Open Approach (ICD-10-PCS; principal; 2017-09-15 07:30)
PROC: 0SRF0JZ Replacement of Right Ankle Joint with Synthetic Substitute, Open Approach (ICD-10-PCS; principal; 2017-09-15 07:30)
PROC: 3E0V3GC Introduction of Other Therapeutic Substance into Bones, Percutaneous Approach (ICD-10-PCS; principal; 2017-09-15 07:30)
DX: M19.071 Primary osteoarthritis, right ankle and foot (principal); M67.01 Short Achilles tendon (acquired), right ankle; I10 Essential (primary) hypertension; E78.5 Hyperlipidemia, unspecified; G43.909 Migraine, unspecified, not intractable, without status migrainosus; K31.84 Gastroparesis; M79.7 Fibromyalgia; F32.9 Major depressive disorder, single episode, unspecified; F41.9 Anxiety disorder, unspecified; F43.10 Post-traumatic stress disorder, unspecified; Z79.899 Other long term (current) drug therapy; Z87.891 Personal history of nicotine dependence; Z88.8 Allergy status to other drugs, medicaments and biological substances; Z88.5 Allergy status to narcotic agent; Z91.048 Other nonmedicinal substance allergy status; Z83.3 Family history of diabetes mellitus; Z82.49 Family history of ischemic heart disease and other diseases of the circulatory system; Z84.89 Family history of other specified conditions

== ENCOUNTER 2023-08-17 09:22 | Inpatient (IN) ==
[2023-08-17 10:46] LABS: Appearance Urine Clear (Clear); Bilirubin Urine Negative (Negative); Blood Urine Negative (Negative); Color Urine Yellow; Glucose Urine UA Negative (Negative); Ketones Urine Negative (Negative); Leukocyte Esterase Urine Negative (Negative); Nitrite Urine Negative (Negative); Protein Urine Negative (Negative); Specific Gravity Urine 1.009 (1.000-1.030); Urobilinogen Urine Negative (Negative)
--- NOTE | 2023-08-17 11:06 | XRay Report ---
XR chest 1V portable HISTORY: 63 years-old Female Sepsis acute sepsis COMPARISON: 04/19/2019 TECHNIQUE: AP view of the chest FINDINGS: Cardiac silhouette is enlarged. Stable right hemidiaphragmatic elevation. No pneumothorax, pleural ef fusion or overt pulmonary edema. No airspace consolidation to suggest pneumonia. Bones appear grossly intact. IMPRESSION: No acute process. ACT 112: Negative or not required by law. The above report was generated using voice recognition software. It may contain grammatical, syntax o r spelling errors. Electronically signed by: Nakul Schwab M.D. 08/17/2023 11:05 AM
[2023-08-17 11:09] LABS: Basophils # (auto) 0.06 K/uL (0.00-0.20); Basophils % (auto) 0.5 %; Eosinophils # (auto) 0.09 K/uL (0.00-0.50); Eosinophils % (auto) 0.8 %; Hematocrit (blood only) 46.9 % (37.0-47.0); Hemoglobin 15.7 g/dl (12.0-16.0); Immature Granulocytes # (auto) 0.08 K/uL (0.01-0.20); Immature Granulocytes % (auto) 0.7 %; Lymphocytes # (auto) 3.46 K/uL (1.20-3.40); Lymphocytes % (auto) 29.9 %; Mean Corpuscular Hemoglobin 30.1 pg (25.0-34.0); Mean Corpuscular Hgb Conc 33.5 g/dL (32.0-36.0); Mean Platelet Volume 9.8 fL (9.4-12.4); Monocytes # (auto) 0.98 K/uL (0.11-0.59); Monocytes % (auto) 8.5 %; Neutrophils % (auto) 59.6 %; Platelet Count 240 K/uL (130-400); RDW Coefficient of Variation 13.8 % (11.5-14.5); RDW Standard Deviation 45.9 fL (36.4-46.3); Red Blood Count 5.21 M/uL (4.20-5.40); White Blood Count 11.57 K/ul (4.8-10.8)
[2023-08-17 11:28] LABS: Albumin Globulin Ratio 1.4 (0.9-2); Albumin Level 4.2 gm/dl (3.4-5.0); Bilirubin,Total 0.3 mg/dl (0.2-1.0); Calcium 9.2 mg/dl (8.6-10.3); Creatinine Clr Calc Pharmacy 95.2 ml/min; Est GFR (African American) 99.7 ml/min; Potassium 3.5 mmol/L (3.5-5.1); Total Protein 7.2 gm/dl (6.0-8.3)
[2023-08-17 11:34] LABS: Troponin I High Sensitivity 2.7 pg/ml (0-14)
[2023-08-17 11:36] LABS: INR 0.9 (0.9-1.1); Partial Thromboplastin Time 27 Seconds (21-31); Prothrombin Time 10.3 Seconds (9.0-12.0)
[2023-08-17] MEDS ORDERED: VANCOMYCIN CONSULT ACTIVE PRN (11:41)
[2023-08-17] MEDS: cefTRIAXone SODIUM 2,000 MG/50 ML BAG IV STA (11:42)
[2023-08-17] MEDS: SODIUM CHLORIDE 0.9% 1,000 ML IV ONE (11:52)
[2023-08-17] MEDS: SODIUM CHLORIDE 0.9% 250 ML IV ONE (11:52)
[2023-08-17] MEDS: SODIUM CHLORIDE 0.9% 500 ML IV ONE (11:52)
[2023-08-17] MEDS: VANCOMYCIN HCL 2,000 MG in SODIUM CHLORIDE 0.9% 500 ML IV ONE (12:18)
--- NOTE | 2023-08-17 13:39 | History & Physical Report ---
Date of Service August 17, 2023 Assessment & Plan (1) Sepsis: (2) Cellulitis of left leg: Plan Pt is a 63yoF with PMhx significant for DMII, HLD, HTN, GERD, Gastroparesis, Vit D deficiency, fibromyalgia, migraine, Hx of R BKA with prosthesis, PTSD presenting with LLE concern for cellulitis. Sepsis LLE Cellulitis Pt presenting with LLE erythema that started about 10 days ago Notes she followed up with her pcp's office and was started on Keflex Not helping for the last 3 days Notes Hx of R BKA due to an ankle infection. Hx of L knee replacement, states her surgeon was concerned that the cellulitis would progress to the L knee Tachycardic on admission with leukocytosis, infectious source of LLE Lactate elevated at 2.6, downtrended after fluid resuscitation Surface wound cx ordered Blood Cx x2 sets pending MRI LLE to r/o osteomyelitis pending- per nursing pt refusing even with sedation Treated with Rocephin and Vanc in the ED Continue with Rocephin and Daptomycin, follow cultures Consider ID consult Continue other home meds as ordered. Diet: HH DVT prophylaxis: Lovenox SQ Dispo: Med/Surg History of Present Illness Chief Complaint: Cellulitis Primary Care Provider: Joselin Henao MD Pt is a 63yoF with PMhx significant for DMII, HLD, HTN, GERD, Gastroparesis, Vit D deficiency, fibromyalgia, migraine, Hx of R BKA with prosthesis, PTSD presenting with LLE concern for cellulitis. Pt presenting with LLE erythema that started about 10 days ago. Notes she followed up with her pcp's office and was started on Keflex. Keflex has not been helping for the last 3 days. Notes Hx of R BKA due to an ankle infection and states she does not want to lose her other leg too. She is s/p L knee replacement and states that her surgeon was concerned that the cellulitis would progress to the knee. She denies fevers, chills and night sweats. She notes pain as well in the left leg. Denies Hx of blood clots. Was treated with Rocehin and Vancomycin in the ED and given fluids. Allergies Allergy/AdvReac Type Severity Reaction Status Date / Time duloxetine AdvReac Severe SHUT DOWN, Verified 11/28/22 19:01 HEART AND BREATHING SLOWED, LETHARGIC fentanyl AdvReac Intermediate GI SYMPTOMS Verified 11/28/22 19:01 metoclopramide AdvReac Intermediate TARDITIVE Verified 11/28/22 19:01 DYSKENESIA pregabalin [From Lyrica] AdvReac Intermediate NAUSEA/VOMI Verified 11/28/22 19:01 TING tramadol AdvReac Intermediate NAUSEA/VOMI Verified 11/28/22 19:01 TING chlorpromazine AdvReac Mild dry mouth Verified 11/28/22 19:01 Home Medications Medication Instructions Recorded Confirmed Type amlodipine 5 mg tablet 5 mg PO QAM 10/29/19 08/17/23 History famotidine 40 mg tablet 40 mg PO HS 10/29/19 08/17/23 History cariprazine 3 mg capsule (Vraylar) 3 mg PO QAM 08/11/20 08/17/23 History hydroxyzine pamoate 50 mg capsule 150 mg PO HS 08/11/20 08/17/23 History (Vistaril) nortriptyline 75 mg capsule 75 mg PO HS 08/11/20 08/17/23 History aspirin 81 mg tablet,delayed 81 mg PO DAILY 11/28/22 08/17/23 History release atorvastatin 40 mg tablet 40 mg PO HS 11/28/22 08/17/23 History cholecalciferol (vitamin D3) 25 25 mcg PO DAILY 11/28/22 08/17/23 History mcg (1,000 unit) capsule (Vitamin D3) cyanocobalamin (vitamin B-12) 1,000 mcg PO DAILY 11/28/22 08/17/23 History 1,000 mcg tablet (Vitamin B-12) esomeprazole magnesium 40 mg 40 mg PO DAILYBB 11/28/22 08/17/23 History capsule,delayed release nicotine 21 mg/24 hr daily 1 patch transdermal DAILY PRN 11/28/22 08/17/23 History transdermal patch SMOKE CESSATION nortriptyline 25 mg capsule 25 mg PO HS 11/28/22 08/17/23 History ondansetron HCl 4 mg tablet 4 mg PO Q6H PRN Nausea 11/28/22 08/17/23 History semaglutide 3 mg tablet (Rybelsus) 7 mg PO QAM 11/28/22 08/17/23 History topiramate 100 mg tablet 100 mg PO QAM 11/28/22 08/17/23 History valsartan 320 mg tablet 320 mg PO QAM 11/28/22 08/17/23 History cephalexin 500 mg capsule 500 mg PO QID 08/17/23 08/17/23 History topiramate 50 mg tablet 50 mg PO HS 08/17/23 08/17/23 History Past Med/Surg History Medical History (Updated 08/17/23 @ 14:44 by Asuncion Geronimo MD) Abscessed tooth Hyperlipidemia Transaminitis Hypokalemia Pyelonephritis History of renal calculi History of Clostridium difficile colitis Hypothyroidism Chronic abdominal pain History of suicide attempt PTSD (post-traumatic stress disorder) Enterohemorrhagic E. coli infection (12/24/13) Anxiety Fibromyalgia Surgical History (Updated 02/26/23 @ 00:09 by Luisa Escoto) S/P appendectomy S/P tonsillectomy and adenoidectomy S/P cholecystectomy Family History Other Cancer Diabetes Heart disease Hypertension Social History Smoking Status: Current every day smoker Tobacco Type: Cigarettes Hx Alcohol Use: No Hx Substance Use: No Preferred Language: Guamanian marital status: current occupational status: disabled Feels Safe at Home: Yes Review of Systems Review of Systems: All systems reviewed & are unremarkable except as noted in Subjective Physical Exam Physical Exam: General: Alert, oriented. No acute distress Skin: No noted rashes or bruises Psych: Appropriate mood and affect Neuro: difficulty with movements in the bed HEENT: NC/AT CV: RRR Resp: Breath sounds clear bilaterally, no increased effort of breathing. Abdomen: Soft, nontender, nondistended. Extremities: Erythema of LLE from foot up to mid leg, RLE prothesis noted Results & Data Results & Data Vital Signs (Past 12 Hours) Vital Signs Temp Pulse Resp BP Pulse Ox O2 Del Method 08/17/23 10:44 90 08/17/23 09:36 36.2 C L 101 H 20 174/85 H 96 Room Air Diagnostic Findings Chest X-Ray 08/17/23 09:41 XR chest 1V portable HISTORY: 63 years-old Female Sepsis acute sepsis COMPARISON: 04/19/2019 TECHNIQUE: AP view of the chest FINDINGS: Cardiac silhouette is enlarged. Stable right hemidiaphragmatic elevation. No pneumothorax, pleural effusion or overt pulmonary edema. No airspace consolidation to suggest pneumonia. Bones appear grossly intact. IMPRESSION: No acute process. ACT 112: Negative or not required by law. The above report was generated using voice recognition software. It may contain grammatical, syntax or spelling errors. Electronically signed by: Nakul Schwab M.D. 08/17/2023 11:05 AM
[2023-08-17] MEDS: amLODIPine BESYLATE 5 MG TAB PO SCH (14:30)
--- NOTE | 2023-08-17 15:54 | Electrocardiogram Report ---
Test Reason : Blood Pressure : / mmHG Vent. Rate : 094 BPM Atrial Rate : 094 BPM P-R Int : 188 ms QRS Dur : 080 ms QT Int : 384 ms P-R-T Axes : 042 -21 038 degrees QTc Int : 480 ms Normal sinus rhythm Low voltage QRS Cannot rule out Anterior infarct , age undetermined Abnormal ECG When compared with ECG of 26-JUL-2022 05:27, No significant change was found Confirmed by Danilo Stoner ([id number]) on 08/17/2023 3:54:27 PM Referred By: REFERRED SELF Confirmed By:Danilo Stoner
--- NOTE | 2023-08-17 16:05 | Emergency Department Note ---
Impression & Plan Cellulitis of left leg, Sepsis ED Provider Note NAME: EDUARDO ADLER AGE: 63 SEX: Female INFORMANT: Patient ED PROVIDER(S): Davon Garcia MD CHIEF COMPLAINT: Infection PLAN: Disposition: Admitted Outpatient prescription management: none Referral: None MEDICAL DECISION MAKING: Patient presented with concerns of infection. She was noted a negative outpatient ultrasound and no improvement with cephalexin. Patient was mildly tachycardic. CBC was unremarkable. Lactate was elevated. No ischemia on ECG. Patient was treated with appropriate sepsis fluids. She was given broad- spectrum antibiotics with Rocephin and vancomycin. Patient was reassessed and was doing well. Her tachycardia had improved. No hypotension. [facility]. Patient was evaluated in the ER and admitted for further management. 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 Vital Signs: reviewed and remarkable for tachycardia Additional History obtained from: Patient . He notes the leg was more red and discolored today. Chronic Medical/Social Conditions affecting care: Left total knee replacement, right lower extremity amputation Prior/ Outside/ External records reviewed: none Differential Diagnosis: Cellulitis, sepsis, abscess, MRSA infection, DVT, necrotizing fasciitis, dermatitis, drug eruption, allergic reaction, as well as other pathologies. Diagnostics, independently interpreted by me: ECG: Twelve-lead ECG was normal sinus rhythm 94 bpm. Low voltage QRS. Poor R wave progression. No ST elevation. Cardiac Monitoring: Cardiac monitoring ordered by me: The patient was placed on continuous cardiac monitoring and observed. It revealed a sinus tachycardic rhythm at 101 beats per minute without ectopy or evidence of dysrhythmia. Medical decision rules: none Imaging studies: Chest x-ray. Findings: A chest x-ray was performed and revealed no pneumothorax, effusion, infiltrate, pulmonary edema, free air under the diaphragm, or wide mediastinum. Impression: No acute disease. HPI: 63 year old Female arrives for evaluation of infection of the left leg. Patient noted several days of left leg swelling and redness. Patient went to [facility] and was placed on cephalexin. Ultrasound was done and patient reports this was negative for blood clot. She notes pain that is a 7 out of 10 that is worse with palpation. Patient denies any wounds to that area. As the redness and discomfort was increasing and getting closer to the knee the patient was concerned as she has had a prior knee replacement and presented to the ER for further evaluation. Patient also notes general malaise. Pt denies LOC, headache, fevers, chills, diaphoresis, visual changes, neck pain, chest pain, breathing difficulties, nausea, vomiting, abdominal pain, back pain, melena, hematochezia, urinary symptoms, numbness, weakness, lymphadenopathy, or other complaints. PAST MEDICAL HISTORY: See Below, PTSD, kidney stone PAST SURGICAL HISTORY: See Below, right BKA SOCIAL HISTORY: See Below, HOME MEDICATIONS: See Below ALLERGIES: See Below VITALS: See Below PHYSICAL EXAMINATION: GENERAL: Awake, tired-appearing, in no distress HENT: Normocephalic, atraumatic. Oropharynx unremarkable. EYES: Normal conjunctiva. Sclera non-icteric. NECK: Inspection normal. Non-tender. Supple. No nuchal rigidity. FROM. No masses. RESPIRATORY: Clear to auscultation. No wheezes. No rales. Normal respiratory effort. CARDIAC: Normal rate. Normal rhythm. No murmurs. No rubs. Extremities warm and well perfused. Pulses equal. No JVD. GI: Soft, non-distended. No tenderness to palpation. No rebound or guarding. No masses. RECTAL: Deferred. MUSCULOSKELETAL: Atraumatic. Chest examination reveals no tenderness. The back is symmetrical on inspection without obvious abnormality. There is no CVA tenderness to palpation. No joint edema. LOWER EXTREMITIES: Right BKA present. Left lower leg examination reveals erythema extending up to the level of the calf with warmth and tenderness. Concerning for cellulitis. No crepitus or drainage. The knee itself does not show any edema, erythema or warmth. NEURO: Normal sensorium. No sensory or motor deficits noted. SKIN: No rash or jaundice noted. PROCEDURES: none CRITICAL CARE: none OBSERVATION NOTE: none Past Med/Surg History Medical History (Updated 08/17/23 @ 16:05 by Davon Garcia MD) Abscessed tooth Hyperlipidemia Transaminitis Hypokalemia Pyelonephritis History of renal calculi History of Clostridium difficile colitis Hypothyroidism Chronic abdominal pain History of suicide attempt PTSD (post-traumatic stress disorder) Enterohemorrhagic E. coli infection (12/24/13) Anxiety Fibromyalgia Surgical History (Updated 02/26/23 @ 00:09 by Luisa Escoto) S/P appendectomy S/P tonsillectomy and adenoidectomy S/P cholecystectomy Family History Other Cancer Diabetes Heart disease Hypertension Social History Smoking Status: Current every day smoker Tobacco Type: Cigarettes Hx Alcohol Use: No Hx Substance Use: No Preferred Language: Georgian marital status: current occupational status: disabled Feels Safe at Home: Yes Allergies Allergies Allergy/AdvReac Type Severity Reaction Status Date / Time duloxetine AdvReac Severe SHUT DOWN, Verified 11/28/22 19:01 HEART AND BREATHING SLOWED, LETHARGIC fentanyl AdvReac Intermediate GI SYMPTOMS Verified 11/28/22 19:01 metoclopramide AdvReac Intermediate TARDITIVE Verified 11/28/22 19:01 DYSKENESIA pregabalin [From Lyrica] AdvReac Intermediate NAUSEA/VOMI Verified 11/28/22 19:01 TING tramadol AdvReac Intermediate NAUSEA/VOMI Verified 11/28/22 19:01 TING chlorpromazine AdvReac Mild dry mouth Verified 11/28/22 19:01 Home Meds Home Medications Medication Instructions Recorded Confirmed amlodipine 5 mg tablet 5 mg PO QAM 10/29/19 08/17/23 famotidine 40 mg tablet 40 mg PO HS 10/29/19 08/17/23 cariprazine 3 mg capsule (Vraylar) 3 mg PO QAM 08/11/20 08/17/23 hydroxyzine pamoate 50 mg capsule 150 mg PO HS 08/11/20 08/17/23 (Vistaril) nortriptyline 75 mg capsule 75 mg PO HS 08/11/20 08/17/23 aspirin 81 mg tablet,delayed 81 mg PO DAILY 11/28/22 08/17/23 release atorvastatin 40 mg tablet 40 mg PO HS 11/28/22 08/17/23 cholecalciferol (vitamin D3) 25 25 mcg PO DAILY 11/28/22 08/17/23 mcg (1,000 unit) capsule (Vitamin D3) cyanocobalamin (vitamin B-12) 1,000 mcg PO DAILY 11/28/22 08/17/23 1,000 mcg tablet (Vitamin B-12) esomeprazole magnesium 40 mg 40 mg PO DAILYBB 11/28/22 08/17/23 capsule,delayed release nicotine 21 mg/24 hr daily 1 patch transdermal DAILY PRN 11/28/22 08/17/23 transdermal patch SMOKE CESSATION nortriptyline 25 mg capsule 25 mg PO HS 11/28/22 08/17/23 ondansetron HCl 4 mg tablet 4 mg PO Q6H PRN Nausea 11/28/22 08/17/23 semaglutide 3 mg tablet (Rybelsus) 7 mg PO QAM 11/28/22 08/17/23 topiramate 100 mg tablet 100 mg PO QAM 11/28/22 08/17/23 valsartan 320 mg tablet 320 mg PO QAM 11/28/22 08/17/23 cephalexin 500 mg capsule 500 mg PO QID 08/17/23 08/17/23 topiramate 50 mg tablet 50 mg PO HS 08/17/23 08/17/23 Results & Data (ED) Vital Signs Vital Signs - 24 hr 08/17/23 09:36 08/17/23 10:44 08/17/23 11:04 Temperature 36.2 C L Temperature Source Temporal Artery Scan Pulse Rate 101 H 90 86 Pulse Rate from SpO2 Sensor 94 H Respiratory Rate 20 15 Respiratory Effort / Characteristics Non-Labored Spontaneous Respiratory Depth Normal Blood Pressure 174/85 H 151/86 H Blood Pressure Mean 114 107 Pulse Oximetry 96 98 Oxygen Delivery Method Room Air Room Air Sepsis Recent Fever Within 48 Hours No Sepsis New/Unexplained Change in Mental Status N/A Sepsis Action Taken by Nursing No Action Required 08/17/23 11:30 08/17/23 12:00 08/17/23 12:30 Temperature Temperature Source Pulse Rate 91 H 69 Pulse Rate from SpO2 Sensor 91 H 86 82 Respiratory Rate 13 21 18 Respiratory Effort / Characteristics Respiratory Depth Blood Pressure 155/86 H 153/84 H 145/97 H Blood Pressure Mean 109 107 113 Pulse Oximetry 98 98 97 Oxygen Delivery Method Room Air Sepsis Recent Fever Within 48 Hours Sepsis New/Unexplained Change in Mental Status Sepsis Action Taken by Nursing 08/17/23 13:00 08/17/23 13:30 08/17/23 14:06 Temperature Temperature Source Pulse Rate 85 95 H Pulse Rate from SpO2 Sensor 87 85 95 H Respiratory Rate 22 23 17 Respiratory Effort / Characteristics Respiratory Depth Blood Pressure 176/97 H 166/92 H 171/107 H Blood Pressure Mean 123 116 129 Pulse Oximetry 98 99 99 Oxygen Delivery Method Room Air Room Air Room Air Sepsis Recent Fever Within 48 Hours Sepsis New/Unexplained Change in Mental Status Sepsis Action Taken by Nursing 08/17/23 14:44 08/17/23 15:00 Temperature Temperature Source Pulse Rate 89 87 Pulse Rate from SpO2 Sensor 89 87 Respiratory Rate 20 20 Respiratory Effort / Characteristics Respiratory Depth Blood Pressure 146/97 H 139/114 H Blood Pressure Mean 113 122 Pulse Oximetry 98 97 Oxygen Delivery Method Room Air Room Air Sepsis Recent Fever Within 48 Hours Sepsis New/Unexplained Change in Mental Status Sepsis Action Taken by Nursing Laboratory Data 08/17/23 10:52 08/17/23 10:52 Lab Results 08/17/23 08/17/23 08/17/23 Range/Units 10:33 10:52 12:39 WBC 11.57 H (4.8-10.8) K/ul RBC 5.21 (4.20-5.40) M/uL Hgb 15.7 (12.0-16.0) g/dl Hct 46.9 (37.0-47.0) % MCV 90.0 (80.0-100.0) fL MCH 30.1 (25.0-34.0) pg MCHC 33.5 (32.0-36.0) g/dL RDW Std Deviation 45.9 (36.4-46.3) fL RDW Coeff of Maria Del Carmen 13.8 (11.5-14.5) % Plt Count 240 (130-400) K/uL MPV 9.8 (9.4-12.4) fL Immature Gran % (Auto) 0.7 % Neut % (Auto) 59.6 % Lymph % (Auto) 29.9 % Curry % (Auto) 8.5 % Eos % (Auto) 0.8 % Baso % (Auto) 0.5 % Neut # (Auto) 6.90 H (1.40-6.50) K/uL Lymph # (Auto) 3.46 H (1.20-3.40) K/uL Curry # (Auto) 0.98 H (0.11-0.59) K/uL Eos # (Auto) 0.09 (0.00-0.50) K/uL Baso # (Auto) 0.06 (0.00-0.20) K/uL Immature Gran # (Auto) 0.08 (0.01-0.20) K/uL PT 10.3 (9.0-12.0) Seconds INR 0.9 (0.9-1.1) APTT 27 (21-31) Seconds PTT Ratio 1.0 Sodium 140 (136-145) mmol/L Potassium 3.5 (3.5-5.1) mmol/L Chloride 112 H (98-107) mmol/L Carbon Dioxide 20 L (21-32) mmol/L Anion Gap 8 (3-11) BUN 15 (6-23) mg/dl Creatinine 0.75 (0.6-1.2) mg/dl Est Cr Clr Drug Dosing 95.2 ml/min Est GFR ( Amer) 99.7 ml/min Est GFR (Non-Af Amer) 86.0 ml/min BUN/Creatinine Ratio 20.0 (10-20) Glucose 133 H (70-99(Fasting)) mg/dl Lactate 2.6 H* 0.9 (0.4-2.0) mmol/L Calcium 9.2 (8.6-10.3) mg/dl Magnesium 2.0 (1.7-2.4) mg/dl Total Bilirubin 0.3 (0.2-1.0) mg/dl AST 17 (13-39) U/L ALT 18 (7-52) U/L Alkaline Phosphatase 117 H (34-104) U/L Troponin I High Sens 2.7 (0-14) pg/ml Total Protein 7.2 (6.0-8.3) gm/dl Albumin 4.2 (3.4-5.0) gm/dl Globulin 3.0 (2.5-4.0) gm/dl Albumin/Globulin Ratio 1.4 (0.9-2) Procalcitonin < 0.02 (0-0.5) ng/ml Urine Color Yellow Urine Appearance Clear (Clear) Urine pH 6.0 (4.5-7.5) Ur Specific [place] 1.009 (1.000-1.030) Urine Protein Negative (Negative) Urine Glucose (UA) Negative (Negative) Urine Ketones Negative (Negative) Urine Blood Negative (Negative) Urine Nitrite Negative (Negative) Urine Bilirubin Negative (Negative) Urine Urobilinogen Negative (Negative) Ur Leukocyte Esterase Negative (Negative) Administered Medications Amlodipine Besylate (Amlodipine Besylate 5 Mg Tab) 5 mg PO QAM CHAVEZ Stop: 09/16/23 14:14 Last Admin: 08/17/23 14:30 Dose: 5 mg Documented By: CHRISTI Discontinued Medications Ceftriaxone Sodium (Rocephin) 2,000 mg in 50 mls @ 100 mls/hr IV NOW STA Stop: 08/17/23 11:06 Last Infusion: 08/17/23 12:09 Dose: Infused Documented By: Admin: 08/17/23 11:42 Dose: 100 mls/hr Documented By: CHRISTI Sodium Chloride (Nss) 1,000 mls @ 999 mls/hr IV .Q1H1M ONE Stop: 08/17/23 12:41 Last Infusion: 08/17/23 14:36 Dose: Infused Documented By: Admin: 08/17/23 11:52 Dose: 999 mls/hr Documented By: CHRISTI Sodium Chloride (Nss) 500 mls @ 999 mls/hr IV .Q31M ONE Stop: 08/17/23 12:11 Last Infusion: 08/17/23 12:23 Dose: Infused Documented By: Admin: 08/17/23 11:52 Dose: 999 mls/hr Documented By: CHRISTI Sodium Chloride (Nss) 250 mls @ 999 mls/hr IV .Q16M ONE Stop: 08/17/23 11:56 Last Infusion: 08/17/23 12:09 Dose: Infused Documented By: Admin: 08/17/23 11:52 Dose: 999 mls/hr Documented By: CHRISTI Vancomycin HCl 2,000 mg/ (Sodium Chloride) 540 mls @ 200 mls/hr IV NOW ONE Stop: 08/17/23 14:22 Last Infusion: 08/17/23 15:31 Dose: Infused Documented By: Admin: 08/17/23 12:18 Dose: 200 mls/hr Documented By: CHRISTI Imaging Data Radiologist's Impression: Chest X-Ray 08/17/23 09:41 XR chest 1V portable HISTORY: 63 years-old Female Sepsis acute sepsis COMPARISON: 04/19/2019 TECHNIQUE: AP view of the chest FINDINGS: Cardiac silhouette is enlarged. Stable right hemidiaphragmatic elevation. No pneumothorax, pleural effusion or overt pulmonary edema. No airspace consolidation to suggest pneumonia. Bones appear grossly intact. IMPRESSION: No acute process. ACT 112: Negative or not required by law. The above report was generated using voice recognition software. It may contain grammatical, syntax or spelling errors. Electronically signed by: Nakul Schwab M.D. 08/17/2023 11:05 AM Discharge Plan Visit Data Chief Complaint: Infection, Wound Stated Complaint: L LEG CELLULITIS,ANTIBIOTIC PRESCRIBED NOT HELPING ED Provider: Davon Garcia Discharge Problem: Cellulitis of left leg, Sepsis Forms Stand Alone Forms: [facility] [place] Prescriptions Prescriptions: No Action famotidine 40 mg Tablet 40 mg PO HS amlodipine 5 mg Tablet 5 mg PO QAM hydroxyzine pamoate [Vistaril] 50 mg Capsule 150 mg PO HS Rx Instructions: TOTAL DOSE 150 MG nortriptyline 75 mg Capsule 75 mg PO HS Rx Instructions: TOTAL DOSE 100 MG--TAKES WITH 25 MG CAP. Vraylar 3 mg Capsule 3 mg PO QAM atorvastatin 40 mg tablet 40 mg PO HS ondansetron HCl 4 mg tablet 4 mg PO Q6H PRN (Reason: Nausea) cyanocobalamin (vitamin B-12) [Vitamin B-12] 1,000 mcg Tablet 1,000 mcg PO DAILY aspirin 81 mg Tablet,Delayed Release (Dr/Ec) 81 mg PO DAILY nortriptyline 25 mg capsule 25 mg PO HS Rx Instructions: TOTAL DOSE 100 MG--TAKES WITH 75 MG CAP. esomeprazole magnesium 40 mg capsule,delayed release(DR/EC) 40 mg PO DAILYBB valsartan 320 mg tablet 320 mg PO QAM nicotine 21 mg/24 hr Patch 24 Hour 1 patch TRANSDERMAL DAILY PRN (Reason: SMOKE CESSATION) topiramate 100 mg tablet 100 mg PO QAM cholecalciferol (vitamin D3) [Vitamin D3] 25 mcg (1,000 unit) Capsule 25 mcg PO DAILY Rybelsus 3 mg tablet 7 mg PO QAM cephalexin 500 mg capsule 500 mg PO QID topiramate 50 mg tablet 50 mg PO HS Referrals Referrals: Joselin Henao MD [Primary Care Provider] -
[2023-08-17] MEDS ORDERED: ACETAMINOPHEN 500 MG TAB PO PRN (16:59)
[2023-08-17] MEDS ORDERED: ONDANSETRON INJ 2 MG/ML 2 ML VIAL IV PRN (17:01)
[2023-08-17] MEDS: KETOROLAC TROMETHAMINE 15 MG/ML VIAL IV PRN (17:21)
[2023-08-17] MEDS: ENOXAPARIN INJ 40 MG/0.4 ML SYR SQ SCH (17:54)
[2023-08-17] MEDS: DAPTOmycin 450 MG in SYRINGE 0 ML IV SCH (17:55)
[2023-08-17] MEDS: NORTRIPTYLINE HCL 25 MG CAP PO SCH (19:27)
[2023-08-17] MEDS: TOPIRAMATE 50 MG TAB PO SCH (19:28)
[2023-08-17] MEDS: hydrOXYzine HCl 25 MG TAB PO SCH (19:29)
[2023-08-17] MEDS: FAMOTIDINE 40 MG TABLET PO SCH (19:29)
[2023-08-17] MEDS: HYDROmorphone INJ 0.5 MG/0.5 ML SYR IV PRN (19:53)
[2023-08-17] MEDS: ONDANSETRON 4 MG OD TAB PO PRN (19:54)
[2023-08-17] MEDS ORDERED: ATORVASTATIN 40 MG TAB PO SCH (21:00)
[2023-08-17] MEDS ORDERED: NORTRIPTYLINE HCL 25 MG CAP PO SCH (21:00)
--- NOTE | 2023-08-17 23:19 | Ultrasound Report ---
Exam(s): US VENOUS LEFT LOWER EXTREMITY EXAM: US Duplex Left Lower Extremity Veins CLINICAL HISTORY: Reason for exam: r/o DVT. TECHNIQUE: Real-time duplex ultrasound scan of the left lower extremity veins integrating B-mode two-dimensional vascular structure, Doppler spectral analysis, color flow Doppler imaging and compression. COMPARISON: 10/02/2013. FINDINGS: Deep veins: Unremarkable. No DVT in the visualized common femoral, femoral, proximal deep femoral or popliteal veins. The veins demonstrate normal color flow, are normally compressible, with normal phasic flow and/or augmentation response. Superficial veins: Unremarkable. No thrombus in the visualized great saphenous vein. Soft tissues: No acute findings. No popliteal cyst. IMPRESSION: No ultrasonographic evidence of deep venous thrombosis involving the left lower extremity. Electronically signed by: Rupal Mott MD 08/17/23 23:18 PM
--- OUTSIDE RECORDS SUMMARY | 2023-08-18 03:10 | External Medical Summary | Summary of Care ---
Author Name Unknown Organization [facility] Address [address] [place] [address] Phone [phone] Care Team Providers Care Oil Dipper Name Role Phone Joselin Henao MD Primary Care Provider [phone] Reason for Visit * Reason Onset Date Comments Forms Request 08/09/2023 Encounter Details Date Type Department Care Team (Late st Contact Info) Description 08/09/2023 Telephone General Internal Medicine [facility] [place] [address] [place] [address] Joselin Henao MD [address] [facility] [place] [id number] Forms Request Allergies Active Allergy Reactions Criticality Noted Date Comments Duloxetine Hcl Neuro complications (Please comment) Medium 02/02/2010 Decreased responsiveness / lethargy - pt states EMS mistakenly thought she overdosed on it Fentanyl Nausea/vomiting Medium 12/16/2014 Pregabalin Nausea/vomiting Low 09/02/2019 Metoclopramide Hcl Psych complications High 07/09/19 16 Tardive dyskinesia Tramadol Nausea/vomiting Medium 01/08/2014 documented as of this encounter (statuses as of 08/09/2023) Medications Medication Sig Dispensed Refills Start Date End Date Status TOPIRAMATE ER 50 MG PO CS24 Take 50 mg by mouth every night at bedtime. 0 01/08/2014 Active Nortriptyline HCl 75 MG Oral Capsule (Pamelor) Take 1 Capsule by mouth at bedtime. 0 Active hydrOXYzine Pamoate 50 MG Oral Capsule Take 3 Capsules by mouth at bedtime. 0 Active Vraylar 1.5 MG Oral Capsule (Cariprazine HCl) Take 2 Capsules by mouth. 0 Active OneTouch Verio w/Device KitIndications:Type 2 diabetes mellitus with hemoglobin A1c goal of less than 7.0% (HCC) Use up to 2 times a day E11.9 1 Kit 0 05/31/2022 Active Additional Information Patient not taking.Reported on 11/04/2022 OneTouch Verio In Vitro Strip (Glucose Blood)Indications:Ty pe 2 diabetes mellitus with hemoglobin A1c goal of less than 7.0% (HCC) Use up to 2 times a day E11.9 100 Strip 11 05/31/2022 Active Additional Information Patient not taking.Reported on 02/15/2023 OneTouch UltraSoft LancetsIndications:T ype 2 diabetes mellitus with hemoglobin A1c goal of less than 7.0% (HCC) Test sugar upto 2 times daily as directed-E 11.9 100 Each 5 05/31/2022 Active Additional Information Patient not taking.Reported on 02/15/2023 Topiramate 100 MG Oral Tablet (topAMAX) TAKE 1 TABLET BY MOUTH EVERY DAY IN THE MORNING DIRECTED 0 07/08/2022 Active Nortriptyline HCl 25 MG Oral Capsule (Pamelor) TAKE 1 CAPSULE BY MOUTH AT BEDTIME DIRECTED TAKE ALONG WITH YOUR 75MG CAPSULE AT BED. 0 07/08/2022 Active B-12 1000 MCG Oral TabletIndications:Lo w serum vitamin B12,Gastroesophageal reflux disease without esophagitis 1 tab daily, start 09/30/2021, restart 08/15/2022 1 Tablet 0 08/15/2022 Active Vitamin D-3 25 MCG (1000 UT) Oral CapsuleIndications:V itamin D deficiency Take 1 Capsule by mouth in the morning. Restart 08/15/2022. 90 Capsule 1 08/15/2022 Active Valsartan 320 MG Oral Tablet (Diovan)Indications: Diabetes mellitus, new onset (HCC),HTN, goal below 140/80 TAKE BY MOUTH 1 TABLET IN THE MORNING 90 Tablet 2 12/28/2022 Active amLODIPine Besylate 5 MG Oral Tablet (Norvasc)Indications :HTN, goal below 140/90 TAKE 1 TABLET BY MOUTH EVERY DAY 90 Tablet 2 12/28/2022 Active Ondansetron HCl 4 MG Oral TabletIndications:Na usea Take 1 Tablet by mouth every 6 hours as needed for Nausea. 30 Tablet 2 02/15/2023 Active Aspirin 81 MG Oral Tablet Delayed Release Take 1 Tablet by mouth in the morning. 100 Tablet 3 02/15/2023 Active Rybelsus 7 MG Oral Tablet (Semaglutide)Indicat ions:Type 2 diabetes mellitus with hemoglobin A1c goal of less than 7.0% (HCC),Obesity due to excess calories with serious comorbidity, unspecified classification TAKE 1 TABLET BY MOUTH FIRST THING IN THE MORNING. INC 12/12/2022. 90 Tablet 1 03/09/2023 Active Atorvastatin Calcium 40 MG Oral Tablet (Lipitor) TAKE 1 TABLET BY MOUTH IN THE MORNING. 90 Tablet 2 03/24/2023 Active Famotidine 40 MG Oral Tablet (Pepcid)Indications: Gastroesophageal reflux disease without esophagitis TAKE 1 TABLET BY MOUTH EVERY DAY 90 Tablet 1 03/24/2023 Active Esomeprazole Magnesium 40 MG Oral Capsule Delayed ReleaseIndications:G astroesophageal reflux disease without esophagitis TAKE ONE CAPSULE BY MOUTH 1 HOUR BEFORE FIRST MEAL OF THE DAY 90 Capsule 1 03/24/2023 Active predniSONE 10 MG Oral Tablet (Deltasone)Indicatio ns:Left sided sciatica,Pain of left sacroiliac joint,Lumbar degenerative disc disease Take 5 tabs for 2 days, 4 tabs for 2 days, 3 tabs for 2 days, 2 tabs for 2 days 1 tab for 2 days 30 Tablet 0 07/12/2023 Active documented as of this encounter (statuses as of 08/09/2023) Active Problems Problem Noted Date Diagnosed Date S/P total knee arthroplasty, left 11/21/2022 Type 2 diabetes mellitus wit h hemoglobin A1c goal of less than 7.0% 09/30/2021 Overview: 09/30/2021 Dependent personality disorder 05/07/2020 Gastroesophageal reflux disease without esophagi tis 05/07/2019 Post-traumatic stress disorder, unspecified 04/24 Other migraine, not intractable, without status migrainosus 05/07/2019 Hx of BKA, right 11/27/2018 Tobacco use disorder 05/16/2017 Pulmonary nodule 08/27/2016 Biliary dyskinesia 10/27/2014 Overview: cholecystectomy in [place] Vitamin D deficiency 10/07/2014 Dyslipidemia, goal LDL below 100 01/05/2010 Fibromyalgia Gastroparesis HTN, goal below 140/80 documented as of this encounter (statuses as of 08/09/2023) Resolved Problems Problem Noted Date Diagnosed Date Resolved Date Food insecurity 11/30/2020 02/03/2022 Overview: Per [facility] Protocol Bipolar disorder 06/15/2020 12/22/2021 Overview: Not supported Major depressive disorder, r ecurrent severe without psychotic features 03/29/2019 06/15/2020 Cystitis 01/09/2019 11/05/2019 Overview: >100,000 E coli resistant to ampicillin Hypertensive kidney disease with chronic kidney disease stage III 07/25/2018 02/28/2019 Kidney disease, chronic, sta ge III (GFR 30-59 ml/min) 08/01/2017 08/01/2018 Overview: Per CKD protocol #1 Body mass index (BMI) of 40. 0 to 44.9 in adult 01/23/2017 01/31/2019 Overview: bmi 30Per Obesity protocol #1 Abdominal pain, lower 01/12/20162018 Celiac disease 11/25/2014 01/03/2017 Abdominal pain 08/25/2014 01/31/2019 Overview: acute Lymphedema 08/28/2012 09/14/2016 MIGRAINE, UNSPECIFIED, WITHO UT MENTION OF INTRACTA 04/01/2010 09/14/2016 HTN, goal below 140/90 03/17/201004/30 Gastrostomy status 09/01/2009 3 Abnormal granulation tissue 07/09/2009 08/28/2017 MEDICATION USE AGREEMENT 06/30/2009 Overview: With [facility] pain management clinic. 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 017 Dyslipidemia, goal to be determined 03/31/2009 01/05/2010 Overview: Per Lipid Taxonomy. Acute serous otitis media 03/27/2009 Infective otitis externa 03/27/2009 Edema 03/27/2009 09/14/2016 HTN, goal below 140/90 02/27/200904/22 Overview: Modified per HTN Taxonomy. Kidney disease, chronic, sta ge III (GFR 30-59 ml/min) 06/26/2007 02/23/2009 Overview: Added per CKD clinical protocol 1 Dyslipidemia, goal LDL below 160 01/31/2007 03/31/2009 Overview: Per Lipid Taxonomy. Hypothyroidism 11/23/2005 04/22/2009 BENIGN HYPERTENSION 02/28/20 09 Overview: Modified per HTN Taxonomy. MIGRAINE, UNSPECIFIED, WITHO UT MENTION OF INTRACTABLE MIGRAINE 07/17/2019 Menopause 04/23/2015 Depression with anxiety 09/2018 Overview: Dr. Serna Chronic fatigue syndrome COMMON MIGRAINE WITHOUT MENT ION OF INTRACTABLE MIGRAINE 09/14/2016 BMI 38.0-38.9,adult 01/27/20 17 Overview: Per Obesity protocol #1 documented as of this encounter (statuses as of 08/09/2023) Immunizations Name Administration Dates Next Due COVID-19 mRNA, LNP-s, No Pre serve, 2-Dose Series (Hello World Mobile) 04/13/2021,09/19/2020,08/27/2020 COVID-19, MRNA-LNP, 23-24, P F, 30 MCG/0.3 mL, 12 YRS AND ABOVE, IM (Friendshippr-Comirnat) 02/15/2023 Covid-19, Mrna, Lnp-s, Pf, B ivalent, 30 Mcg, IM, 12 yrs and above (Pfizer) 03/29/2022 Hepatitis B, 20+ yrs 07/05/2022,02/21/2022,01/04 Pneumococcal Conjugate Vacci ne, 20-valent ([id number]) 01/04/2022 Pneumococcal Polysaccharide PPV23 (Pneumovax) 09/17/2008 Seasonal Influenza, PF, 6 M & above, IM , (FluLaval or Fluzone) 01/04/2022 Seasonal Influenza, Quadriva lent, No Preserve, IM 02/15/2023,01/03/2020,04/04/2018 Seasonal Influenza, Quadriva lent, No Preserve, Mdck 01/19/2019 Seasonal Influenza, Split, I IV3, With Preserve, Inj 03/09/2011,03/10/2010 TD - Tetanus/Diptheria (ADULT) 04/30/2018 TD, Preservative Free 04/30/2018 TDAP (age 11 and older)(Adacel) 07/25/2003 Zoster Vaccine Recombinant (Shingrix) 08/23/2022 ,06/01/2022 documented as of this encounter Social History Tobacco Use Types Packs/Day Years Used Date Smoking Tobacco: Every Day Cigarettes 0.1 44.2 Started: 1977 Smokeless Tobacco: Never Comments:3 cigs/day. Alcohol Use Standard Drinks/Week Comments No 0 (1 standard drink = 0.6 oz pur e alcohol) PHQ-2 Answer Date Recorded PHQ Adult Total Score 0 01/04/2022 Hunger Vital Sign Answer Date Recorded Within the past 12 months, y ou worried that your food would run out before you got the money to buy more. Never true 01/05/20 22 Within the past 12 months, t he food you bought just didn't last and you didn't have money to get more. Never true 01/04/2022 Sex and Gender Information Value Date Recorded Sex Assigned at Female 06/07/2020 4:09 PM EST Gender Identity Female 06/07/2020 4:09 PM EST Sexual Orientation Straight 06/07/2020 4: 09 PM EST Job Start Date Occupation Industry Not on file Not on file Not on file documented as of this encounter Functional Status Functional Status Response Date of Assess ment Are you deaf or do you have serious difficulty h earing? No 11/21/2022 Are you blind or do you have serious difficulty seeing, even when wearing glasses? No 11/21/2022 Do you have serious difficul ty walking or climbing stairs? (5 years old or older) No 11/21/2022 Do you have difficulty dress ing or bathing? (5 years old or older) No 11/21/2022 Because of a physical, menta l, or emotional condition, do you have difficulty doing errands alone such as visiting a doctor s office or shopping? (15 years old or older) No 11/22/19 Cognitive Status Response Date of Assessm ent Because of a physical, menta l, or emotional condition, do you have serious difficulty concentrating, remembering, or making decisions? (5 years old or older) No 11/21/2022 documented as of this encounter Miscellaneous Notes * Telephone Encounter - Angelica Hanna LPN - 08/09/2023 4:34 PM EDT DWO form received from the [facility] for patient's prosthetic supplies. Form signed by Dr. Lee since Dr. Henao is out of office. Form faxed back to [facility], confirmation received. Formplaced in scanning. documented in this encounter Plan of Treatment Upcoming Encounters Date Type Department Care Team (Late st Contact Info) Description 08/18/2023 11:40 AM EDT Office Visit General Internal Medicine [facility] [address] [place] [address] Joselin Henao MD [address] [facility] [place] [address] 09/07/2023 1:30 PM EDT Office Visit Orthopaedics [facility] [address] [facility] [place] [address] Vineet Hodges PA-C [address] [place] [address] Health Maintenance Due Date Last Done Comments DISCUSS TOBACCO CESSATION (REFER TO SMARTSET #1543) 1960 Mammogram 09/13/2022 09/13/2021, 08/23, 03/01/2021, Additional history exists Diabetic Eye Exam 02/21/2023 02/21/2022 Albumin/Creatinine Ratio 11/04/2023 023, 12/28/2021, 02/19/2009 GFR 11/23/2023 11/22/2022, 10/22, 07/19/2022, Additional history exists HbA1c 01/12/2024 07/12/2023, 01/23, 11/03/2022, Additional history exists Depression Screening 02/16/2024 02/15/2023 Diabetic Foot Exam 02/16/2024 02/15/2023, 01/04/2022 COLONOSCOPY-EVERY 5 YRS AGES 18-100 10/07/2026 10/07/2021, 08/18/2016, 06/02/2015, Additional history exists Lipid Panel 11/04/2027 11/03/2022, 10/2022, 05/31/2022, Additional history exists DTaP,Tdap,and Td Vaccines (4 - Td or Tdap) 04/30/2028 04/30/2018, 04/30/2018, 07/25/2003 Pneumococcal Vaccine: Pediatrics (0 to 5 Years) and At-Risk Patients (6 to 64 Years) Completed 01/04/2022, 09/17/2008 Hepatitis B Completed 07/05/2022, 01/24, 01/04/2022 Zoster Vaccines Completed 08/23/2022, 06/01/2022 COVID-19 Vaccine Completed 02/15/2023, 09/2021, 04/13/2021, Additional history exists Influenza Vaccine (FLU shot) Completed , 01/04/2022, 01/03/2020, Additional history exists GARDASIL-HPV IMMUNIZATION SERIES Aged Out No longer eligible based on patient's age to complete this topic MENINGOCOCCAL (MENACTRA/MENVEO) Aged Out No longer eligible based on patient's age to complete this topic documented as of this encounter Medical Devices Implanted Type Area Speeder Operator Device Identifier Shelf Expiration Date Model / Serial / Lot Baseplate #4 Tritanium - [id number] Implanted:Qty: 1 on 11/21/2022 by Juan Carlos Tijerina, DO at OR [facility] Left: Knee PATRICE : ORTHOPAEDICS 08/30/2027 5536-B-400 / / [id number] Knee Triathlon Bead No Philippe L 4 - [id number] Implanted:Qty: 1 on 11/21/2022 by Juan Carlos Tijerina, DO at OR [facility] Left: Knee PATRICE : ORTHOPAEDICS 09/14/2027 5517-F-401 / / [id number] Knee X3 Ins Pos Cs Sz4 9 - [id number] Implanted:Qty: 1 on 11/21/2022 by Juan Carlos Tijerina, DO at [facility] Left: Knee PATRICE : ORTHOPAEDICS 09/13/2027 5531-G-409 [id number] / / [id number] documented as of this encounter Advance Directives Latest Code Status on File Code Status Date Activated Date Inactivated Comments Full Code 11/21/2022 12:48 PM 11/22/2022 2:33 PM This order reflects the patients wishes and were consensually agreed upon. Question Answer Comments Discussion of Advance Directives occurred with: Patient Code Status History Code Status Date Activated Date Inactivated Comments Full Code 08/08/2022 5:05 PM 08/09/2022 1:43 PM This order reflects the patients wishes and were consensually agreed upon. Question Answer Comments Discussion of Advance Directives occurred with: Patient Full Code 07/27/2019 3:22 AM 07/28/2019 7:35 PM This or lakesha reflects the patients wishes and were consensually agreed upon. Question Answer Comments Discussion of Advance Directives occurred with: Patient Does the patient have a Living Will? No Does the patient have Health Care Power of Pairer Inspector? No Full Code 10/02/2018 4:09 PM 10/04/2018 10:30 PM Question Answer Comments Discussion of Advance Directives occurred with: Not Discussed Care Teams Oil Dipper Relationship Specialty Start Date End Date Joselin Henao MD PCP - General Internal Medicine 08/02/21 documented as of this encounter
--- OUTSIDE RECORDS SUMMARY | 2023-08-18 03:10 | External Medical Summary | Summary of Care ---
Author Name Unknown Organization [facility] Address [address] [place] [address] Phone [phone] Care Team Providers Care Train Director Name Role Phone Joselin Henao MD Primary Care Provider [phone] Encounter Details Date Type Department Care Team (Late st Contact Info) Description 08/15/2023 Orders Only General Internal Medicine [facility] [address] [facility] [place] [address] Joselin Henao MD [address] [place] [address] Allergies Active Allergy Reactions Criticality Noted Date Comments Duloxetine Hcl Neuro complications (Please comment) Medium 02/02/2010 Decreased responsiveness / lethargy - pt states EMS mistakenly thought she overdosed on it Fentanyl Nausea/vomiting Medium 12/16/2014 Pregabalin Nausea/vomiting Low 09/02/2019 Metoclopramide Hcl Psych complications High 07/09/19 16 Tardive dyskinesia Tramadol Nausea/vomiting Medium 01/08/2014 documented as of this encounter (statuses as of 08/15/2023) Medications Medication Sig Dispensed Refills Start Date [...] as of this encounter (statuses as of 08/15/2023) Active Problems Problem Noted Date Diagnosed Date [...] 08/27/2016 Biliary dyskinesia 10/27/2014 Overview: cholecystectomy in [place] Vitamin D deficiency 10/07/2014 Dyslipidemia, goal LDL below 100 01/05/2010 Fibromyalgia Gastroparesis HTN, goal below 140/80 documented as of this encounter (statuses as of 08/15/2023) Resolved Problems Problem Noted Date Diagnosed Date [...] 08/28/2017 MEDICATION USE AGREEMENT 06/30/2009 Overview: With [facility] pain management clinic. 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 [...] as of this encounter (statuses as of 08/15/2023) Immunizations Name Administration Dates Next Due COVID-19 mRNA, LNP-s, No Pre serve, 2-Dose Series (Suncore) 04/13/2021,09/19/2020,08/27/2020 COVID-19, MRNA-LNP, 23-24, P F, 30 MCG/0.3 mL, 12 YRS AND ABOVE, IM (Acquaintable-Comirnat) 02/15/2023 Covid-19, Mrna, Lnp-s, Pf, B ivalent, 30 Mcg, IM, 12 yrs and above (Pfizer) 03/29/2022 Hepatitis B, 20+ yrs 07/05/2022,02/21/2022,01/04 Pneumococcal Conjugate Vacci ne, 20-valent ([id number]) 01/04/2022 Pneumococcal Polysaccharide PPV23 (Pneumovax) 09/17/2008 Seasonal [...] No 11/21/2022 documented as of this encounter Plan of Treatment Upcoming Encounters Date Type Department Care Team (Late st Contact Info) Description 08/18/2023 11:40 AM EDT Office Visit General Internal Medicine [facility] [address] [facility] [place] [address] Joselin Henao MD [address] [place] [address] 09/07/2023 1:30 PM EDT Office Visit Orthopaedics [facility] [address] [facility] [place] [address] Vineet Hodges PA-C [address] [place] [address] Health Maintenance Due Date Last Done Comments DISCUSS TOBACCO CESSATION (REFER TO SMARTSET #4299) 1960 Mammogram 09/13/2022 09/13/2021, 08/23, 03/01/2021, Additional history exists Diabetic Eye Exam 02/21/2023 02/21/2022 Albumin/Creatinine Ratio 11/04/2023 023, 12/28/2021, 02/19/2009 HbA1c 01/12/2024 07/12/2023, 01/23, 11/03/2022, Additional history exists Depression Screening 02/16/2024 02/15/2023 Diabetic Foot Exam 02/16/2024 02/15/2023, 01/04/2022 GFR 08/11/2024 08/12/2023, 08/0 04/2022, 11/03/2022, Additional history exists COLONOSCOPY-EVERY 5 YRS AGES 18-100 10/07/2026 10/07/2021, [...] this encounter Medical Devices Implanted Type Area Bell Captain Device Identifier Shelf Expiration Date Model / Serial / Lot Baseplate #4 Tritanium - [id number] Implanted:Qty: 1 on 11/21/2022 by Juan Carlos Tijerina, DO at OR [facility] Left: Knee PATRICE : ORTHOPAEDICS 08/30/2027 5536-B-400 / / [id number] Knee Triathlon Bead No Philipep L 4 - [id number] Implanted:Qty: 1 on 11/21/2022 by Juan Carlos Tijerina, DO at OR [facility] Left: Knee PATRICE : ORTHOPAEDICS 09/14/2027 5517-F-401 / / [id number] Knee X3 Ins Pos Cs Sz4 9 - [id number] Implanted:Qty: 1 on 11/21/2022 by Juan Carlos Tijerina, DO at OR [facility] Left: Knee PATRICE : ORTHOPAEDICS 09/13/2027 5531-G-[id number] / / [id number] documented as of this encounter Procedures Procedure Name Priority Date/Time Associated Diagnosis Comments CHEMISTRY-OUTSIDE Routine 08/12/2023 documented in this encounter Results * (ABNORMAL) CHEMISTRY-OUTSIDE (08/12/2023) Not all results display below - see scan for full detail OUTSIDE LAB (SEE SCANNED REPORT) Comment:ED LABS - CBCD, SED RATE,BMP, CRP, LACTIC ACID, PROCALCITONIN CREATININE-OUTSIDE LAB 0.88 0.55 - 1.02 MG/DL OUTSIDE LAB (SEE SCANNED REPORT) EGFR-OUTSIDE LAB 75 ML/MIN OUT SIDE LAB (SEE SCANNED REPORT) POTASSIUM-OUTSIDE LAB 3.4(A) 3.5 - 5.1 MMOL/L OUTSIDE LAB (SEE SCANNED REPORT) GLUCOSE-OUTSIDE LAB 113(A) 70 - 110 MG/DL OUTSIDE LAB (SEE SCANNED REPORT) HOURS FASTING OUTSID E LAB (SEE SCANNED REPORT) TRIGLYCERIDES-OUTS PARAS LAB OUTSIDE LAB (SEE SCANNED REPORT) CHOLESTEROL-OUTSID E LAB OUTSIDE LAB (SEE SCANNED REPORT) HDL-OUTSIDE LAB OUTS PARAS LAB (SEE SCANNED REPORT) CHOL/HDL RATIO-OUTSIDE LAB OUTSIDE LA B (SEE SCANNED REPORT) LDL (CALCULATED)-OUTSI DE LAB OUTSIDE LAB (SEE SCANNED REPORT) LDL (DIRECT MEASURE)-OUTSIDE LAB OUTSIDE LAB (SEE SCANNED REPORT) HEMOGLOBIN, G2H-DCRERNB LAB OUTSIDE LAB (SEE SCANNED REPORT) PHOSPHORUS-OUTSIDE LAB OUTSIDE LAB (SEE SCANNED REPORT) PTH-OUTSIDE LAB OUTS PARAS LAB (SEE SCANNED REPORT) MICROALBUMIN RATIO-OUTSIDE LAB OUTSIDE LA B (SEE SCANNED REPORT) PROTEIN, UA-OUTSIDE LAB OUTSIDE LAB (SEE SCANNED REPORT) HGB 15.5 12.0 - 16.0 G/DL OUTSIDE LAB (SEE SCANNED REPORT) 08/12/2023 History Per Patient LABORATORY OUTSIDE LAB (SEE SCANNED REPORT) documented in this encounter Advance Directives Latest Code Status [...] the patient have Health Care Power of Global Chief Experience Officer? No Full Code 10/02/2018 4:09 PM 10/04/2018 10:30 PM Question Answer Comments Discussion of Advance Directives occurred with: Not Discussed Care Teams Train Director Relationship Specialty Start Date End Date Joselin Henao MD [address] [place] [address] PCP - General Internal Medicine 08/02/21 documented as of this encounter
--- OUTSIDE RECORDS SUMMARY | 2023-08-18 03:10 | External Medical Summary | Summary of Care ---
Author Name Unknown Organization [facility] Address [address] [place] [address] Phone [phone] Care Team Providers Care Rice Drier Operator Name Role Phone Joselin Henao MD Primary Care Provider [phone] Encounter Details Date Type Department Care Team (Late st Contact Info) Description 07/20/2023 Population Health External Data Unspecified Department Allergies Active Allergy Reactions Criticality Noted Date Comments Duloxetine Hcl Neuro complications (Please comment) Medium 02/02/2010 Decreased responsiveness / lethargy - pt states EMS mistakenly thought she overdosed on it Fentanyl Nausea/vomiting Medium 12/16/2014 Pregabalin Nausea/vomiting Low 09/02/2019 Metoclopramide Hcl Psych complications High 07/09/19 16 Tardive dyskinesia Tramadol Nausea/vomiting Medium 01/08/2014 documented as of this encounter (statuses as of 07/25/2023) Medications Medication Sig Dispensed Refills Start Date [...] as of this encounter (statuses as of 07/25/2023) Active Problems Problem Noted Date Diagnosed Date [...] 08/27/2016 Biliary dyskinesia 10/27/2014 Overview: cholecystectomy in [place] Vitamin D deficiency 10/07/2014 Dyslipidemia, goal LDL below 100 01/05/2010 Fibromyalgia Gastroparesis HTN, goal below 140/80 documented as of this encounter (statuses as of 07/25/2023) Resolved Problems Problem Noted Date Diagnosed Date [...] 08/28/2017 MEDICATION USE AGREEMENT 06/30/2009 Overview: With [facility] pain management clinic. 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 [...] as of this encounter (statuses as of 07/25/2023) Immunizations Name Administration Dates Next Due COVID-19 mRNA, LNP-s, No Pre serve, 2-Dose Series ([employer]) 04/13/2021,09/19/2020,08/27/2020 COVID-19, MRNA-LNP, 23-24, P F, 30 MCG/0.3 mL, 12 YRS AND ABOVE, IM ([employer]-Comirnat) 02/15/2023 Covid-19, Mrna, Lnp-s, Pf, B ivalent, 30 Mcg, IM, 12 yrs and above (Pfizer) 03/29/2022 Hepatitis B, 20+ yrs 07/05/2022,02/21/2022,01/04 Pneumococcal Conjugate Vacci ne, 20-valent ([id number]) 01/04/2022 Pneumococcal Polysaccharide PPV23 (Pneumovax) 09/17/2008 Seasonal [...] (15 years old or older) No 11/22/19 23 Cognitive Status Response Date of Assessm ent Because of a physical, menta l, or emotional condition, do you have serious difficulty concentrating, remembering, or making decisions? (5 years old or older) No 11/21/2022 documented as of this encounter Plan of Treatment Upcoming Encounters Date Type Department Care Team (Late st Contact Info) Description 08/18/2023 11:40 AM EDT Office Visit General Internal Medicine [facility] [address] [place] [address] Joselin Henao MD [address] [facility] [address] [place] [address] 09/07/2023 1:30 PM EDT Office Visit Orthopaedics [facility] [address] [facility] [place] [address] Vineet Hodges PA-C [address] [place] [phone] Health Maintenance Due Date Last Done Comments DISCUSS TOBACCO CESSATION (REFER TO SMARTSET #3291) 1960 Mammogram 09/13/2022 09/13/2021, 08/23, 03/01/2021, Additional [...] this encounter Medical Devices Implanted Type Area Director Of Safety Device Identifier Shelf Expiration Date Model / Serial / Lot Baseplate #4 Tritanium - [id number] Implanted:Qty: 1 on 11/21/2022 by Juan Carlos Tijerina DO at OR [facility] Left: Knee PATRICE : ORTHOPAEDICS 08/30/2027 5536-B-400 / / [id number] Knee Triathlon Bead No Philippe L 4 - [id number] Implanted:Qty: 1 on 11/21/2022 by Juan Carlos Tijerina DO at OR [facility] Left: Knee PATRICE : ORTHOPAEDICS 09/14/2027 5517-F-401 / / [id number] Knee X3 Ins Pos Cs Sz4 9 - [id number] Implanted:Qty: 1 on 11/21/2022 by Juan Carlos Tijerina DO at OR [facility] Left: Knee PATRICE : ORTHOPAEDICS 09/13/2027 [id number] [...] the patient have Health Care Power of Chisel Trimmer? No Full Code 10/02/2018 4:09 PM 10/04/2018 10:30 PM Question Answer Comments Discussion of Advance Directives occurred with: Not Discussed Care Teams Rice Drier Operator Relationship Specialty Start Date End Date Joselin Henao MD PCP - General Internal Medicine 08/02/21 documented as of this encounter
--- OUTSIDE RECORDS SUMMARY | 2023-08-18 03:10 | External Medical Summary | Summary of Care ---
Author Name Unknown Organization [facility] Address [address] [place] [address] Phone [phone] Care Team Providers Care Appointment Manager Name Role Phone Joselin Henao MD Primary Care Provider [phone] Reason for Visit * Reason Comments Pain Left leg Encounter Details Date Type Department Care Team (Late st Contact Info) Description 07/12/2023 10:20 AM EDT Office Visit General Internal Medicine [facility] [address] [facility] [place] [address] Joselin Henao MD [address] [place] [address] Left sided sciatica*; Pain of left sacroiliac joint; Lumbar degenerative disc disease; Type 2 diabetes mellitus with hemoglobin A1c goal of less than 7.0% ([facility]); S/P total knee arthroplasty, left; Hx of BKA, right ([facility]); Edema of left lower leg; Tobacco use disorder Allergies Active Allergy Reactions Criticality Noted Date Comments Duloxetine Hcl Neuro complications (Please comment) Medium 02/02/2010 Decreased responsiveness / lethargy - pt states EMS mistakenly thought she overdosed on it Fentanyl Nausea/vomiting Medium 12/16/2014 Pregabalin Nausea/vomiting Low 09/02/2019 Metoclopramide Hcl Psych complications High 07/09/19 16 Tardive dyskinesia Tramadol Nausea/vomiting Medium 01/08/2014 documented as of this encounter (statuses as of 07/12/2023) Medications Medication Sig Dispensed Refills Start Date [...] 11/04/2022 OneTouch Verio In Vitro Strip (Glucose Blood)Indications:T ype 2 diabetes mellitus with hemoglobin A1c goal of less than 7.0% (HCC) Use up to 2 times a day E11.9 100 Strip 11 05/31/2022 Active Additional Information Patient not taking.Reported on 02/15/2023 OneTouch UltraSoft LancetsIndications: Type 2 diabetes mellitus with hemoglobin A1c goal [...] 0 07/08/2022 Active B-12 1000 MCG Oral TabletIndications:L ow serum vitamin B12,Gastroesophagea l reflux disease without esophagitis 1 tab daily, start 09/30/2021, restart 08/15/2022 1 Tablet 0 08/15/2022 Active Vitamin D-3 25 MCG (1000 UT) Oral CapsuleIndications: Vitamin D deficiency Take 1 Capsule by mouth in the morning. Restart 08/15/2022. 90 Capsule 1 08/15/2022 Active Valsartan 320 MG Oral Tablet (Diovan)Indications :Diabetes mellitus, new onset (HCC),HTN, goal below 140/80 TAKE BY MOUTH 1 TABLET IN THE MORNING 90 Tablet 2 12/28/2022 Active amLODIPine Besylate 5 MG Oral Tablet (Norvasc)Indication s:HTN, goal below 140/90 TAKE 1 TABLET BY MOUTH EVERY DAY 90 Tablet 2 12/28/2022 Active Ondansetron HCl 4 MG Oral TabletIndications:N ausea Take 1 Tablet by mouth every 6 hours as needed for Nausea. 30 Tablet 2 02/15/2023 Active Aspirin 81 MG Oral Tablet Delayed Release Take 1 Tablet by mouth in the morning. 100 Tablet 3 02/15/2023 Active Rybelsus 7 MG Oral Tablet (Semaglutide)Indica tions:Type 2 diabetes mellitus with hemoglobin A1c goal of less than 7.0% ([facility]),Obesity due to excess calories with serious comorbidity, unspecified classification TAKE 1 TABLET BY MOUTH FIRST THING IN THE MORNING. INC 12/12/2022. 90 Tablet 1 03/09/2023 Active Atorvastatin Calcium 40 MG Oral Tablet (Lipitor) TAKE 1 TABLET BY MOUTH IN THE MORNING. 90 Tablet 2 03/24/2023 Active Famotidine 40 MG Oral Tablet (Pepcid)Indications :Gastroesophageal reflux disease without esophagitis TAKE 1 TABLET BY MOUTH EVERY DAY 90 Tablet 1 03/24/2023 Active Esomeprazole Magnesium 40 MG Oral Capsule Delayed ReleaseIndications: Gastroesophageal reflux disease without esophagitis TAKE ONE CAPSULE BY MOUTH 1 HOUR BEFORE FIRST MEAL OF THE DAY 90 Capsule 1 03/24/2023 Active predniSONE 10 MG Oral Tablet (Deltasone)Indicati ons:Left sided sciatica,Pain of left sacroiliac joint,Lumbar degenerative disc disease Take 5 tabs for 2 days, 4 tabs for 2 days, 3 tabs for 2 days, 2 tabs for 2 days 1 tab for 2 days 30 Tablet 0 07/12/2023 Active oxyCODONE HCl 5 MG Oral Tablet (Oxy IR) Take 1 Tablet by mouth every 6 hours as needed. 0 02/11/2023 4 Discontinu ed(Medicat ion List Clean Up) documented as of this encounter (statuses as of 07/12/2023) Active Problems Problem Noted Date Diagnosed Date [...] 08/27/2016 Biliary dyskinesia 10/27/2014 Overview: cholecystectomy in [place] Vitamin D deficiency 10/07/2014 Dyslipidemia, goal LDL below 100 01/05/2010 Fibromyalgia Gastroparesis HTN, goal below 140/80 documented as of this encounter (statuses as of 07/12/2023) Resolved Problems Problem Noted Date Diagnosed Date [...] 08/28/2017 MEDICATION USE AGREEMENT 06/30/2009 Overview: With [facility] pain management clinic. 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 017 [...] as of this encounter (statuses as of 07/12/2023) Immunizations Name Administration Dates Next Due COVID-19 mRNA, LNP-s, No Pre serve, 2-Dose Series ([employer]) 04/13/2021,09/19/2020,08/27/2020 COVID-19, MRNA-LNP, 23-24, P F, 30 MCG/0.3 mL, 12 YRS AND ABOVE, IM (P[employer]ER-Comirnaty) 02/15/2023 Covid-19, Mrna, Lnp-s, Pf, B ivalent, 30 Mcg, IM, 12 yrs and above (Pfizer) 03/29/2022 Hepatitis B, 20+ yrs 07/05/2022,02/21/2022,01/04 Pneumococcal Conjugate Vacci ne, 20-valent ([id number]) 01/04/2022 Pneumococcal Polysaccharide PPV23 (Pneumovax) 09/17/2008 Seasonal [...] Date Smoking Tobacco: Every Day Cigarettes 0.1 44.1 Started: 1977 Smokeless Tobacco: Never Tobacco Cessation:Ready to Q uit: Not Asked; Counseling Given: Not Answered Comments:3 cigs/day. Alcohol Use Standard Drinks/Week Comments [...] on file documented as of this encounter Last Filed Vital Signs Vital Sign Reading Time Taken Comments Blood Pressure 128/70 07/12/2023 10:11 AM EDT Pulse 92 07/12/2023 10:11 AM EDT Temperature 36 C (96.8 F) 07/12/2023 10: 11 AM EDT Respiratory Rate 18 07/12/2023 10:1 1 AM EDT Oxygen Saturation 95% 07/12/2023 10: 11 AM EDT Inhaled Oxygen Concentration - - Weight 100.9 kg (222 lb 6.4 oz) 024 10:11 AM EDT Height - - Body Mass Index 35.9 02/03/2023 2:04 PM EDT documented in this encounter Functional Status Functional Status Response [...] No 11/21/2022 documented as of this encounter Progress Notes * Joselin Henao MD - 07/12/2023 10:30 AM EDT SUBJECTIVE: Ena Otto is a 63 year old female. Chief Complaint Patient presents with Pain Left leg Nursing Notes: Angelica Hanna LPN 07/12/23 1014 Sign at exiting of workspace Patient thinks she's having sciatica. Having pain in her left leg from buttock to ankle. Says the pain is terrible, she can't get comfortable. Had flu and covid at [facility] in [place]. Will call for dates. HPI: Patient presents today accompanied by her with symptoms of some pain in her left leg which started on Monday. Denies any falls or injuries, pain located in the left buttock, radiating tothe ankle. States severe pain, she has to stop when she is doing things as she gets a shooting pain. Denies any numbness. No bowel or bladder problems. Has been taking Tylenol without much improvement. She has also not checking her blood sugars as states one touch glucometer and supplies was not covered, we will need to check with pharmacy regarding alternative. Saw Ortho recently for postop follow-up from left knee replacement in January, has been referred for physical therapy. Wt Readings from Last 4 Encounters: 07/12/23 100.9 kg (222 lb 6.4 oz) 02/15/23 100.7 kg (222 lb) 02/03/23 104.3 kg (230 lb) 11/21/22 106.1 kg (234 lb) PROCEDURE INFORMATION: Exam: XR Lumbosacral Spine Exam date and time: 09/30/2020 12:06 PM Age: 60 years old Clinical indication: Pain in left lower leg; Additional info: Left lower extremity radicular pain TECHNIQUE: Imaging protocol: XR of the lumbosacral spine. Views: 6 or more views. Including flexion and extension views. COMPARISON: MR whole-spine^routine 07/27/2019 3:37 PM FINDINGS: Bones/joints: Multilevel moderate disc degeneration and spondylosis changes. No compression deformities.The facet joints demonstrate moderate degenerative narrowing and sclerosis. Soft tissues: Unremarkable. IMPRESSION IMPRESSION: Multilevel moderate disc degeneration. No significant change from the prior MRI. Hemoglobin AIC Results: Lab Results Component Value Date/Time HEMOGLOBIN A1C - [facility] 6.4 (H) 02/13/2023 10:51 AM HEMOGLOBIN A1C - [facility] 7.1 (H) 11/03/2022 09:48 AM HEMOGLOBIN A1C - [facility] 6.1 (H) 07/19/2022 12:09 PM Had covid and flu vac at [facility] Rec RSV vaccine after pred taper Immunization History Administered Date(s) Administered COVID-19 mRNA, LNP-s, No Preserve, 2-Dose Series (Payfirma) 08/27/2020, 09/19/2020, 04/13/2021 Covid-19, Mrna, Lnp-s, Pf, Bivalent, 30 Mcg, IM, 12 yrs and above (Pfizer) 03/29/2022 Hepatitis B, 20+ yrs 01/04/2022, 02/21/2022, 07/05/2022 Pneumococcal Conjugate Vaccine, 20-valent ([id number]) 01/04/2022 Pneumococcal Polysaccharide PPV23 (Pneumovax) 09/17/2008 Seasonal Influenza, PF, 6 M & above, IM , (FluLaval or Fluzone) 01/04/2022 Seasonal Influenza, Quadrivalent, No Preserve, IM 04/04/2018, 01/03/2020 Seasonal Influenza, Quadrivalent, No Preserve, Mdck 01/19/2019 Seasonal Influenza, Split, IIV3, With Preserve, Inj 03/10/2010, 03/09/2011 TD - Tetanus/Diptheria (ADULT) 04/30/2018 TD, Preservative Free 04/30/2018 TDAP (age 11 and older)(Adacel) 07/25/2003 Zoster Vaccine Recombinant (Shingrix) 06/01/2022, 08/23/2022 Current Outpatient Medications Medication Sig Dispense Refill TOPIRAMATE ER 50 MG PO CS24 Take 50 mg by mouth every night at bedtime. Nortriptyline HCl 75 MG Oral Capsule (Pamelor) Take 1 Capsule by mouth at bedtime. hydrOXYzine Pamoate 50 MG Oral Capsule Take 3 Capsules by mouth at bedtime. Vraylar 1.5 MG Oral Capsule (Cariprazine HCl) Take 2 Capsules by mouth. Topiramate 100 MG Oral Tablet (topAMAX) TAKE 1 TABLET BY MOUTH EVERY DAY IN THE MORNING DIRECTED Nortriptyline HCl 25 MG Oral Capsule (Pamelor) TAKE 1 CAPSULE BY MOUTH AT BEDTIME DIRECTED TAKE ALONG WITH YOUR 75MG CAPSULE AT BED. B-12 1000 MCG Oral Tablet 1 tab daily, start 09/30/2021, restart 08/15/2022 1 Tablet 0 Vitamin D-3 25 MCG (1000 UT) Oral Capsule Take 1 Capsule by mouth in the morning. Restart 08/15/2022. 90 Capsule 1 Valsartan 320 MG Oral Tablet (Diovan) TAKE BY MOUTH 1 TABLET IN THE MORNING 90 Tablet 2 amLODIPine Besylate 5 MG Oral Tablet (Norvasc) TAKE 1 TABLET BY MOUTH EVERY DAY 90 Tablet 2 Ondansetron HCl 4 MG Oral Tablet Take 1 Tablet by mouth every 6 hours as needed for Nausea. 30 Tablet 2 Aspirin 81 MG Oral Tablet Delayed Release Take 1 Tablet by mouth in the morning. 100 Tablet 3 Rybelsus 7 MG Oral Tablet (Semaglutide) TAKE 1 TABLET BY MOUTH FIRST THING IN THE MORNING. INC 12/12/2022. 90 Tablet 1 Atorvastatin Calcium 40 MG Oral Tablet (Lipitor) TAKE 1 TABLET BY MOUTH IN THE MORNING. 90 Tablet 2 Famotidine 40 MG Oral Tablet (Pepcid) TAKE 1 TABLET BY MOUTH EVERY DAY 90 Tablet 1 Esomeprazole Magnesium 40 MG Oral Capsule Delayed Release TAKE ONE CAPSULE BY MOUTH 1 HOUR BEFORE FIRST MEAL OF THE DAY 90 Capsule 1 OneTouch Verio w/Device Kit Use up to 2 times a day E11.9 (Patient not taking: Reported on 11/04/2022) 1 Kit 0 OneTouch Verio In Vitro Strip (Glucose Blood) Use up to 2 times a day E11.9 (Patient not taking: Reported on 02/15/2023) 100 Strip 11 OneTouch UltraSoft Lancets Test sugar upto 2 times daily as directed-E 11.9 (Patient not taking: Reported on 02/15/2023) 100 Each 5 No current facility-administered medications for this visit. Review of patient's allergies indicates: Allergen Reactions Reglan [Metoclopramide Hcl] Psych complications Tardive dyskinesia Cymbalta [Duloxetine Hcl] Neuro complications (Please comment) Decreased responsiveness / lethargy - pt states EMS mistakenly thought she overdosed on it Fentanyl Nausea/vomiting Tramadol Nausea/vomiting Lyrica [Pregabalin] Nausea/vomiting OBJECTIVE: BP 128/70 | Pulse 92 | Temp 36 C (96.8 F) (Tympanic) | Resp 18 | Wt 100.9 kg (222 lb 6.4 oz) | SpO2 95% | BMI 35.90 kg/m | BSA 2.17 m PHYSICAL EXAM: General: alert, healthy, no distress, well nourished and well developed Heart: regular rate & rhythm, no gallops /murmurs. Lungs: lungs clear to auscultation-dec bs Extremities: scar left knee, brawny edema left leg, no calf tenderness Back: Curvature -loss lordosis, scar LS area -stimulator removal ; no CVA/spine,left SI joint tenderness. Mild paraspinous tenderness, no paraspinous spasm Neuro: alert, gait normal ,motor normal, gross sensation normal,reflexes normal and symmetric, SLR neg Rt, + left ASSESSMENT/PLAN: Left sided sciatica (Primary) - predniSONE 10 MG Oral Tablet (Deltasone); Take 5 tabs for 2 days, 4 tabs for 2 days, 3 tabs for 2days, 2 tabs for 2 days 1 tab for 2 days Pain of left sacroiliac joint - predniSONE 10 MG Oral Tablet (Deltasone); Take 5 tabs for 2 days, 4 tabs for 2 days, 3 tabs for 2days, 2 tabs for 2 days 1 tab for 2 days Lumbar degenerative disc disease - predniSONE 10 MG Oral Tablet (Deltasone); Take 5 tabs for 2 days, 4 tabs for 2 days, 3 tabs for 2days, 2 tabs for 2 days 1 tab for 2 days Type 2 diabetes mellitus with hemoglobin A1c goal of less than 7.0% ([facility]) - HEMOGLOBIN A1C, POINT OF CARE--5.6 S/P total knee arthroplasty, left Started PT per ortho Hx of BKA, right (HCC) Edema of left lower leg --resume you using Tubigrip socks to the left leg during the day and if resting try to keep the legelevated as much as possible. Tobacco use disorder Advised smoking cessation. Refuses PFT To get RSV vac after pred therapy Repeat Fasting labs 2-5 days before next Appointment. Follow-up: Return if symptoms worsen or fail to improve. | Check-out note: As danielle in July, labs prior (This note was completed using the dictation program Fluency Direct. As such, there may be misspellings, word substitutions, or other variations that should not change the essence of the clinical content of this encounter note. If there is need for further clarification, please direct questions to the provider listed above.) Patient and / caregiver verbalize understanding of above instructions and agrees with plan of care. Joselin Henao MD 07/12/2023 documented in this encounter Nursing Notes * Angelica Hanna LPN - 07/12/2023 10:09 AM EDT Patient thinks she's having sciatica. Having pain in her left leg from buttock to ankle. Says the pain is terrible, she can't get comfortable. Had flu and covid at [facility] in [place]. Will call for dates. documented in this encounter Plan of Treatment Upcoming Encounters Date Type Department Care Team (Late st Contact Info) Description 08/18/2023 11:40 AM EDT Office Visit General Internal Medicine [facility] [address] [facility] [place] [address] Joselin Henao MD [address] [facility] [place] [address] 09/07/2023 1:30 PM EDT Office Visit Orthopaedics [facility] [address] [facility] [place] [address] Vineet Hodges PA-C [address] [place] [address] Health Maintenance Due Date Last Done Comments DISCUSS TOBACCO CESSATION (REFER TO SMARTSET #0863) 1960 Mammogram 09/13/2022 09/13/2021, 08/23, 03/01/2021, Additional [...] Medical Devices Implanted Type Area Director Of Application Development Device Identifier Shelf Expiration Date Model / Serial / Lot Baseplate #4 Tritanium - [id number] Implanted:Qty: 1 on 11/21/2022 by Juan Carlos Tijerina, DO at OR [facility] Left: Knee PATRICE : ORTHOPAEDICS 08/30/2027 5536-B-400 / / [id number] Knee Triathlon Bead No Philippe L 4 - [id number] Implanted:Qty: 1 on 11/21/2022 by Juan Carlos Tijerina, DO at OR [facility] Left: Knee PATRICE : ORTHOPAEDICS 09/14/2027 5517-F-401 / / [id number] Knee X3 Ins Pos Cs Sz4 9 - [id number] Implanted:Qty: 1 on 11/21/2022 by Juan Carlos Tijerina, DO at OR [facility] Left: Knee PATRICE : ORTHOPAEDICS 09/13/2027 5531-G-409 [id number] / / [id number] documented as of this encounter Procedures Procedure Name Priority Date/Time Associated Diagnosis Comments HEMOGLOBIN A1C, POINT OF CARE Routine 07/12/2023 10:08 AM EDT Type 2 diabetes mellitus with hemoglobin A1c goal of less than 7.0% (HCC) documented in this encounter Results * HEMOGLOBIN A1C, POINT OF CARE (07/12/2023 10:08 AM EDT) Hemoglobin A1c 5.6 4.0 - 5.6 % 07/12/2023 11:04 AM EDT [facility] 56[facility]02 Blood 07/12/2023 10:0 8 AM EDT 07/12/2023 11:04 AM EDT Joselin Henao MD LAB POINT OF CARE TE ST DOCKED DEVICE UNSOLICITED RESULTS [facility] [address] [place] [address] documented in this encounter Visit Diagnoses Diagnosis Left sided sciatica- Primary Sciatica Pain of left sacroiliac joint Disorders of sacrum Lumbar degenerative disc disease Degeneration of lumbar or lumbosacral intervertebral disc Type 2 diabetes mellitus with hemoglobin A1c goal of less than 7.0% (HCC) S/P total knee arthroplasty, left Hx of BKA, right (HCC) Edema of left lower leg Tobacco use disorder documented in this encounter Advance Directives Latest [...] the patient have Health Care Power of Mussel Opener? No Full Code 10/02/2018 4:09 PM 10/04/2018 10:30 PM Question Answer Comments Discussion of Advance Directives occurred with: Not Discussed Care Teams Appointment Manager Relationship Specialty Start Date End Date Joselin Henao MD PCP - General Internal Medicine 08/02/21 documented as of this encounter"
--- OUTSIDE RECORDS SUMMARY | 2023-08-18 03:10 | External Medical Summary | Summary of Care ---
Author Name Unknown Organization [facility] Address [address] [place] [address] Phone [phone] Care Team Providers Care Dairy Worker Name Role Phone Joselin Henao MD Primary Care Provider [phone] Encounter Details Date Type Department Care Team (Late st Contact Info) Description 08/12/2023 Result Scan Unspecified Department <No scans attached> Allergies Active Allergy Reactions Criticality Noted Date Comments Duloxetine Hcl Neuro complications (Please comment) Medium 02/02/2010 Decreased responsiveness / lethargy - pt states EMS mistakenly thought she overdosed on it Fentanyl Nausea/vomiting Medium 12/16/2014 Pregabalin Nausea/vomiting Low 09/02/2019 Metoclopramide Hcl Psych complications High 07/09/19 16 Tardive dyskinesia Tramadol Nausea/vomiting Medium 01/08/2014 documented as of this encounter (statuses as of 08/14/2023) Medications Medication Sig Dispensed Refills Start Date [...] hemoglobin A1c goal of less than 7.0% ([facility]) Use up to 2 times a day [...] as of this encounter (statuses as of 08/14/2023) Active Problems Problem Noted Date Diagnosed Date [...] 08/27/2016 Biliary dyskinesia 10/27/2014 Overview: cholecystectomy in [place] Vitamin D deficiency 10/07/2014 Dyslipidemia, goal LDL below 100 01/05/2010 Fibromyalgia Gastroparesis HTN, goal below 140/80 documented as of this encounter (statuses as of 08/14/2023) Resolved Problems Problem Noted Date Diagnosed Date [...] MEDICATION USE AGREEMENT 06/30/2009 Overview: With [facility] pain management clinic. 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 [...] as of this encounter (statuses as of 08/14/2023) Immunizations Name Administration Dates Next Due COVID-19 mRNA, LNP-s, No Pre serve, 2-Dose Series (CircuitHub) 04/13/2021,09/19/2020,08/27/2020 COVID-19, MRNA-LNP, 23-24, P F, 30 MCG/0.3 mL, 12 YRS AND ABOVE, IM [facility] 02/15/2023 Covid-19, Mrna, Lnp-s, Pf, B ivalent, 30 Mcg, IM, 12 yrs and above (Pfizer) 03/29/2022 Hepatitis B, 20+ yrs 07/05/2022,02/21/2022,01/04 Pneumococcal Conjugate Vacci ne, 20-valent ([id number]) 01/04/2022 Pneumococcal Polysaccharide PPV23 (Pneumovax) 09/17/2008 Seasonal [...] AM EDT [facility] [address] [place] [address] Joselin Henao MD [address] [place] [address] 09/07/2023 1:30 PM EDT Office Visit Orthopaedics [facility] [address] [facility] [place] [address] Vineet Hodges PA-C [address] [place] [...] this encounter Medical Devices Implanted Type Area Hand Spring Repairer Helper Device Identifier Shelf Expiration Date Model / Serial / Lot Baseplate #4 Tritanium - [id number] Implanted:Qty: 1 on 11/21/2022 by Juan Carlos Tijerina DO at OR [facility] Left: Knee PATRICE : ORTHOPAEDICS 08/30/2027 5536-B-400 / / [id number] Knee Triathlon Bead No Philippe L 4 - [id number] Implanted:Qty: 1 on 11/21/2022 by Juan Carlos Tijerina DO at OR [facility] Left: Knee PATRICE : ORTHOPAEDICS 09/14/2027 5517-F-401 / / [id number] Knee X3 Ins Pos Cs Sz4 9 - [id number] Implanted:Qty: 1 on 11/21/2022 by Juan Carlos Tijerina DO at OR [facility] Left: Knee PATRICE : ORTHOPAEDICS 09/13/2027 5531-G-409 [id number] / / [id number] documented as of this encounter Procedures Procedure Name Priority Date/Time Associated Diagnosis Comments RADIOLOGY SCANNED RESULT 08/12/2023 documented in this encounter Results * RADIOLOGY SCANNED RESULT (08/12/2023) 08/12/2023 No Physician Data Unknown DIAGNOSTIC RAD IOLOGY SERVICES documented in this encounter Advance Directives Latest [...] the patient have Health Care Power of Communications Controller? No Full Code 10/02/2018 4:09 PM 10/04/2018 10:30 PM Question Answer Comments Discussion of Advance Directives occurred with: Not Discussed Care Teams Dairy Worker Relationship Specialty Start Date End Date Joselin Henao MD [address] [place] [address] PCP - General Internal Medicine 08/02/21 documented as of this encounter
--- OUTSIDE RECORDS SUMMARY | 2023-08-18 03:11 | External Medical Summary | Summary of Care ---
Author Name Unknown Organization [facility] Address [address] [place] [facility] [place] [address] Phone [phone] Care Team Providers Care Iridologist Name Role Phone Joselin Henao MD Primary Care Provider [phone] Encounter Details Date Type Department Care Team (Late st Contact Info) Description 06/13/2023 Patient Reported Data Patient Survey Ortho [facility] Allergies Active Allergy Reactions Criticality Noted Date Comments Duloxetine Hcl Neuro complications (Please comment) Medium 02/02/2010 Decreased responsiveness / lethargy - pt states EMS mistakenly thought she overdosed on it Fentanyl Nausea/vomiting Medium 12/16/2014 Pregabalin Nausea/vomiting Low 09/02/2019 Metoclopramide Hcl Psych complications High 07/09/19 16 Tardive dyskinesia Tramadol Nausea/vomiting Medium 01/08/2014 documented as of this encounter (statuses as of 06/13/2023) Medications Medication Sig Dispensed Refills Start Date [...] for Nausea. 30 Tablet 2 02/15/2023 Active oxyCODONE HCl 5 MG Oral Tablet (Oxy IR) Take 1 Tablet by mouth every 6 hours as needed. 0 02/11/2023 Active Aspirin 81 MG Oral Tablet Delayed Release Take 1 Tablet by mouth in the morning. 100 Tablet 3 02/15/2023 Active Rybelsus 7 MG Oral Tablet (Semaglutide)Indicat ions:Type 2 diabetes mellitus with hemoglobin A1c goal of less than 7.0% ([facility]),Obesity due to excess calories with serious comorbidity, [...] THE DAY 90 Capsule 1 03/24/2023 Active documented as of this encounter (statuses as of 06/13/2023) Active Problems Problem Noted Date Diagnosed Date [...] 08/27/2016 Biliary dyskinesia 10/27/2014 Overview: cholecystectomy in [place] Vitamin D deficiency 10/07/2014 Dyslipidemia, goal LDL below 100 01/05/2010 Fibromyalgia Gastroparesis HTN, goal below 140/80 documented as of this encounter (statuses as of 06/13/2023) Resolved Problems Problem Noted Date Diagnosed Date [...] MEDICATION USE AGREEMENT 06/30/2009 Overview: With [facility] pain management clinic. 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 [...] as of this encounter (statuses as of 06/13/2023) Immunizations Name Administration Dates Next Due COVID-19 mRNA, LNP-s, No Pre serve, 2-Dose Series (Loftware) 04/13/2021,09/19/2020,08/27/2020 Covid-19, Mrna, Lnp-s, Pf, B ivalent, 30 Mcg, IM, 12 yrs and above (Loftware) 03/29/2022 Hepatitis B, 20+ yrs 07/05/2022,02/21/2022,01/04 Pneumococcal Conjugate Vacci ne, 20-valent ([email or web address]) 01/04/2022 Pneumococcal Polysaccharide PPV23 (Pneumovax) 09/17/2008 Seasonal Influenza, PF, 6 M & above, IM , (FluLaval or Fluzone) 01/04/2022 Seasonal Influenza, Quadriva lent, No Preserve, IM 01/03/2020,04/04/2018 Seasonal Influenza, Quadriva lent, No Preserve, Mdck 01/19/2019 Seasonal Influenza, Split, I IV3, With Preserve, Inj 03/09/2011,03/10/2010 TD - Tetanus/Diptheria (ADULT) 04/30/2018 TD, Preservative Free 04/30/2018 TDAP (age 11 and older)(Adacel) 07/25/2003 Zoster Vaccine Recombinant (Shingrix) 08/23/2022 ,06/01/2022 documented as of this encounter Social History Tobacco Use Types Packs/Day Years Used Date Smoking Tobacco: Former Cigarettes 0.1 44 S tarted: 1979 Smokeless Tobacco: Never Comments:3 cigs/day. Alcohol [...] Care Team (Late st Contact Info) Description 07/06/2023 2:30 PM EDT Office Visit Orthopaedics [facility] [address] [place] [address] Vineet Hodges PA-C [address] [place] [address] [place] [address] 08/18/2023 11:40 AM EDT Office Visit General Internal Medicine [facility] [address] [facility] [place] [address] Joselin [facility] MD [address] [facility] [address] Health Maintenance Due Date Last Done Comments Mammogram 09/13/2022 09/13/2021, 08/23, 03/01/2021, Additional history exists COVID-19 Vaccine ( season) 2022 03/29/2022, 04/13/2021, 09/19/2020, Additional history exists Influenza Vaccine (FLU shot) (#1) 2022 01/04/2022, 01/03/2020, 01/19/2019, Additional history exists Diabetic Eye Exam 02/21/2023 02/21/2022 HbA1c 08/15/2023 02/13/2023, 10/22, 07/19/2022, Additional history exists Albumin/Creatinine Ratio 11/04/2023 023, 12/28/2021, 02/19/2009 GFR 11/23/2023 11/22/2022, 10/22, 07/19/2022, Additional history exists Depression Screening 02/16/2024 02/15/2023 [...] 01/24, 01/04/2022 Zoster Vaccines Completed 08/23/2022, 06/01/2022 GARDASIL-HPV IMMUNIZATION SERIES Aged Out No longer eligible based on patient's age to complete this topic MENINGOCOCCAL (MENACTRA/MENVEO) Aged Out No longer eligible based on patient's age to complete this topic documented as of this encounter Medical Devices Implanted Type Area Manager Management Device Identifier Shelf Expiration Date Model / Serial / Lot Baseplate #4 Tritanium - [id number] Implanted:Qty: 1 on 11/21/2022 by Juan Carlos Tijerina, DO at OR [facility] Left: Knee PATRICE : ORTHOPAEDICS 08/30/2027 5536-B-400 / / [id number] Knee Triathlon Bead No Philippe L 4 - [id number] Implanted:Qty: 1 on 11/21/2022 by Juan Carlos Tijerina, DO at OR [facility] Left: Knee PATRICE : ORTHOPAEDICS 09/14/2027 5517-F-401 / / [id number] Knee X3 Ins Pos Cs Sz4 9 - [id number] Implanted:Qty: 1 on 11/21/2022 by Juan Carlos Tijerina, DO at OR [facility] Left: Knee PATRICE : ORTHOPAEDICS 09/13/2027 5531-G-409 [...] the patient have Health Care Power of Webfed Offset Press Operator? No Full Code 10/02/2018 4:09 PM 10/04/2018 10:30 PM Question Answer Comments Discussion of Advance Directives occurred with: Not Discussed Care Teams Iridologist Relationship Specialty Start Date End Date Joselin Henao MD PCP - General Internal Medicine 08/02/21 documented as of this encounter
--- OUTSIDE RECORDS SUMMARY | 2023-08-18 03:11 | External Medical Summary ---
Author Name Unknown Address Unknown Organization K09:[facility] [address] [place] [address] Laboratory Report Ordering Provider Test Date Status JULIETA GAXIOLA 07/12/2023 10:08:37 Final Observation Date Value Abnormality Reference (Units ) Status HbA1C 07/12/2023 10:08:37 5.6 4.0-5.6 (% ) Final Performing Location [facility] [place] [address]
--- OUTSIDE RECORDS SUMMARY | 2023-08-18 03:11 | External Medical Summary | Summary of Care ---
Author Name Unknown Organization [facility] Address [address] [place] [facility] [place] [address] Phone [phone] Care Team Providers Care Inpatient Coder Name Role Phone Joselin Henao MD Primary Care Provider [phone] Encounter Details Date Type Department Care Team [...] goal of less than 7.0% ([facility]),Obesity due to excess calories with serious comorbidity, [...] 08/27/2016 Biliary dyskinesia 10/27/2014 Overview: cholecystectomy in [place] Vitamin D deficiency 10/07/2014 Dyslipidemia, goal LDL [...] 08/28/2017 MEDICATION USE AGREEMENT 06/30/2009 Overview: With [facility] pain management clinic. 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 017 [...] mRNA, LNP-s, No Pre serve, 2-Dose Series (SnapYeti) 04/13/2021,09/19/2020,08/27/2020 Covid-19, Mrna, Lnp-s, Pf, B ivalent, 30 Mcg, IM, 12 yrs and above (SnapYeti) 03/29/2022 Hepatitis B, 20+ yrs 07/05/2022,02/21/2022,01/04 Pneumococcal Conjugate Vacci ne, 20-valent ([id number]) 01/04/2022 Pneumococcal Polysaccharide PPV23 (Pneumovax) 09/17/2008 Seasonal [...] 07/06/2023 2:30 PM EDT Office Visit Orthopaedics [facility] [address] [place] [address] Vineet Hodges PA-C [address] [place] [place] [address] 08/18/2023 11:40 AM EDT Office Visit General Internal Medicine [facility] [address] [facility] [place] [address] Joselin Henao MD [address] [facility] [address] Health Maintenance Due Date Last Done Comments [...] this encounter Medical Devices Implanted Type Area Gizzard Puller Device Identifier Shelf Expiration Date Model / Serial / Lot Baseplate #4 Tritanium - [id number] Implanted:Qty: 1 on 11/21/2022 by Juan Carlos Tijerina, DO at OR [facility] Left: Knee PATRICE : ORTHOPAEDICS 08/30/2027 5536-B-400 / / [id number] Knee Triathlon Bead No Philippe L 4 - [id number] Implanted:Qty: 1 on 11/21/2022 by Juan Carlos Tijerina, DO at OR [facility] Left: Knee PATRICE : ORTHOPAEDICS 09/14/2027 5517-F-401 / / [id number] Knee X3 Ins Pos Cs Sz4 9 - [id number] Implanted:Qty: 1 on 11/21/2022 by Juan Carlos Tijerina, DO at OR [facility] Left: Knee PATRICE : ORTHOPAEDICS 09/13/2027 5531-G-[id number] [...] the patient have Health Care Power of Buckle Stringer? No Full Code 10/02/2018 4:09 PM 10/04/2018 10:30 PM Question Answer Comments Discussion of Advance Directives occurred with: Not Discussed Care Teams Inpatient Coder Relationship Specialty Start Date End Date Joselin Henao MD PCP - General Internal Medicine 08/02/21 documented as of this encounter
--- OUTSIDE RECORDS SUMMARY | 2023-08-18 03:11 | External Medical Summary | Summary of Care ---
Author Name Unknown Organization [facility] Address [address] [address] Phone [phone] Care Team Providers Care Electrical Systems Design Engineer Name Role Phone Joselin Henao MD Primary Care Provider [phone] Reason for Referral * Evaluate & Treat - Unlimited Visits (Within 10 days (routine)) - Authorized Specialty Diagnoses / Procedures Referred By Tiago guzman Referred To Contact Physical Therapy / Physical Medicine And Rehab Diagnoses Status post total left knee replacement Chronic pain of left knee Vineet Hodges PA-C [address] [place] [address] Referral ID Status Reason Start Date Expiration Date Visits Requested Visits Authorized [id number] Authorized Specialty Services Required 07/06/[phone] Question Answer Referral Priority Within 10 days (routine) Where should this appointment be scheduled? [facility] Comments Left knee rehabilitation status post total left knee arthroplasty. Focus on range of motion, pain relief, and modalities as indicated. Reason for Visit * Reason Comments Post-Op L knee Encounter Details Date Type Department Care Team (Late st Contact Info) Description 07/06/2023 2:30 PM EDT Office Visit Orthopaedics [address] [place] [address] Vineet Hodges PA-C [address] [place] [phone] Status post total left knee replacement*; Chronic pain of left knee Allergies Active Allergy Reactions Criticality Noted Date Comments Duloxetine Hcl Neuro complications (Please comment) Medium 02/02/2010 Decreased responsiveness / lethargy - pt states EMS mistakenly thought she overdosed on it Fentanyl Nausea/vomiting Medium 12/16/2014 Pregabalin Nausea/vomiting Low 09/02/2019 Metoclopramide Hcl Psych complications High 07/09/19 16 Tardive dyskinesia Tramadol Nausea/vomiting Medium 01/08/2014 documented as of this encounter (statuses as of 07/06/2023) Medications Medication Sig Dispensed Refills Start Date [...] hemoglobin A1c goal of less than 7.0% ([facility]),Obesity due to excess calories with serious [...] as of this encounter (statuses as of 07/06/2023) Active Problems Problem Noted Date Diagnosed Date [...] 08/27/2016 Biliary dyskinesia 10/27/2014 Overview: cholecystectomy in [place] Vitamin D deficiency 10/07/2014 Dyslipidemia, goal LDL below 100 01/05/2010 Fibromyalgia Gastroparesis HTN, goal below 140/80 documented as of this encounter (statuses as of 07/06/2023) Resolved Problems Problem Noted Date Diagnosed Date [...] 08/28/2017 MEDICATION USE AGREEMENT 06/30/2009 Overview: With [facility] pain management clinic. 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 [...] as of this encounter (statuses as of 07/06/2023) Immunizations Name Administration Dates Next Due COVID-19 mRNA, LNP-s, No Pre serve, 2-Dose Series (Pfizer) 04/13/2021,09/19/2020,08/27/2020 Covid-19, Mrna, Lnp-s, Pf, B ivalent, 30 Mcg, IM, 12 yrs and above (Pfizer) 03/29/2022 Hepatitis B, 20+ yrs 07/05/2022,02/21/2022,01/04 Pneumococcal Conjugate Vacci ne, 20-valent ([id number]) 01/04/2022 Pneumococcal Polysaccharide PPV23 (Pneumovax) 09/17/2008 Seasonal [...] Used Date Smoking Tobacco: Former Cigarettes 0.1 44.1 S tarted: 1979 Smokeless Tobacco: Never Comments:3 [...] as of this encounter Progress Notes * Vineet Hodges PA-C - 07/06/2023 2:13 PM EDT ORTHOPAEDIC SURGERY - Clinic Note SUBJECTIVE: Ena Otto is a 63 year old female. Chief Complaint Patient presents with Post-Op L knee HPI: Ena is a pleasant 63-year-old female who presents to the clinic today for re-evaluation roughly 7 and half months removed from total left knee arthroplasty. She has been evaluated subsequentlyfor new onset pain and stiffness in the knee shortly after discharge from formal physical therapy fo llowing her procedure. Workup for intra-articular pathology since that time was benign. Patient hassince restarted and has been in formal physical therapy for roughly 3 sessions. She reports that range of motion exercises they employed physical therapy have been particularly helpful for her pain. She reports continued soreness which she localizes to the posterior aspect of the knee as well as the anterior aspect. She is tolerating ambulation, often with assistance for stability. No reported fevers, chills, or night sweats. Review of Systems: Constitutional ROS: No fevers, sweats, or chills Cardiovascular ROS: No chest pain Respiratory ROS: No breathing difficulty Gastrointestinal ROS: No abdominal pain Musculoskeletal/Extremities ROS: Left knee pain Neurologic ROS: No numbness or tingling Review of patient's allergies indicates: Allergen Reactions Reglan [Metoclopramide Hcl] Psych complications Tardive dyskinesia Cymbalta [Duloxetine Hcl] Neuro complications (Please comment) Decreased responsiveness / lethargy - pt states EMS mistakenly thought she overdosed on it Fentanyl Nausea/vomiting Tramadol Nausea/vomiting Lyrica [Pregabalin] Nausea/vomiting Current Outpatient Medications Medication Sig Dispense Refill TOPIRAMATE ER 50 MG PO CS24 Take 50 mg by mouth every night at bedtime. Nortriptyline HCl 75 MG Oral Capsule (Pamelor) Take 1 Capsule by mouth at bedtime. hydrOXYzine Pamoate 50 MG Oral Capsule Take 3 Capsules by mouth at bedtime. Vraylar 1.5 MG Oral Capsule (Cariprazine HCl) Take 2 Capsules by mouth. [email or web address] Verio w/Device Kit Use up to 2 times a day E11.9 (Patient not taking: Reported on 11/04/2022) 1 Kit 0 OneTouch Verio In Vitro Strip (Glucose Blood) Use up to 2 times a day E11.9 (Patient not taking: Reported on 02/15/2023) 100 Strip 11 iSSimpleTouch UltraSoft Lancets Test sugar upto 2 times daily as directed-E 11.9 (Patient not taking: Reported on 02/15/2023) 100 Each 5 Topiramate 100 MG Oral Tablet (topAMAX) TAKE [...] as needed for Nausea. 30 Tablet 2 oxyCODONE HCl 5 MG Oral Tablet (Oxy IR) Take 1 Tablet by mouth every 6 hours as needed. Aspirin 81 MG Oral Tablet Delayed Release [...] MEAL OF THE DAY 90 Capsule 1 No current facility-administered medications for this visit. 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[facility]) F60.7 Type 2 diabetes mellitus with hemoglobin A1c goal of less than 7.0% ([facility]) E11.9 S/P total knee arthroplasty, left Z96.652 Past Medical History: Diagnosis Date Abdominal pain 08/25/2014 acute Benign neoplasm of colon 07/03/2012 COLONOSCOPY FLEXIBLE PROXIMAL DIAGNOSTIC performed by Sage Sanchez MD at [facility]COPY [facility], HYPERPLASTIC POLYPS REPEAT COLONOSCOPY IN 5 YEAR Biliary dyskinesia 10/27/2014 cholecystectomy in [place] Bipolar 1 disorder ([facility]) BMI 38.0-38.9,adult Body mass index (BMI) of 40.0 to 44.9 in adult ([facility]) 01/23/2017 bmi 30Per Obesity protocol #1 Cystitis 01/09/2019 >100,000 E coli resistant to ampicillin Depression with anxiety Dr. Serna Depressive disorder, not elsewhere classified with history suicide attempts, sees Dr. Mittal DM2 (diabetes mellitus, type 2) ([facility]) Fibromyalgia Gastroparesis HTN, goal below 140/90 Hx of BKA, right ([facility]) 11/27/2018 Hypothyroidism Migraine without aura Mixed dyslipidemia Motion sickness Myalgia and myositis OA (osteoarthritis) OTHER 10/26/2006 Self inflicted wrist lacerations 2006 PTSD (post-traumatic stress disorder) Tobacco abuse Past Surgical History: Procedure Laterality Date ABD/PELVIS CT W/ IV AND W/ PO CONTRAST 01/07/08 left lower lobe pulmonary nodule, otherwise normal AMPUTATION OF LOWER LEG Right 10/02/2018 AMPUTATION LEG THROUGH TIBIA AND FIBULA performed by Davon Li MD at [place] [facility] [place] ANESTHESIA FOR CAT OR MRI SCAN N/A 07/27/2019 ANESTHESIA FOR NON-INVASIVE IMAGING (MRI OR CT) performed by [facility] at [place] [facility] [place] ARTHROPLASTY KNEE TOTAL Left 11/21/2022 ROBOTIC ARTHROPLASTY KNEE TOTAL performed by Juan Carlos Tijerina DO at OR [facility] COLONOSCOPY 2003 internal hemorrhoids COLONOSCOPY, DIAGNOSTIC (RECTUM) 07/03/2012 COLONOSCOPY FLEXIBLE PROXIMAL DIAGNOSTIC performed by Sage Sanchez MD at ENDOSCOPY [facility], HYPERPLASTIC POLYPS REPEAT COLONOSCOPY IN 5 YEARS COLONOSCOPY, DIAGNOSTIC (RECTUM) 01/17/2014 benign polyp, repeat 5 yrs/COLONOSCOPY FLEXIBLE PROXIMAL DIAGNOSTIC performed by Angus Trivedi MD at ENDOSCOPY [facility] EGD PREP 04/08/15 mild gastritis on biopsy, Dr Goldsmith EGD, FLEXIBLE, DIAGNOSTIC 10/09/2015 normal/[facility] EGD, FLEXIBLE, SUBMUCOSAL INJ. 04/09/08 botox inj EGD, W/ENDOSCOPIC US 10/09/2015 normal/[facility] ELECTROCONVUL THERAPY ECT-MULT 2002, [facility] EXPLORATION OF MAXILLARY SINUS 1986 Sinus Surgery FEEDING TUBE 12/2008 - At [facility] INCISIONAL HERNIA REPAIR, LAP, RECURRENT 10/14/2012 Dr. Apple KNEE ARTHROSCOPY/ARTHROPLASTY Left 07/09/2021 ARTHROSCOPY KNEE ABRASION WITH MICROFRACTURE performed by Juan Carlos Tijerina DO at [facility] KNEE ARTHROSCOPY/DEBRIDEMENT Left 07/09/2021 ARTHROSCOPY KNEE SURGICAL DEBRIDEMENT SHAVING performed by Juan Carlos Tijerina DO at [facility] KNEE ARTHROSCOPY/MENISCECTOMY Left 03/14/2016 Dr. Vaughn MAMMOGRAM - 1 BREAST 03/09/06 Birad code 3/f/u at 6 months/probable benign, will redo at bilateral exam MAMMOGRAM - 1 BREAST 10/13/06 birad code 3/fup in 6 months MAMMOGRAM - 1 BREAST 05/23/2007 birad code 2,resume yearly mammogrmas MAMMOGRAM BREAST NEEDLE BIOPSY CORE RIGHT Right 07/03/2015 Fibrocystic changes with numerous luminal calcifications MISCELLANEOUS ORDER ([facility] ONLY) 1986,1988 ovaries removed MISCELLANEOUS ORDER ([facility] ONLY) left foot surgery MISCELLANEOUS ORDER ([facility] ONLY) 2010 gastrostomy opening requires surgical closure NM GASTRIC EMPTYING STUDY SOLID 01/06/08 prolonged gastric emptying REMOVE GALLBLADDER 10/27/2014 [facility] Dr. Thorne REMOVE TONSILS & ADENOIDS, UNDER 12 age 11 T & A, age<12 TOTAL ABD HYSTERECTOMY W/WO REMOVAL OF TUBE(S) 1984 just uterus Social History Tobacco Use Smoking status: Former Current packs/day: 0.10 Average packs/day: 0.1 packs/day for 44.1 years (4.4 ttl pk-yrs) Types: Cigarettes Start date: 1979 Smokeless tobacco: Never Tobacco comments: 3 cigs/day. Vaping Use Vaping Use: Never used Substance Use Topics Alcohol use: No Drug use: Not Currently Frequency: 2.0 times per week Types: Marijuana Family history: Noncontributory OBJECTIVE: Diagnostic Testing: Updated radiographs of the left knee obtained in the office today were viewed, independently interpreted, compared with previous, and demonstrate a stable total left knee arthroplasty prosthesis evidence of hardware complication or loosening. Vital Signs: There were no vitals taken for this visit. Physical Exam: General: Alert and oriented x3 female, in no acute distress, appears currently stated age, appears well nourished, and converses appropriately. Psych: Mood and affect pleasant, cooperative, and without any positive/concerning findings. HEENT: Head is atraumatic, normocephalic, eyes are equal and round and without appreciated scleral injection, oral and nasal cavities are patent without obvious exudate. Respiratory: Patient's breathing is unlabored. Skin: Generally pink, warm and dry without gross visible diaphoresis, rash, erythema, ecchymosis, breakdown, or visible trauma. Musculoskeletal: Examination of the left knee reveals a well-healed surgical scar without evidence of complication. There is no redness or significant swelling appreciated. No palpable effusion today. There is tenderness to palpation in the posterior aspect of the knee as well as over the patellofemoral articulation. There is some tenderness to palpation also over the lateral joint line. She is able to demonstrate a straight leg raise with good quad strength to roughly 10 shy of full extension. Passively she can achieve significantly further. She is able to range the knee to roughly 110 flexion. Collateral stability is intact. Calf is supple and nontender. She is distally neurovascularly intact. Gait assessment is minimally antalgic and protective left lower extremity. ASSESSMENT: Status post total left knee replacement (Primary) - XR KNEE 3 VIEWS - PHYSICAL THERAPY REFERRAL OP Chronic pain of left knee - PHYSICAL THERAPY REFERRAL OP Follow Up: Return in about 2 months (around 09/05/2023) for Clinic Visit. | For: Clinic Visit PLAN: We discussed her continued knee pain, updated x-rays, previous diagnostic tests, pain relief in physical therapy, Iovera nerve ablation, and recommendations moving forward in the office today. We discussed the test results of her previous knee aspiration and lab work to be not suggestive of infection and x- rays not suggestive of hardware failure. Given patient's pain relief with deep ranging of the knee a physical therapy, I recommended continued physical therapy for which an updated prescription was placed accordingly today. Patient states that she will need to wait till the July timeframe to continue PT due to her inability to secure ride. I do believe symptoms will continue to improve with physical therapy, however if symptoms continue, we discussed the option of Iovera nerve ablation. Patient is preferable to continue physical therapy at this point. I would like patient to follow up in roughly 2 months for clinical re-evaluation and determination of benefit with physical therapy.Iovera may be discussed at that time if suboptimal progress his made. Patient was certainly urged to contact clinic in the interim with any questions, concerns, or worsening of symptoms. Patient is comfortable with the plan, and all questions were answered. This chart was completed in part utilizing [employer] Speech Voice Recognition Software. Grammatical errors, random word insertions, pronoun errors, and incomplete sentences are an occasional consequence of this system due to software limitations, ambient noise, and hardware issues. Any formal questions or concerns about the content, text, or information contained within the body of this dictation should be directly addressed to the provider for clarification. Vineet Hodges PA-C 07/06/2023 2:14 PM documented in this encounter Nursing Notes * Kacy Miranda LPN - 07/06/2023 2:02 PM EDT Pt presents for post op visit, L TKA 11/21/2022. documented in this encounter Plan of Treatment Upcoming Encounters Date Type Department Care Team (Late st Contact Info) Description 08/18/2023 11:40 AM EDT Office Visit General Internal Medicine [facility] [address] [facility] [place] [address] Joselin Henao MD [address] [facility] [place] [address] 09/07/2023 1:30 PM EDT Office Visit Orthopaedics [facility] [address] [facility] [place] [address] Vineet Hodges PA-C [address] [place] [address] Pending Results Name Type Priority Associated Diagnoses Date /Time XR KNEE 3 VIEWS Medical Imaging Routine Status post total left knee replacement 07/06/2023 2:11 PM EDT Scheduled Referrals Name Type Priority Associated Diagnoses Orde r Schedule PHYSICAL THERAPY REFERRAL OP Referral Within 10 days (routine) Status post total left knee replacement Chronic pain of left knee Ordered: 07/06/2023 Health Maintenance Due Date Last Done Comments [...] this encounter Medical Devices Implanted Type Area Battery Builder Device Identifier Shelf Expiration Date Model / Serial / Lot Baseplate #4 Tritanium - [id number] Implanted:Qty: 1 on 11/21/2022 by Juan Carlos Tijerina DO at OR [facility] Left: Knee PATRICE : ORTHOPAEDICS 08/30/2027 5536-B-400 / / [id number] Knee Triathlon Bead No Philippe L 4 - [id number] Implanted:Qty: 1 on 11/21/2022 by Juan Carlos Tijerina DO at OR [facility] Left: Knee PATRICE : ORTHOPAEDICS 09/14/2027 5517-F-401 / / [id number] Knee X3 Ins Pos Cs Sz4 9 - [id number] Implanted:Qty: 1 on 11/21/2022 by Juan Carlos Tijerina DO at OR [facility] Left: Knee PATRICE : ORTHOPAEDICS 09/13/2027 5531-G-[id number] / / [id number] documented as of this encounter Visit Diagnoses Diagnosis Status post total left knee replacement- Primary Chronic pain of left knee Pain in joint, lower leg documented in this encounter Advance Directives Latest [...] the patient have Health Care Power of Loader [place]? No Full Code 10/02/2018 4:09 PM 10/04/2018 10:30 PM Question Answer Comments Discussion of Advance Directives occurred with: Not Discussed Care Teams Electrical Systems Design Engineer Relationship Specialty Start Date End Date Joselin Henao MD PCP - General Internal Medicine 08/02/21 documented as of this encounter"
--- OUTSIDE RECORDS SUMMARY | 2023-08-18 03:11 | External Medical Summary | Summary of Care ---
Author Name Unknown Organization [facility] Address [address] [facility] [place] [address] Phone [phone] Care Team Providers Care Otr Owner Operator Truck Driver Name Role Phone Joselin Henao MD Primary Care Provider [phone] Encounter Details Date Type Department Care Team (Late st Contact Info) Description 06/13/2023 Population Health External Data Unspecified Department Allergies [...] as of this encounter (statuses as of 06/14/2023) Medications Medication Sig Dispensed Refills Start Date [...] hemoglobin A1c goal of less than 7.0% ([facility]),Obesity due to excess calories with [...] as of this encounter (statuses as of 06/14/2023) Active Problems Problem Noted Date Diagnosed Date [...] 08/27/2016 Biliary dyskinesia 10/27/2014 Overview: cholecystectomy in [place] Vitamin D deficiency 10/07/2014 Dyslipidemia, goal LDL below 100 01/05/2010 Fibromyalgia Gastroparesis HTN, goal below 140/80 documented as of this encounter (statuses as of 06/14/2023) Resolved Problems Problem Noted Date Diagnosed Date [...] 08/28/2017 MEDICATION USE AGREEMENT 06/30/2009 Overview: With [facility] pain management clinic. 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 017 [...] as of this encounter (statuses as of 06/14/2023) Immunizations Name Administration Dates Next Due COVID-19 mRNA, LNP-s, No Pre serve, 2-Dose Series ([employer]eliro) 04/13/2021,09/19/2020,08/27/2020 Covid-19, Mrna, Lnp-s, Pf, B ivalent, 30 Mcg, IM, 12 yrs and above (Celiro) 03/29/2022 Hepatitis B, 20+ yrs 07/05/2022,02/21/2022,01/04 Pneumococcal Conjugate Vacci ne, 20-valent ([id number]) 01/04/2022 Pneumococcal Polysaccharide PPV23 (Pneumovax) 09/17/2008 Seasonal [...] 07/06/2023 2:30 PM EDT Office Visit Orthopaedics [facility] [address] [place] [address] Vineet Hodges PA-C [address] [place] [address] 08/18/2023 11:40 AM EDT Office Visit General Internal Medicine [facility] [address] [facility] [place] [address] Joselin [facility]enao MD [address] [facility] [address] Health Maintenance Due Date Last Done Comments [...] this encounter Medical Devices Implanted Type Area Lining Printer Device Identifier Shelf Expiration Date Model / Serial / Lot Baseplate #4 Tritanium - [id number] Implanted:Qty: 1 on 11/21/2022 by Juan Carlos Tijerina, DO at OR [facility] Left: Knee PATRICE : ORTHOPAEDICS 08/30/2027 5536-B-400 / / [id number] Knee Triathlon Bead No Philippe L 4 - [id number] Implanted:Qty: 1 on 11/21/2022 by Juan Carlos Tijerina, DO at OR [facility] Left: Knee PATRICE : ORTHOPAEDICS 09/14/2027 5517-F-401 / / [id number] Knee X3 Ins Pos Cs Sz4 9 - [id number] Implanted:Qty: 1 on 11/21/2022 by Juan Carlos Tijerina, DO at OR [facility] Left: Knee PATRICE : ORTHOPAEDICS 09/13/2027 [...] the patient have Health Care Power of Restaurant Team Member? No Full Code 10/02/2018 4:09 PM 10/04/2018 10:30 PM Question Answer Comments Discussion of Advance Directives occurred with: Not Discussed Care Teams Otr Owner Operator Truck Driver Relationship Specialty Start Date End Date Joselin Henao MD PCP - General Internal Medicine 08/02/21 documented as of this encounter
--- OUTSIDE RECORDS SUMMARY | 2023-08-18 03:11 | External Medical Summary | Summary of Care ---
Author Name Unknown Organization [facility] Address [address] [place] [facility] [place] [place] [address] Phone [phone] Care Team Providers Care Price Lister Name Role Phone Joselin Henao MD Primary Care Provider [phone] Encounter Details Date Type Department Care Team [...] hemoglobin A1c goal of less than 7.0% ([facility]),Obesity due to excess calories with [...] 08/27/2016 Biliary dyskinesia 10/27/2014 Overview: cholecystectomy in [place] Vitamin D deficiency 10/07/2014 Dyslipidemia, goal LDL [...] 08/28/2017 MEDICATION USE AGREEMENT 06/30/2009 Overview: With [facility] pain management clinic. 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 017 [...] mRNA, LNP-s, No Pre serve, 2-Dose Series ([employer]) 04/13/2021,09/19/2020,08/27/2020 Covid-19, Mrna, Lnp-s, Pf, B ivalent, 30 Mcg, IM, 12 yrs and above ([employer]) 03/29/2022 Hepatitis B, 20+ yrs 07/05/2022,02/21/2022,01/04 Pneumococcal Conjugate Vacci ne, 20-valent ([id number]) 01/04/2022 Pneumococcal Polysaccharide PPV23 (Pneumovax) 09/17/2008 Seasonal [...] 07/06/2023 2:30 PM EDT Office Visit Orthopaedics [facility] [address] [place] [address] Vineet Hodges PA-C [address] [place] [address] 08/18/2023 11:40 AM EDT Office Visit General Internal Medicine [facility] [address] [facility] [place] [address] Joselin Henao MD [address] [facility] [address] Health Maintenance Due Date Last Done Comments [...] this encounter Medical Devices Implanted Type Area Aerial Hurricane Hunter Device Identifier Shelf Expiration Date Model / Serial / Lot Baseplate #4 Tritanium - [id number] Implanted:Qty: 1 on 11/21/2022 by Juan Carlos Tijerina, DO at OR [facility] Left: Knee PATRICE : ORTHOPAEDICS 08/30/2027 5536-B-400 / / [id number] Knee Triathlon Bead No Philippe L 4 - [id number] Implanted:Qty: 1 on 11/21/2022 by Juan Carlos Tijerina, DO at OR [facility] Left: Knee PATRICE : ORTHOPAEDICS 09/14/2027 5517-F-401 / / [id number] Knee X3 Ins Pos Cs Sz4 9 - [id number] Implanted:Qty: 1 on 11/21/2022 by Juan Carlos Tijerina, DO at OR [facility] Left: Knee PATRICE : ORTHOPAEDICS 09/13/2027 [...] the patient have Health Care Power of Hot Dimpling Machine Operator? No Full Code 10/02/2018 4:09 PM 10/04/2018 10:30 PM Question Answer Comments Discussion of Advance Directives occurred with: Not Discussed Care Teams Price Lister Relationship Specialty Start Date End Date Joselin Henao MD PCP - General Internal Medicine 08/02/21 documented as of this encounter
--- OUTSIDE RECORDS SUMMARY | 2023-08-18 03:12 | External Medical Summary | Summary of Care ---
Author Name Unknown Organization [facility] Address [address] [facility] [address] Phone [phone] Care Team Providers Care Forms Examiner Name Role Phone Joselin Henao MD Primary Care Provider [phone] Reason for Visit * Reason Comments Knee Pain Left Encounter Details Date Type Department Care Team (Late st Contact Info) Description 2023 12:30 PM EST Office Visit Orthopaedics [facility] [address] [facility] [place] [address] Vineet Hodges PA-C [address] [place] [address] Acute pain of left knee*; Status post total left knee replacement; Pain and swelling of left knee Allergies Active Allergy Reactions Criticality Noted Date Comments Duloxetine Hcl Neuro complications (Please comment) Medium 02/02/2010 Decreased responsiveness / lethargy - pt states EMS mistakenly thought she overdosed on it Fentanyl Nausea/vomiting Medium 12/16/2014 Pregabalin Nausea/vomiting Low 09/02/2019 Metoclopramide Hcl Psych complications High 07/09/19 16 Tardive dyskinesia Tramadol Nausea/vomiting Medium 01/08/2014 documented as of this encounter (statuses as of 2023) Medications Medication Sig Dispensed Refills Start Date [...] as of this encounter (statuses as of 2023) Active Problems Problem Noted Date Diagnosed Date [...] 08/27/2016 Biliary dyskinesia 10/27/2014 Overview: cholecystectomy in [place] Vitamin D deficiency 10/07/2014 Dyslipidemia, goal LDL below 100 01/05/2010 Fibromyalgia Gastroparesis HTN, goal below 140/80 documented as of this encounter (statuses as of 2023) Resolved Problems Problem Noted Date Diagnosed Date [...] USE AGREEMENT 06/30/2009 Overview: With [facility] pain management clinic. 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 [...] as of this encounter (statuses as of 2023) Immunizations Name Administration Dates Next Due COVID-19 mRNA, LNP-s, No Pre serve, 2-Dose Series ([employer]) 04/13/2021,09/19/2020,08/27/2020 Covid-19, Mrna, Lnp-s, Pf, B ivalent, 30 Mcg, IM, 12 yrs and above (Pfizer) 03/29/2022 Hepatitis B, 20+ yrs 07/05/2022,02/21/2022,01/04 Pneumococcal Conjugate Vacci ne, 20-valent ([id number]) 01/04/2022 Pneumococcal Polysaccharide PPV23 (Pneumovax) 09/17/2008 Seasonal [...] Used Date Smoking Tobacco: Former Cigarettes 0.1 35 S tarted: 1979 Smokeless Tobacco: Never Comments:3 [...] Progress Notes * Vineet Hodges PA-C - 2023 12:30 PM EST ORTHOPAEDIC SURGERY - Clinic Note SUBJECTIVE: Ena Otto is a 63 year old female. Chief Complaint Patient presents with Knee Pain Left HPI: Ena is a very pleasant 63-year-old female presents to the clinic today roughly 6 and half months removed from total left knee arthroplasty. She has been dealing with pain and stiffness in the knee shortly after discharge from physical therapy after her procedure. Recent blood work indicated mildly level inflammatory markers. Today she reports continued pain and swelling in the left knee which she states causes significant difficulty with mobilization and ambulation. She reports pain is quite diffuse over the knee, distal thigh, and proximal lower leg. She denies fevers, chills, or night sweats. She denies any other symptoms of illness. Review of Systems: Constitutional ROS: No fevers, [...] (Cariprazine HCl) Take 2 Capsules by mouth. 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 Type 2 diabetes mellitus with hemoglobin A1c goal of less than 7.0% ([facility]) E11.9 S/P total knee arthroplasty, left Z96.652 Past Medical History: Diagnosis Date Abdominal pain 08/25/2014 acute Benign neoplasm of colon 07/03/2012 COLONOSCOPY FLEXIBLE PROXIMAL DIAGNOSTIC performed by Sage Sanchez MD at [facility], HYPERPLASTIC POLYPS REPEAT COLONOSCOPY IN 5 YEAR Biliary dyskinesia 10/27/2014 cholecystectomy in [place] Bipolar 1 disorder ([facility]) BMI 38.0-38.9,adult Body mass index (BMI) of 40.0 to 44.9 in adult ([facility]) 01/23/2017 bmi 30Per Obesity protocol #1 Cystitis 01/09/2019 >100,000 E coli resistant to ampicillin Depression with anxiety Dr. Serna Depressive disorder, not elsewhere classified with history suicide attempts, sees Dr. Mittal DM2 (diabetes mellitus, type 2) ([facility]) Fibromyalgia Gastroparesis HTN, goal below 140/90 Hx of BKA, right ([facility]) 11/27/2018 Hypothyroidism Migraine without aura Mixed dyslipidemia [...] performed by Davon Li MD at OR [facility] ANESTHESIA FOR CAT OR MRI SCAN N/A 07/27/2019 ANESTHESIA FOR NON-INVASIVE IMAGING (MRI OR CT) performed by [facility] at [place] [facility] ARTHROPLASTY KNEE TOTAL Left 11/21/2022 ROBOTIC ARTHROPLASTY KNEE TOTAL performed by Juan Carlos Tijerina DO at OR [facility] COLONOSCOPY 2004 internal hemorrhoids COLONOSCOPY, DIAGNOSTIC (RECTUM) 07/03/2012 COLONOSCOPY FLEXIBLE PROXIMAL DIAGNOSTIC performed by Sage Sanchez MD at ENDOSCOPY [facility], HYPERPLASTIC POLYPS REPEAT COLONOSCOPY IN 5 YEARS COLONOSCOPY, DIAGNOSTIC (RECTUM) 01/17/2014 benign polyp, repeat 5 yrs/COLONOSCOPY FLEXIBLE PROXIMAL DIAGNOSTIC performed by Angus Trivedi MD at ENDOSCOPY [facility] EGD PREP 04/08/15 mild gastritis on biopsy, Dr Goldsmith EGD, FLEXIBLE, DIAGNOSTIC 10/09/2015 normal/[facility] EGD, FLEXIBLE, SUBMUCOSAL INJ. 04/09/08 botox inj EGD, W/ENDOSCOPIC US 10/09/2015 normal/[facility] ELECTROCONVUL THERAPY ECT-MULT 2002, [facility] EXPLORATION OF MAXILLARY SINUS 1986 Sinus Surgery FEEDING TUBE 12/2008 - At [facility] INCISIONAL HERNIA REPAIR, LAP, RECURRENT 10/14/2012 Dr. Apple KNEE ARTHROSCOPY/ARTHROPLASTY Left 07/09/2021 ARTHROSCOPY KNEE ABRASION WITH MICROFRACTURE performed by Juan Carlos Tijerina DO at OR [facility] KNEE ARTHROSCOPY/DEBRIDEMENT Left 07/09/2021 ARTHROSCOPY KNEE SURGICAL DEBRIDEMENT SHAVING performed by Juan Carlos Tijerina DO at OR [facility] KNEE ARTHROSCOPY/MENISCECTOMY Left 03/14/2016 Dr. Vaughn MAMMOGRAM [...] 01/06/08 prolonged gastric emptying REMOVE GALLBLADDER 10/27/[address] [facility] [address] Thorne REMOVE TONSILS & ADENOIDS, UNDER 12 age 11 T & A, age<12 TOTAL ABD HYSTERECTOMY W/WO REMOVAL OF TUBE(S) 1984 just uterus Social History Tobacco Use Smoking status: Former Packs/day: 0.10 Years: 35.00 Additional pack years: 0.00 Total pack years: 3.50 Types: Cigarettes Start date: 1979 Smokeless tobacco: Never Tobacco comments: 3 cigs/day. Vaping Use Vaping Use: Never used Substance Use Topics Alcohol use: No Drug use: Not Currently Frequency: 2.0 times per week Types: Marijuana Family history: Noncontributory OBJECTIVE: Diagnostic Testing: Lab results from 05/17/2023 demonstrate the following: Unremarkable CBC ESR 30 CRP 9 Most recent radiographs of the left knee demonstrated a stable total left knee arthroplasty prosthesis without evidence of hardware complication or loosening. Vital [...] the left knee reveals a well-healed surgical incision without evidence of complication or infection. There is tenderness to palpation which is quite exquisite and quite diffuse about the knee. No significant palpable effusion appreciated. No significant lower extremity edema. There is no erythema, ecchymosis, warmth, or skin breakdown about the knee. She is able todemonstrate a straight leg raise with roughly 10 degrees deficit from terminal extension. Flexion to roughly 90-100 degrees. Collateral stability is intact. She demonstrates adequate quad strength. She is distally neurovascularly intact with appropriate sensation to light touch, palpable pulses, and brisk cap refill. Distal motor function is intact include strong great toe and ankle dorsiflexion. ASSESSMENT: Acute pain of left knee (Primary) - CRYSTAL ANALYSIS, BODY FLUID; Future; Expected date: 2023 - CELL COUNT WITH DIFFERENTIAL, SYNOVIAL FLUID; Future; Expected date: 2023 - CULTURE, SYNOVIAL FLUID, AEROBIC AND ANAEROBIC; Future; Expected date: 2023 - PERIPROSTHETIC JOINT INFECTION PANEL; Future; Expected date: 2023 - CRYSTAL ANALYSIS, BODY FLUID - CELL COUNT WITH DIFFERENTIAL, SYNOVIAL FLUID - CULTURE, SYNOVIAL FLUID, AEROBIC AND ANAEROBIC - PERIPROSTHETIC JOINT INFECTION PANEL Status post total left knee replacement - CRYSTAL ANALYSIS, BODY FLUID; Future; Expected date: 2023 - CELL COUNT WITH DIFFERENTIAL, SYNOVIAL FLUID; Future; Expected date: 2023 - CULTURE, SYNOVIAL FLUID, AEROBIC AND ANAEROBIC; Future; Expected date: 2023 - PERIPROSTHETIC JOINT INFECTION PANEL; Future; Expected date: 2023 - CRYSTAL ANALYSIS, BODY FLUID - CELL COUNT WITH DIFFERENTIAL, SYNOVIAL FLUID - CULTURE, SYNOVIAL FLUID, AEROBIC AND ANAEROBIC - PERIPROSTHETIC JOINT INFECTION PANEL Pain and swelling of left knee - CRYSTAL ANALYSIS, BODY FLUID; Future; Expected date: 2023 - CELL COUNT WITH DIFFERENTIAL, SYNOVIAL FLUID; Future; Expected date: 2023 - CULTURE, SYNOVIAL FLUID, AEROBIC AND ANAEROBIC; Future; Expected date: 2023 - PERIPROSTHETIC JOINT INFECTION PANEL; Future; Expected date: 2023 - CRYSTAL ANALYSIS, BODY FLUID - CELL COUNT WITH DIFFERENTIAL, SYNOVIAL FLUID - CULTURE, SYNOVIAL FLUID, AEROBIC AND ANAEROBIC - PERIPROSTHETIC JOINT INFECTION PANEL Follow Up: Return for Imaging study follow up. | For: Imaging study follow up | Check-out note: We will call patient with results. Please maintain all follow-up appointments as scheduled. PLAN: Patient's continued knee pain, recent lab work, and recommendations moving forward were discussed with her in the office today. After discussion with Dr. Tijerina, we did have a discussion with regard to joint aspiration for analysis of synovial fluid to rule out intra-articular pathology as an etiology for her pain. Patient expressed agreement and is preferable to proceed as such, and risks and benefits were discussed. Knee aspiration was performed in the office today successfully and without significant adverse reaction. A compressive dressing was placed and patient was instructed to leave in place for roughly 2-3 hours. Rest, ice, elevation, and activity modification recommended as needed for pain and swelling. We will contact patient with further recommendations once all lab tests have been resulted. Patient is understanding. I did recommend patient maintain all of her follow-ups as scheduled. She was certainly urged to contact clinic in the interim with any questions, concerns,or worsening of symptoms. Patient is comfortable with the plan, and all questions were answered. Injection Procedure Note: LEFT Knee: Time out: Prior to injection, a time out was called to confirm the administration of appropriate medicine, patient name, procedure and confirm to the best of our ability and knowledge the presence of any necessary risks and benefits. Patient verbalizes understanding. Consent obtained. Sterile techinique applied. Skin sterilized with alcohol swab and ChloraPrep. The left knee was prepped and draped in a sterile fashion. An 18 gauge needle and 30 mL syringe was utilized with an anterior lateral approach for aspiration. Roughly 20 mL of blood-tinged synovial fluid was aspirated without difficulty or probing. Patient's skin was again cleansed and compressive dressing was applied. Patient tolerated procedure with no significant bleeding or adverse reaction. Syringe of synovial fluid was sterilely capped and transported to lab. Patient instructed to call or return to clinic for fever or warmth and redness at injection site for potential infection. Patient also advised as to potential for steroid flare reaction including increased pain and redness at injection site which should be treated with ice and resolve within 24 hours. Vineet Hodges PA-C This chart was completed in part utilizing [employer] Speech Voice Recognition Software. Grammatical errors, random word insertions, pronoun errors, and incomplete sentences are an occasional consequence of this system due to software limitations, ambient noise, and hardware issues. Any formal questions or concerns about the content, text, or information contained within the body of this dictation should be directly addressed to the provider for clarification. Vineet Hodges PA-C 2023 12:30 PM documented in this encounter Nursing Notes * Lisa Salter MED ASSIST - 2023 12:22 PM EST Patient presents today for follow up on left knee pain. Has an increase in pain and swelling in thelast several months. Did have recent blood work completed and CRP was elevated. documented in this encounter Plan of Treatment Upcoming Encounters Date Type Department Care Team (Late st Contact Info) Description 07/06/2023 9:15 AM EDT Office Visit Orthopaedics [facility] [address] [facility] [place] [address] Juan Carlos Tijerina, [address] [facility] [place] [address] 08/18/2023 11:40 AM EDT Office Visit General Internal Medicine [address] [place] [address] [facility] [place] [address] Joselin Henao MD [address] [facility] [place] [address] Pending Results Name Type Priority Associated Diagnoses Date /Time CRYSTAL ANALYSIS, BODY FLUID Lab Routine Acute pain of left knee Status post total left knee replacement Pain and swelling of left knee 2023 1:25 PM EST CELL COUNT WITH DIFFERENTIAL, SYNOVIAL FLUID Lab Routine Acute pain of left knee Status post total left knee replacement Pain and swelling of left knee 2023 1:25 PM EST CULTURE, SYNOVIAL FLUID, AEROBIC AND ANAEROBIC Lab Routine Acute pain of left knee Status post total left knee replacement Pain and swelling of left knee 2023 1:25 PM EST PERIPROSTHETIC JOINT INFECTION PANEL Lab Routine Acute pain of left knee Status post total left knee replacement Pain and swelling of left knee 2023 1:25 PM EST CELL COUNT, SYNOVIAL FLUID Lab Routine Acute pain of left knee Status post total left knee replacement Pain and swelling of left knee 2023 1:25 PM EST MANUAL DIFFERENTIAL, SYNOVIAL FLUID Lab Routine Acute pain of left knee Status post total left knee replacement Pain and swelling of left knee 2023 1:25 PM EST Scheduled Orders Name Type Priority Associated Diagnoses Orde r Schedule CRYSTAL ANALYSIS, BODY FLUID Lab Routine Acute pain of left knee Status post total left knee replacement Pain and swelling of left knee Expected: 2023, Expires: 2024 CELL COUNT WITH DIFFERENTIAL, SYNOVIAL FLUID Lab Routine Acute pain of left knee Status post total left knee replacement Pain and swelling of left knee Expected: 2023, Expires: 2024 CULTURE, SYNOVIAL FLUID, AEROBIC AND ANAEROBIC Lab Routine Acute pain of left knee Status post total left knee replacement Pain and swelling of left knee Expected: 2023, Expires: 2024 PERIPROSTHETIC JOINT INFECTION PANEL Lab Routine Acute pain of left knee Status post total left knee replacement Pain and swelling of left knee Expected: 2023, Expires: 2024 Health Maintenance Due Date Last Done Comments Mammogram 09/13/2022 09/13/2021, 08/23, 03/01/2021, Additional history exists COVID-19 Vaccine (2022- season) 2022 03/29/2022, 04/13/2021, 09/19/2020, Additional history [...] this encounter Medical Devices Implanted Type Area Restaurant Delivery Driver Device Identifier Shelf Expiration Date Model / Serial / Lot Knee X3 Ins Pos Cs [id number] 9 - [id number] Implanted:Qty: 1 on 11/21/2022 by Juan Carlos Tijerina, at OR [facility] Left: Knee PATRICE : ORTHOPAEDICS 09/13/2027 [id number] / [id number] documented as of this encounter Visit Diagnoses Diagnosis Acute pain of left knee- Primary Status post total left knee replacement Pain and swelling of left knee documented in this encounter Advance Directives Latest [...] the patient have Health Care Power of Fiberglass Container Winding Operator? No Full Code 10/02/2018 4:09 PM 10/04/2018 10:30 PM Question Answer Comments Discussion of Advance Directives occurred with: Not Discussed Care Teams Forms Examiner Relationship Specialty Start Date End Date Joselin Henao MD PCP - General Internal Medicine 08/02/21 documented as of this encounter"
--- OUTSIDE RECORDS SUMMARY | 2023-08-18 03:12 | External Medical Summary | Summary of Care ---
Author Name Unknown Organization [facility] Address [address] [facility] [address] Phone [phone] Care Team Providers Care Visitor Services Representative Name Role Phone Joselin Henao MD Primary Care Provider [phone] Reason for Visit * Reason Comments Knee Pain Left Encounter Details Date Type Department Care Team (Late st Contact Info) Description 2023 12:30 PM EST Office Visit Orthopaedics [facility] [address] [facility] [place] [address] Vineet Hodges PA-C [address] [place] [...] 08/27/2016 Biliary dyskinesia 10/27/2014 Overview: cholecystectomy in [place] Vitamin D deficiency 10/07/2014 Dyslipidemia, goal LDL [...] 08/28/2017 MEDICATION USE AGREEMENT 06/30/2009 Overview: With [facility] pain management clinic. 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 [...] mRNA, LNP-s, No Pre serve, 2-Dose Series ([employer]) 04/13/2021,09/19/2020,08/27/2020 Covid-19, Mrna, Lnp-s, Pf, B ivalent, 30 Mcg, IM, 12 yrs and above (Pfizer) 03/29/2022 Hepatitis B, 20+ yrs 07/05/2022,02/21/2022,01/04 Pneumococcal Conjugate Vacci ne, 20-valent ([id number]) 01/04/2022 Pneumococcal Polysaccharide PPV23 (Pneumovax) 09/17/2008 Seasonal [...] HCl) Take 2 Capsules by mouth. 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[facility]) F60.7 Type 2 diabetes mellitus with hemoglobin A1c goal of less than 7.0% ([facility]) E11.9 S/P total knee arthroplasty, left Z96.652 Past Medical History: Diagnosis Date Abdominal pain 08/25/2014 acute Benign neoplasm of colon 07/03/2012 COLONOSCOPY FLEXIBLE PROXIMAL DIAGNOSTIC performed by Sage Sanchez MD at [facility], HYPERPLASTIC POLYPS REPEAT COLONOSCOPY IN 5 YEAR Biliary dyskinesia 10/27/2014 cholecystectomy in [place] Bipolar 1 disorder ([facility]) BMI 38.0-38.9,adult Body mass index (BMI) of 40.0 to 44.9 in adult ([facility]) 01/23/2017 bmi 30Per Obesity protocol #1 Cystitis 01/09/2019 >100,000 E coli resistant to ampicillin Depression with anxiety Dr. Serna Depressive disorder, not elsewhere classified with history suicide attempts, sees Dr. Mittal DM2 (diabetes mellitus, type 2) ([facility]) Fibromyalgia Gastroparesis HTN, goal below 140/90 Hx of BKA, right ([facility]) 11/27/2018 Hypothyroidism Migraine without aura [...] performed by Davon Li MD at OR [facility] ANESTHESIA FOR CAT OR MRI SCAN N/A 07/27/2019 ANESTHESIA FOR NON-INVASIVE IMAGING (MRI OR CT) performed by [place] [facility] [place] [facility] ARTHROPLASTY KNEE TOTAL Left 11/21/2022 ROBOTIC ARTHROPLASTY KNEE TOTAL performed by Juan Carlos Tijerina DO at OR [facility] COLONOSCOPY 2004 internal hemorrhoids COLONOSCOPY, DIAGNOSTIC (RECTUM) 07/03/2012 COLONOSCOPY FLEXIBLE PROXIMAL DIAGNOSTIC performed by Sage Sanchez MD at ENDOSCOPY [facility], HYPERPLASTIC POLYPS REPEAT COLONOSCOPY IN 5 YEARS COLONOSCOPY, DIAGNOSTIC (RECTUM) 01/17/2014 benign polyp, repeat 5 yrs/COLONOSCOPY FLEXIBLE PROXIMAL DIAGNOSTIC performed by Angus Trivedi MD at ENDOSCOPY [facility] EGD PREP 04/08/15 mild gastritis on biopsy, Dr Goldsmith EGD, FLEXIBLE, DIAGNOSTIC 10/09/2015 normal/[facility] EGD, FLEXIBLE, SUBMUCOSAL INJ. 04/09/08 botox inj EGD, W/ENDOSCOPIC US 10/09/2015 normal/[facility] ELECTROCONVUL THERAPY ECT-[place] 2002, [facility] [place] EXPLORATION OF MAXILLARY SINUS 1986 Sinus Surgery FEEDING TUBE 12/2008 - At [facility] INCISIONAL HERNIA REPAIR, LAP, RECURRENT 10/14/2012 Dr. Apple KNEE ARTHROSCOPY/ARTHROPLASTY Left 07/09/2021 ARTHROSCOPY KNEE ABRASION WITH MICROFRACTURE performed by Juan Carlos Tijerina DO at OR [facility] KNEE ARTHROSCOPY/DEBRIDEMENT Left 07/09/2021 ARTHROSCOPY KNEE SURGICAL DEBRIDEMENT SHAVING performed by Juan Carlos Tijerina DO at OR [facility] KNEE ARTHROSCOPY/MENISCECTOMY Left 03/14/2016 Dr. Vaughn MAMMOGRAM [...] 01/06/08 prolonged gastric emptying REMOVE GALLBLADDER 10/27/[address] [facility] [address] Thorne REMOVE TONSILS & ADENOIDS, UNDER [...] JOINT INFECTION PANEL; Future; Expected date: 2023 Status post total left knee replacement - CRYSTAL ANALYSIS, BODY FLUID; Future; Expected date: 2023 - CELL COUNT WITH DIFFERENTIAL, SYNOVIAL FLUID; Future; Expected date: 2023 - CULTURE, SYNOVIAL FLUID, AEROBIC AND ANAEROBIC; Future; Expected date: 2023 - PERIPROSTHETIC JOINT INFECTION PANEL; Future; Expected date: 2023 Pain and swelling of left knee - CRYSTAL ANALYSIS, BODY FLUID; Future; Expected date: 2023 - CELL COUNT WITH DIFFERENTIAL, SYNOVIAL FLUID; Future; Expected date: 2023 - CULTURE, SYNOVIAL FLUID, AEROBIC AND ANAEROBIC; Future; Expected date: 2023 - PERIPROSTHETIC JOINT INFECTION PANEL; Future; Expected date: 2023 Follow Up: Return for Imaging study follow [...] pathology as an etiology for her pain. Knee aspiration was performed in the office [...] This chart was completed in part utilizing [employer] Speech Voice Recognition Software. Grammatical errors, random [...] 07/06/2023 9:15 AM EDT Office Visit Orthopaedics [facility] [address] [facility] [place] [address] Juan Carlos Tijerina DO [address] [place] [address] 08/18/2023 11:40 AM EDT Office Visit General Internal Medicine [facility] [place] [address] [facility] [place] [address] Joselin Henao MD [address] [facility] [place] [address] Pending Results Name Type Priority Associated Diagnoses [...] this encounter Medical Devices Implanted Type Area Drill Rig Operator Device Identifier Shelf Expiration Date Model / Serial / Lot Knee X3 Ins Pos Cs Sz4 9 - [id number] Implanted:Qty: 1 on 11/21/2022 by Juan Carlos Tijerina, DO at OR [facility] Left: Knee PATRICE : ORTHOPAEDICS 09/13/2027 [...] the patient have Health Care Power of Flight Operations Manager? No Full Code 10/02/2018 4:09 PM 10/04/2018 10:30 PM Question Answer Comments Discussion of Advance Directives occurred with: Not Discussed Care Teams Visitor Services Representative Relationship Specialty Start Date End Date Joselin Henao MD PCP - General Internal Medicine 08/02/21 documented as of this encounter"
--- OUTSIDE RECORDS SUMMARY | 2023-08-18 03:12 | External Medical Summary | Summary of Care ---
Author Name Unknown Organization [facility] Address [address] [facility] [address] Phone [phone] Care Team Providers Care Cycle Repairer Name Role Phone Joselin Henao MD Primary Care Provider [phone] Reason for Visit * Reason Comments Knee Pain Left Encounter Details Date Type Department Care Team (Late st Contact Info) Description 2023 12:30 PM EST Office Visit Orthopaedics [facility] [address] [facility] [place] [address] Alexi Britton PA-C [address] [place] [...] 08/27/2016 Biliary dyskinesia 10/27/2014 Overview: cholecystectomy in [place] Vitamin D deficiency 10/07/2014 Dyslipidemia, goal LDL [...] 08/28/2017 MEDICATION USE AGREEMENT 06/30/2009 Overview: With [facility] pain management clinic. 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 017 [...] mRNA, LNP-s, No Pre serve, 2-Dose Series (I Gotchu) 04/13/2021,09/19/2020,08/27/2020 Covid-19, Mrna, Lnp-s, Pf, B ivalent, 30 Mcg, IM, 12 yrs and above (Pfizer) 03/29/2022 Hepatitis B, 20+ yrs 07/05/2022,02/21/2022,01/04 Pneumococcal Conjugate Vacci ne, 20-valent ([id number]) 01/04/2022 Pneumococcal Polysaccharide PPV23 (Pneumovax) 09/17/2008 Seasonal [...] as of this encounter Progress Notes * Alexi Britton PA-C - 2023 12:30 PM EST ORTHOPAEDIC [...] HCl) Take 2 Capsules by mouth. OneTouch VerAdpeps w/Device Kit Use up to 2 times [...] G43.809 Biliary dyskinesia K82.8 Dependent personality disorder ([facility]) F60.7 Type 2 diabetes mellitus with hemoglobin A1c goal of less than 7.0% ([facility]) E11.9 S/P total knee arthroplasty, left Z96.652 Past Medical History: Diagnosis Date Abdominal pain 08/25/2014 acute Benign neoplasm of colon 07/03/2012 COLONOSCOPY FLEXIBLE PROXIMAL DIAGNOSTIC performed [facility] Sage [facility], HYPERPLASTIC POLYPS REPEAT COLONOSCOPY IN 5 YEAR Biliary dyskinesia 10/27/2014 cholecystectomy in [place] Bipolar 1 disorder ([facility]) BMI 38.0-38.9,adult Body mass index (BMI) of 40.0 to 44.9 in adult ([facility]) 01/23/2017 bmi 30Per Obesity protocol #1 Cystitis 01/09/2019 >100,000 E coli resistant to ampicillin Depression with anxiety Dr. Serna Depressive disorder, not elsewhere classified with history suicide attempts, sees Dr. Mittal DM2 (diabetes mellitus, type 2) ([facility]) Fibromyalgia Gastroparesis HTN, goal below 140/90 Hx of BKA, right ([facility]) 11/27/2018 Hypothyroidism Migraine without aura Mixed dyslipidemia [...] performed by Davon Li MD at OR [facility] ANESTHESIA FOR CAT OR MRI SCAN N/A 07/27/2019 ANESTHESIA FOR NON-INVASIVE IMAGING (MRI OR CT) performed by [facility] at OR [facility] ARTHROPLASTY KNEE TOTAL Left 11/21/2022 ROBOTIC ARTHROPLASTY KNEE TOTAL performed by Juan Carlos Tijerina DO at OR [facility] COLONOSCOPY 2004 internal hemorrhoids COLONOSCOPY, DIAGNOSTIC (RECTUM) 07/03/2012 COLONOSCOPY FLEXIBLE PROXIMAL DIAGNOSTIC performed by Sage Sanchez MD at ENDOSCOPY [facility], HYPERPLASTIC POLYPS REPEAT COLONOSCOPY IN 5 YEARS COLONOSCOPY, DIAGNOSTIC (RECTUM) 01/17/2014 benign polyp, repeat 5 yrs/COLONOSCOPY FLEXIBLE PROXIMAL DIAGNOSTIC performed by Angus Trivedi MD at ENDOSCOPY [facility] EGD PREP 04/08/15 mild gastritis on biopsy, Dr Goldsmith EGD, FLEXIBLE, DIAGNOSTIC 10/09/2015 normal/[facility] EGD, FLEXIBLE, SUBMUCOSAL INJ. 04/09/08 botox inj EGD, W/ENDOSCOPIC US 10/09/2015 normal/[facility] ELECTROCONVUL THERAPY ECT-MULT 2002, [facility] EXPLORATION OF MAXILLARY SINUS 1986 Sinus Surgery FEEDING TUBE 12/2008 - At [facility] INCISIONAL HERNIA REPAIR, LAP, RECURRENT 10/14/2012 Dr. Apple KNEE ARTHROSCOPY/ARTHROPLASTY Left 07/09/2021 ARTHROSCOPY KNEE ABRASION WITH MICROFRACTURE performed by Juan Carlos Tijerina DO at OR [facility] KNEE ARTHROSCOPY/DEBRIDEMENT Left 07/09/2021 ARTHROSCOPY KNEE SURGICAL DEBRIDEMENT SHAVING performed by Juan Carlos Tijerina DO at OR [facility] KNEE ARTHROSCOPY/MENISCECTOMY Left 03/14/2016 Dr. Vaughn [...] 01/06/08 prolonged gastric emptying REMOVE GALLBLADDER 10/27/[address] [facility] [address] Thorne REMOVE TONSILS & ADENOIDS, [...] AND ANAEROBIC - PERIPROSTHETIC JOINT INFECTION PANEL - BORRELIA SPECIES (LYME) DNA REAL TIME PCR, QUALITATIVE; Future; Expected date: 2023 Status post total [...] AND ANAEROBIC - PERIPROSTHETIC JOINT INFECTION PANEL - BORRELIA SPECIES (LYME) DNA REAL TIME PCR, QUALITATIVE; Future; Expected date: 2023 Pain and swelling [...] AND ANAEROBIC - PERIPROSTHETIC JOINT INFECTION PANEL - BORRELIA SPECIES (LYME) DNA REAL TIME PCR, QUALITATIVE; Future; Expected date: 2023 Follow Up: Return [...] with ice and resolve within 24 hours. Alexi Britton PA-C This chart was completed in part utilizing [employer] Speech Voice Recognition Software. Grammatical errors, random word insertions, pronoun errors, and incomplete sentences are an occasional consequence of this system due to software limitations, ambient noise, and hardware issues. Any formal questions or concerns about the content, text, or information contained within the body of this dictation should be directly addressed to the provider for clarification. Alexi Britton PA-C 2023 12:30 PM documented in this encounter Nursing Notes * Lisa Salter MED ASSIST - 2023 12:22 PM EST Patient presents today for follow up on left knee pain. Has an increase in pain and swelling in thelast several months. Did have recent blood work completed and CRP was elevated. documented in this encounter Miscellaneous Notes * Addendum Note - Alexi Britton PA-C - 2023 3:35 PM ESTAddended by: ALEXI BRITTON on: 2023 03:35 PM Modules accepted: Orders documented in this encounter Plan of Treatment Upcoming Encounters Date Type Department Care Team (Late st Contact Info) Description 07/06/2023 9:15 AM EDT Office Visit Orthopaedics [facility] [address] [place] [address] Juan Carlos Tijerina DO [address] [place] [address] 08/18/2023 11:40 AM EDT Office Visit General Internal Medicine [facility] [address] [facility] [place] [address] Joselin Henao MD [address] [facility] [place] [address] Pending Results Name Type Priority Associated Diagnoses [...] of left knee Expected: 2023, Expires: 2024 BORRELIA SPECIES (LYME) DNA REAL TIME PCR, QUALITATIVE Lab Routine Acute pain of left knee [...] this encounter Medical Devices Implanted Type Area Senior Sales Representative Device Identifier Shelf Expiration Date Model / Serial / Lot Knee X3 Ins Pos Cs Sz4 9 - [id number] Implanted:Qty: 1 on 11/21/2022 by Juan Carlos Tijerina DO at OR [facility] Left: Knee PATRICE : ORTHOPAEDICS 09/13/2027 [...] the patient have Health Care Power of Infection Prevention Coordinator? No Full Code 10/02/2018 4:09 PM 10/04/2018 10:30 PM Question Answer Comments Discussion of Advance Directives occurred with: Not Discussed Care Teams Cycle Repairer Relationship Specialty Start Date End Date Joselin Henao MD PCP - General Internal Medicine 08/02/21 documented as of this encounter"
--- OUTSIDE RECORDS SUMMARY | 2023-08-18 03:12 | External Medical Summary | Summary of Care ---
Author Name Unknown Organization [facility] Address [address] [facility] [place] [address] Phone [phone] Care Team Providers Care Urology Physician Name Role Phone Joselin Henao MD Primary Care Provider [phone] Reason for Visit * Reason Onset Date Comments Medical Records Request 05/30/2023 Encounter Details Date Type Department Care Team (Late st Contact Info) Description 05/30/2023 Telephone Orthopaedics [facility] [address] [place] [address] Juan Carlos Tijerina DO [address] [place] [address] Medical Records Request Allergies Active Allergy Reactions Criticality Noted Date Comments Duloxetine Hcl Neuro complications (Please comment) Medium 02/02/2010 Decreased responsiveness / lethargy - pt states EMS mistakenly thought she overdosed on it Fentanyl Nausea/vomiting Medium 12/16/2014 Pregabalin Nausea/vomiting Low 09/02/2019 Metoclopramide Hcl Psych complications High 07/09/19 16 Tardive dyskinesia Tramadol Nausea/vomiting Medium 01/08/2014 documented as of this encounter (statuses as of 05/30/2023) Medications Medication Sig Dispensed Refills Start Date [...] as of this encounter (statuses as of 05/30/2023) Active Problems Problem Noted Date Diagnosed Date [...] 08/27/2016 Biliary dyskinesia 10/27/2014 Overview: cholecystectomy in [place] Vitamin D deficiency 10/07/2014 Dyslipidemia, goal LDL below 100 01/05/2010 Fibromyalgia Gastroparesis HTN, goal below 140/80 documented as of this encounter (statuses as of 05/30/2023) Resolved Problems Problem Noted Date Diagnosed Date [...] USE AGREEMENT 06/30/2009 Overview: With [facility] pain management clinic. 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 [...] as of this encounter (statuses as of 05/30/2023) Immunizations Name Administration Dates Next Due COVID-19 mRNA, LNP-s, No Pre serve, 2-Dose Series ([employer]) 04/13/2021,09/19/2020,08/27/2020 Covid-19, Mrna, Lnp-s, Pf, B ivalent, 30 Mcg, IM, 12 yrs and above (Pfizer) 03/29/2022 Hepatitis B, 20+ yrs 07/05/2022,02/21/2022,01/04 Pneumococcal Conjugate Vacci ne, 20-valent ([id number]) 01/04/2022 Pneumococcal Polysaccharide PPV23 (Pneumovax) 09/17/2008 Seasonal [...] encounter Miscellaneous Notes * Telephone Encounter - Erika Gibson OSA - 05/30/2023 8:44 AM EST [facility] is requesting the medical records of Ena for the purpose of coordination of treatment. Forwarded to [facility]. documented in this encounter Plan of Treatment Upcoming Encounters Date Type Department Care Team (Late st Contact Info) Description 07/06/2023 9:15 AM EDT Office Visit Orthopaedics [facility] [address] [place] [address] Juan Carlos Tijerina, [address] [place] [address] 08/18/2023 11:40 AM EDT Office Visit General Internal Medicine [facility] [address] [facility] [place] [address] Joselin Henao MD [address] [place] [address] Health Maintenance Due Date Last Done Comments [...] encounter Medical Devices Implanted Type Area Battery Stacker Device Identifier Shelf Expiration Date Model / Serial / Lot Knee X3 Ins Pos Cs Sz4 9 - [id number] Implanted:Qty: 1 on 11/21/2022 by Juan Carlos Tijerina, at OR [facility] Left: Knee PATRICE : ORTHOPAEDICS 09/13/2027 [id number] [...] the patient have Health Care Power of Track Repairer Helper? No Full Code 10/02/2018 4:09 PM 10/04/2018 10:30 PM Question Answer Comments Discussion of Advance Directives occurred with: Not Discussed Care Teams Urology Physician Relationship Specialty Start Date End Date Joselin Henao MD PCP - General Internal Medicine 08/02/21 documented as of this encounter
--- OUTSIDE RECORDS SUMMARY | 2023-08-18 03:13 | External Medical Summary | Summary of Care ---
Author Name Unknown Organization [facility] Address [address] [facility] [place] [address] Phone [phone] Care Team Providers Care Theater Usher Name Role Phone Joselin Henao MD Primary Care Provider [phone] Reason for Visit * Reason Onset Date Comments Order Request 05/15/2023 Pt needs new lab order Encounter Details Date Type Department Care Team (Late st Contact Info) Description 05/15/2023 Telephone Orthopaedics [facility] [address] [place] [address] Juan Carlos Tijerina DO [address] [place] [address] Order Request (Pt needs new lab order) Allergies Active Allergy Reactions Criticality Noted Date Comments Duloxetine Hcl Neuro complications (Please comment) Medium 02/02/2010 Decreased responsiveness / lethargy - pt states EMS mistakenly thought she overdosed on it Fentanyl Nausea/vomiting Medium 12/16/2014 Pregabalin Nausea/vomiting Low 09/02/2019 Metoclopramide Hcl Psych complications High 07/09/19 16 Tardive dyskinesia Tramadol Nausea/vomiting Medium 01/08/2014 documented as of this encounter (statuses as of 05/15/2023) Medications Medication Sig Dispensed Refills Start Date [...] hemoglobin A1c goal of less than 7.0% ([facility]),Obesity due to excess calories with [...] as of this encounter (statuses as of 05/15/2023) Active Problems Problem Noted Date Diagnosed Date [...] 08/27/2016 Biliary dyskinesia 10/27/2014 Overview: cholecystectomy in [place] Vitamin D deficiency 10/07/2014 Dyslipidemia, goal LDL below 100 01/05/2010 Fibromyalgia Gastroparesis HTN, goal below 140/80 documented as of this encounter (statuses as of 05/15/2023) Resolved Problems Problem Noted Date Diagnosed Date [...] as of this encounter (statuses as of 05/15/2023) Immunizations Name Administration Dates Next Due COVID-19 mRNA, LNP-s, No Pre serve, 2-Dose Series ([employer]) 04/13/2021,09/19/2020,08/27/2020 Covid-19, Mrna, Lnp-s, Pf, B ivalent, 30 Mcg, IM, 12 yrs and above (Pfizer) 03/29/2022 Hepatitis B, 20+ yrs 07/05/2022,02/21/2022,01/04 Pneumococcal Conjugate Vacci ne, 20-valent ([id number]) 01/04/2022 Pneumococcal Polysaccharide PPV23 (Pneumovax) 09/17/2008 Seasonal [...] encounter Miscellaneous Notes * Telephone Encounter - Kacy Miranda LPN - 05/15/2023 10:25 AM EST Tried to call pt, no answer and no voice mail set up,. Sent a [employer] message explaining she may stop at a [facility] lab at her convenience, the orders that were placed are valid for one year. * Telephone Encounter - Ena Mcarthur OSA - 05/15/2023 8:58 AM EST Michel, Pt is calling regarding a lab order that she was supposed to have done on 05/12/23. She was unable to complete the order due to weather. Pt is requesting a new order be place for her to complete. Pt may be reached at [phone]. Thank you, EMILIANA Bass documented in this encounter Plan of Treatment Upcoming Encounters Date Type Department Care Team (Late st Contact Info) Description 08/18/2023 11:40 AM EDT Office Visit General Internal Medicine [facility] [address] [facility] [place] [address] Joselin Henao MD [address] [place] [address] Health Maintenance Due Date Last Done Comments Mammogram 09/13/2022 09/13/2021, 11/0 11/2020, 08/11/2020, Additional history exists COVID-19 Vaccine ( season) [...] this encounter Medical Devices Implanted Type Area Tower Control Operator Device Identifier Shelf Expiration Date Model / Serial / Lot Knee X3 Ins Pos Cs Sz4 9 - [id number] Implanted:Qty: 1 on 11/21/2022 by Juan Carlos Tijerina, at OR [facility] Left: Knee PATRICE : ORTHOPAEDICS [...] the patient have Health Care Power of Ignition Expert? No Full Code 10/02/2018 4:09 PM 10/04/2018 10:30 PM Question Answer Comments Discussion of Advance Directives occurred with: Not Discussed Care Teams Theater Usher Relationship Specialty Start Date End Date Joselin Henao MD PCP - General Internal Medicine 08/02/21 documented as of this encounter
--- OUTSIDE RECORDS SUMMARY | 2023-08-18 03:13 | External Medical Summary ---
Author Name Unknown Address Unknown Organization [id number]:[facility] - [address] [facility] [facility] [address] Laboratory Report Ordering Provider Test Date Status TOBI TRUONG 2023 13:25:05 Final Observation Date Value Abnormality Reference (Units) Status Bacteria identified in Specimen by Culture 2023 13:25:05 No growth Final Gram Stain 2023 13:25:05 Occasional Polymorphonuclear leukocytes Final This is an appended report. These results have been appended to a previously preliminary verified report. Gram Stain 2023 13:25:05 No organisms seen Final This is an appended report. These results have been appended to a previously preliminary verified report.
Test: Culture, Synovial Fluid, Aerobic and Anaerobic
Specimen Source: Knee, Left
Specimen Type: Synovial Fluid
Specimen Date: 2023 1:25 PM
Result Date: 06/09/2023 10:01 PM
Result Status: Final result
Resulting Lab: [facility]
[address] [facility]
[place] [address]

CULTURE

No growth

STAIN

Occasional Polymorphonuclear leukocytes

This is an appended report. These results have been appended to a
previously preliminary verified report.

No organisms seen

This is an appended report. These results have been appended to a
previously preliminary verified report.

null Performing Location [facility] - [facility] [address] [facility] [address]
--- OUTSIDE RECORDS SUMMARY | 2023-08-18 03:13 | External Medical Summary | Summary of Care ---
Author Name Unknown Organization [facility] Address [address] [facility] [place] [address] Phone [phone] Care Team Providers Care Green Belt Name Role Phone Joselin Henao MD Primary Care Provider [phone] Encounter Details Date Type Department Care Team (Late st Contact Info) Description 05/15/2023 Orders Only PATIENT PORTAL DO NOT DELETE THIS DEPT USED BY [place] [address] Allergies Active Allergy Reactions Criticality Noted Date [...] hemoglobin A1c goal of less than 7.0% ([facility]),Obesity due to excess calories with [...] 08/27/2016 Biliary dyskinesia 10/27/2014 Overview: cholecystectomy in [place] Vitamin D deficiency 10/07/2014 Dyslipidemia, goal LDL [...] 08/28/2017 MEDICATION USE AGREEMENT 06/30/2009 Overview: With [facility] pain management clinic. Orofacial dyskinesia [...] mRNA, LNP-s, No Pre serve, 2-Dose Series (pickrset) 04/13/2021,09/19/2020,08/27/2020 Covid-19, Mrna, Lnp-s, Pf, B ivalent, 30 Mcg, IM, 12 yrs and above (Pfizer) 03/29/2022 Hepatitis B, 20+ yrs 07/05/2022,02/21/2022,01/04 Pneumococcal Conjugate Vacci ne, 20-valent ([id number]) 01/04/2022 Pneumococcal Polysaccharide PPV23 (Pneumovax) 09/17/2008 Seasonal [...] AM EDT Office Visit General Internal Medicine [facility] [address] [place] [address] Joselin Henao MD [address] [facility] [address] Health Maintenance Due Date Last Done Comments Mammogram 09/13/2022 09/13/2021, 11/0 11/2020, 08/11/2020, Additional history exists COVID-19 Vaccine (2022- season) [...] this encounter Medical Devices Implanted Type Area Horticulture Professor Device Identifier Shelf Expiration Date Model / Serial / Lot Knee X3 Ins Pos Cs Sz4 9 - [id number] Implanted:Qty: 1 on 11/21/2022 by Juan Carlos Tijerina, DO at OR [facility] Left: Knee PATRICE : ORTHOPAEDICS 09/13/2027 [...] the patient have Health Care Power of Media Job Titles? No Full Code 10/02/2018 4:09 PM 10/04/2018 10:30 PM Question Answer Comments Discussion of Advance Directives occurred with: Not Discussed Care Teams Green Belt Relationship Specialty Start Date End Date Joselin Henao MD PCP - General Internal Medicine 08/02/21 documented as of this encounter
--- OUTSIDE RECORDS SUMMARY | 2023-08-18 03:13 | External Medical Summary ---
Author Name Unknown Address Unknown Organization K01:[facility] - [address] [place] [address] Laboratory Report Ordering Provider Test Date Status TIFFANIE KIRBY 05/17/2023 12:42:03 Final Observation Date Value Abnormality Reference (Units ) Status MYCODE SPECIMEN-SST 05/17/2023 12:42:03 Freezing of extracted DNA, whole blood and/or serum. Final Performing Location LABORATORY C - [address] [place] [address]
--- OUTSIDE RECORDS SUMMARY | 2023-08-18 03:13 | External Medical Summary ---
Author Name Unknown Address Unknown Organization K01:[facility] [place] [address] [facility] [place] [place] [address] Laboratory Report Ordering Provider Test Date Status SHARLENE RIGGS 05/17/2023 12:42:03 Final Observation Date Value Abnormality Reference (Units ) Status SYNC LEUKOCYTES IN BLOOD BY AUTOMATED COUNT 05/17/2023 12:42:03 9.05 4.00-10.80 (K/uL) Final Segs 05/17/2023 12:42:03 46.7 40.0-75.0 (%) Final Lymphs % 05/17/2023 12:42:03 42.5 Above high normal 18.0-42.0 (%) Final Monos 05/17/2023 12:42:03 8.6 1.0-11.0 (%) Final Eosinophils 05/17/2023 12:42:03 1.2 0.0-6.0 (%) Final Basos 05/17/2023 12:42:03 0.7 0.0-2.0 (%) Final Immature Granulocyte, Percent 05/17/2023 12:42:03 0.3 0.0-2.0 (%) Final Absolute Segs 05/17/2023 12:42:03 4.22 1.80-7.70 (K/uL) Final Lymphs, absolute 05/17/2023 12:42:03 3.85 1.00-4.80 (K/ul) Final Monos, Abs 05/17/2023 12:42:03 0.78 0.00-1.10 (K/uL) Final Eos, Abs 05/17/2023 12:42:03 0.11 0.00-0.70 (K/uL) Final Basos, Abs 05/17/2023 12:42:03 0.06 0.00-0.20 (K/uL) Final Immature Granulocytes, Number 05/17/2023 12:42:03 0.03 0.00-0.20 (K/uL) Final Performing Location [facility] [place] [address] [facility] [address]
--- OUTSIDE RECORDS SUMMARY | 2023-08-18 03:13 | External Medical Summary ---
Author Name Unknown Address Unknown Organization K01:[facility] [place] - [address] [place] [address] Laboratory Report Ordering Provider Test Date Status SHARLENE RIGGS 05/17/2023 12:42:03 Final Observation Date Value Abnormality Reference (Units ) Status Erythrocyte sedimentation rate by Photometric method 05/17/2023 12:42:03 30 Above high normal <30 (mm/hour) Final Performing Location [facility] - [address] [place] [address]
--- OUTSIDE RECORDS SUMMARY | 2023-08-18 03:13 | External Medical Summary | Summary of Care ---
Author Name Unknown Organization [facility] Address [address] [place] [address] Phone [phone] Care Team Providers Care Clothing Man Name Role Phone Joselin Henao MD Primary Care Provider [phone] Encounter Details Date Type Department Care Team (Late st Contact Info) Description 05/04/2023 Population Health External Data Unspecified Department Allergies [...] as of this encounter (statuses as of 05/08/2023) Medications Medication Sig Dispensed Refills Start Date [...] hemoglobin A1c goal of less than 7.0% ([facility]),Obesity due to excess calories with [...] as of this encounter (statuses as of 05/08/2023) Active Problems Problem Noted Date Diagnosed Date [...] 08/27/2016 Biliary dyskinesia 10/27/2014 Overview: cholecystectomy in [place] Vitamin D deficiency 10/07/2014 Dyslipidemia, goal LDL below 100 01/05/2010 Fibromyalgia Gastroparesis HTN, goal below 140/80 documented as of this encounter (statuses as of 05/08/2023) Resolved Problems Problem Noted Date Diagnosed Date [...] 08/28/2017 MEDICATION USE AGREEMENT 06/30/2009 Overview: With [facility] pain management clinic. 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 017 [...] as of this encounter (statuses as of 05/08/2023) Immunizations Name Administration Dates Next Due COVID-19 mRNA, LNP-s, No Pre serve, 2-Dose Series ([employer]) 04/13/2021,09/19/2020,08/27/2020 Covid-19, Mrna, Lnp-s, Pf, B ivalent, 30 Mcg, IM, 12 yrs and above ([employer]) 03/29/2022 Hepatitis B, 20+ yrs 07/05/2022,02/21/2022,01/04 Pneumococcal Conjugate Vacci ne, 20-valent ([id number]) 01/04/2022 Pneumococcal Polysaccharide PPV23 (Pneumovax) 09/17/2008 Seasonal [...] Care Team (Late st Contact Info) Description 05/11/2023 10:00 AM EST Office Visit Orthopaedics [address] [place] [address] Juan Carlos Tijerina, DO [address] [place] [address] 08/18/2023 11:40 AM EDT Office Visit General Internal Medicine [facility] [address] [facility] [place] [address] Joselin Henao MD 200 [facility] [place] [address] Health Maintenance Due Date Last Done Comments Mammogram 09/13/2022 09/13/2021, 11/2020, 08/11/2020, Additional history exists COVID-19 Vaccine [...] this encounter Medical Devices Implanted Type Area Can Vacuum Tester Device Identifier Shelf Expiration Date Model / Serial / Lot Knee X3 Ins Pos Cs Sz4 9 - [id number] Implanted:Qty: 1 on 11/21/2022 by Juan Carlos Tijerina, at OR [facility] Left: Knee PATRICE : ORTHOPAEDICS 09/13/2027 [id number] [...] the patient have Health Care Power of Rn Advice? No Full Code 10/02/2018 4:09 PM 10/04/2018 10:30 PM Question Answer Comments Discussion of Advance Directives occurred with: Not Discussed Care Teams Clothing Man Relationship Specialty Start Date End Date Joselin Henao MD PCP - General Internal Medicine 08/02/21 documented as of this encounter
--- OUTSIDE RECORDS SUMMARY | 2023-08-18 03:13 | External Medical Summary ---
Author Name Unknown Address Unknown Organization K01:[place] [facility] [place] [facility] [address] [facility] [address] [facility] [address] Laboratory Report Ordering Provider Test Date Status SHARLENE RIGGS 05/17/2023 12:42:03 Final Observation Date Value Abnormality Reference (Units ) Status WBC, Total 05/17/2023 12:42:03 9.05 4.00-10.80 (K/uL) Final RBC 05/17/2023 12:42:03 4.74 3.85-5.15 (M/uL) Final Hemoglobin 05/17/2023 12:42:03 14.4 12.0-15.3 (g/dL) Final HCT 05/17/2023 12:42:03 43.5 36.0-45.2 (%) Final MCV 05/17/2023 12:42:03 91.8 81.5-97.5 (fL) Final MCH 05/17/2023 12:42:03 30.4 27.0-34.0 (pg) Final MCHC 05/17/2023 12:42:03 33.1 32.0-36.0 (g/dL) Final RDW 05/17/2023 12:42:03 14.5 11.5-15.5 (%) Final Platelets 05/17/2023 12:42:03 267 140-400 (K/uL) Final MPV 05/17/2023 12:42:03 10.4 6.6-11.1 (fL) Final Nucleated erythrocytes/100 leukocytes [Ratio] in Blood by Automated count 05/17/2023 12:42:03 0 <=0 (/100 WBCs) Final Performing Location [place] [facility] [place] [address] [place] [address]
--- OUTSIDE RECORDS SUMMARY | 2023-08-18 03:13 | External Medical Summary ---
Author Name Unknown Address Unknown Organization : Laboratory Report Ordering Provider Test Date Status TOBI TRUONG 2023 13:25:05 Final Observation Date Value Abnormality Reference (Units ) Status REFERENCE LAB SCANNED REPORT 2023 13:25:05 RESULT SCAN Final Performing Location
--- OUTSIDE RECORDS SUMMARY | 2023-08-18 03:13 | External Medical Summary | Summary of Care ---
Author Name Unknown Organization [facility] Address [address] [facility] [address] Phone [phone] Care Team Providers Care Fitter Mechanic Name Role Phone Joselin Henao MD Primary Care Provider [phone] Reason for Visit * Reason Comments Knee Pain Left Encounter Details Date Type Department Care Team (Late st Contact Info) Description 2023 12:30 PM EST Office Visit Orthopaedics [facility] [address] [facility] [place] [address] Vineet Hodges PA-C [address] [place] [...] 08/27/2016 Biliary dyskinesia 10/27/2014 Overview: cholecystectomy in [place] Vitamin D deficiency 10/07/2014 Dyslipidemia, goal LDL [...] 08/28/2017 MEDICATION USE AGREEMENT 06/30/2009 Overview: With [facility] pain management clinic. 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 [...] mRNA, LNP-s, No Pre serve, 2-Dose Series ([employer]) 04/13/2021,09/19/2020,08/27/2020 Covid-19, Mrna, Lnp-s, Pf, B ivalent, 30 Mcg, IM, 12 yrs and above (Pfizer) 03/29/2022 Hepatitis B, 20+ yrs 07/05/2022,02/21/2022,01/04 Pneumococcal Conjugate Vacci ne, 20-valent ([id number]) 01/04/2022 Pneumococcal Polysaccharide PPV23 (Pneumovax) 09/17/2008 Seasonal [...] HCl) Take 2 Capsules by mouth. 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 Type 2 diabetes mellitus with hemoglobin A1c goal of less than 7.0% ([facility]) E11.9 S/P total knee arthroplasty, left Z96.652 Past Medical History: Diagnosis Date Abdominal pain 08/25/2014 acute Benign neoplasm of colon 07/03/2012 COLONOSCOPY FLEXIBLE PROXIMAL DIAGNOSTIC performed by Sage Sanchez MD at [facility], HYPERPLASTIC POLYPS REPEAT COLONOSCOPY IN 5 YEAR Biliary dyskinesia 10/27/2014 cholecystectomy in [place] Bipolar 1 disorder ([facility]) BMI 38.0-38.9,adult Body mass index (BMI) of 40.0 to 44.9 in adult ([facility]) 01/23/2017 bmi 30Per Obesity protocol #1 Cystitis 01/09/2019 >100,000 E coli resistant to ampicillin Depression with anxiety Dr. Serna Depressive disorder, not elsewhere classified with history suicide attempts, sees Dr. Mittal DM2 (diabetes mellitus, type 2) ([facility]) Fibromyalgia Gastroparesis HTN, goal below 140/90 Hx of BKA, right ([facility]) 11/27/2018 Hypothyroidism Migraine without aura Mixed dyslipidemia [...] performed by Davon Li MD at OR [facility] ANESTHESIA FOR CAT OR MRI SCAN N/A 07/27/2019 ANESTHESIA FOR NON-INVASIVE IMAGING (MRI OR CT) performed by In And Out Surgery [facility] at OR [facility] ARTHROPLASTY KNEE TOTAL Left 11/21/2022 ROBOTIC ARTHROPLASTY KNEE TOTAL performed by Juan Carlos Tijerina DO at OR [facility] COLONOSCOPY 2004 internal hemorrhoids COLONOSCOPY, DIAGNOSTIC (RECTUM) 07/03/2012 COLONOSCOPY FLEXIBLE PROXIMAL DIAGNOSTIC performed by Sage Sanchez MD at ENDOSCOPY [facility], HYPERPLASTIC POLYPS REPEAT COLONOSCOPY IN 5 YEARS COLONOSCOPY, DIAGNOSTIC (RECTUM) 01/17/2014 benign polyp, repeat 5 yrs/COLONOSCOPY FLEXIBLE PROXIMAL DIAGNOSTIC performed by Angus Trivedi MD at ENDOSCOPY [facility] EGD PREP 04/08/15 mild gastritis on biopsy, Dr Goldsmith EGD, FLEXIBLE, DIAGNOSTIC 10/09/2015 normal/[facility] EGD, FLEXIBLE, SUBMUCOSAL INJ. 04/09/08 botox inj EGD, W/ENDOSCOPIC US 10/09/2015 normal/[facility] ELECTROCONVUL THERAPY ECT-MULT 2002, [facility] [place] EXPLORATION OF MAXILLARY SINUS 1986 Sinus Surgery FEEDING TUBE 12/2008 - At [facility] INCISIONAL HERNIA REPAIR, LAP, RECURRENT 10/14/2012 Dr. Apple KNEE ARTHROSCOPY/ARTHROPLASTY Left 07/09/2021 ARTHROSCOPY KNEE ABRASION WITH MICROFRACTURE performed by Juan Carlos Tijerina DO at OR [facility] KNEE ARTHROSCOPY/DEBRIDEMENT Left 07/09/2021 ARTHROSCOPY KNEE SURGICAL DEBRIDEMENT SHAVING performed by Juan Carlos Tijerina DO at OR [facility] KNEE ARTHROSCOPY/MENISCECTOMY Left 03/14/2016 Dr. Vaughn MAMMOGRAM [...] 01/06/08 prolonged gastric emptying REMOVE GALLBLADDER 10/27/[address] [facility] [address] Thorne REMOVE TONSILS & ADENOIDS, [...] This chart was completed in part utilizing [employer] Speech Voice Recognition Software. Grammatical errors, random [...] 07/06/2023 9:15 AM EDT Office Visit Orthopaedics [facility] [address] [facility] [place] [address] Juan Carlos Tijerina DO [address] [place] [address] 08/18/2023 11:40 AM EDT Office Visit General Internal Medicine [place] [address] [place] [address] Joselin Henao MD [address] [facility] [place] [address] Pending Results Name Type Priority Associated Diagnoses [...] this encounter Medical Devices Implanted Type Area Foreign Student Adviser Device Identifier Shelf Expiration Date Model / Serial / Lot Knee X3 Ins Pos Cs Sz4 9 - [id number] Implanted:Qty: 1 on 11/21/2022 by Juan Carlos Tijerina, DO at OR [facility] Left: Knee PATRICE : ORTHOPAEDICS 09/13/2027 [...] the patient have Health Care Power of Engine Service Repairer? No Full Code 10/02/2018 4:09 PM 10/04/2018 10:30 PM Question Answer Comments Discussion of Advance Directives occurred with: Not Discussed Care Teams Fitter Mechanic Relationship Specialty Start Date End Date Joselin Henao MD PCP - General Internal Medicine 08/02/21 documented as of this encounter"
--- OUTSIDE RECORDS SUMMARY | 2023-08-18 03:13 | External Medical Summary ---
Author Name Unknown Address Unknown Organization K01:LAB[facility]ATORY [facility] [place] - [address] [place] [address] Laboratory Report Ordering Provider Test Date Status TIFFANIE KIRBY 05/17/2023 12:42:03 Final Observation Date Value Abnormality Reference (Units ) Status MYCODE SPECIMEN-SST 05/17/2023 12:42:03 Freezing of extracted DNA, whole blood and/or serum. Final Performing Location LABORATORY C - [address] [place] [address]
--- OUTSIDE RECORDS SUMMARY | 2023-08-18 03:13 | External Medical Summary | Summary of Care ---
Author Name Unknown Organization [facility] Address [address] [facility] [address] Phone [phone] Care Team Providers Care Senior It Recruiter Name Role Phone Joselin Henao MD Primary Care Provider [phone] Reason for Visit * Reason Comments Outpatient Testing Encounter Details Date Type Department Care Team (Late st Contact Info) Description 05/17/2023 12:50 PM EST Laboratory Laboratory [address] [place] [phone] [place] [address] [facility] Other*[id number]; Status post total left knee replacement Allergies Active Allergy Reactions Criticality Noted Date Comments Duloxetine Hcl Neuro complications (Please comment) Medium 02/02/2010 Decreased responsiveness / lethargy - pt states EMS mistakenly thought she overdosed on it Fentanyl Nausea/vomiting Medium 12/16/2014 Pregabalin Nausea/vomiting Low 09/02/2019 Metoclopramide Hcl Psych complications High 07/09/19 16 Tardive dyskinesia Tramadol Nausea/vomiting Medium 01/08/2014 documented as of this encounter (statuses as of 05/17/2023) Medications Medication Sig Dispensed Refills Start Date [...] as of this encounter (statuses as of 05/17/2023) Active Problems Problem Noted Date Diagnosed Date [...] 08/27/2016 Biliary dyskinesia 10/27/2014 Overview: cholecystectomy in [place] Vitamin D deficiency 10/07/2014 Dyslipidemia, goal LDL below 100 01/05/2010 Fibromyalgia Gastroparesis HTN, goal below 140/80 documented as of this encounter (statuses as of 05/17/2023) Resolved Problems Problem Noted Date Diagnosed Date [...] 08/28/2017 MEDICATION USE AGREEMENT 06/30/2009 Overview: With [facility] pain management clinic. Orofacial [...] as of this encounter (statuses as of 05/17/2023) Immunizations Name Administration Dates Next Due COVID-19 mRNA, LNP-s, No Pre serve, 2-Dose Series ([employer]) 04/13/2021,09/19/2020,08/27/2020 Covid-19, Mrna, Lnp-s, Pf, B ivalent, 30 Mcg, IM, 12 yrs and above (Pfizer) 03/29/2022 Hepatitis B, 20+ yrs 07/05/2022,02/21/2022,01/04 Pneumococcal Conjugate Vacci ne, 20-valent ([id number]) 01/04/2022 Pneumococcal Polysaccharide PPV23 (Pneumovax) 09/17/2008 Seasonal [...] Medicine State [facility] [address] [place] [address] Joselin Henao MD [address] [facility] [place] [place] [address] Pending Results Name Type Priority Associated Diagnoses Date /Time MYCODE SUBSEQUENT ADULT Lab Routine [employer] Other*[id number] 05/17/2023 12:42 PM EST CRP (INFLAMMATORY MARKER) Lab Routine Status post total left knee replacement 05/17/2023 12:42 PM EST ERYTHROCYTE SEDIMENTATION RATE (ESR) Lab Routine Status post total left knee replacement 05/17/2023 12:42 PM EST CBC WITH WBC DIFFERENTIAL Lab Routine Status post total left knee replacement 05/17/2023 12:42 PM EST MYCODE SST1 Lab Routine [employer] Other*[id number] 05/17/2023 12:42 PM EST MYCODE SST2 Lab Routine [employer] Other*[id number] 05/17/2023 12:42 PM EST CBC Lab Routine Status post total left knee replacement 05/17/2023 12:42 PM EST DIFFERENTIAL, AUTOMATED Lab Routine Status post total left knee replacement 05/17/2023 12:42 PM EST Health Maintenance Due Date Last Done Comments Mammogram 09/13/2022 09/13/2021, 11/0 11/2020, 08/11/2020, Additional history exists COVID-19 Vaccine ( season) 2022 03/29/2022, 04/13/2021, 09/19/2020, Additional history exists Influenza Vaccine (FLU shot) (#1) 2022 01/04/2022, 01/03/2020, 01/19/2019, Additional history exists Diabetic Eye Exam 02/21/2023 02/21/2022 HbA1c 08/15/2023 02/13/2023, 0706/2022, 07/19/2022, Additional history exists Albumin/Creatinine Ratio 11/04/2023 [...] this encounter Medical Devices Implanted Type Area Wood Milling Machine Tender Device Identifier Shelf Expiration Date Model / Serial / Lot Knee X3 Ins Pos Cs Sz4 9 - [id number] Implanted:Qty: 1 on 11/21/2022 by Juan Carlos Tijerina, DO at OR [facility] Left: Knee PATRICE : ORTHOPAEDICS 09/13/2027 [id number] / / [id number] documented as of this encounter Visit Diagnoses Diagnosis [employer] Other*[id number] Status post total left knee replacement documented in this encounter Advance Directives Latest [...] the patient have Health Care Power of Medical Services Assistant? No Full Code 10/02/2018 4:09 PM 10/04/2018 10:30 PM Question Answer Comments Discussion of Advance Directives occurred with: Not Discussed Care Teams Senior It Recruiter Relationship Specialty Start Date End Date Joselin Henao MD PCP - General Internal Medicine 08/02/21 documented as of this encounter
--- OUTSIDE RECORDS SUMMARY | 2023-08-18 03:13 | External Medical Summary ---
Author Name Unknown Address Unknown Organization K01:LABORATORY [place] [address] [facility] [address] Laboratory Report Ordering Provider Test Date Status TOBI TRUONG 2023 13:25:05 Final Reference ranges are for rajesh nts without prior surgery. Some reference ranges and other method performance specifications have not been established for this fluid. The test results must be integrated into the clinical context for interpretation.

Fluid clotted cell count questionable.

null Observation Date Value Abnormality Reference (Units ) Status Color of Body fluid 2023 13:25:05 Red Abnormal Straw, Yellow, Colorless Final Clarity of Body fluid 2023 13:25:05 Cloudy Abnormal Clear Final Leukocytes [#/volume] in Synovial fluid 2023 13:25:05 349 Above high normal 0-180 (cells/uL) Final Erythrocytes [#/volume] in Synovial fluid 2023 13:25:05 [id number] Above high normal <2000 (cells/uL) Final Performing Location LABORATORY [facility] [place] - [facility] [address] [facility] [address] [place] [address]
--- OUTSIDE RECORDS SUMMARY | 2023-08-18 03:13 | External Medical Summary | Summary of Care ---
Author Name Unknown Organization [facility] Address [address] [facility] [place] [address] Phone [phone] Care Team Providers Care Relocation Associate Name Role Phone Joselin Henao MD Primary Care Provider [phone] Reason for Visit * Reason Comments Follow Up Left knee Encounter Details Date Type Department Care Team (Late st Contact Info) Description 05/11/2023 10:00 AM EST Office Visit Orthopaedics [facility] [address] [place] [address] Juan Carlos Tijerina, [address] [place] [address] Status post total left knee replacement* Allergies Active Allergy Reactions Criticality Noted Date Comments Duloxetine Hcl Neuro complications (Please comment) Medium 02/02/2010 Decreased responsiveness / lethargy - pt states EMS mistakenly thought she overdosed on it Fentanyl Nausea/vomiting Medium 12/16/2014 Pregabalin Nausea/vomiting Low 09/02/2019 Metoclopramide Hcl Psych complications High 07/09/19 16 Tardive dyskinesia Tramadol Nausea/vomiting Medium 01/08/2014 documented as of this encounter (statuses as of 05/11/2023) Medications Medication Sig Dispensed Refills Start Date [...] as of this encounter (statuses as of 05/11/2023) Active Problems Problem Noted Date Diagnosed Date [...] 08/27/2016 Biliary dyskinesia 10/27/2014 Overview: cholecystectomy in [place] Vitamin D deficiency 10/07/2014 Dyslipidemia, goal LDL below 100 01/05/2010 Fibromyalgia Gastroparesis HTN, goal below 140/80 documented as of this encounter (statuses as of 05/11/2023) Resolved Problems Problem Noted Date Diagnosed Date [...] 08/28/2017 MEDICATION USE AGREEMENT 06/30/2009 Overview: With [facility] pain management clinic. Orofacial dyskinesia [...] as of this encounter (statuses as of 05/11/2023) Immunizations Name Administration Dates Next Due COVID-19 mRNA, LNP-s, No Pre serve, 2-Dose Series ([employer]) 04/13/2021,09/19/2020,08/27/2020 Covid-19, Mrna, Lnp-s, Pf, B ivalent, 30 Mcg, IM, 12 yrs and above (Pfizer) 03/29/2022 Hepatitis B, 20+ yrs 07/05/2022,02/21/2022,01/04 Pneumococcal Conjugate Vacci ne, 20-valent ([id number]) 01/04/2022 Pneumococcal Polysaccharide PPV23 (Pneumovax) 09/17/2008 Seasonal [...] as of this encounter Progress Notes * Juan Carlos Tijerina, DO - 05/11/2023 10:29 AM EST ORTHOPAEDIC SURGERY - Clinic Note SUBJECTIVE: Ena Otto is a 62 year old female. Chief Complaint Patient presents with Follow Up Left knee HPI: She presents today for follow-up after left knee replacement in October of 2022. Her is present. She has been having issues with respect to pain as well as stiffness. She has completed formal therapy. She feels her knee symptoms are worse with getting up from a seated position and with prolonged walking. She denies any redness or warmth. No fevers, chills or night sweats Review of Systems: Constitutional ROS: No fevers, sweats, or chills Cardiovascular ROS: No chest pain Gastrointestinal ROS: No abdominal pain Musculoskeletal/Extremities ROS: pain /stiffness Neurologic ROS: no numbness or tingling Review of patient's allergies [...] HCl) Take 2 Capsules by mouth. OneTouch Verio w/Device Kit Use up to [...] G43.809 Biliary dyskinesia K82.8 Dependent personality disorder (HCC) F60.7 Type 2 diabetes mellitus with hemoglobin A1c goal of less than 7.0% ([facility]) E11.9 S/P total knee arthroplasty, left Z96.652 Past Medical History: Diagnosis Date Abdominal pain 08/25/2014 acute Benign neoplasm of colon 07/03/2012 COLONOSCOPY FLEXIBLE PROXIMAL DIAGNOSTIC performed by Sage Sanchez MD at ENDOSCOPY [facility], HYPERPLASTIC POLYPS REPEAT COLONOSCOPY IN 5 YEAR Biliary dyskinesia 10/27/2014 cholecystectomy in [place] Bipolar 1 disorder ([facility]) BMI 38.0-38.9,adult Body mass index (BMI) of 40.0 to 44.9 in adult ([facility]) 01/23/2017 bmi 30Per Obesity protocol #1 Cystitis 01/09/2019 >100,000 E coli resistant to ampicillin Depression with anxiety Dr. Serna Depressive disorder, not elsewhere classified with history suicide attempts, sees Dr. Mittal DM2 (diabetes mellitus, type 2) ([facility]) Fibromyalgia Gastroparesis HTN, goal below 140/90 Hx of BKA, right ([facility]) 11/27/2018 Hypothyroidism Migraine without aura Mixed dyslipidemia [...] performed by Davon Li MD at [place] [facility] ANESTHESIA FOR CAT OR MRI SCAN N/A 07/27/2019 ANESTHESIA FOR NON-INVASIVE IMAGING (MRI OR CT) performed by [facility] at [place] [facility] ARTHROPLASTY KNEE TOTAL Left 11/21/2022 ROBOTIC ARTHROPLASTY KNEE TOTAL performed by Juan Carlos Tijerina DO at OR [facility] COLONOSCOPY 2004 internal hemorrhoids COLONOSCOPY, DIAGNOSTIC (RECTUM) 07/03/2012 COLONOSCOPY FLEXIBLE PROXIMAL DIAGNOSTIC performed by Sage Sanchez MD at ENDOSCOPY [facility], HYPERPLASTIC POLYPS REPEAT COLONOSCOPY IN 5 YEARS COLONOSCOPY, DIAGNOSTIC (RECTUM) 01/17/2014 benign polyp, repeat 5 yrs/COLONOSCOPY FLEXIBLE PROXIMAL DIAGNOSTIC performed by Angus Trivedi MD at ENDOSCOPY [facility] EGD PREP 04/08/15 mild gastritis on biopsy, Dr Goldsmith EGD, FLEXIBLE, DIAGNOSTIC 10/09/2015 normal/[facility] EGD, FLEXIBLE, SUBMUCOSAL INJ. 04/09/08 botox inj EGD, W/ENDOSCOPIC US 10/09/2015 [place]/[facility] ELECTROCONVUL THERAPY ECT-MULT 2002, [facility] EXPLORATION OF MAXILLARY SINUS 1986 Sinus Surgery FEEDING TUBE 12/2008 - At [facility] INCISIONAL HERNIA REPAIR, LAP, RECURRENT 10/14/2012 Dr. Apple KNEE ARTHROSCOPY/ARTHROPLASTY Left 07/09/2021 ARTHROSCOPY KNEE ABRASION WITH MICROFRACTURE performed by Juan Carlos Tijerina, at OR [facility] KNEE ARTHROSCOPY/DEBRIDEMENT Left 07/09/2021 ARTHROSCOPY KNEE SURGICAL DEBRIDEMENT SHAVING performed by Juan Carlos Tijerina, at OR [facility] KNEE ARTHROSCOPY/MENISCECTOMY Left 03/14/2016 Dr. Vaughn [...] 01/06/08 prolonged gastric emptying REMOVE GALLBLADDER 10/27/[address] [facility] [address] Thorne REMOVE TONSILS & [...] Marijuana Family history: Noncontributory OBJECTIVE: Diagnostic Testing: None today Vital Signs: There were no vitals taken for this visit. Physical Exam: Examination of the left knee reveals well-healed surgical scar without evidence of complication. There is no erythema or significant warmth. No palpable effusion. She describes diffuse tenderness throughout the thigh, knee and lower extremity. She localizes most of her discomfort to the quadriceps region. Collateral stability intact. She exhibits roughly 15 shy of active terminal extension due to some degree of apprehension. Passively she can achieve full extension. She is able to flex to 105. She has good quad strength. No significant lower extremity edema. No calf tenderness. No evidence of cellulitic activity. ASSESSMENT: Status post total left knee replacement (Primary) - CRP (INFLAMMATORY MARKER); Future; Expected date: 05/12/2023 - ERYTHROCYTE SEDIMENTATION RATE (ESR); Future; Expected date: 05/12/2023 - CBC WITH WBC DIFFERENTIAL; Future; Expected date: 05/12/2023 Follow Up: Return for After diagnostic tests. | For: After diagnostic tests | Check-out note: Appointment may be telephonic PLAN: We discussed her ongoing symptoms with respect to knee pain and stiffness. I am not overly concerned for an infectious process or loosening. I feel much of her symptoms are due to over compensation due to management of right BKA/prosthesis. I feel her symptoms over time will improve however at thispoint I would like to obtain basic laboratory tests for further evaluation. We briefly discussed add itional workup if necessary. All questions answered her satisfaction. This chart was completed in part utilizing [employer] Speech Voice Recognition Software. Grammatical errors, random word insertions, pronoun errors, and incomplete sentences are an occasional consequence of this system due to software limitations, ambient noise, and hardware issues. Any formal questions or concerns about the content, text, or information contained within the body of this dictation should be directly addressed to the provider for clarification. Juan Carlos Tijerina DO 05/11/2023 10:29 AM documented in this encounter Nursing Notes * Ольга Gibbs MED ASSIST - 05/11/2023 10:00 AM EST Patient presents today for follow up on left knee. Pt states she went to Physical Therapy, and theytold her there is nothing they can do to help due to limited ROM. Left TKA DOS 11/21/22 documented in this encounter Plan of Treatment Upcoming Encounters Date Type Department Care Team (Late st Contact Info) Description 08/18/2023 11:40 AM EDT Office Visit General Internal Medicine [facility] [address] [place] [address] Joselin Henao MD [address] [facility] [place] [address] Scheduled Orders Name Type Priority Associated Diagnoses Orde r Schedule CRP (INFLAMMATORY MARKER) Lab Routine Status post total left knee replacement Expected: 05/12/2023, Expires: 05/11/2024 ERYTHROCYTE SEDIMENTATION RATE (ESR) Lab Routine Status post total left knee replacement Expected: 05/12/2023, Expires: 05/11/2024 CBC WITH WBC DIFFERENTIAL Lab Routine Status post total left knee replacement Expected: 05/12/2023, Expires: 05/11/2024 Health Maintenance Due Date Last Done Comments Mammogram 09/13/2022 09/13/2021, 11/0 11/2020, 08/11/2020, Additional history exists COVID-19 Vaccine ( season) 2022 03/29/2022, 04/13/2021, 09/19/2020, Additional history exists Influenza Vaccine (FLU shot) (#1) 2022 01/04/2022, 01/03/2020, 01/19/2019, Additional history exists Diabetic Eye Exam 02/21/2023 02/21/2022 HbA1c 08/15/2023 02/13/2023, 10/22, 07/19/2022, Additional history exists Albumin/Creatinine Ratio 11/04/20232 023, 12/28/2021, 02/19/2009 GFR 11/23/2023 11/22/2022, 10/22, [...] this encounter Medical Devices Implanted Type Area Qa Reviewer Device Identifier Shelf Expiration Date Model / Serial / Lot Knee X3 Ins Pos Cs Sz4 9 - [id number] Implanted:Qty: 1 on 11/21/2022 by Juan Carlos Tijerina, at OR [facility] Left: Knee PATRICE : ORTHOPAEDICS 09/13/2027 [id number] / / [id number] documented as of this encounter Visit Diagnoses Diagnosis Status post total left knee replacement- Primary documented in this encounter Advance Directives Latest [...] the patient have Health Care Power of Stock Taker? No Full Code 10/02/2018 4:09 PM 10/04/2018 10:30 PM Question Answer Comments Discussion of Advance Directives occurred with: Not Discussed Care Teams Relocation Associate Relationship Specialty Start Date End Date Joselin Henao MD PCP - General Internal Medicine 08/02/21 documented as of this encounter"
--- OUTSIDE RECORDS SUMMARY | 2023-08-18 03:13 | External Medical Summary ---
Author Name Unknown Address Unknown Organization K01:[facility] - [address] [facility] [address] Laboratory Report Ordering Provider Test Date Status TOBI TRUONG 2023 13:25:05 Final Reference ranges are for rajesh nts without prior surgery. Some reference ranges and other method performance specifications have not been established for this fluid. The test results must be integrated into the clinical context for interpretation. Observation Date Value Abnormality Reference (Units ) Status SYNC TOTAL NUCLEATED CELLS, SYNOVIAL 2023 13:25:05 349 (cells/uL) Final Segmented neutrophils/100 leukocytes in Synovial fluid 2023 13:25:05 44 Above high normal 0-25 (%) Final Lymphocytes/100 leukocytes in Synovial fluid 2023 13:25:05 37 0-78 (%) Final Monocytes/100 leukocytes in Synovial fluid 2023 13:25:05 16 0-71 (%) Final Eosinophils/100 leukocytes in Synovial fluid 2023 13:25:05 3 (%) Final SEGMENTED NEUTROPHILS (1000/UG) IN SYNOVIAL FLUID ABS 2023 13:25:05 153.56 (cells/uL) Final LYMPHOCYTES (1000/UG) IN SYNOVIAL FLUID ABS 2023 13:25:05 129.13 (cells/uL) Final MONOCYTES(1000/UG) IN SYNOVIAL FLUID ABS 2023 13:25:05 55.84 (cells/uL) Final EOSINOPHILS (1000/UG) IN SYNOVIAL FLUID ABS 2023 13:25:05 10.47 (cells/uL) Final Performing Location [facility] - [address] [place] [address]
--- OUTSIDE RECORDS SUMMARY | 2023-08-18 03:14 | External Medical Summary | Summary of Care ---
Author Name Unknown Organization [facility] Address [address] [place] [address] Phone [phone] Care Team Providers Care Java Project Manager Name Role Phone Joselin Henao MD Primary Care Provider [phone] Encounter Details Date Type Department Care Team (Late st Contact Info) Description 04/11/2023 Patient Reported Data Patient Survey Ortho OBERD [...] as of this encounter (statuses as of 04/11/2023) Medications Medication Sig Dispensed Refills Start Date [...] goal of less than 7.0% ([facility]),Obesity due to excess calories with [...] as of this encounter (statuses as of 04/11/2023) Active Problems Problem Noted Date Diagnosed Date [...] 08/27/2016 Biliary dyskinesia 10/27/2014 Overview: cholecystectomy in [place] Vitamin D deficiency 10/07/2014 Dyslipidemia, goal LDL below 100 01/05/2010 Fibromyalgia Gastroparesis HTN, goal below 140/80 documented as of this encounter (statuses as of 04/11/2023) Resolved Problems Problem Noted Date Diagnosed Date [...] as of this encounter (statuses as of 04/11/2023) Immunizations Name Administration Dates Next Due COVID-19 mRNA, LNP-s, No Pre serve, 2-Dose Series (Stkr[employer]it) 04/13/2021,09/19/2020,08/27/2020 Covid-19, Mrna, Lnp-s, Pf, B ivalent, 30 Mcg, IM, 12 yrs and above (Stkr[employer]it) 03/29/2022 Hepatitis B, 20+ yrs 07/05/2022,02/21/2022,01/04 Pneumococcal Conjugate Vacci ne, 20-valent ([id number]) 01/04/2022 Pneumococcal Polysaccharide PPV23 (Pneumovax) 09/17/2008 Seasonal [...] Care Team (Late st Contact Info) Description 04/13/2023 3:30 PM EST Imaging Radiology [address], [address] [place] [address] 05/11/2023 10:00 AM EST Office Visit Orthopaedics [facility] [address] [place] [address] Juan Carlos Tijerina, [address] [place] [address] 08/18/2023 11:40 AM EDT Office Visit General Internal Medicine [facility] [address] [facility] [place] [address] Joselin Henao MD [address] [facility] [place] [address] Health Maintenance Due Date Last Done Comments [...] this encounter Medical Devices Implanted Type Area Grain Thresher Device Identifier Shelf Expiration Date Model / Serial / Lot Knee X3 Ins Pos Cs Sz4 9 - [id number] Implanted:Qty: 1 on 11/21/2022 by Juan Carlos Tijerina DO at OR [facility] Left: Knee PATRICE : ORTHOPAEDICS [...] the patient have Health Care Power of Liquor Clerk? No Full Code 10/02/2018 4:09 PM 10/04/2018 10:30 PM Question Answer Comments Discussion of Advance Directives occurred with: Not Discussed Care Teams Java Project Manager Relationship Specialty Start Date End Date Joselin Henao MD PCP - General Internal Medicine 08/02/21 documented as of this encounter
--- OUTSIDE RECORDS SUMMARY | 2023-08-18 03:14 | External Medical Summary | Summary of Care ---
Author Name Unknown Organization [facility] Address [address] [place] [address] Phone [phone] Care Team Providers Care Christmas Tree Farm Crew Boss Name Role Phone Joselin Henao MD Primary Care Provider [phone] Encounter Details Date Type Department Care Team (Late st Contact Info) Description 03/26/2023 Patient Reported Data Patient Survey Ortho OBERD [...] as of this encounter (statuses as of 03/26/2023) Medications Medication Sig Dispensed Refills Start Date [...] hemoglobin A1c goal of less than 7.0% ([facility]),Obesity due to excess calories with [...] as of this encounter (statuses as of 03/26/2023) Active Problems Problem Noted Date Diagnosed Date [...] 08/27/2016 Biliary dyskinesia 10/27/2014 Overview: cholecystectomy in [place] Vitamin D deficiency 10/07/2014 Dyslipidemia, goal LDL below 100 01/05/2010 Fibromyalgia Gastroparesis HTN, goal below 140/80 documented as of this encounter (statuses as of 03/26/2023) Resolved Problems Problem Noted Date Diagnosed Date [...] 08/28/2017 MEDICATION USE AGREEMENT 06/30/2009 Overview: With [facility] pain management clinic. Orofacial dyskinesia [...] as of this encounter (statuses as of 03/26/2023) Immunizations Name Administration Dates Next Due COVID-19 mRNA, LNP-s, No Pre serve, 2-Dose Series ([employer] [facility]) 04/13/2021,09/19/2020,08/27/2020 Covid-19, Mrna, Lnp-s, Pf, B ivalent, 30 Mcg, IM, 12 yrs and above ([employer]) 03/29/2022 Hepatitis B, 20+ yrs 07/05/2022,02/21/2022,01/04 Pneumococcal Conjugate Vacci ne, 20-valent ([id number]) 01/04/2022 Pneumococcal Polysaccharide PPV23 (Pneumovax) 09/17/2008 SEASONAL INFLUENZA, PF, 6 M & Above, IM , (FLULAVAL or FLUZONE) 01/04/2022 Seasonal Influenza, Quadriva lent, No Preserve, [...] Care Team (Late st Contact Info) Description 03/30/2023 10:00 AM EST Office Visit Orthopaedics [address] [place] [address] Vineet Hodegs PA-C [address] [place] [place] [address] 04/13/2023 11:00 AM EST Office Visit Orthopaedics [facility] [place] [address] Vineet Hodges PA-C [address] [place] [place] [address] 04/13/2023 3:30 PM EST Imaging Radiology [facility] [facility] [address] [facility] [place] [address] 08/18/2023 11:40 AM EDT Office Visit General Internal Medicine [facility] [address] [facility] [place] [address] Joselin Henao MD [address] [facility] [place] [address] Health Maintenance Due Date Last Done Comments [...] this encounter Medical Devices Implanted Type Area Bituminous Paving Machine Operator Device Identifier Shelf Expiration Date Model / Serial / Lot Knee X3 Ins Pos Cs Sz4 9 - [id number] Implanted:Qty: 1 on 11/21/2022 by Juan Carlos Tijerina, DO at OR [facility] Left: Knee PATRICE : ORTHOPAEDICS 09/13/2027 [...] the patient have Health Care Power of Temper Mill Operator? No Full Code 10/02/2018 4:09 PM 10/04/2018 10:30 PM Question Answer Comments Discussion of Advance Directives occurred with: Not Discussed Care Teams [employer] Crew Boss Relationship Specialty Start Date End Date Joselin Henao MD [address] [place] [address] PCP - General Internal Medicine 08/02/21 documented as of this encounter
--- OUTSIDE RECORDS SUMMARY | 2023-08-18 03:14 | External Medical Summary | Summary of Care ---
Author Name Unknown Organization [facility] Address [address] [facility] [place] [address] Phone [phone] Care Team Providers Care Matrix Bath Operator Name Role Phone Joselin Henao MD Primary Care Provider [phone] Reason for Visit * Reason Onset Date Comments Appointment 01/11/2023 Encounter Details Date Type Department Care Team (Late st Contact Info) Description 01/11/2023 Telephone Orthopaedics [facility] [address] [place] [address] Juan Carlos Tijerina, [address] [place] [address] Appointment Allergies Active Allergy Reactions Criticality Noted Date Comments Duloxetine Hcl Neuro complications (Please comment) Medium 02/02/2010 Decreased responsiveness / lethargy - pt states EMS mistakenly thought she overdosed on it Fentanyl Nausea/vomiting Medium 12/16/2014 Pregabalin Nausea/vomiting Low 09/02/2019 Metoclopramide Hcl Psych complications High 07/09/19 16 Tardive dyskinesia Tramadol Nausea/vomiting Medium 01/08/2014 documented as of this encounter (statuses as of 04/12/2023) Medications Medication Sig Dispensed Refills Start Date [...] EVERY DAY 90 Tablet 2 12/28/2022 Active documented as of this encounter (statuses as of 04/12/2023) Active Problems Problem Noted Date Diagnosed Date [...] 08/27/2016 Biliary dyskinesia 10/27/2014 Overview: cholecystectomy in [place] Vitamin D deficiency 10/07/2014 Dyslipidemia, goal LDL below 100 01/05/2010 Fibromyalgia Gastroparesis HTN, goal below 140/80 documented as of this encounter (statuses as of 04/12/2023) Resolved Problems Problem Noted Date Diagnosed Date [...] 08/28/2017 MEDICATION USE AGREEMENT 06/30/2009 Overview: With [facility] pain management clinic. 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 Alcohol Use [...] encounter Miscellaneous Notes * Telephone Encounter - Teri Delacruz OSA - 01/11/2023 9:17 AM EDT Pt is needing to reschedule 6 week post op appt with Luke. Pt is scheduled for 02/09, nothing with Luke or Dr. Tijerina until February. Best call back number is [phone]. Thank you, Teri Jensen documented in this encounter Plan of Treatment Upcoming Encounters Date Type Department Care Team (Late st Contact Info) Description 05/11/2023 10:00 AM EST Office Visit Orthopaedics [facility] [address] [place] [address] Juan Carlos Tijerina, [address] [place] [address] 08/18/2023 11:40 AM EDT Office Visit General Internal Medicine [facility] [address] [address] Joselin Henao MD [address] [address] Health Maintenance Due Date Last Done Comments Mammogram 09/13/2022 09/13/2021, 110 11/2020, 08/11/2020, Additional history exists COVID-19 Vaccine [...] this encounter Medical Devices Implanted Type Area Claims Assistant Device Identifier Shelf Expiration Date Model / Serial / Lot Knee X3 Ins Pos Cs Sz4 9 - [id number] Implanted:Qty: 1 on 11/21/2022 by Juan Carlos Tijerina, DO at OR [facility] Left: Knee PATRICE : ORTHOPAEDICS 09/13/2027 [id number] [...] the patient have Health Care Power of Mission Coordinator? No Full Code 10/02/2018 4:09 PM 10/04/2018 10:30 PM Question Answer Comments Discussion of Advance Directives occurred with: Not Discussed Care Teams Matrix Bath Operator Relationship Specialty Start Date End Date Joselin Henao MD PCP - General Internal Medicine 08/02/21 documented as of this encounter
--- OUTSIDE RECORDS SUMMARY | 2023-08-18 03:14 | External Medical Summary | Summary of Care ---
Author Name Unknown Organization [facility] Address [address] [place] [address] Phone [phone] Care Team Providers Care Science Consultant Name Role Phone Joselin Henao MD Primary Care Provider [phone] Encounter Details Date Type Department Care Team [...] 08/27/2016 Biliary dyskinesia 10/27/2014 Overview: cholecystectomy in [place] Vitamin D deficiency 10/07/2014 Dyslipidemia, goal LDL [...] 08/28/2017 MEDICATION USE AGREEMENT 06/30/2009 Overview: With [facility] pain management clinic. 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 [...] mRNA, LNP-s, No Pre serve, 2-Dose Series (Bl[employer]) 04/13/2021,09/19/2020,08/27/2020 Covid-19, Mrna, Lnp-s, Pf, B ivalent, 30 Mcg, IM, 12 yrs and above (Blues[employer]) 03/29/2022 Hepatitis B, 20+ yrs 07/05/2022,02/21/2022,01/04 Pneumococcal Conjugate Vacci ne, 20-valent ([id number]) 01/04/2022 Pneumococcal Polysaccharide PPV23 (Pneumovax) 09/17/2008 Seasonal [...] Description 04/13/2023 3:30 PM EST Imaging Radiology [address], [address] [place] [address] 05/11/2023 10:00 AM EST Office Visit Orthopaedics [facility] [address] [place] [address] Juan Carlos Tijerina, [address] [place] [address] 08/18/2023 11:40 AM EDT Office Visit General Internal Medicine [facility] [address] [facility] [place] [address] Joselin Henao MD 200 [facility] [place] [address] Health Maintenance Due Date Last Done Comments [...] this encounter Medical Devices Implanted Type Area Dredge Master Device Identifier Shelf Expiration Date Model / Serial / Lot Knee X3 Ins Pos Cs Sz4 9 - [id number] Implanted:Qty: 1 on 11/21/2022 by Juan Carlos Tijerina DO at OR [facility] Left: Knee PATRICE : ORTHOPAEDICS 09/13/2027 [...] the patient have Health Care Power of Language Teacher? No Full Code 10/02/2018 4:09 PM 10/04/2018 10:30 PM Question Answer Comments Discussion of Advance Directives occurred with: Not Discussed Care Teams Science Consultant Relationship Specialty Start Date End Date Joselin Henao MD PCP - General Internal Medicine 08/02/21 documented as of this encounter
--- OUTSIDE RECORDS SUMMARY | 2023-08-18 03:14 | External Medical Summary | Summary of Care ---
Author Name Unknown Organization [facility] Address [address] [place] [address] Phone [phone] Care Team Providers Care Foreign Clerk Name Role Phone Joselin Henao MD Primary Care Provider [phone] Encounter Details Date Type Department Care Team [...] as of this encounter (statuses as of 03/27/2023) Medications Medication Sig Dispensed Refills Start Date [...] hemoglobin A1c goal of less than 7.0% ([facility]),Obesity due to excess calories with serious comorbidity, [...] as of this encounter (statuses as of 03/27/2023) Active Problems Problem Noted Date Diagnosed Date [...] 08/27/2016 Biliary dyskinesia 10/27/2014 Overview: cholecystectomy in [place] Vitamin D deficiency 10/07/2014 Dyslipidemia, goal LDL below 100 01/05/2010 Fibromyalgia Gastroparesis HTN, goal below 140/80 documented as of this encounter (statuses as of 03/27/2023) Resolved Problems Problem Noted Date Diagnosed Date [...] 08/28/2017 MEDICATION USE AGREEMENT 06/30/2009 Overview: With [facility] pain management clinic. 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 [...] as of this encounter (statuses as of 03/27/2023) Immunizations Name Administration Dates Next Due COVID-19 mRNA, LNP-s, No Pre serve, 2-Dose Series ([employer]) 04/13/2021,09/19/2020,08/27/2020 Covid-19, Mrna, Lnp-s, Pf, B ivalent, 30 Mcg, IM, 12 yrs and above ([employer]) 03/29/2022 Hepatitis B, 20+ yrs 07/05/2022,02/21/2022,01/04 Pneumococcal Conjugate Vacci ne, 20-valent ([id number]) 01/04/2022 Pneumococcal Polysaccharide PPV23 (Pneumovax) 09/17/2008 SEASONAL [...] 03/30/2023 10:00 AM EST Office Visit Orthopaedics [address] [place] [address] Vineet Hodges PA-C [address] [place] [address] 04/13/2023 11:00 AM EST Office Visit Orthopaedics [facility] [place] [address] Vineet Hodges PA-C [address] [place] [address] 04/13/2023 3:30 PM EST Imaging Radiology [facility] [place] [address] 08/18/2023 11:40 AM EDT Office Visit General Internal Medicine [facility] 200 [facility] [place] [address] Joselin Henao MD 200 [facility] [place] [address] Health Maintenance Due Date Last Done Comments [...] this encounter Medical Devices Implanted Type Area Masking Machine Operator Device Identifier Shelf Expiration Date Model / Serial / Lot Knee X3 Ins Pos Cs Sz4 9 - [id number] Implanted:Qty: 1 on 11/21/2022 by Juan Carlos Tijerina, DO at OR [facility] Left: Knee PATRICE : ORTHOPAEDICS 09/13/2027 [...] the patient have Health Care Power of Blocklayer? No Full Code 10/02/2018 4:09 PM 10/04/2018 10:30 PM Question Answer Comments Discussion of Advance Directives occurred with: Not Discussed Care Teams Foreign Clerk Relationship Specialty Start Date End Date Joselin Henao MD [address] [place] [address] PCP - General Internal Medicine 08/02/21 documented as of this encounter
--- OUTSIDE RECORDS SUMMARY | 2023-08-18 03:14 | External Medical Summary | Summary of Care ---
Author Name Unknown Organization [facility] Address [address] [place] [address] Phone [phone] Care Team Providers Care Duco Polisher Name Role Phone Joselin Henao MD Primary Care Provider [phone] Encounter Details Date Type Department Care Team [...] goal of less than 7.0% ([facility]),Obesity due to excess calories with serious comorbidity, [...] 08/27/2016 Biliary dyskinesia 10/27/2014 Overview: cholecystectomy in [place] Vitamin D deficiency 10/07/2014 Dyslipidemia, goal LDL [...] 08/28/2017 MEDICATION USE AGREEMENT 06/30/2009 Overview: With [facility] pain management clinic. 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 [...] mRNA, LNP-s, No Pre serve, 2-Dose Series ([email or web address]) 04/13/2021,09/19/2020,08/27/2020 Covid-19, Mrna, Lnp-s, Pf, B ivalent, 30 Mcg, IM, 12 yrs and above ([email or web address]) 03/29/2022 Hepatitis B, 20+ yrs 07/05/2022,02/21/2022,01/04 Pneumococcal Conjugate Vacci ne, 20-valent ([id number]) 01/04/2022 Pneumococcal Polysaccharide PPV23 (Pneumovax) 09/17/2008 Seasonal [...] 04/13/2023 3:30 PM EST Imaging Radiology [address], [address] [place] [address] 05/11/2023 10:00 AM EST Office Visit Orthopaedics [facility] [address] [place] [address] Juan Carlos Tijerina, [address] [place] [address] 08/18/2023 11:40 AM EDT Office Visit General Internal Medicine [facility] 200 [facility] [place] [address] Joselin Henao MD 200 [facility] [place] [address] Health Maintenance Due Date Last Done Comments [...] this encounter Medical Devices Implanted Type Area Motor Vehicle Assembly Supervisor Device Identifier Shelf Expiration Date Model / Serial / Lot Knee X3 Ins Pos Cs Sz4 9 - [id number] Implanted:Qty: 1 on 11/21/2022 by Juan Carlos Tijerina DO at OR [facility] Left: Knee PATRICE : ORTHOPAEDICS [...] the patient have Health Care Power of Play Reader? No Full Code 10/02/2018 4:09 PM 10/04/2018 10:30 PM Question Answer Comments Discussion of Advance Directives occurred with: Not Discussed Care Teams Duco Polisher Relationship Specialty Start Date End Date Joselin Henao MD PCP - General Internal Medicine 08/02/21 documented as of this encounter
--- OUTSIDE RECORDS SUMMARY | 2023-08-18 03:14 | External Medical Summary | Summary of Care ---
Author Name Unknown Organization [facility] Address [address] [facility] [address] Phone [phone] Care Team Providers Care A&P Technician Name Role Phone Joselin Henao MD Primary Care Provider [phone] Reason for Visit * Reason Comments Follow Up Left knee pain Encounter Details Date Type Department Care Team (Late st Contact Info) Description 03/30/2023 10:00 AM EST Office Visit Orthopaedics [facility] [address] [facility] [place] [address] Vineet Hodges PA-C [address] [place] [address] Acute pain of left knee*; Status post total left knee replacement Allergies [...] as of this encounter (statuses as of 03/30/2023) Medications Medication Sig Dispensed Refills Start Date [...] as of this encounter (statuses as of 03/30/2023) Active Problems Problem Noted Date Diagnosed Date [...] 08/27/2016 Biliary dyskinesia 10/27/2014 Overview: cholecystectomy in [place] Vitamin D deficiency 10/07/2014 Dyslipidemia, goal LDL below 100 01/05/2010 Fibromyalgia Gastroparesis HTN, goal below 140/80 documented as of this encounter (statuses as of 03/30/2023) Resolved Problems Problem Noted Date Diagnosed Date [...] as of this encounter (statuses as of 03/30/2023) Immunizations Name Administration Dates Next Due COVID-19 mRNA, LNP-s, No Pre serve, 2-Dose Series ([employer]) 04/13/2021,09/19/2020,08/27/2020 Covid-19, Mrna, Lnp-s, Pf, B ivalent, 30 Mcg, IM, 12 yrs and above (Pfizer) 03/29/2022 Hepatitis B, 20+ yrs 07/05/2022,02/21/2022,01/04 Pneumococcal Conjugate Vacci ne, 20-valent ([id number]) 01/04/2022 Pneumococcal Polysaccharide PPV23 (Pneumovax) 09/17/2008 SEASONAL [...] Progress Notes * Vineet Hodges PA-C - 03/30/2023 10:00 AM EST ORTHOPAEDIC SURGERY - Clinic Note SUBJECTIVE: Ena Otto is a 62 year old female. Chief Complaint Patient presents with Follow Up Left knee pain HPI: Ena is a very pleasant 62-year-old female who presents to the clinic today for interval follow-up roughly 18 weeks removed from total left knee arthroplasty for further evaluation of continuedpain. She previously described acute onset of pain postoperatively roughly 8 weeks ago after a relatively easy going rehabilitation to that point. Today she reports continued pain in the left knee which she states encompasses the anterior portion of the knee with some pain in the posterior aspect. She reports some stiffness mainly with extension. She does not report any accessory symptoms, and denies fevers, chills, and night sweats. Review of Systems: Constitutional ROS: [...] G43.809 Biliary dyskinesia K82.8 Dependent personality disorder ([facility]) F60.7 Type 2 diabetes mellitus with hemoglobin A1c goal of less than 7.0% ([facility]) E11.9 S/P total knee arthroplasty, left Z96.652 Past Medical History: Diagnosis Date Abdominal pain 08/25/2014 acute Benign neoplasm of colon 07/03/2012 COLONOSCOPY FLEXIBLE PROXIMAL DIAGNOSTIC performed by Sage Sanchez MD at [facility], HYPERPLASTIC POLYPS REPEAT COLONOSCOPY IN 5 YEAR Biliary dyskinesia 10/27/2014 cholecystectomy in [place] Bipolar 1 disorder ([facility]) BMI 38.0-38.9,adult Body mass index (BMI) of 40.0 to 44.9 in adult ([facility]) 01/23/2017 bmi 30Per Obesity protocol #1 Cystitis 01/09/2019 >100,000 E coli resistant to ampicillin Depression with anxiety Dr. Serna Depressive disorder, not elsewhere classified with history suicide attempts, sees Dr. Mittal DM2 (diabetes mellitus, type 2) ([facility]) Fibromyalgia Gastroparesis HTN, goal below 140/90 Hx of BKA, right ([facility]) 11/27/2018 Hypothyroidism Migraine without aura [...] performed by Davon Li MD at [facility] ANESTHESIA FOR CAT OR MRI SCAN N/A 07/27/2019 ANESTHESIA FOR NON-INVASIVE IMAGING (MRI OR CT) performed by [facility] Out [facility] at [facility] ARTHROPLASTY KNEE TOTAL Left 11/21/2022 ROBOTIC ARTHROPLASTY KNEE TOTAL performed by Juan Carlos Tijerina DO at OR [facility] COLONOSCOPY 2004 internal hemorrhoids COLONOSCOPY, DIAGNOSTIC (RECTUM) 07/03/2012 COLONOSCOPY FLEXIBLE PROXIMAL DIAGNOSTIC performed by Sage Sanchez MD at [facility], HYPERPLASTIC POLYPS REPEAT COLONOSCOPY IN 5 YEARS COLONOSCOPY, DIAGNOSTIC (RECTUM) 01/17/2014 benign polyp, repeat 5 yrs/COLONOSCOPY FLEXIBLE PROXIMAL DIAGNOSTIC performed by Angus Trivedi MD at ENDOSCOPY [facility] EGD PREP 04/08/15 mild gastritis on biopsy, Dr Goldsmith EGD, FLEXIBLE, DIAGNOSTIC 10/09/2015 normal/[facility] EGD, FLEXIBLE, SUBMUCOSAL INJ. 04/09/08 botox inj EGD, W/ENDOSCOPIC US 10/09/2015 normal/[facility] ELECTROCONVUL THERAPY ECT-MULT 2002, [facility] EXPLORATION OF MAXILLARY SINUS 1986 Sinus Surgery FEEDING TUBE 12/2008 - At [facility] INCISIONAL HERNIA REPAIR, LAP, RECURRENT 10/14/2012 Dr. Apple KNEE ARTHROSCOPY/ARTHROPLASTY Left 07/09/2021 ARTHROSCOPY KNEE ABRASION WITH MICROFRACTURE performed by Juan Carlos Tijerina DO at OR [facility] KNEE ARTHROSCOPY/DEBRIDEMENT Left 07/09/2021 ARTHROSCOPY KNEE SURGICAL DEBRIDEMENT SHAVING performed by Juan Carlos Tijerina DO at OR [facility] KNEE ARTHROSCOPY/MENISCECTOMY Left 03/14/2016 Dr. Vaughn MAMMOGRAM [...] 01/06/08 prolonged gastric emptying REMOVE GALLBLADDER 10/27/2014 [facility] [address]. Thorne REMOVE TONSILS & ADENOIDS, [...] evidence of complication or infection. There is no redness, warmth, or soft tissue swelling appreciated. No palpable effusion today. There is tenderness to palpation over the anterior medial aspect of the knee. There is also some tenderness to palpation of a lesser degree within the popliteal fossa. She is able to demonstrate a straight leg raise with roughly 15 deficit. Passively she can achieve full extension. She is able to actively flex to roughly 100. Collateral stability is intact. Calf is supple and nontender. She is distally neurovascularly intact. Upon rising from the chair, majority of the load was placed on the operative knee. Gait assessment is minimally antalgic normal hetal. ASSESSMENT: Acute pain of left knee (Primary) Status post total left knee replacement Check-out note: [address] Tijerina. PLAN: We had a lengthy discussion in the office today with regard to patient's left knee pain which beganroughly 8 weeks ago. It is our belief that her pain is likely related to a majority of loading being shifted to her new knee to offload her prosthetic leg. This is generally preferable to avoid breakdown of her stump, however in this scenario it has led to some increased inflammation and irritationalong the extensor mechanism. We recommended offloading of the joint as is possible while maintaining vigilance with regard to her stump on the right side. We also recommended formal physical therapyfor which a referral was provided at her previous evaluation and a physical therapy appointment hasbeen made for next week. I would like patient to follow up with Dr. Tijerina in roughly 6 weeks for clinical re-evaluation and determination of benefit with physical therapy and offloading. Patientwas certainly urged to contact clinic if she should experience any additional symptoms to include fevers, chills, night sweats. Patient was certainly urged to contact clinic otherwise with any questio ns, concerns, or worsening of symptoms. Patient is comfortable with the plan, and all questions were answered. This chart was completed in part utilizing [employer]od[employer] Speech Voice Recognition Software. Grammatical errors, random word insertions, pronoun errors, and incomplete sentences are an occasional consequence of this system due to software limitations, ambient noise, and hardware issues. Any formal questions or concerns about the content, text, or information contained within the body of this dictation should be directly addressed to the provider for clarification. Vineet Hodges PA-C 03/30/2023 10:00 AM documented in this encounter Nursing Notes * Alejandrina Keen ATC - 03/30/2023 9:51 AM EST Left knee pain. States no change since last visit. States that she has been using her as assistance when walking. documented in this encounter Plan of Treatment Upcoming Encounters Date Type Department Care Team (Late st Contact Info) Description 04/13/2023 3:30 PM EST Imaging Radiology [address] [place] [address] 05/11/2023 10:00 AM EST Office Visit Orthopaedics [facility] [address] [place] [address] Juan Carlos Tijerina, [address] [place] [address] 08/18/2023 11:40 AM EDT Office Visit General Internal Medicine [facility] [address] [place] [address] Joselin Henao MD [address] [facility] [place] [address] Health Maintenance Due Date Last Done Comments [...] this encounter Medical Devices Implanted Type Area Civil Engineering Project Designer Device Identifier Shelf Expiration Date Model / Serial / Lot Knee X3 Ins Pos Cs Sz4 9 - [id number] Implanted:Qty: 1 on 11/21/2022 by Juan Carlos Tijerina, DO at OR [facility] Left: Knee PATRICE : ORTHOPAEDICS 09/13/2027 [id number] / [id number] documented as of this encounter Visit Diagnoses Diagnosis Acute pain of left knee- Primary Status post total left knee replacement documented [...] the patient have Health Care Power of Potato Chip Sorter? No Full Code 10/02/2018 4:09 PM 10/04/2018 10:30 PM Question Answer Comments Discussion of Advance Directives occurred with: Not Discussed Care Teams A&P Technician Relationship Specialty Start Date End Date Joselin Henao MD [address] [place] [address] PCP - General Internal Medicine 08/02/21 documented as of this encounter
--- OUTSIDE RECORDS SUMMARY | 2023-08-18 03:15 | External Medical Summary | Summary of Care ---
Author Name Unknown Organization [facility] Address [address] [place] [address] Phone [phone] Care Team Providers Care Service Unit Operator Name Role Phone Joselin Henao MD Primary Care Provider [phone] Encounter Details Date Type Department Care Team (Late st Contact Info) Description 03/15/2023 Patient Reported Data Patient Survey Ortho OBERD [...] as of this encounter (statuses as of 03/15/2023) Medications Medication Sig Dispensed Refills Start Date [...] Additional Information Patient not taking.Reported on 02/15/2023 Atorvastatin Calcium 40 MG Oral Tablet (Lipitor) Take 1 Tablet by mouth in the morning. Inc 06/03/2022. 90 Tablet 2 07/05/2022 Active Additional Information Patient taking differently:40 mg OralQHS, Inc 06/03/2022, Reported on 08/01/2022 Topiramate 100 MG Oral Tablet (topAMAX) TAKE [...] Restart 08/15/2022. 90 Capsule 1 08/15/2022 Active Esomeprazole Magnesium 40 MG Oral Capsule Delayed ReleaseIndications:G astroesophageal reflux disease without esophagitis TAKE ONE CAPSULE BY MOUTH 1 HOUR BEFORE FIRST MEAL OF THE DAY 90 Capsule 1 09/27/2022 Active Famotidine 40 MG Oral Tablet (Pepcid)Indications: Gastroesophageal reflux disease without esophagitis TAKE 1 TABLET BY MOUTH EVERY DAY 90 Tablet 1 09/27/2022 Active Valsartan 320 MG Oral Tablet (Diovan)Indications: [...] INC 12/12/2022. 90 Tablet 1 03/09/2023 Active documented as of this encounter (statuses as of 03/15/2023) Active Problems Problem Noted Date Diagnosed Date [...] 08/27/2016 Biliary dyskinesia 10/27/2014 Overview: cholecystectomy in [place] Vitamin D deficiency 10/07/2014 Dyslipidemia, goal LDL below 100 01/05/2010 Fibromyalgia Gastroparesis HTN, goal below 140/80 documented as of this encounter (statuses as of 03/15/2023) Resolved Problems Problem Noted Date Diagnosed Date [...] MEDICATION USE AGREEMENT 06/30/2009 Overview: With [facility] pain management clinic. 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 017 [...] as of this encounter (statuses as of 03/15/2023) Immunizations Name Administration Dates Next Due COVID-19 mRNA, LNP-s, No Pre serve, 2-Dose Series ([employer]) 04/13/2021,09/19/2020,08/27/2020 Covid-19, Mrna, Lnp-s, Pf, B ivalent, 30 Mcg, IM, 12 yrs and above ([employer]) 03/29/2022 Hepatitis B, 20+ yrs 07/05/2022,02/21/2022,01/04 Pneumococcal Conjugate Vacci ne, 20-valent ([id number]) 01/04/2022 Pneumococcal Polysaccharide PPV23 (Pneumovax) 09/17/2008 SEASONAL [...] Team (Late st Contact Info) Description 04/13/2023 11:00 AM EST Office Visit Orthopaedics [facility] [address] [place] [address] Vineet Hodges PA-C [address] [place] [address] 08/18/2023 11:40 AM EDT Office Visit General Internal Medicine [facility] 200 [facility] [place] [place] [address] Joselin Henao MD 200 [facility] [place] [address] Health Maintenance Due Date Last Done Comments [...] this encounter Medical Devices Implanted Type Area Telecommunications Clerk Device Identifier Shelf Expiration Date Model / Serial / Lot Knee X3 Ins Pos Cs Sz4 9 - [id number] Implanted:Qty: 1 on 11/21/2022 by Juan Carlos Tijerina, at OR [facility] Left: Knee PATRICE : ORTHOPAEDICS [...] the patient have Health Care Power of Fiscal Accounting Clerk? No Full Code 10/02/2018 4:09 PM 10/04/2018 10:30 PM Question Answer Comments Discussion of Advance Directives occurred with: Not Discussed Care Teams Service Unit Operator Relationship Specialty Start Date End Date Joselin Henao MD [address] [place] [address] PCP - General Internal Medicine 08/02/21 documented as of this encounter
--- OUTSIDE RECORDS SUMMARY | 2023-08-18 03:15 | External Medical Summary | Summary of Care ---
Author Name Unknown Organization [facility] Address [address] [place] [address] Phone [phone] Care Team Providers Care Supervisor Self Service Store Name Role Phone Joselin Henao MD Primary Care Provider [phone] Encounter Details Date Type Department Care Team [...] 08/27/2016 Biliary dyskinesia 10/27/2014 Overview: cholecystectomy in [place] Vitamin D deficiency 10/07/2014 Dyslipidemia, goal LDL [...] 08/28/2017 MEDICATION USE AGREEMENT 06/30/2009 Overview: With [facility] pain management clinic. Orofacial dyskinesia [...] mRNA, LNP-s, No Pre serve, 2-Dose Series ([employer]) 04/13/2021,09/19/2020,08/27/2020 Covid-19, Mrna, Lnp-s, Pf, B ivalent, 30 Mcg, IM, 12 yrs and above ([employer]) 03/29/2022 Hepatitis B, 20+ yrs 07/05/2022,02/21/2022,01/04 Pneumococcal Conjugate Vacci ne, 20-valent ([id number]) 01/04/2022 Pneumococcal Polysaccharide PPV23 (Pneumovax) 09/17/2008 SEASONAL [...] 04/13/2023 11:00 AM EST Office Visit Orthopaedics [facility] [address] [place] [address] Vineet Hodges PA-C [address] [place] [address] 08/18/2023 11:40 AM EDT Office Visit General Internal Medicine [facility] [place] [address] Joselin Henao MD 200 [facility] [place] [address] Health Maintenance Due Date Last Done Comments [...] encounter Medical Devices Implanted Type Area Hand Bander Device Identifier Shelf Expiration Date Model / Serial / Lot Knee X3 Ins Pos Cs Sz4 9 - [id number] Implanted:Qty: 1 on 11/21/2022 by Juan Carlos Tijerina, at OR [facility] Left: Knee PATRICE : ORTHOPAEDICS [...] the patient have Health Care Power of Tinner Automatic? No Full Code 10/02/2018 4:09 PM 10/04/2018 10:30 PM Question Answer Comments Discussion of Advance Directives occurred with: Not Discussed Care Teams Supervisor Self Service Store Relationship Specialty Start Date End Date Joselin Henao MD [address] [place] [address] PCP - General Internal Medicine 08/02/21 documented as of this encounter
--- OUTSIDE RECORDS SUMMARY | 2023-08-18 03:15 | External Medical Summary | Summary of Care ---
Author Name Unknown Organization [facility] Address [address] [place] [address] Phone [phone] Care Team Providers Care Commercial Stripper Name Role Phone Joselin Henao MD Primary Care Provider [phone] Reason for Visit * Reason Comments eRx-Medication Refill Encounter Details Date Type Department Care Team (Late st Contact Info) Description 03/24/2023 Refill General Internal Medicine [facility] 200 [facility] [place] [address] Joselin Henao MD [address] [place] [address] Gastroesophageal reflux disease without esophagitis Allergies Active Allergy Reactions Criticality Noted Date Comments Duloxetine Hcl Neuro complications (Please comment) Medium 02/02/2010 Decreased responsiveness / lethargy - pt states EMS mistakenly thought she overdosed on it Fentanyl Nausea/vomiting Medium 12/16/2014 Pregabalin Nausea/vomiting Low 09/02/2019 Metoclopramide Hcl Psych complications High 07/09/19 16 Tardive dyskinesia Tramadol Nausea/vomiting Medium 01/08/2014 documented as of this encounter (statuses as of 03/24/2023) Medications Medication Sig Dispensed Refills Start Date End Date Status TOPIRAMATE ER 50 MG PO CS24 Take 50 mg by mouth every night at bedtime. 0 4 Active Nortriptyline HCl 75 MG Oral Capsule [...] times a day E11.9 1 Kit 0 3 Active Additional Information Patient not taking.Reported on 11/04/2022 OneTouch Verio In Vitro Strip (Glucose Blood)Indications:T ype 2 diabetes mellitus with hemoglobin A1c goal of less than 7.0% (HCC) Use up to 2 times a day E11.9 100 Strip 11 3 Active Additional Information Patient not taking.Reported on 02/15/2023 OneTouch UltraSoft LancetsIndications: Type 2 diabetes mellitus with hemoglobin A1c goal of less than 7.0% (HCC) Test sugar upto 2 times daily as directed-E 11.9 100 Each 5 3 Active Additional Information Patient not taking.Reported on 02/15/2023 Topiramate 100 MG Oral Tablet (topAMAX) TAKE 1 TABLET BY MOUTH EVERY DAY IN THE MORNING DIRECTED 0 3 Active Nortriptyline HCl 25 MG Oral Capsule (Pamelor) TAKE 1 CAPSULE BY MOUTH AT BEDTIME DIRECTED TAKE ALONG WITH YOUR 75MG CAPSULE AT BED. 0 3 Active B-12 1000 MCG Oral TabletIndications:L ow serum vitamin B12,Gastroesophagea l reflux disease without esophagitis 1 tab daily, start 09/30/2021, restart 08/15/2022 1 Tablet 0 3 Active Vitamin D-3 25 MCG (1000 UT) Oral CapsuleIndications: Vitamin D deficiency Take 1 Capsule by mouth in the morning. Restart 08/15/2022. 90 Capsule 1 3 Active Valsartan 320 MG Oral Tablet (Diovan)Indications :Diabetes mellitus, new onset (HCC),HTN, goal below 140/80 TAKE BY MOUTH 1 TABLET IN THE MORNING 90 Tablet 2 3 Active amLODIPine Besylate 5 MG Oral Tablet (Norvasc)Indication s:HTN, goal below 140/90 TAKE 1 TABLET BY MOUTH EVERY DAY 90 Tablet 2 3 Active Ondansetron HCl 4 MG Oral TabletIndications:N ausea Take 1 Tablet by mouth every 6 hours as needed for Nausea. 30 Tablet 2 3 Active oxyCODONE HCl 5 MG Oral Tablet (Oxy IR) Take 1 Tablet by mouth every 6 hours as needed. 0 3 Active Aspirin 81 MG Oral Tablet Delayed Release Take 1 Tablet by mouth in the morning. 100 Tablet 3 3 Active Rybelsus 7 MG Oral Tablet (Semaglutide)Indica tions:Type 2 diabetes mellitus with hemoglobin A1c goal of less than 7.0% ([facility]),Obesity due to excess calories with serious comorbidity, unspecified classification TAKE 1 TABLET BY MOUTH FIRST THING IN THE MORNING. INC 12/12/2022. 90 Tablet 1 3 Active Atorvastatin Calcium 40 MG Oral Tablet (Lipitor) TAKE 1 TABLET BY MOUTH IN THE MORNING. 90 Tablet 2 3 Active Famotidine 40 MG Oral Tablet (Pepcid)Indications :Gastroesophageal reflux disease without esophagitis TAKE 1 TABLET BY MOUTH EVERY DAY 90 Tablet 1 3 Active Esomeprazole Magnesium 40 MG Oral Capsule Delayed ReleaseIndications: Gastroesophageal reflux disease without esophagitis TAKE ONE CAPSULE BY MOUTH 1 HOUR BEFORE FIRST MEAL OF THE DAY 90 Capsule 1 3 Active Atorvastatin Calcium 40 MG Oral Tablet (Lipitor) Take 1 Tablet by mouth in the morning. Inc 06/03/2022. 90 Tablet 2 3 03/24/20 23 Discontinued Esomeprazole Magnesium 40 MG Oral Capsule Delayed ReleaseIndications: Gastroesophageal reflux disease without esophagitis TAKE ONE CAPSULE BY MOUTH 1 HOUR BEFORE FIRST MEAL OF THE DAY 90 Capsule 1 3 03/24/20 23 Discontinued Famotidine 40 MG Oral Tablet (Pepcid)Indications :Gastroesophageal reflux disease without esophagitis TAKE 1 TABLET BY MOUTH EVERY DAY 90 Tablet 1 3 03/24/20 23 Discontinued documented as of this encounter (statuses as of 03/24/2023) Active Problems Problem Noted Date Diagnosed Date [...] 08/27/2016 Biliary dyskinesia 10/27/2014 Overview: cholecystectomy in [place] Vitamin D deficiency 10/07/2014 Dyslipidemia, goal LDL below 100 01/05/2010 Fibromyalgia Gastroparesis HTN, goal below 140/80 documented as of this encounter (statuses as of 03/24/2023) Resolved Problems Problem Noted Date Diagnosed Date [...] MEDICATION USE AGREEMENT 06/30/2009 Overview: With [facility] pain management clinic. Orofacial dyskinesia [...] as of this encounter (statuses as of 03/24/2023) Immunizations Name Administration Dates Next Due COVID-19 mRNA, LNP-s, No Pre serve, 2-Dose Series (DEXMA) 04/13/2021,09/19/2020,08/27/2020 Covid-19, Mrna, Lnp-s, Pf, B ivalent, 30 Mcg, IM, 12 yrs and above (DEXMA) 03/29/2022 Hepatitis B, 20+ yrs 07/05/2022,02/21/2022,01/04 Pneumococcal Conjugate Vacci ne, 20-valent ([id number]) 01/04/2022 Pneumococcal Polysaccharide PPV23 (Pneumovax) 09/17/2008 SEASONAL [...] encounter Miscellaneous Notes * Telephone Encounter - Juice Membreno RPh - 03/24/2023 9:54 AM EST Signed Prescriptions: Disp Refills Atorvastatin Calcium 40 MG Oral Tablet (Li*90 Tab*2 Sig: TAKE 1 TABLET BY MOUTH IN THE MORNING.Authorizing Provider: Yan HENAO User: GOKUL MEMBRENO Famotidine 40 MG Oral Tablet (Pepcid) 90 Tab*1 Sig: TAKE 1 TABLET BY MOUTH EVERY DAYAuthorizing Provider: Yan HENAO User: JUICE MEMBRENO Esomeprazole Magnesium 40 MG Oral Capsule *90 Cap*1 Sig: TAKE ONE CAPSULE BY MOUTH 1 HOUR BEFORE FIRST MEAL OF THE DAYAuthorizing Provider: Yan HENAO User: JUICE MEMBRENO documented in this encounter Plan of Treatment Upcoming Encounters Date Type Department Care Team (Late st Contact Info) Description 03/30/2023 10:00 AM EST Office Visit Orthopaedics [facility] 132 [facility] [place] [address] Vineet Hodges PA-C [address] [place] [place] [address] 04/13/2023 11:00 AM EST Office Visit Orthopaedics [facility] 132 [facility] [place] [address] Vineet Hodges PA-C [address] [place] [address] 04/13/2023 3:30 PM EST Imaging Radiology [facility] 1st [facility] 132 [facility] [place] [address] 08/18/2023 11:40 AM EDT Office Visit General Internal Medicine [facility] 200 [facility] [place] [address] Joselin Henao MD 200 [facility] [place] [address] Health Maintenance Due Date Last Done Comments [...] this encounter Medical Devices Implanted Type Area Floor Tech Device Identifier Shelf Expiration Date Model / Serial / Lot Knee X3 Ins Pos Cs Sz4 9 - [id number] Implanted:Qty: 1 on 11/21/2022 by Juan Carlos Tijerina DO at OR [facility] Left: Knee PATRICE : ORTHOPAEDICS 09/13/2027 [id number] / / [id number] documented as of this encounter Visit Diagnoses Diagnosis Gastroesophageal reflux disease without esophagitis Esophageal reflux documented in this encounter Advance Directives Latest [...] the patient have Health Care Power of Movement Assembler? No Full Code 10/02/2018 4:09 PM 10/04/2018 10:30 PM Question Answer Comments Discussion of Advance Directives occurred with: Not Discussed Care Teams Commercial Stripper Relationship Specialty Start Date End Date Joselin Henao MD [address] [place] [address] PCP - General Internal Medicine 08/02/21 documented as of this encounter
--- OUTSIDE RECORDS SUMMARY | 2023-08-18 03:15 | External Medical Summary | Summary of Care ---
Author Name Unknown Organization [facility] Address [address] [place] [address] Phone [phone] Care Team Providers Care Textiles Sales Representative Name Role Phone Joselin Henao MD Primary Care Provider [phone] Encounter Details Date Type Department Care Team [...] 08/27/2016 Biliary dyskinesia 10/27/2014 Overview: cholecystectomy in [place] Vitamin D deficiency 10/07/2014 Dyslipidemia, goal LDL [...] MEDICATION USE AGREEMENT 06/30/2009 Overview: With [facility] pain management clinic. 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 [...] mRNA, LNP-s, No Pre serve, 2-Dose Series ([employer]) 04/13/2021,09/19/2020,08/27/2020 Covid-19, Mrna, Lnp-s, Pf, B ivalent, 30 Mcg, IM, 12 yrs and above ([employer]) 03/29/2022 Hepatitis B, 20+ yrs 07/05/2022,02/21/2022,01/04 Pneumococcal Conjugate Vacci ne, 20-valent ([id number]) 01/04/2022 Pneumococcal Polysaccharide PPV23 (Pneumovax) 09/17/2008 SEASONAL [...] 03/30/2023 10:00 AM EST Office Visit Orthopaedics [address] [place] [address] Vineet Hodges PA-C [address] [place] [place] [address] 04/13/2023 11:00 AM EST [facility] [place] [address] Vineet Hodges PA-C [address] [place] [address] 04/13/2023 3:30 PM EST Imaging Radiology [facility] 1st [facility] 132 [facility] [place] [address] 08/18/2023 11:40 AM EDT Office Visit General Internal Medicine [facility] 200 [facility] [place] [address] Joselin Henao MD 200 [facility] [place] [address] Health Maintenance Due Date Last Done Comments [...] this encounter Medical Devices Implanted Type Area Technology Director Device Identifier Shelf Expiration Date Model / Serial / Lot Knee X3 Ins Pos Cs Sz4 9 - [id number] Implanted:Qty: 1 on 11/21/2022 by Juan Carlos Tijerina, DO at OR [facility] Left: Knee PATRICE : ORTHOPAEDICS [...] the patient have Health Care Power of Lane Attendant? No Full Code 10/02/2018 4:09 PM 10/04/2018 10:30 PM Question Answer Comments Discussion of Advance Directives occurred with: Not Discussed Care Teams Textiles Sales Representative Relationship Specialty Start Date End Date Joselin Henao MD [address] [place] [address] PCP - General Internal Medicine 08/02/21 documented as of this encounter
--- OUTSIDE RECORDS SUMMARY | 2023-08-18 03:15 | External Medical Summary | Summary of Care ---
Author Name Unknown Organization [facility] Address [address] [place] [address] Phone [phone] Care Team Providers Care Elevator Constructor Name Role Phone Joselin Henao MD Primary Care Provider Encounter Details Date Type Department Care Team [...] 08/27/2016 Biliary dyskinesia 10/27/2014 Overview: cholecystectomy in [place] Vitamin D deficiency 10/07/2014 Dyslipidemia, goal LDL [...] 06/30/2009 Overview: With [facility] pain management clinic. 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 017 [...] mRNA, LNP-s, No Pre serve, 2-Dose Series (Sribu) 04/13/2021,09/19/2020,08/27/2020 Covid-19, Mrna, Lnp-s, Pf, B ivalent, 30 Mcg, IM, 12 yrs and above (Sribu) 03/29/2022 Hepatitis B, 20+ yrs 07/05/2022,02/21/2022,01/04 Pneumococcal Conjugate Vacci ne, 20-valent ([id number]) 01/04/2022 Pneumococcal Polysaccharide PPV23 (Pneumovax) 09/17/2008 SEASONAL [...] 04/13/2023 11:00 AM EST Office Visit Orthopaedics [facility] [address] [place] [address] Vineet Hodges PA-C [address] [place] [address] 08/18/2023 11:40 AM EDT Office Visit General Internal Medicine [facility] 200 [facility] [place] [address] Joselin Henao MD 200 [facility] [place] [address] Health Maintenance Due Date Last Done Comments [...] this encounter Medical Devices Implanted Type Area Android Ui Developer Device Identifier Shelf Expiration Date Model / Serial / Lot Knee X3 Ins Pos Cs Sz4 9 - [id number] Implanted:Qty: 1 on 11/21/2022 by Juan Carlos Tijerina, at OR [facility] Left: Knee PATRICE : ORTHOPAEDICS [...] the patient have Health Care Power of Shredder Picker? No Full Code 10/02/2018 4:09 PM 10/04/2018 10:30 PM Question Answer Comments Discussion of Advance Directives occurred with: Not Discussed Care Teams Elevator Constructor Relationship Specialty Start Date End Date Joselin Henao MD [address] [place] [address] PCP - General Internal Medicine 08/02/21 documented as of this encounter
--- OUTSIDE RECORDS SUMMARY | 2023-08-18 03:16 | External Medical Summary | Summary of Care ---
Author Name Unknown Organization [facility] Address [address] [place] [address] Phone [phone] Care Team Providers Care Forestry Aid Name Role Phone Joselin Henao MD Primary Care Provider Encounter Details Date Type Department Care Team (Late st Contact Info) Description 03/14/2023 Population Health External Data Unspecified Department Allergies [...] as of this encounter (statuses as of 03/14/2023) Medications Medication Sig Dispensed Refills Start Date [...] as of this encounter (statuses as of 03/14/2023) Active Problems Problem Noted Date Diagnosed Date [...] 08/27/2016 Biliary dyskinesia 10/27/2014 Overview: cholecystectomy in [place] Vitamin D deficiency 10/07/2014 Dyslipidemia, goal LDL below 100 01/05/2010 Fibromyalgia Gastroparesis HTN, goal below 140/80 documented as of this encounter (statuses as of 03/14/2023) Resolved Problems Problem Noted Date Diagnosed Date [...] 08/28/2017 MEDICATION USE AGREEMENT 06/30/2009 Overview: With [facility] pain management clinic. Orofacial dyskinesia [...] as of this encounter (statuses as of 03/14/2023) Immunizations Name Administration Dates Next Due COVID-19 mRNA, LNP-s, No Pre serve, 2-Dose Series ([email or web address]) 04/13/2021,09/19/2020,08/27/2020 Covid-19, Mrna, Lnp-s, Pf, B ivalent, 30 Mcg, IM, 12 yrs and above ([email or web address].com) 03/29/2022 Hepatitis B, 20+ yrs 07/05/2022,02/21/2022,01/04 Pneumococcal Conjugate Vacci ne, 20-valent ([id number]) 01/04/2022 Pneumococcal Polysaccharide PPV23 (Pneumovax) 09/17/2008 SEASONAL [...] 04/13/2023 11:00 AM EST Office Visit Orthopaedics [facility] [address] [place] [address] Vineet Hodges PA-C [address] [place] [place] [address] 08/18/2023 11:40 AM EDT Office Visit General Internal Medicine [facility] 200 [facility] [place] [address] Joselin Henao MD 200 [facility] [place] [address] Health Maintenance Due Date Last Done Comments [...] this encounter Medical Devices Implanted Type Area Cover Remover Device Identifier Shelf Expiration Date Model / Serial / Lot Knee X3 Ins Pos Cs Sz4 9 - [id number] Implanted:Qty: 1 on 11/21/2022 by Juan Carlos Tijerina, at OR [facility] Left: Knee PATRICE : ORTHOPAEDICS 09/13/2027 [id number] [...] the patient have Health Care Power of Immigration Inspector? No Full Code 10/02/2018 4:09 PM 10/04/2018 10:30 PM Question Answer Comments Discussion of Advance Directives occurred with: Not Discussed Care Teams Forestry Aid Relationship Specialty Start Date End Date Joselin Henao MD [address] [place] [address] PCP - General Internal Medicine 08/02/21 documented as of this encounter
--- OUTSIDE RECORDS SUMMARY | 2023-08-18 03:16 | External Medical Summary | Summary of Care ---
Author Name Unknown Organization [facility] Address [address] [place] [address] Phone [phone] Care Team Providers Care Clerk Funeral Detail Name Role Phone Joselin Henao MD Primary Care Provider [phone] Reason for Visit * Reason Comments eRx-Medication Refill Encounter Details Date Type Department Care Team (Late st Contact Info) Description 03/09/2023 Refill General Internal Medicine [facility] 200 [facility] [place], [place] [id number] Joselin Henao MD 200 [place] [address] Type 2 diabetes mellitus with hemoglobin A1c goal of less than 7.0% ([facility]); Obesity due to excess calories with serious comorbidity, unspecified classification Allergies Active Allergy Reactions Criticality Noted Date Comments Duloxetine Hcl Neuro complications (Please comment) Medium 02/02/2010 Decreased responsiveness / lethargy - pt states EMS mistakenly thought she overdosed on it Fentanyl Nausea/vomiting Medium 12/16/2014 Pregabalin Nausea/vomiting Low 09/02/2019 Metoclopramide Hcl Psych complications High 07/09/19 16 Tardive dyskinesia Tramadol Nausea/vomiting Medium 01/08/2014 documented as of this encounter (statuses as of 03/09/2023) Medications Medication Sig Dispensed Refills Start Date [...] morning. Inc 06/03/2022. 90 Tablet 2 3 Active Additional Information Patient taking differently:40 mg [...] Restart 08/15/2022. 90 Capsule 1 3 Active Esomeprazole Magnesium 40 MG Oral Capsule Delayed ReleaseIndications: Gastroesophageal reflux disease without esophagitis TAKE ONE CAPSULE BY MOUTH 1 HOUR BEFORE FIRST MEAL OF THE DAY 90 Capsule 1 3 Active Famotidine 40 MG Oral Tablet (Pepcid)Indications :Gastroesophageal reflux disease without esophagitis TAKE 1 TABLET BY MOUTH EVERY DAY 90 Tablet 1 3 Active Valsartan 320 MG Oral [...] INC 12/12/2022. 90 Tablet 1 3 Active Semaglutide 7 MG Oral Tablet (Rybelsus)Indicatio ns:Type 2 diabetes mellitus with hemoglobin A1c goal of less than 7.0% (HCC),Obesity due to excess calories with serious comorbidity, unspecified classification Take 7 mg by mouth daily first thing in the morning. Inc 12/12/2022 30 Tablet 2 3 03/09/20 23 Discontinued documented as of this encounter (statuses as of 03/09/2023) Active Problems Problem Noted Date Diagnosed Date [...] 08/27/2016 Biliary dyskinesia 10/27/2014 Overview: cholecystectomy in [place] Vitamin D deficiency 10/07/2014 Dyslipidemia, goal LDL below 100 01/05/2010 Fibromyalgia Gastroparesis HTN, goal below 140/80 documented as of this encounter (statuses as of 03/09/2023) Resolved Problems Problem Noted Date Diagnosed Date [...] as of this encounter (statuses as of 03/09/2023) Immunizations Name Administration Dates Next Due COVID-19 mRNA, LNP-s, No Pre serve, 2-Dose Series (Expert) 04/13/2021,09/19/2020,08/27/2020 Covid-19, Mrna, Lnp-s, Pf, B ivalent, 30 Mcg, IM, 12 yrs and above (Expert) 03/29/2022 Hepatitis B, 20+ yrs 07/05/2022,02/21/2022,01/04 Pneumococcal Conjugate Vacci ne, 20-valent ([id number]) 01/04/2022 Pneumococcal Polysaccharide PPV23 (Pneumovax) 09/17/2008 SEASONAL [...] encounter Miscellaneous Notes * Telephone Encounter - Bee Solis RPh - 03/09/2023 3:33 PM ESTSigned Prescriptions: Disp Refills Rybelsus 7 MG Oral Tablet (Semaglutide) 90 Tab*1 Sig: TAKE 1 TABLET BY MOUTH FIRST THING IN THE MORNING. INC 12/12/2022.Authorizing Provider: Yan HENAO User: BEE SOLIS documented in this encounter Plan of Treatment Upcoming Encounters Date Type Department Care Team (Late st Contact Info) Description 03/14/2023 12:00 PM EST Imaging Radiology [address] 132 [facility] [place] [address] 04/13/2023 11:00 AM EST Office Visit Orthopaedics [facility] 132 [facility] [place] [address] Vineet Hodges PA-C [address] [place] [place] [address] 08/18/2023 11:40 AM EDT Office Visit General Internal Medicine [facility] [address] [place] [address] Joselin Henao MD [address] [place] [address] Health Maintenance Due Date Last Done Comments [...] this encounter Medical Devices Implanted Type Area Float Tender Device Identifier Shelf Expiration Date Model / Serial / Lot Knee X3 Ins Pos Cs Sz4 9 - [id number] Implanted:Qty: 1 on 11/21/2022 by Juan Carlos Tijerina, DO at OR [facility] Left: Knee PATRICE : ORTHOPAEDICS 09/13/2027 [id number] / / [id number] documented as of this encounter Visit Diagnoses Diagnosis Type 2 diabetes mellitus with hemoglobin A1c goal of less than 7.0% (HCC) Obesity due to excess calories with serious comorbidity, unspecified classification documented in this encounter Advance Directives Latest [...] the patient have Health Care Power of Inner Tube Inserter? No Full Code 10/02/2018 4:09 PM 10/04/2018 10:30 PM Question Answer Comments Discussion of Advance Directives occurred with: Not Discussed Care Teams Clerk Funeral Detail Relationship Specialty Start Date End Date Joselin Henao MD [address] [place] [address] PCP - General Internal Medicine 08/02/21 documented as of this encounter
--- OUTSIDE RECORDS SUMMARY | 2023-08-18 03:16 | External Medical Summary | Summary of Care ---
Author Name Unknown Organization [facility] Address [address] [place] [address] Phone [phone] Care Team Providers Care Poultry Hatchery Man Name Role Phone Joselin Henao MD Primary Care Provider [phone] Encounter Details Date Type Department Care Team (Late st Contact Info) Description 02/24/2023 Patient Reported Data Patient Survey Ortho OBERD [...] as of this encounter (statuses as of 02/24/2023) Medications Medication Sig Dispensed Refills Start Date [...] EVERY DAY 90 Tablet 1 09/27/2022 Active Semaglutide 7 MG Oral Tablet (Rybelsus)Indication s:Type 2 diabetes mellitus with hemoglobin A1c goal of less than 7.0% (HCC),Obesity due to excess calories with serious comorbidity, unspecified classification Take 7 mg by mouth daily first thing in the morning. Inc 12/12/2022 30 Tablet 2 12/12/2022 Active Valsartan 320 MG Oral Tablet (Diovan)Indications: [...] the morning. 100 Tablet 3 02/15/2023 Active documented as of this encounter (statuses as of 02/24/2023) Active Problems Problem Noted Date Diagnosed Date [...] 08/27/2016 Biliary dyskinesia 10/27/2014 Overview: cholecystectomy in [place] Vitamin D deficiency 10/07/2014 Dyslipidemia, goal LDL below 100 01/05/2010 Fibromyalgia Gastroparesis HTN, goal below 140/80 documented as of this encounter (statuses as of 02/24/2023) Resolved Problems Problem Noted Date Diagnosed Date [...] AGREEMENT 06/30/2009 Overview: With [facility] pain management clinic. 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 (5 years old or older No 11/21/2022 documented as of this encounter Plan of Treatment Upcoming Encounters Date Type Department Care Team (Late st Contact Info) Description 03/02/2023 11:00 AM EST Office Visit Orthopaedics [facility] 132 [facility] [place] [address] Vineet Hodges PA-C [address] [place] [place] [address] 03/14/2023 12:00 PM EST Imaging Radiology [facility] 1st [facility] [address] [place] [address] 08/18/2023 11:40 AM EDT Office Visit General Internal Medicine [facility] 200 [facility] [place] [address] Joselin Henao MD 200 [facility] [place] [address] Health Maintenance Due Date Last Done Comments [...] this encounter Medical Devices Implanted Type Area Flanging Operator Device Identifier Shelf Expiration Date Model / Serial / Lot Knee X3 Ins Pos Cs Sz4 9 - [id number] Implanted:Qty: 1 on 11/21/2022 by Juan Carlos Tijerina, DO at OR [facility] Left: Knee PATRICE : ORTHOPAEDICS 09/13/2027 [...] the patient have Health Care Power of Loan Associate? No Full Code 10/02/2018 4:09 PM 10/04/2018 10:30 PM Question Answer Comments Discussion of Advance Directives occurred with: Not Discussed Care Teams Poultry Hatchery Man Relationship Specialty Start Date End Date Joselin Henao MD [address] [place] [address] PCP - General Internal Medicine 08/02/21 documented as of this encounter
--- OUTSIDE RECORDS SUMMARY | 2023-08-18 03:16 | External Medical Summary | Summary of Care ---
Author Name Unknown Organization [facility] Address [address] [address] Phone [phone] Care Team Providers Care Sales Assistant Institutional Sales Name Role Phone Joselin Henao MD Primary Care Provider [phone] Reason for Referral * Evaluate & Treat - Unlimited Visits (Within 3 days (urgent)) - Authorized Specialty Diagnoses / Procedures Referred By Tiago guzman Referred To Contact Physical Therapy / Physical Medicine And Rehab Diagnoses Left knee pain Status post total left knee replacement Vineet Hodges PA-C [address] [place] [address] Referral ID Status Reason Start Date Expiration Date Visits Requested Visits Authorized [id number] Authorized Specialty Services Required 03/02/[phone] Question Answer Referral Priority Within 3 days (urgent) Where should this appointment be scheduled? [facility] Comments Status post total left knee arthroplasty, increased pain, rehabilitation for maintenance of range of motion and strength as pain improves. Reason for Visit * Reason Comments Follow Up Left knee f/u Encounter Details Date Type Department Care Team (Late st Contact Info) Description 03/02/2023 11:00 AM EST Office Visit Orthopaedics [facility] [address] [facility] [place] [address] Vineet Hodges PA-C [address] [place] [address] Acute pain [...] as of this encounter (statuses as of 03/02/2023) Medications Medication Sig Dispensed Refills Start Date [...] as of this encounter (statuses as of 03/02/2023) Active Problems Problem Noted Date Diagnosed Date [...] 08/27/2016 Biliary dyskinesia 10/27/2014 Overview: cholecystectomy in [place] Vitamin D deficiency 10/07/2014 Dyslipidemia, goal LDL below 100 01/05/2010 Fibromyalgia Gastroparesis HTN, goal below 140/80 documented as of this encounter (statuses as of 03/02/2023) Resolved Problems Problem Noted Date Diagnosed Date [...] 08/28/2017 MEDICATION USE AGREEMENT 06/30/2009 Overview: With [facility] pain management clinic. Orofacial dyskinesia [...] as of this encounter (statuses as of 03/02/2023) Immunizations Name Administration Dates Next Due COVID-19 mRNA, LNP-s, No Pre serve, 2-Dose Series ([employer]) 04/13/2021,09/19/2020,08/27/2020 Covid-19, Mrna, Lnp-s, Pf, B ivalent, 30 Mcg, IM, 12 yrs and above (Pfizer) 03/29/2022 Hepatitis B, 20+ yrs 07/05/2022,02/21/2022,01/04 Pneumococcal Conjugate Vacci ne, 20-valent ([id number]) 01/04/2022 Pneumococcal Polysaccharide PPV23 (Pneumovax) 09/17/2008 SEASONAL [...] Progress Notes * Vineet Hodges PA-C - 03/02/2023 11:07 AM EST ORTHOPAEDIC SURGERY - Post-Op Clinic Note SUBJECTIVE: Ena Otto is a 62 year old female. Chief Complaint Patient presents with Follow Up Left knee f/u HPI: Ena is a very pleasant 62-year-old female who presents to the clinic today for surgical follow-up roughly 14 weeks removed from total left knee arthroplasty. Today she reports that roughly 4 weeks ago, after discharged from formal physical therapy, she began having extreme pain in the left knee which she Reports is quite diffuse over the entirety of the knee. She does localize more intensepain over the anterior aspect of the knee as well as within the popliteal fossa. She reports that she has presented to the emergency room twice, where she states they told her that she had a strain or sprain without gross findings on exam or radiographs. She reports that pain is quite constant, as e xacerbated by motion, and is present at night as well when she is trying to sleep. She denies fevers, chills, or night sweats. No other symptoms of illness. She is mainly concerned with prosthetic loosening as she feels her pain is reminiscent of loosened prosthetics that she had in her ankle previously. Review of patient's allergies indicates: Allergen Reactions [...] taking: Reported on 02/15/2023) 100 Each 5 Atorvastatin Calcium 40 MG Oral Tablet (Lipitor) Take 1 Tablet by mouth in the morning. Inc 06/03/2022. (Patient taking differently: Take 1 Tablet by mouth every night at bedtime. Inc 06/03/2022) 90 Tablet 2 Topiramate 100 MG Oral Tablet (topAMAX) TAKE [...] the morning. Restart 08/15/2022. 90 Capsule 1 Esomeprazole Magnesium 40 MG Oral Capsule Delayed Release TAKE ONE CAPSULE BY MOUTH 1 HOUR BEFORE FIRST MEAL OF THE DAY 90 Capsule 1 Famotidine 40 MG Oral Tablet (Pepcid) TAKE 1 TABLET BY MOUTH EVERY DAY 90 Tablet 1 Semaglutide 7 MG Oral Tablet (Rybelsus) Take 7 mg by mouth daily first thing in the morning. Inc 12/12/2022 30 Tablet 2 Valsartan 320 MG Oral Tablet (Diovan) TAKE [...] mouth in the morning. 100 Tablet 3 No current facility-administered medications for this visit. OBJECTIVE: Diagnostic studies: Updated radiographs of the left knee obtained in the office today were reviewed, independently interpreted, compared with previous, and demonstrate A stable total left knee arthroplasty prosthesis without evidence of hardware complication, prosthetic loosening, or periprosthetic fracture. Vital Signs: There were no vitals taken for this visit. Physical Exam: Examination of the left knee reveals Well-healed surgical incision without evidence of complicationor infection. There is tenderness to palpation quite diffusely over the knee with some focality within the popliteal fossa and over the anterior aspect. There is mild cystic protrusion appreciated within the popliteal fossa that may represent a small Finney cyst. She is able to demonstrate a straight leg raise and range the knee from roughly 5 shy of full extension to roughly 90 flexion. Thereis some pain at end flexion and end extension. Collateral stability is intact and without laxity. There is no calf tenderness. She is distally neurovascularly intact with appropriate sensation to light touch, palpable pulses, and brisk cap refill. Distal motor function is intact include strong great toe dorsiflexion. Gait assessment is minimally antalgic. ASSESSMENT: Acute pain of left knee (Primary) - XR KNEE 3 VIEWS - PHYSICAL THERAPY REFERRAL OP Status post total left knee replacement - PHYSICAL THERAPY REFERRAL OP Follow Up: Return for Clinic Visit. | For: Clinic Visit | Check-out note: [address] Tijerina PLAN: Patient's onset of knee pain roughly 4 weeks ago, relatively painless rehabilitation before that point, radiographs, exam, possible etiologies, and recommendations moving forward were discussed with her and her in the office today. After review of radiographs and discussion of symptoms withDr. Tijerina, I had discussion with patient that I believe her symptoms are related to some synovitis possible reactive synovitis or pain related to her fibromyalgia as she has began utilizing her left knee more and her post acute recovery stage. We discussed her radiographs to demonstrate no evidence of hardware complication or loosening as this was patient's primary concern. There was also discussion had with regard to no cause for concern with regard to infection at this point. I did recommend utilization of Tylenol, rest, ice, elevation, and formal physical therapy over the course of the next several weeks. I recommended against use of NSAIDs as patient admits significant stomach problems with the use of NSAIDs in the past. I recommended close follow-up with Dr. Tijerina in 6 weeks for clinical re-evaluation and determination of improvement. Full recovery from joint replacement surgery was discussed in the office today. Patient was certainly urged to contact clinic in the interim with any questions, concerns, or worsening of symptoms. Patient is comfortable with the plan, and all questions were answered. This chart was completed in part utilizing [employer] Speech Voice Recognition Software. Grammatical errors, random word insertions, pronoun errors, and incomplete sentences are an occasional consequence of this system due to software limitations, ambient noise, and hardware issues. Any formal questions or concerns about the content, text, or information contained within the body of this dictation should be directly addressed to the provider for clarification. Vineet Hodges PA-C 03/02/2023 11:07 AM documented in this encounter Nursing Notes * Alejandrina Keen ATC - 03/02/2023 10:48 AM EST Left knee f/u. States she has been to the ER twice due to extreme pain. Pain in left knee did not begin until post PT about three days. Keeps her up at night. documented in this encounter Plan of Treatment Upcoming Encounters Date Type Department Care Team (Late st Contact Info) Description 03/14/2023 12:00 PM EST Imaging Radiology [facility] 1st [facility] [address] [facility] [place] [address] 04/13/2023 11:00 AM EST Office Visit Orthopaedics [facility] [address] [facility] [place] [address] Vineet Hodges PA-C [address] [place] [address] 08/18/2023 11:40 AM EDT Office Visit General Internal Medicine [facility] [address] [place] [address] Joselin Henao MD [address] [place] [address] Pending Results Name Type Priority Associated Diagnoses Date /Time XR KNEE 3 VIEWS Medical Imaging Routine Acute pain of left knee 03/02/2023 11:00 AM EST Scheduled Referrals Name Type Priority Associated Diagnoses Orde r Schedule PHYSICAL THERAPY REFERRAL OP Referral Within 3 days (urgent) Acute pain of left knee Status post total left knee replacement Ordered: 03/02/2023 Health Maintenance Due Date Last Done Comments [...] this encounter Medical Devices Implanted Type Area District Resource Officer Device Identifier Shelf Expiration Date Model / Serial / Lot Knee X3 Ins Pos Cs Sz4 9 - [id number] Implanted:Qty: 1 on 11/21/2022 by Juan Carlos Tijerina, at OR [facility] Left: Knee PATRICE : ORTHOPAEDICS [...] the patient have Health Care Power of Electric Plater? No Full Code 10/02/2018 4:09 PM 10/04/2018 10:30 PM Question Answer Comments Discussion of Advance Directives occurred with: Not Discussed Care Teams Sales Assistant Institutional Sales Relationship Specialty Start Date End Date Joselin Henao MD [address] [place] [address] PCP - General Internal Medicine 08/02/21 documented as of this encounter"
--- OUTSIDE RECORDS SUMMARY | 2023-08-18 03:16 | External Medical Summary | Summary of Care ---
Author Name Unknown Organization [facility] Address [address] [place] [address] Phone [phone] Care Team Providers Care Caregivers Homecare Name Role Phone Joselin Henao MD Primary Care Provider [phone] Encounter Details Date Type Department Care Team [...] 08/27/2016 Biliary dyskinesia 10/27/2014 Overview: cholecystectomy in [place] Vitamin D deficiency 10/07/2014 Dyslipidemia, goal LDL [...] mRNA, LNP-s, No Pre serve, 2-Dose Series ([employer]) 04/13/2021,09/19/2020,08/27/2020 Covid-19, Mrna, Lnp-s, Pf, B ivalent, 30 Mcg, IM, 12 yrs and above ([employer]) 03/29/2022 Hepatitis B, 20+ yrs 07/05/2022,02/21/2022,01/04 Pneumococcal Conjugate Vacci ne, 20-valent ([id number]) 01/04/2022 Pneumococcal Polysaccharide PPV23 (Pneumovax) 09/17/2008 SEASONAL [...] 03/02/2023 11:00 AM EST Office Visit Orthopaedics [facility] [address] [facility] [place] [address] Vineet Hodges PA-C [address] [place] [address] 03/14/2023 12:00 PM EST Imaging Radiology [facility] 1st [facility] [address] [place] [address] 08/18/2023 11:40 AM EDT Office Visit General Internal Medicine [facility] [address] [facility] [place] [address] Joselin Henao MD [address] [place] [address] Health Maintenance Due Date Last Done Comments [...] this encounter Medical Devices Implanted Type Area Commodity Director Device Identifier Shelf Expiration Date Model / Serial / Lot Knee X3 Ins Pos Cs Sz4 9 - [id number] Implanted:Qty: 1 on 11/21/2022 by Juan Carlos Tijerina, DO at OR [facility] Left: Knee PATRICE : ORTHOPAEDICS [...] the patient have Health Care Power of Tester Armature Or Fields? No Full Code 10/02/2018 4:09 PM 10/04/2018 10:30 PM Question Answer Comments Discussion of Advance Directives occurred with: Not Discussed Care Teams Caregivers Homecare Relationship Specialty Start Date End Date Joselin Henao MD [address] [place] [address] PCP - General Internal Medicine 08/02/21 documented as of this encounter
--- OUTSIDE RECORDS SUMMARY | 2023-08-18 03:17 | External Medical Summary | Summary of Care ---
Author Name Unknown Organization [facility] Address [address] [place] [address] Phone [phone] Care Team Providers Care Truck Driver Name Role Phone Joselin Henao MD Primary Care Provider [phone] Encounter Details Date Type Department Care Team [...] 08/27/2016 Biliary dyskinesia 10/27/2014 Overview: cholecystectomy in [place] Vitamin D deficiency 10/07/2014 Dyslipidemia, goal LDL [...] 08/28/2017 MEDICATION USE AGREEMENT 06/30/2009 Overview: With [facility] pain management clinic. 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 017 [...] mRNA, LNP-s, No Pre serve, 2-Dose Series ([employer]) 04/13/2021,09/19/2020,08/27/2020 Covid-19, Mrna, Lnp-s, Pf, B ivalent, 30 Mcg, IM, 12 yrs and above ([employer]) 03/29/2022 Hepatitis B, 20+ yrs 07/05/2022,02/21/2022,01/04 Pneumococcal Conjugate Vacci ne, 20-valent ([id number]) 01/04/2022 Pneumococcal Polysaccharide PPV23 (Pneumovax) 09/17/2008 SEASONAL [...] 03/02/2023 11:00 AM EST Office Visit Orthopaedics [facility] [address] [facility] [place] [address] Vineet Hodges PA-C [address] [place] [address] 03/14/2023 12:00 PM EST Imaging Radiology [facility] 1st [facility] [address] [place] [address] 08/18/2023 11:40 AM EDT Office Visit General Internal Medicine [facility] [address] [facility] [place] [address] Joselin Henao MD [address] [facility] [place] [address] Health Maintenance Due Date Last Done Comments [...] this encounter Medical Devices Implanted Type Area Safety Manager Device Identifier Shelf Expiration Date Model / Serial / Lot Knee X3 Ins Pos Cs Sz4 9 - [id number] Implanted:Qty: 1 on 11/21/2022 by Juan Carlos Tijerina, DO at OR [facility] Left: Knee PATRICE : ORTHOPAEDICS 09/13/2027 [...] the patient have Health Care Power of Psychology Lecturer? No Full Code 10/02/2018 4:09 PM 10/04/2018 10:30 PM Question Answer Comments Discussion of Advance Directives occurred with: Not Discussed Care Teams Truck Driver Relationship Specialty Start Date End Date Joselin Henao MD [address] [place] [address] PCP - General Internal Medicine 08/02/21 documented as of this encounter
--- OUTSIDE RECORDS SUMMARY | 2023-08-18 03:17 | External Medical Summary | Summary of Care ---
Author Name Unknown Organization [facility] Address [address] [place] [address] Phone [phone] Care Team Providers Care Porter Luggage Name Role Phone Joselin Henao MD Primary Care Provider [phone] Encounter Details Date Type Department Care Team (Late st Contact Info) Description 02/19/2023 Patient Reported Data Patient Survey Ortho FORCE Allergies Active Allergy Reactions Criticality Noted Date Comments Duloxetine Hcl Neuro complications (Please comment) Medium 02/02/2010 Decreased responsiveness / lethargy - pt states EMS mistakenly thought she overdosed on it Fentanyl Nausea/vomiting Medium 12/16/2014 Pregabalin Nausea/vomiting Low 09/02/2019 Metoclopramide Hcl Psych complications High 07/09/19 16 Tardive dyskinesia Tramadol Nausea/vomiting Medium 01/08/2014 documented as of this encounter (statuses as of 02/19/2023) Medications Medication Sig Dispensed Refills Start Date [...] as of this encounter (statuses as of 02/19/2023) Active Problems Problem Noted Date Diagnosed Date [...] 08/27/2016 Biliary dyskinesia 10/27/2014 Overview: cholecystectomy in [place] Vitamin D deficiency 10/07/2014 Dyslipidemia, goal LDL below 100 01/05/2010 Fibromyalgia Gastroparesis HTN, goal below 140/80 documented as of this encounter (statuses as of 02/19/2023) Resolved Problems Problem Noted Date Diagnosed Date [...] MEDICATION USE AGREEMENT 06/30/2009 Overview: With [facility] pain management clinic. 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 017 [...] as of this encounter (statuses as of 02/19/2023) Immunizations Name Administration Dates Next Due COVID-19 mRNA, LNP-s, No Pre serve, 2-Dose Series ([employer]) 04/13/2021,09/19/2020,08/27/2020 Covid-19, Mrna, Lnp-s, Pf, B ivalent, 30 Mcg, IM, 12 yrs and above ([employer]) 03/29/2022 Hepatitis B, 20+ yrs 07/05/2022,02/21/2022,01/04 Pneumococcal Conjugate Vacci ne, 20-valent ([id number]) 01/04/2022 Pneumococcal Polysaccharide PPV23 (Pneumovax) 09/17/2008 SEASONAL [...] Care Team (Late st Contact Info) Description 02/23/2023 11:00 AM EDT Office Visit Orthopaedics [facility] [address] [facility] [place] [address] Vineet Hodges PA-C [address] [place] [address] 03/14/2023 12:00 PM EST Imaging Radiology [facility] 1st [facility] [address] [place] [address] 08/18/2023 11:40 AM EDT Office Visit General Internal Medicine [facility] [address] [facility] [place] [address] Joselin Henao MD [address] [facility] [place] [address] Health Maintenance Due Date Last Done Comments Mammogram 09/13/2022 09/13/2021, 11/0 11/2020, 08/11/2020, Additional history exists COVID-19 Vaccine ( season) 2022 03/29/2022, 04/13/2021, 09/19/2020, Additional history exists Influenza Vaccine (FLU shot) (#1) 2022 01/04/2022, 01/03/2020, 01/19/2019, Additional history exists DIABETES-EYE EXAM 02/21/2023 02/21/2022 HbA1c 08/15/2023 02/13/2023, 10/22, 07/19/2022, [...] encounter Medical Devices Implanted Type Area Director Counseling Bureau Device Identifier Shelf Expiration Date Model / Serial / Lot Knee X3 Ins Pos Cs Sz4 9 - [id number] Implanted:Qty: 1 on 11/21/2022 by Juan Carlos Tijerina, DO at OR [facility] Left: Knee PATRICE : ORTHOPAEDICS 09/13/2027 [...] the patient have Health Care Power of Pain Management Physician? No Full Code 10/02/2018 4:09 PM 10/04/2018 10:30 PM Question Answer Comments Discussion of Advance Directives occurred with: Not Discussed Care Teams Porter Luggage Relationship Specialty Start Date End Date Joselin Henao MD [address] [place] [address] PCP - General Internal Medicine 08/02/21 documented as of this encounter
--- OUTSIDE RECORDS SUMMARY | 2023-08-18 03:17 | External Medical Summary | Summary of Care ---
Author Name Unknown Organization [facility] Address [address] [place] [address] Phone [phone] Care Team Providers Care Outreach And Education Social Worker Name Role Phone Joselin Henao MD Primary Care Provider [phone] Reason for Visit * Reason Onset Date Comments Returning Call 02/23/2023 Encounter Details Date Type Department Care Team (Late st Contact Info) Description 02/23/2023 Telephone General Internal Medicine [facility] 200 [facility] [place] [address] Joselin Henao MD 200 [facility] [place] [address] Returning Call Allergies Active Allergy Reactions Criticality Noted Date Comments Duloxetine Hcl Neuro complications (Please comment) Medium 02/02/2010 Decreased responsiveness / lethargy - pt states EMS mistakenly thought she overdosed on it Fentanyl Nausea/vomiting Medium 12/16/2014 Pregabalin Nausea/vomiting Low 09/02/2019 Metoclopramide Hcl Psych complications High 07/09/19 16 Tardive dyskinesia Tramadol Nausea/vomiting Medium 01/08/2014 documented as of this encounter (statuses as of 02/23/2023) Medications Medication Sig Dispensed Refills Start Date [...] as of this encounter (statuses as of 02/23/2023) Active Problems Problem Noted Date Diagnosed Date [...] 08/27/2016 Biliary dyskinesia 10/27/2014 Overview: cholecystectomy in [place] Vitamin D deficiency 10/07/2014 Dyslipidemia, goal LDL below 100 01/05/2010 Fibromyalgia Gastroparesis HTN, goal below 140/80 documented as of this encounter (statuses as of 02/23/2023) Resolved Problems Problem Noted Date Diagnosed Date [...] MEDICATION USE AGREEMENT 06/30/2009 Overview: With [facility] pain management clinic. 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 [...] as of this encounter (statuses as of 02/23/2023) Immunizations Name Administration Dates Next Due COVID-19 mRNA, LNP-s, No Pre serve, 2-Dose Series ([employer]) 04/13/2021,09/19/2020,08/27/2020 Covid-19, Mrna, Lnp-s, Pf, B ivalent, 30 Mcg, IM, 12 yrs and above (Pfizer) 03/29/2022 Hepatitis B, 20+ yrs 07/05/2022,02/21/2022,01/04 Pneumococcal Conjugate Vacci ne, 20-valent ([id number]) 01/04/2022 Pneumococcal Polysaccharide PPV23 (Pneumovax) 09/17/2008 SEASONAL [...] encounter Miscellaneous Notes * Telephone Encounter - Benigno Ni OSA - 02/23/2023 1:56 PM EDT I didn't call pt, all I see is 2 old PT referrals and a durable equipment order * Telephone Encounter - Vanessa Nieves LPN - 02/23/2023 1:46 PM EDT I don't see where anyone from here has tried to reach the patient. Scheduling- any ideas? * Telephone Encounter - Tony Alvarez OSA - 02/23/2023 9:12 AM EDT Patient calling said that someone from the office called her she is returning the call. No documentation in chart. documented in this encounter Plan of Treatment Upcoming Encounters Date Type Department Care Team (Late st Contact Info) Description 02/24/2023 11:30 AM EDT Office Visit Orthopaedics [facility] [address] [facility] [place] [address] Vineet Hodges PA-C [address] [place] [address] 03/14/2023 12:00 PM EST Imaging Radiology [facility]st [facility] [address] [place] [address] 08/18/2023 11:40 AM EDT Office Visit General Internal Medicine [facility] [address] [facility] [address] Joselin Henao MD [address] [place] [address], [place] [address] Health Maintenance Due Date Last Done Comments [...] this encounter Medical Devices Implanted Type Area Paleontological Helper Device Identifier Shelf Expiration Date Model / Serial / Lot Knee X3 Ins Pos Cs Sz4 9 - [id number] Implanted:Qty: 1 on 11/21/2022 by Juan Carlos Tijerina, DO at OR [facility] Left: Knee PATRICE : ORTHOPAEDICS 09/13/2027 [...] the patient have Health Care Power of Ent Nurse? No Full Code 10/02/2018 4:09 PM 10/04/2018 10:30 PM Question Answer Comments Discussion of Advance Directives occurred with: Not Discussed Care Teams Outreach And Education Social Worker Relationship Specialty Start Date End Date Joselin Henao MD [address] [place] [address] PCP - General Internal Medicine 08/02/21 documented as of this encounter
--- OUTSIDE RECORDS SUMMARY | 2023-08-18 03:17 | External Medical Summary | Summary of Care ---
Author Name Unknown Organization [facility] Address [address] [place] [address] Phone [phone] Care Team Providers Care Marriage And Family Therapist Name Role Phone Joselin Henao MD Primary Care Provider [phone] Encounter Details Date Type Department Care Team (Late st Contact Info) Description 02/20/2023 Patient Reported Data Patient Survey Ortho FORCE [...] as of this encounter (statuses as of 02/20/2023) Medications Medication Sig Dispensed Refills Start Date [...] as of this encounter (statuses as of 02/20/2023) Active Problems Problem Noted Date Diagnosed Date [...] 08/27/2016 Biliary dyskinesia 10/27/2014 Overview: cholecystectomy in [place] Vitamin D deficiency 10/07/2014 Dyslipidemia, goal LDL below 100 01/05/2010 Fibromyalgia Gastroparesis HTN, goal below 140/80 documented as of this encounter (statuses as of 02/20/2023) Resolved Problems Problem Noted Date Diagnosed Date [...] 08/28/2017 MEDICATION USE AGREEMENT 06/30/2009 Overview: With [facility] pain management clinic. 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 [...] as of this encounter (statuses as of 02/20/2023) Immunizations Name Administration Dates Next Due COVID-19 mRNA, LNP-s, No Pre serve, 2-Dose Series (Yebol) 04/13/2021,09/19/2020,08/27/2020 Covid-19, Mrna, Lnp-s, Pf, B ivalent, 30 Mcg, IM, 12 yrs and above (Yebol) 03/29/2022 Hepatitis B, 20+ yrs 07/05/2022,02/21/2022,01/04 Pneumococcal Conjugate Vacci ne, 20-valent ([id number]) 01/04/2022 Pneumococcal Polysaccharide PPV23 (Pneumovax) 09/17/2008 [address]AS[address] [...] [facility] [address] [facility] [place] [address] Vineet Hodges PA-C [address] [place] [address] 03/14/2023 12:00 PM EST Imaging Radiology [facility] [address] [facility] [address] [place] [address] 08/18/2023 11:40 AM EDT Office Visit General Internal Medicine [facility] [address] [facility] [place] [address] Joselin Henao MD [address] [facility] [place] [address] Health Maintenance Due Date Last Done Comments [...] this encounter Medical Devices Implanted Type Area Early Childhood Teacher Assistant Device Identifier Shelf Expiration Date Model / Serial / Lot Knee X3 Ins Pos Cs Sz4 9 - [id number] Implanted:Qty: 1 on 11/21/2022 by Juan Carlos Tijerina, DO at OR [facility] Left: Knee PATRICE : ORTHOPAEDICS [...] the patient have Health Care Power of Informatics Consultant? No Full Code 10/02/2018 4:09 PM 10/04/2018 10:30 PM Question Answer Comments Discussion of Advance Directives occurred with: Not Discussed Care Teams Marriage And Family Therapist Relationship Specialty Start Date End Date Joselin Henao MD [address] [place] [id number] PCP - General Internal Medicine 08/02/21 documented as of this encounter
[2023-08-18] MEDS: PANTOprazole 40 MG TAB PO SCH (05:09)
[2023-08-18 08:04] LABS: Basophils # (auto) 0.07 K/uL (0.00-0.20); Basophils % (auto) 0.9 %; Eosinophils # (auto) 0.07 K/uL (0.00-0.50); Eosinophils % (auto) 0.9 %; Hematocrit (blood only) 44.1 % (37.0-47.0); Hemoglobin 14.9 g/dl (12.0-16.0); Immature Granulocytes # (auto) 0.02 K/uL (0.01-0.20); Immature Granulocytes % (auto) 0.2 %; Lymphocytes # (auto) 2.85 K/uL (1.20-3.40); Lymphocytes % (auto) 35.5 %; Mean Corpuscular Hemoglobin 30.2 pg (25.0-34.0); Mean Corpuscular Hgb Conc 33.8 g/dL (32.0-36.0); Mean Corpuscular Volume 89.5 fL (80.0-100.0); Monocytes # (auto) 0.66 K/uL (0.11-0.59); Monocytes % (auto) 8.2 %; Neutrophils # (auto) 4.35 K/uL (1.40-6.50); Neutrophils % (auto) 54.3 %; Platelet Count 212 K/uL (130-400); RDW Coefficient of Variation 13.9 % (11.5-14.5); RDW Standard Deviation 45.1 fL (36.4-46.3); Red Blood Count 4.93 M/uL (4.20-5.40); White Blood Count 8.02 K/ul (4.8-10.8)
[2023-08-18] MEDS: CYANOCOBALAMIN (B-12) 500 MCG TABLET PO SCH (08:16)
[2023-08-18] MEDS: CARIPRAZINE HCL 3 MG CAP PO SCH (08:16)
[2023-08-18] MEDS: CHOLECALCIFEROL 25 MCG (1000 UNITS) TAB PO SCH (08:16)
[2023-08-18] MEDS: ASPIRIN 81 MG ECTAB PO SCH (08:16)
[2023-08-18] MEDS: VALSARTAN 80 MG TAB PO SCH (08:16)
[2023-08-18] MEDS: NICOTINE 21 MG/24 HR TDSY TD PRN (08:17)
[2023-08-18] MEDS: TOPIRAMATE 100 MG TAB PO SCH (08:17)
[2023-08-18 08:21] LABS: Albumin Globulin Ratio 1.5 (0.9-2); BUN Creatinine Ratio 17.1 (10-20); Bilirubin,Total 0.6 mg/dl (0.2-1.0); Calcium 8.4 mg/dl (8.6-10.3); Est GFR (African American) 108.4 ml/min; Est GFR (Non-African American) 93.5 ml/min; Globulin 2.7 gm/dl (2.5-4.0); Phosphorus 2.5 mg/dl (2.5-4.9); Potassium 3.6 mmol/L (3.5-5.1); Total Protein 6.7 gm/dl (6.0-8.3)
[2023-08-18 10:13] LABS: Estimated Average Glucose 123 mg/dl; Hemoglobin A1C 5.9 % (4.5-5.6)
[2023-08-18] MEDS: cefTRIAXone SODIUM 2,000 MG in DEXTROSE 5 % MINI-B 50 ML IV SCH (12:17)
--- NOTE | 2023-08-18 17:16 | Hospitalist Progress Note ---
Date of Service August 18, 2023 Assessment & Plan (1) Sepsis: (2) Cellulitis of left leg: Plan Ms Otto is a 63yoF with PMhx significant for DMII, HLD, HTN, GERD, Gastroparesis, Vit D deficiency, fibromyalgia, migraine, Hx of R BKA with prosthesis, PTSD presenting with LLE concern for cellulitis. There has been interval improvement in swelling, noting that left foot is without erythema and pain, however, calf remains tender. #Sepsis 2/2 LLE Cellulitis Ongoing for 10 days prior to admission, no improvement on keflex Notes she followed up with her pcp's office and was started on Keflex Not helping for the last 3 days Notes Hx of R BKA due to an ankle infection. Hx of L knee replacement, states her surgeon was concerned that the cellulitis would progress to the L knee Tachycardic on admission with leukocytosis, infectious source of LLE Lactate elevated at 2.6, downtrended after fluid resuscitation Surface wound cx ordered Blood Cx x2 sets pending Given concern for possible pseudomonas iso DMTII and failed keflex therapy, will transition to IV cipro with goal to continue on PO Discontinue CTX/Dapto #HTN Continue amlodipine and valsartan #DMTII Well controlled, A1C 5.9% #Morbid obesity on PO semaglutide #GERD PPI BID #mood disorder #PTSD Continue topamax Continue cariprazine Continue nortrpyline Continue other home meds as ordered. Diet: HH DVT prophylaxis: Lovenox SQ Dispo: Med/Surg Admission and Anticipated Discharge Date Admission Date: August 17, 2023 Subjective NAEO Reports tenderness of left leg, but states the redness is improving She denies any fevers, sweats, chest pain or other acute concerns Physical Exam Constitutional: WD/WN, vitals as above Respiratory: normal respiratory effort, lungs clear to auscultation Cardiovascular: RRR, no murmur, no edema Skin: LLE circumfrential erythema with demarcation above ankle, appears to be receeding Results & Data Results & Data Vital Signs (Past 12 Hours) Vital Signs Temp Pulse Resp BP Pulse Ox O2 Del Method 08/18/23 15:19 36.8 C 82 16 133/80 97 Room Air 08/18/23 07:58 36.5 C 79 18 142/85 H 98 Room Air Laboratory Results Short CBC 08/18/23 Range/Units 07:37 WBC 8.02 (4.8-10.8) K/ul Hgb 14.9 (12.0-16.0) g/dl Hct 44.1 (37.0-47.0) % Plt Count 212 (130-400) K/uL BMP 08/18/23 07:37 Sodium 138 Potassium 3.6 Chloride 111 H Carbon Dioxide 21 BUN 12 Creatinine 0.70 Glucose 124 H Calcium 8.4 L Liver Function 08/18/23 Range/Units 07:37 Total Bilirubin 0.6 (0.2-1.0) mg/dl AST 52 H (13-39) U/L ALT 43 (7-52) U/L Alkaline Phosphatase 142 H (34-104) U/L Albumin 4.0 (3.4-5.0) gm/dl Medications Administered Home Medications Medication Instructions Recorded Confirmed Last Taken amlodipine 5 mg tablet 5 mg PO QAM 10/29/19 08/17/23 08/17/23 famotidine 40 mg tablet 40 mg PO 10/29/19 08/17/23 11/28/22 cariprazine 3 mg capsule (Vraylar) 3 mg PO [facility] 08/11/20 08/17/23 08/17/23 hydroxyzine pamoate 50 mg capsule 150 mg PO 08/11/20 08/17/23 11/27/22 (Vistaril) nortriptyline 75 mg capsule 75 mg PO 08/11/20 08/17/23 11/27/22 aspirin 81 mg tablet,delayed 81 mg PO DAILY 11/28/22 08/17/23 08/17/23 release atorvastatin 40 mg tablet 40 mg PO 11/28/22 08/17/23 11/27/22 cholecalciferol (vitamin D3) 25 25 mcg PO DAILY 11/28/22 08/17/23 11/28/22 mcg (1,000 unit) capsule (Vitamin D3) cyanocobalamin (vitamin B-12) 1,000 mcg PO DAILY 11/28/22 08/17/23 11/28/22 1,000 mcg tablet (Vitamin B-12) esomeprazole magnesium 40 mg 40 mg PO DAILYBB 11/28/22 08/17/23 08/17/23 capsule,delayed release nicotine 21 mg/24 hr daily 1 patch transdermal DAILY PRN 11/28/22 08/17/23 Unknown transdermal patch SMOKE CESSATION nortriptyline 25 mg capsule 25 mg PO HS 11/28/22 08/17/23 11/27/22 ondansetron HCl 4 mg tablet 4 mg PO Q6H PRN Nausea 11/28/22 08/17/23 Unknown semaglutide 3 mg tablet (Rybelsus) 7 mg PO QAM 11/28/22 08/17/23 08/17/23 topiramate 100 mg tablet 100 mg PO QAM 11/28/22 08/17/23 08/17/23 valsartan 320 mg tablet 320 mg PO QAM 11/28/22 08/17/23 08/17/23 cephalexin 500 mg capsule 500 mg PO QID 08/17/23 08/17/23 08/17/23 topiramate 50 mg tablet 50 mg PO HS 08/17/23 08/17/23 Unknown Active Medications Generic Name Dose Route Start Last Admin Trade Name Freq PRN Reason Stop Dose Admin Amlodipine Besylate 5 mg 08/17/23 14:15 08/18/23 09:19 Amlodipine Besylate 5 Mg Tab PO 09/16/23 14:14 5 mg QAM CHAVEZ Administration Aspirin 81 mg 08/18/23 09:00 08/18/23 08:16 Aspirin 81 Mg Ectab PO 09/17/23 08:59 81 mg DAILY CHAVEZ Administration Cariprazine 3 mg 08/18/23 09:00 08/18/23 08:16 Cariprazine Hcl 3 Mg Cap PO 09/17/23 08:59 3 mg QAM CHAVEZ Administration Cyanocobalamin 1,000 mcg 08/18/23 09:00 08/18/23 08:16 Cyanocobalamin (B-12) 500 Mcg Tablet PO 09/17/23 08:59 1,000 mcg DAILY CHAVEZ Administration Enoxaparin Sodium 40 mg 08/17/23 17:00 08/18/23 16:32 Enoxaparin Inj 40 Mg/0.4 Ml Syr SQ 09/16/23 16:59 40 mg Q24H CHAVEZ Administration Famotidine 40 mg 08/17/23 21:00 08/17/23 19:29 Famotidine 40 Mg Tablet PO 09/16/23 20:59 40 mg HS CHAVEZ Administration Hydromorphone HCl 0.25 mg 08/17/23 17:02 08/18/23 12:09 Hydromorphone Inj 0.5 Mg/0.5 Ml Syr IV 08/31/23 17:01 0.25 mg Q6H PRN Administration Severe Pain (Scale 7, 8, 9,10) Hydroxyzine HCl 150 mg 08/17/23 21:00 08/17/23 19:29 Hydroxyzine Hcl 25 Mg Tab PO 09/16/23 20:59 150 mg HS CHAVEZ Administration Ketorolac Tromethamine 15 mg 08/17/23 17:00 08/17/23 17:21 Ketorolac Tromethamine 15 Mg/Ml Vial IV 08/22/23 16:59 15 mg Q6H PRN Administration Moderate Pain (Scale 4, 5, 6) Miscellaneous 1 each 08/18/23 08:59 08/18/23 08:16 Remove Nicoderm Patch N/A 09/17/23 08:58 Not Given DAILY@0859 CHAVEZ Miscellaneous 1 each 08/18/23 00:00 08/18/23 14:54 Semaglutide [Rybelsus] 7 Mg Tablet)~Order Awaiting Action N/A 09/17/23 00:00 Not Given QS CHAVEZ Nicotine 1 patch 08/17/23 16:30 08/18/23 08:17 Nicotine 21 Mg/24 Hr Tdsy TD 09/16/23 16:29 1 patch DAILY PRN Administration SMOKE CESSATION Nortriptyline HCl 100 mg 08/17/23 21:00 08/17/23 19:27 Nortriptyline Hcl 25 Mg Cap PO 09/16/23 20:59 100 mg HS CHAVEZ Administration Ondansetron HCl 4 mg 08/17/23 16:34 08/17/23 19:54 Ondansetron 4 Mg Od Tab PO 09/16/23 16:33 4 mg Q6H PRN Administration Nausea Pantoprazole Sodium 40 mg 08/18/23 06:30 08/18/23 05:09 Pantoprazole 40 Mg Tab PO 09/17/23 06:29 40 mg DAILYBB CHAVEZ Administration Topiramate 100 mg 08/18/23 09:00 08/18/23 08:17 Topiramate 100 Mg Tab PO 09/17/23 08:59 100 mg QAM CHAVEZ Administration Topiramate 50 mg 08/17/23 21:00 08/17/23 19:28 Topiramate 50 Mg Tab PO 09/16/23 20:59 50 mg HS CHAVEZ Administration Valsartan 320 mg 08/18/23 09:00 08/18/23 08:16 Valsartan 80 Mg Tab PO 09/17/23 08:59 320 mg QAM CHAVEZ Administration Vitamin D 25 mcg 08/18/23 09:00 08/18/23 08:16 Cholecalciferol 25 Mcg (1000 Units) Tab PO 09/17/23 08:59 25 mcg DAILY CHAVEZ Administration
[2023-08-18] MEDS: CIPROFLOXACIN / D5W 400 MG/200 ML BAG IV SCH (17:37)
--- OUTSIDE RECORDS SUMMARY | 2023-08-19 02:46 | External Medical Summary | Summary of Care ---
Author Name Unknown Organization [facility] Address [address] [place] [address] Phone [phone] Care Team Providers Care Home Appliance Washing Machine Mechanic Name Role Phone Joselin Henao MD Primary Care Provider [phone] Reason for Visit * Reason Onset Date Comments Health Maintenance 08/17/2023 Encounter Details Date Type Department Care Team (Late st Contact Info) Description 08/17/2023 Telephone General Internal Medicine [facility] [place] [address] [place] [address] Joselin Henao MD [address] [facility] [address] Health Maintenance Allergies Active Allergy Reactions Criticality Noted Date Comments Duloxetine Hcl Neuro complications (Please comment) Medium 02/02/2010 Decreased responsiveness / lethargy - pt states EMS mistakenly thought she overdosed on it Fentanyl Nausea/vomiting Medium 12/16/2014 Pregabalin Nausea/vomiting Low 09/02/2019 Metoclopramide Hcl Psych complications High 07/09/19 16 Tardive dyskinesia Tramadol Nausea/vomiting Medium 01/08/2014 documented as of this encounter (statuses as of 08/17/2023) Medications Medication Sig Dispensed Refills Start Date [...] as of this encounter (statuses as of 08/17/2023) Active Problems Problem Noted Date Diagnosed Date [...] 08/27/2016 Biliary dyskinesia 10/27/2014 Overview: cholecystectomy in [place] Vitamin D deficiency 10/07/2014 Dyslipidemia, goal LDL below 100 01/05/2010 Fibromyalgia Gastroparesis HTN, goal below 140/80 documented as of this encounter (statuses as of 08/17/2023) Resolved Problems Problem Noted Date Diagnosed Date [...] USE AGREEMENT 06/30/2009 Overview: With [facility] pain management clinic. 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 [...] as of this encounter (statuses as of 08/17/2023) Immunizations Name Administration Dates Next Due COVID-19 mRNA, LNP-s, No Pre serve, 2-Dose Series (Hemp 4 [place]) 04/13/2021,09/19/2020,08/27/2020 COVID-19, MRNA-LNP, 23-24, P F, 30 MCG/0.3 mL, 12 YRS AND ABOVE, IM (Koogame-Comirnat) 02/15/2023 Covid-19, Mrna, Lnp-s, Pf, B ivalent, 30 Mcg, IM, 12 yrs and above (Pfizer) 03/29/2022 Hepatitis B, 20+ yrs 07/05/2022,02/21/2022,01/04 Pneumococcal Conjugate Vacci ne, 20-valent ([id number]) 01/04/2022 Pneumococcal Polysaccharide PPV23 (Pneumovax) 09/17/2008 Seasonal [...] encounter Miscellaneous Notes * Telephone Encounter - Indy Barone LPN - 08/17/2023 9:25 AM EDT Care Gaps Comprehensive Care Outreach Last Office/Telemedicine Visit: 07/12/2023 (in office), 09/02/2019 (telemedicine) Next Office Visit: 09/05/2023 Hemoglobin AIC Results: Lab Results Component Value Date/Time HEMOGLOBIN A1C - [facility] 6.4 (H) 02/13/2023 10:51 AM HEMOGLOBIN A1C - [facility] 7.1 (H) 11/03/2022 09:48 AM HEMOGLOBIN A1C - [facility] 6.1 (H) 07/19/2022 12:09 PM HEMOGLOBIN A1C POCT - [facility] 5.6 07/12/2023 10:08 AM BP Readings from Last 1 Encounters: 07/12/23 128/70 Reviewed Health Maintenance below: Health Maintenance Topic Date Due DISCUSS TOBACCO CESSATION (REFER TO SMARTSET #3292) Never done Mammogram 09/13/2022 Diabetic Eye Exam 02/21/2023 Albumin/Creatinine Ratio 11/04/2023 Mamm eye Patient is in the ER right now and couldn't talk Care Gap Outreach Action Taken: Spoke to patient documented in this encounter Plan of Treatment Upcoming Encounters Date Type Department Care Team (Late st Contact Info) Description 09/05/2023 4:00 PM EDT Office Visit General Internal Medicine [facility] [address] [place] [address] Joselin Henao MD [address] [place] [address] 09/07/2023 1:30 PM EDT Office Visit Orthopaedics [facility] [address] [place] [address] Vineet Hodges PA-C [address] [place] [address] Health Maintenance Due Date Last Done Comments DISCUSS TOBACCO CESSATION (REFER TO SMARTSET #2469) 1960 Mammogram 09/13/2022 09/13/2021, 08/23, 03/01/2021, Additional history exists Diabetic Eye Exam 02/21/2023 02/21/2022 Albumin/Creatinine Ratio 11/04/2023 023, 12/28/2021, 02/19/2009 HbA1c 01/12/2024 07/12/2023, 01/23, 11/03/2022, Additional history exists Depression Screening 02/16/2024 02/15/2023 Diabetic Foot Exam 02/16/2024 02/15/2023, 01/04/2022 GFR 08/11/2024 08/12/2023, 0804/2022, 11/03/2022, Additional history exists COLONOSCOPY-EVERY 5 YRS AGES 18-100 10/07/2026 10/07/2021, 08/18/2016, 06/02/2015, Additional history exists Lipid Panel 11/04/2027 11/03/2022, 020 10/2022, 05/31/2022, Additional history exists DTaP,Tdap,and Td [...] this encounter Medical Devices Implanted Type Area Computer Systems Security Analyst Device Identifier Shelf Expiration Date Model / Serial / Lot Baseplate #4 Tritanium - [id number] Implanted:Qty: 1 on 11/21/2022 by Juan Carlos Tijerina, DO at OR [facility] Left: Knee PATRICE : ORTHOPAEDICS 08/30/2027 5536-B-[id number] / / [id number] Knee Triathlon Bead No Philippe L 4 - [id number] Implanted:Qty: 1 on 11/21/2022 by Juan Carlos Tijerina, DO at OR [facility] Left: Knee PATRICE : ORTHOPAEDICS 09/14/2027 5517-F-[id number] / / [id number] Knee X3 Ins Pos Cs Sz4 9 - [id number] Implanted:Qty: 1 on 11/21/2022 by Juan Carlos Tijerina, at OR [facility] Left: Knee PATRICE : ORTHOPAEDICS 09/13/2027 [...] the patient have Health Care Power of Wood Heel Finisher? No Full Code 10/02/2018 4:09 PM 10/04/2018 10:30 PM Question Answer Comments Discussion of Advance Directives occurred with: Not Discussed Care Teams Home Appliance Washing Machine Mechanic Relationship Specialty Start Date End Date Joselin Henao MD [address] [place] [address] PCP - General Internal Medicine 08/02/21 documented as of this encounter
[2023-08-19 06:41] LABS: Hematocrit (blood only) 45.2 % (37.0-47.0); Hemoglobin 15.1 g/dl (12.0-16.0); Mean Corpuscular Hemoglobin 29.8 pg (25.0-34.0); Mean Corpuscular Hgb Conc 33.4 g/dL (32.0-36.0); Mean Corpuscular Volume 89.2 fL (80.0-100.0); Mean Platelet Volume 10.2 fL (9.4-12.4); Platelet Count 217 K/uL (130-400); RDW Coefficient of Variation 13.7 % (11.5-14.5); RDW Standard Deviation 44.3 fL (36.4-46.3); Red Blood Count 5.07 M/uL (4.20-5.40)
[2023-08-19 06:49] LABS: Calcium 8.8 mg/dl (8.6-10.3); Potassium 3.6 mmol/L (3.5-5.1)
[2023-08-19 06:55] LABS: BUN Creatinine Ratio 17.1 (10-20); Creatinine Clr Calc Pharmacy 93.9 ml/min; Est GFR (African American) 98.1 ml/min; Est GFR (Non-African American) 84.7 ml/min
--- NOTE | 2023-08-19 10:04 | Discharge Summary ---
Discharge Summary Date of Service August 19, 2023 Notes For Next Care Provider Medication Changes From Visit Ciprofloxacin 500mg bid Admission HPI Per Admitting Provider Pt is a 63yoF with PMhx significant for DMII, HLD, HTN, GERD, Gastroparesis, Vit D deficiency, fibromyalgia, migraine, Hx of R BKA with prosthesis, PTSD presenting with LLE concern for cellulitis. Pt presenting with LLE erythema that started about 10 days ago. Notes she followed up with her pcp's office and was started on Keflex. Keflex has not been helping for the last 3 days. Notes Hx of R BKA due to an ankle infection and states she does not want to lose her other leg too. She is s/p L knee replacement and states that her surgeon was concerned that the cellulitis would progress to the knee. She denies fevers, chills and night sweats. She notes pain as well in the left leg. Denies Hx of blood clots. Was treated with Rocehin and Vancomycin in the ED and given fluids. Admission Exam Per Admitting Provider GENERAL: Awake, tired-appearing, in no distress HENT: Normocephalic, atraumatic. Oropharynx unremarkable. EYES: Normal conjunctiva. Sclera non-icteric. NECK: Inspection normal. Non-tender. Supple. No nuchal rigidity. FROM. No masses. RESPIRATORY: Clear to auscultation. No wheezes. No rales. Normal respiratory effort. CARDIAC: Normal rate. Normal rhythm. No murmurs. No rubs. Extremities warm and well perfused. Pulses equal. No JVD. GI: Soft, non-distended. No tenderness to palpation. No rebound or guarding. No masses. RECTAL: Deferred. MUSCULOSKELETAL: Atraumatic. Chest examination reveals no tenderness. The back is symmetrical on inspection without obvious abnormality. There is no CVA tenderness to palpation. No joint edema. LOWER EXTREMITIES: Right BKA present. Left lower leg examination reveals erythema extending up to the level of the calf with warmth and tenderness. Concerning for cellulitis. No crepitus or drainage. The knee itself does not show any edema, erythema or warmth. NEURO: Normal sensorium. No sensory or motor deficits noted. SKIN: No rash or jaundice noted. Principal Dx & Hospital Course #1 = Principal Diagnosis (1) Sepsis: (2) Cellulitis of left leg: Plan Ms Otto is a 63yoF with PMhx significant for DMII, HLD, HTN, GERD, Gastroparesis, Vit D deficiency, fibromyalgia, migraine, Hx of R BKA with prosthesis, PTSD presenting with LLE concern for cellulitis. On 08/17, there was interval improvement in swelling, noting that left foot is without erythema and pain, however, calf remains tender. Given history of DM and minimal improvement, transitioned to ciprofloxacin IV--noted significant resolution of erythema and tenderness the morning of 08/17. Labs and vs stable. Patient eager to go home. Plan to discharge with po ciprofloxacin. Patient denied any further concerns. #Sepsis 2/2 LLE Cellulitis Ongoing for 10 days prior to admission, no improvement on keflex Notes she followed up with her pcp's office and was started on Keflex Not helping for the last 3 days Notes Hx of R BKA due to an ankle infection. Hx of L knee replacement, states her surgeon was concerned that the cellulitis would progress to the L knee Tachycardic on admission with leukocytosis, infectious source of LLE Lactate elevated at 2.6, downtrended after fluid resuscitation Surface wound cx ordered Blood Cx x2 sets pending Given concern for possible pseudomonas iso DMTII and failed keflex therapy,transitioned to IV cipro and discontinued CTX/Dapto Transitioned to PO ciprofloaxacin for 10 days total therapy #HTN Continue amlodipine and valsartan #DMTII Well controlled, A1C 5.9% #Morbid obesity on PO semaglutide #GERD PPI BID #mood disorder #PTSD Continue topamax Continue cariprazine Continue nortrpyline Discharge Exam Constitutional WD/WN, vitals as above Respiratory normal respiratory effort, lungs clear to auscultation Cardiovascular RRR, no murmur, no edema Skin resolution of erythema and swelling of left lower extremity edema. prothesis on right leg, no stump swelling or irritation noted Updated Medication List Medication Instructions Recorded Confirmed Type amlodipine 5 mg tablet 5 mg PO QAM 10/29/19 08/17/23 History famotidine 40 mg tablet 40 mg PO HS 10/29/19 08/17/23 History cariprazine 3 mg capsule (Vraylar) 3 mg PO QAM 08/11/20 08/17/23 History hydroxyzine pamoate 50 mg capsule 150 mg PO HS 08/11/20 08/17/23 History (Vistaril) nortriptyline 75 mg capsule 75 mg PO HS 08/11/20 08/17/23 History aspirin 81 mg tablet,delayed 81 mg PO DAILY 11/28/22 08/17/23 History release atorvastatin 40 mg tablet 40 mg PO HS 11/28/22 08/17/23 History cholecalciferol (vitamin D3) 25 25 mcg PO DAILY 11/28/22 08/17/23 History mcg (1,000 unit) capsule (Vitamin D3) cyanocobalamin (vitamin B-12) 1,000 mcg PO DAILY 11/28/22 08/17/23 History 1,000 mcg tablet (Vitamin B-12) esomeprazole magnesium 40 mg 40 mg PO DAILYBB 11/28/22 08/17/23 History capsule,delayed release nicotine 21 mg/24 hr daily 1 patch transdermal DAILY PRN 11/28/22 08/17/23 History transdermal patch SMOKE CESSATION nortriptyline 25 mg capsule 25 mg PO HS 11/28/22 08/17/23 History ondansetron HCl 4 mg tablet 4 mg PO Q6H PRN Nausea 11/28/22 08/17/23 History semaglutide 3 mg tablet (Rybelsus) 7 mg PO QAM 11/28/22 08/17/23 History topiramate 100 mg tablet 100 mg PO QAM 11/28/22 08/17/23 History valsartan 320 mg tablet 320 mg PO QAM 11/28/22 08/17/23 History topiramate 50 mg tablet 50 mg PO HS 08/17/23 08/17/23 History ciprofloxacin HCl 500 mg tablet 500 mg PO BID #15 tabs 08/19/23 Rx Hospital Stay Data Diagnostic Imagining Performed 08/17/23 16:29 US venous doppler LE LT Urgent Pending Results Patient Have Any Pending Studies at Discharge: No Discharge Instructions Given to Patient (Per Discharging Provider) You were admitted for lower leg extremity infection with notable improvement with IV antibiotics, noting near resolution of redness and swelling. Please continue the following: -Ciprofloxacin 500mg tablet, 1 tablet two times a day, your next dose is this evening around 6-7pm -Please take morning dose around 6-7 am -Complete course of antibiotics and please dispose of prior prescription for Keflex. Total Time Total Time Spent Total Time Spent (In Minutes): 35
== END 2023-08-19 11:09 | disposition home or self-care (01) | DRG 872 ==
LOC: ED 09:22 → SUATTDRO 13:36 → 3N 13:36
DX: Z96.652 Presence of left artificial knee joint; Z79.82 Long term (current) use of aspirin; I10 Essential (primary) hypertension; E11.43 Type 2 diabetes mellitus with diabetic autonomic (poly)neuropathy; K21.9 Gastro-esophageal reflux disease without esophagitis; A41.9 Sepsis, unspecified organism; Z83.3 Family history of diabetes mellitus; Z68.36 Body mass index [BMI] 36.0-36.9, adult; Z79.84 Long term (current) use of oral hypoglycemic drugs; Z79.899 Other long term (current) drug therapy; E78.5 Hyperlipidemia, unspecified; M79.7 Fibromyalgia; Z82.49 Family history of ischemic heart disease and other diseases of the circulatory system; Z88.8 Allergy status to other drugs, medicaments and biological substances; L03.116 Cellulitis of left lower limb; Z89.511 Acquired absence of right leg below knee; E66.01 Morbid (severe) obesity due to excess calories; G43.909 Migraine, unspecified, not intractable, without status migrainosus; Z88.5 Allergy status to narcotic agent; F43.10 Post-traumatic stress disorder, unspecified; F17.210 Nicotine dependence, cigarettes, uncomplicated; E55.9 Vitamin D deficiency, unspecified; F41.9 Anxiety disorder, unspecified

== ENCOUNTER 2023-08-28 07:34 | Inpatient (IN) ==
--- NOTE | 2023-08-28 07:50 | Emergency Department Note ---
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 Patient notes progressive left lower extremity edema, erythema and pain that has been progressively worsening despite oral and IV antibiotics. She finished her last dose of oral antibiotics about 2 days ago. She notes the redness to the left lower extremity is ascending now more than it was before and is just below the left knee. She also notes some left knee soreness and is concerned as there is a left knee replacement. The patient denies any fevers, chills, nausea, vomiting, chest pain or shortness of breath. She denies any increased warmth to the leg. No history of DVT. Home Medications Medication Instructions Recorded Confirmed Type amlodipine 5 mg tablet 5 mg PO QAM 10/29/19 08/28/23 History famotidine 40 mg tablet 40 mg PO HS 10/29/19 08/28/23 History cariprazine 3 mg capsule (Vraylar) 3 mg PO QAM 08/11/20 08/28/23 History nortriptyline 75 mg capsule 75 mg PO HS 08/11/20 08/28/23 History aspirin 81 mg tablet,delayed 81 mg PO DAILY 11/28/22 08/28/23 History release atorvastatin 40 mg tablet 40 mg PO HS 11/28/22 08/28/23 History cholecalciferol (vitamin D3) 25 25 mcg PO DAILY 11/28/22 08/28/23 History mcg (1,000 unit) capsule (Vitamin D3) cyanocobalamin (vitamin B-12) 1,000 mcg PO DAILY 11/28/22 08/28/23 History 1,000 mcg tablet (Vitamin B-12) esomeprazole magnesium 40 mg 40 mg PO DAILYBB 11/28/22 08/28/23 History capsule,delayed release nicotine 21 mg/24 hr daily 1 patch transdermal DAILY PRN 11/28/22 08/28/23 History transdermal patch SMOKE CESSATION nortriptyline 25 mg capsule 25 mg PO HS 11/28/22 08/28/23 History ondansetron HCl 4 mg tablet 4 mg PO Q6H PRN Nausea 11/28/22 08/28/23 History topiramate 100 mg tablet 100 mg PO QAM 11/28/22 08/28/23 History valsartan 320 mg tablet 320 mg PO QAM 11/28/22 08/28/23 History topiramate 50 mg tablet 50 mg PO HS 08/17/23 08/28/23 History hydroxyzine HCl 50 mg tablet 150 mg PO HS 08/28/23 08/28/23 History semaglutide 7 mg tablet (Rybelsus) 7 mg PO DAILY 08/28/23 08/28/23 History Allergies Allergy/AdvReac Type Severity Reaction Status Date / Time duloxetine AdvReac Severe SHUT DOWN, Verified 08/28/23 09:51 HEART AND BREATHING SLOWED, LETHARGIC fentanyl AdvReac Intermediate GI SYMPTOMS Verified 08/28/23 09:51 metoclopramide AdvReac Intermediate TARDITIVE Verified 08/28/23 09:51 DYSKENESIA pregabalin [From Lyrica] AdvReac Intermediate NAUSEA/VOMI Verified 08/28/23 09:51 TING tramadol AdvReac Intermediate NAUSEA/VOMI Verified 08/28/23 09:51 TING chlorpromazine AdvReac Mild dry mouth Verified 08/28/23 09:51 Past Med/Surg History Medical History Dyslipidemia Migraine Biliary dyskinesia Essential hypertension GERD (gastroesophageal reflux disease) Vitamin D deficiency Type 2 diabetes mellitus Gastroparesis Hyperlipidemia Transaminitis Pyelonephritis History of renal calculi History of Clostridium difficile colitis Hypothyroidism Chronic abdominal pain History of suicide attempt PTSD (post-traumatic stress disorder) Enterohemorrhagic E. coli infection (12/24/13) Anxiety Fibromyalgia Surgical History History of total left knee replacement (TKR) October 2022 - Dr. Tijerina at [facility] Hx of right BKA Status post right oophorectomy Status post left oophorectomy Status post hernia repair Status post hysterectomy S/P appendectomy S/P tonsillectomy and adenoidectomy S/P cholecystectomy Family History Other Cancer Diabetes Heart disease Hypertension Social History (Updated 08/28/23 @ 10:41 by Lilian Salas PA-C) Smoking Status: Current every day smoker Tobacco Type: Cigarettes packs per day: 1; Second Hand Exposure: Yes; Do You Dip or Chew Tobacco: No; Hx Alcohol Use: No Hx Substance Use: Yes Non-Prescribed Medications: Marijuana Last Used Substance: Days (ago) Preferred Language: Sammarinese Communication Ability: Effective Qc Analyst Required: No Beliefs That Will Affect Care: None marital status: Current Living Situation: Family current occupational status: disabled Feels Safe at Home: Yes Assistive Devices: Cane, Raised Toilet Seat and Walker Review of Systems A total of 10 systems reviewed and were otherwise negative Physical Exam Vital Signs Vital Signs - 24 hr 08/28/23 07:45 08/28/23 08:39 08/28/23 08:39 Temperature 36.3 C L Temperature Source Temporal Artery Scan Pulse Rate 99 H 81 Pulse Rate [Apical] 81 Pulse Rhythm Regular Pulse Rhythm [Apical] Regular Pulse Strength [Apical] Normal Respiratory Rate 14 18 18 Respiratory Effort / Characteristics Non-Labored Spontaneous Respiratory Depth Normal Blood Pressure 155/82 H Blood Pressure [Left Arm] 151/94 H Blood Pressure Mean 106 Blood Pressure Mean [Left Arm] 113 Blood Pressure Position [Left Arm] Sitting Pulse Oximetry 96 94 94 Oxygen Delivery Method Room Air Room Air Room Air Sepsis New/Unexplained Change in Mental Status No Sepsis Action Taken by Nursing No Action Required 08/28/23 08:39 Temperature Temperature Source Pulse Rate 81 Pulse Rate [Apical] Pulse Rhythm Pulse Rhythm [Apical] Pulse Strength [Apical] Respiratory Rate Respiratory Effort / Characteristics Respiratory Depth Blood Pressure Blood Pressure [Left Arm] Blood Pressure Mean Blood Pressure Mean [Left Arm] Blood Pressure Position [Left Arm] Pulse Oximetry Oxygen Delivery Method Sepsis New/Unexplained Change in Mental Status Sepsis Action Taken by Nursing VITAL SIGNS - Vital signs and nursing notes were reviewed. Hypertensive, mildly tachycardic, otherwise stable. GENERAL -63-year-old female appearing her stated age who is in no acute distress. Communicates well with provider and answers questions appropriately. SKIN -left lower extremity is with erythema and edema just distal to the left knee extending through the foot and toes. There are no breaks in the integument. No crepitus. No fluctuance. Right BKA noted. There is a vertically oriented left anterior knee well-healed surgical incision without surrounding erythema. HEAD - NC/AT. EYES - Sclera anicteric. LUNGS - Chest wall symmetric without accessory muscle use, intercostals retractions, or central cyanosis. Normal vesicular breath sounds CTA B/L. No wheezes, rales, or rhonchi appreciated. CARDIAC - RRR with S1/S2. No murmur, rubs, or gallops appreciated. ABDOMEN - Abdominal contour normal without pulsations or visible masses. BS normoactive all four quadrants. No tenderness, palpable masses, hepatosplenomegaly, or ascites noted. EXTREMITIES - No clubbing or peripheral cyanosis. +5/5 strength noted in UE/LE bilaterally (Right BKA noted). The left lower extremity is appropriately warm and well-perfused. There is erythema and edema as noted above. This is circumferential. No break in the integument. Left dorsalis pedis pulse within normal limits. Cap refill of all toes within normal limits on the left. NEUROLOGIC - Cranial nerves grossly intact. PSYCH - A&O, and cooperates fully with examiner. Pt is very pleasant and interacts well with examiner. Course Administered Medications Discontinued Medications Cefepime HCl (Maxipime) 2,000 mg in 20 mls @ 5 mls/min IV NOW STA; Protocol Stop: 08/28/23 08:12 Last Admin: 08/28/23 08:27 Dose: 5 mls/min Documented By: MELVIN Daptomycin 300 mg/ Syringe 6 mls @ 3 mls/min IV Q24H [facility]; Protocol Stop: 08/30/23 08:14 Last Admin: 08/28/23 09:08 Dose: 3 mls/min Documented By: MELVIN Morphine Sulfate (Morphine Sulfate 4 Mg/Ml 1 Ml Carp\\Vial) 4 mg IV NOW STA Stop: 08/28/23 08:08 Last Admin: 08/28/23 08:27 Dose: 4 mg Documented By: MELVIN Ondansetron HCl (Ondansetron Inj 2 Mg/Ml 2 Ml Vial) 4 mg IV NOW STA Stop: 08/28/23 08:08 Last Admin: 08/28/23 08:27 Dose: 4 mg Documented By: MELVIN Medical Decision Making Laboratory Data 08/28/23 08:20 08/28/23 08:20 Lab Results 08/28/23 Range/Units 08:20 WBC 9.82 (4.8-10.8) K/ul RBC 4.76 (4.20-5.40) M/uL Hgb 14.3 (12.0-16.0) g/dl Hct 42.4 (37.0-47.0) % MCV 89.1 (80.0-100.0) fL MCH 30.0 (25.0-34.0) pg MCHC 33.7 (32.0-36.0) g/dL RDW Std Deviation 43.9 (36.4-46.3) fL RDW Coeff of [place] 13.4 (11.5-14.5) % Plt Count 232 (130-400) K/uL MPV 9.7 (9.4-12.4) fL Immature Gran % (Auto) 0.7 % Neut % (Auto) 56.2 % Lymph % (Auto) 33.0 % [place] % (Auto) 8.6 % Eos % (Auto) 0.8 % Baso % (Auto) 0.7 % Neut # (Auto) 5.52 (1.40-6.50) K/uL Lymph # (Auto) 3.24 (1.20-3.40) K/uL [place] # (Auto) 0.84 H (0.11-0.59) K/uL Eos # (Auto) 0.08 (0.00-0.50) K/uL Baso # (Auto) 0.07 (0.00-0.20) K/uL Immature Gran # (Auto) 0.07 (0.01-0.20) K/uL ESR 25 (0-30) mm/hr PT 10.2 (9.0-12.0) Seconds INR 0.9 (0.9-1.1) APTT 26 (21-31) Seconds PTT Ratio 1.0 Sodium 140 (136-145) mmol/L Potassium 3.4 L (3.5-5.1) mmol/L Chloride 109 H (98-107) mmol/L Carbon Dioxide 24 (21-32) mmol/L Anion Gap 7 (3-11) BUN 13 (6-23) mg/dl Creatinine 0.88 (0.6-1.2) mg/dl Est Cr Clr Drug Dosing 81.2 ml/min Est GFR ( Amer) 82.2 ml/min Est GFR (Non-Af Amer) 70.9 ml/min BUN/Creatinine Ratio 14.8 (10-20) Glucose 112 H (70-99(Fasting)) mg/dl Lactate 1.3 (0.4-2.0) mmol/L Calcium 8.9 (8.6-10.3) mg/dl Total Bilirubin 0.3 (0.2-1.0) mg/dl AST 19 (13-39) U/L ALT 25 (7-52) U/L Alkaline Phosphatase 110 H (34-104) U/L Total Creatine Kinase 69 (26-192) U/L C-Reactive Protein 0.63 H (0-0.5) mg/dl Total Protein 6.5 (6.0-8.3) gm/dl Albumin 3.9 (3.4-5.0) gm/dl Globulin 2.6 (2.5-4.0) gm/dl Albumin/Globulin Ratio 1.5 (0.9-2) Procalcitonin < 0.02 (0-0.5) ng/ml Imaging Data Radiologist's Impression: Knee X-Ray 08/28/23 07:58 XR knee LT 1 or 2V routine CLINICAL HISTORY: LLE pain,erythema, edema COMPARISON: Left knee radiographs February 11, 2023. FINDINGS: Alignment of the total left knee arthroplasty is anatomic. There is no periprosthetic fracture or lucency. A moderate-sized left knee joint effusion is present. There is soft tissue swelling. There are no osseous lesions. IMPRESSION: 1. Status post total left knee arthroplasty. No periprosthetic fracture or lucency. 2. Moderate-sized left knee joint effusion. Left knee soft tissue swelling. ACT 112: Negative or not required by law. Electronically signed by: Ric Hull M.D. 08/28/2023 9:05 AM Tibia/Fibula X-Ray 08/28/23 07:58 XR tibia fibula LT 2V CLINICAL HISTORY: LLE pain,erythema, edema COMPARISON STUDY: None. FINDINGS: There is a left total knee arthroplasty. No fracture or dislocation within the left tibia or fibula. No bony destructive changes to suggest an osteomyelitis. No radiopaque foreign bodies. Anterior lateral soft tissue edema within the left lower leg. No soft tissue gas identified. IMPRESSION: 1. Soft tissue swelling within the left lower leg. 2. No underlying bony abnormality. ACT 112: Negative or not required by law. Electronically signed by: Sergio Gao M.D. 08/28/2023 8:53 AM MDM Narrative Patient was seen and evaluated as above in room A11b. Review was performed of triage nursing notes and vital signs. I did review pertinent previous visits and patient history. After obtaining a thorough history and physical examination the above work up was performed. Patient presents to us today for evaluation of left lower extremity erythema, edema with concern of infection. She was recently admitted to the hospital here for similar symptoms which she notes did improve antibiotics but did not fully resolve. She returns today noting worsening symptoms. She is concerned secondary to history of previous infection on the other leg resulting in BKA. She also notes there is a left total knee replacement and with the suspected left lower extremity infection is concerned. The patient just finished oral antibiotics 2 days ago. She presents to us today with worsening left lower extremity erythema, edema. Options of care were discussed with the patient. IV access was established. Labs were drawn. Left lower extremity x-rays were obtained. She did have recent Doppler studies which were negative for DVT. Low suspicion for interval development of DVT at this time. The left lower extremity erythema and edema appears to have progressively worsened since her previous visit here. The patient is appropriately warm and well-perfused in the left lower extremity. There is no increased warmth to the left lower extremity to palpation. However, she is tender circumferentially throughout the left lower leg. This is all distal to the left knee. No evidence of compartment syndrome. Although there are several differentials, at this time I do believe the most time sensitive would be an infection. Labs reveal no leukocytosis or concerning anemia. Coags normal. Mild hypokalemia 3.4. Glucose 112. No evidence of emergent kidney or liver failure. CRP mildly elevated at 0.63. Pro-Mario normal. Lactate normal. ESR normal. Blood cultures pending. We will proceed with empiric antibiotics. Per review of her previous cultures in the EMR: blood cultures have been negative. There are no wounds on the left leg to culture. Per review of EMR it appears she has recently been on oral cephalexin, oral ciprofloxacin, IV ceftriaxone, IV daptomycin. At this time we will proceed with IV cefepime, IV daptomycin. She also asked for analgesia therefore IV morphine was added for pain, Zofran for nausea. I do believe that further evaluation and management in the inpatient setting is warranted. Case discussed with hospitalist service, please refer to further documentation regarding her stay. Case was discussed with the attending physician. GCS: 15 In the evaluation and treatment of this patient the following differential diagnoses were entertained: Cellulitis, DVT, compartment syndrome, abscess, necrotizing fasciitis, infected knee replacement, among others Impression & Plan Cellulitis of left leg Discharge Plan Visit Data Chief Complaint: Infection Stated Complaint: left leg redness, swelling going down, infection ED Provider: Danilo Reeder ED Midlevel Provider: Matteo Wang Discharge Problem: Cellulitis of left leg Patient Disposition: Admitted As Inpatient Condition: Good Discharge Instructions Interventions: ED Discharge Assessment Last Done: 08/28/23 11:03
--- NOTE | 2023-08-28 08:14 | Emergency Department Note ---
ED Visit Note I was consulted by the Advanced Practice Provider, Matteo Wang PA-C. I personally made/approved the management plan and take responsibility for the patient management. I performed a substantive portion of the visit. This includes the aspects of: -History/Physical/Personally seeing the patient -MDM .
[2023-08-28] MEDS: ONDANSETRON INJ 2 MG/ML 2 ML VIAL IV STA (08:27)
[2023-08-28] MEDS: MoRPHine SULFATE 4 MG/ML 1 ML CARP\\VIAL IV STA ×2 (08:27→13:36)
[2023-08-28] MEDS: CEFEPIME 2,000 MG/20 ML VIAL IV STA (08:27)
[2023-08-28 08:42] LABS: Basophils # (auto) 0.07 K/uL (0.00-0.20); Basophils % (auto) 0.7 %; Eosinophils # (auto) 0.08 K/uL (0.00-0.50); Eosinophils % (auto) 0.8 %; Hematocrit (blood only) 42.4 % (37.0-47.0); Hemoglobin 14.3 g/dl (12.0-16.0); Immature Granulocytes # (auto) 0.07 K/uL (0.01-0.20); Immature Granulocytes % (auto) 0.7 %; Lymphocytes # (auto) 3.24 K/uL (1.20-3.40); Mean Corpuscular Hgb Conc 33.7 g/dL (32.0-36.0); Mean Corpuscular Volume 89.1 fL (80.0-100.0); Mean Platelet Volume 9.7 fL (9.4-12.4); Monocytes # (auto) 0.84 K/uL (0.11-0.59); Monocytes % (auto) 8.6 %; Neutrophils # (auto) 5.52 K/uL (1.40-6.50); Neutrophils % (auto) 56.2 %; Platelet Count 232 K/uL (130-400); RDW Coefficient of Variation 13.4 % (11.5-14.5); RDW Standard Deviation 43.9 fL (36.4-46.3); Red Blood Count 4.76 M/uL (4.20-5.40); White Blood Count 9.82 K/ul (4.8-10.8)
[2023-08-28 08:52] LABS: INR 0.9 (0.9-1.1); Partial Thromboplastin Time 26 Seconds (21-31); Prothrombin Time 10.2 Seconds (9.0-12.0)
--- NOTE | 2023-08-28 08:55 | XRay Report ---
XR tibia fibula LT 2V CLINICAL HISTORY: LLE pain,erythema, edema COMPARISON STUDY: None. FINDINGS: There is a left total knee arthroplasty. No fracture or dislocation within the left tibia o r fibula. No bony destructive changes to suggest an osteomyelitis. No radiopaque foreign bodies. Ante rior lateral soft tissue edema within the left lower leg. No soft tissue gas identified. IMPRESSION: 1. Soft tissue swelling within the left lower leg. 2. No underlying bony abnormality. ACT 112: Negative or not required by law. Electronically signed by: Sergio Gao M.D. 08/28/2023 8:53 AM
[2023-08-28 09:06] LABS: Albumin Globulin Ratio 1.5 (0.9-2); Albumin Level 3.9 gm/dl (3.4-5.0); BUN Creatinine Ratio 14.8 (10-20); Bilirubin,Total 0.3 mg/dl (0.2-1.0); C Reactive Protein 0.63 mg/dl (0-0.5); Calcium 8.9 mg/dl (8.6-10.3); Creatinine Clr Calc Pharmacy 81.2 ml/min; Est GFR (African American) 82.2 ml/min; Est GFR (Non-African American) 70.9 ml/min; Globulin 2.6 gm/dl (2.5-4.0); Potassium 3.4 mmol/L (3.5-5.1); Total Protein 6.5 gm/dl (6.0-8.3)
--- NOTE | 2023-08-28 09:06 | XRay Report ---
XR knee LT 1 or 2V routine CLINICAL HISTORY: LLE pain,erythema, edema COMPARISON: Left knee radiographs February 11, 2023. FINDINGS: Alignment of the total left knee arthroplasty is anatomic. There is no periprosthetic frac ture or lucency. A moderate-sized left knee joint effusion is present. There is soft tissue swelling. There are no osseous lesions. IMPRESSION: 1. Status post total left knee arthroplasty. No periprosthetic fracture or lucency. 2. Moderate-sized left knee joint effusion. Left knee soft tissue swelling. ACT 112: Negative or not required by law. Electronically signed by: Ric Hull M.D. 08/28/2023 9:05 AM
[2023-08-28] MEDS: DAPTOmycin 300 MG in SYRINGE 0 ML IV SCH (09:08)
--- NOTE | 2023-08-28 10:04 | History & Physical Report ---
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 Left lower extremity cellulitis History of left knee replacement by Dr. Tijerina -[facility] Patient with 10 days of symptoms prior to admission on 08/16 failed treatment of Keflex While hospitalized received IV Rocephin and daptomycin and transition to a course of oral Cipro at discharge Redness has improved since discharge, but patient continues to have significant amount of pain, slight swelling and continued erythema (light pink, but not warm) She also has pain in area of Tibial tubercle -this has her concerned given history of left knee replacement and prior history of right ankle infection requiring BKA She follows [facility] orthopedics -had evaluation in June with x-ray showing proper placement of hardware and benign synovial fluid Left knee x-ray today showing moderate effusion, which is new She does not meet sepsis criteria Continue IV cefepime and daptomycin, baseline CK normal, add Florastor Consult infectious disease Consult orthopedics for evaluation for possible arthrocentesis Hypertension Chronic, stable Continue amlodipine and valsartan Hyperlipidemia Chronic, stable Hold statin while on daptomycin Hypokalemia potassium chloride oral replaced bmp in a.m. Bipolar disorder Chronic, stable Continue Topamax, nortriptyline and Vraylar Pre Diabetes a1c 5.9 in June hold rybelsus ac/hs, sliding scale as needed Tobacco abuse Encourage cessation Nicotine patch DVT prophylaxis: SCDS until seen by ortho to determine if arthrocentesis warranted, add chemical prophylaxis as soon as able Full code PCP: Dr. Henao Dispo: admit to [facility] Patient was seen and examined in collaboration with, Dr. Sierra, please see addendum A total of 76 minutes was spent coordinating, documenting, and providing care for this patient excluding time spent in the performance of separately billed services. This included personally viewing all current laboratories and imaging studies, medication reconciliation, outpatient chart review, and discussion with specialists. History of Present Illness Chief Complaint: Left leg swelling, pain and redness. Primary Care Provider: Joselin Henao MD This is a 63-year-old female with significant past medical history HTN, HLD, prediabetes, fibromyalgia, PTSD, bipolar disorder, gastroparesis, GERD, history of right BKA in setting of right ankle wound who presents to ED secondary to worsening left lower extremity pain. Of significance patient was recently hospitalized 08/16 and discharged on 08/18 secondary to left lower extremity cellulitis. She was initially started on IV Rocephin and daptomycin. This was later transitioned to oral ciprofloxacin at discharge. She finished her oral course of antibiotics 2 days ago. She continues to have slight redness to the left lower extremity although she does report it is improved from previous admission. She continues to have left lower extremity swelling as well as significant pain that is worse with movement and walking. She further lists to having pain right below her left knee. Of significance she did undergo left knee replacement last October. She does not feel that her left knee is more swollen but describes significantly more pain. Due to her prior history with infection in her right ankle requiring amputation she is very concerned that her cellulitis may have progressed into her knee. She had some pain recently and was worked up by [facility] orth[facility]ics for intraarticular pathology which was benign. In June 2023, a left knee xray revealed Intact left total knee arthroplasty without evidence of hardware complication or failure. She denies any fever, chills, sweats, lightheadedness, dizziness, chest pain, shortness of breath, URI symptoms, nausea, vomiting or abdominal pain. She is tolerating diet and moving her bowels appropriately. She has been taking all of her medications, including this morning. She has been taking hoti-ahv-dwfougd Tylenol for pain. She is a 1 pack/day smoker so she does have a, "smoker's cough." The patient remained hemodynamically stable. There was no overt signs of sepsis. She received IV daptomycin and cefepime. Allergies Allergy/AdvReac Type Severity Reaction Status Date / Time duloxetine AdvReac Severe SHUT DOWN, Verified 08/28/23 09:51 HEART AND BREATHING SLOWED, LETHARGIC fentanyl AdvReac Intermediate GI SYMPTOMS Verified 08/28/23 09:51 metoclopramide AdvReac Intermediate TARDITIVE Verified 08/28/23 09:51 DYSKENESIA pregabalin [From Lyrica] AdvReac Intermediate NAUSEA/VOMI Verified 08/28/23 09:51 TING tramadol AdvReac Intermediate NAUSEA/VOMI Verified 08/28/23 09:51 TING chlorpromazine AdvReac Mild dry mouth Verified 08/28/23 09:51 Home Medications Medication Instructions Recorded Confirmed Type amlodipine 5 mg tablet 5 mg PO QAM 10/29/19 08/28/23 History famotidine 40 mg tablet 40 mg PO HS 10/29/19 08/28/23 History cariprazine 3 mg capsule (Vraylar) 3 mg PO QAM 08/11/20 08/28/23 History nortriptyline 75 mg capsule 75 mg PO HS 08/11/20 08/28/23 History aspirin 81 mg tablet,delayed 81 mg PO DAILY 11/28/22 08/28/23 History release atorvastatin 40 mg tablet 40 mg PO HS 11/28/22 08/28/23 History cholecalciferol (vitamin D3) 25 25 mcg PO DAILY 11/28/22 08/28/23 History mcg (1,000 unit) capsule (Vitamin D3) cyanocobalamin (vitamin B-12) 1,000 mcg PO DAILY 11/28/22 08/28/23 History 1,000 mcg tablet (Vitamin B-12) esomeprazole magnesium 40 mg 40 mg PO DAILYBB 11/28/22 08/28/23 History capsule,delayed release nicotine 21 mg/24 hr daily 1 patch transdermal DAILY PRN 11/28/22 08/28/23 History transdermal patch SMOKE CESSATION nortriptyline 25 mg capsule 25 mg PO HS 11/28/22 08/28/23 History ondansetron HCl 4 mg tablet 4 mg PO Q6H PRN Nausea 11/28/22 08/28/23 History topiramate 100 mg tablet 100 mg PO QAM 11/28/22 08/28/23 History valsartan 320 mg tablet 320 mg PO QAM 11/28/22 08/28/23 History topiramate 50 mg tablet 50 mg PO HS 08/17/23 08/28/23 History hydroxyzine HCl 50 mg tablet 150 mg PO HS 08/28/23 08/28/23 History semaglutide 7 mg tablet (Rybelsus) 7 mg PO DAILY 08/28/23 08/28/23 History Past Med/Surg History Medical History Dyslipidemia Migraine Biliary dyskinesia Essential hypertension GERD (gastroesophageal reflux disease) Vitamin D deficiency Type 2 diabetes mellitus Gastroparesis Hyperlipidemia Transaminitis Pyelonephritis History of renal calculi History of Clostridium difficile colitis Hypothyroidism Chronic abdominal pain History of suicide attempt PTSD (post-traumatic stress disorder) Enterohemorrhagic E. coli infection (12/24/13) Anxiety Fibromyalgia Surgical History History of total left knee replacement (TKR) October 2022 - Dr. Tijerina at [facility] Hx of right BKA Status post right oophorectomy Status post left oophorectomy Status post hernia repair Status post hysterectomy S/P appendectomy S/P tonsillectomy and adenoidectomy S/P cholecystectomy Family History Other Cancer Diabetes Heart disease Hypertension Social History (Updated 08/28/23 @ 10:41 by Lilian Salas PA-C) Smoking Status: Current every day smoker Tobacco Type: Cigarettes packs per day: 1; Second Hand Exposure: Yes; Do You Dip or Chew Tobacco: No; Hx Alcohol Use: No Hx Substance Use: Yes Non-Prescribed Medications: Marijuana Last Used Substance: Days (ago) Preferred Language: Thai Communication Ability: Effective 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 Required: No Beliefs That Will Affect Care: None marital status: Current Living Situation: Family current occupational status: disabled Feels Safe at Home: Yes Assistive Devices: Cane, Raised Toilet Seat and Walker Review of Systems Review of Systems: All systems reviewed & are unremarkable except as noted in HPI & below Physical Exam Physical Exam: Constitutional: Obese, F, WD/WN, vitals as above, NAD, sitting up in bed, pleasant, conversing easily Head: Normocephalic, Atraumatic Eyes: PERRL, conjunctivae normal, anicteric sclerae ENMT: external ear and nose normal, oropharynx normal Neck: trachea midline, no thyromegaly normal visual inspection Respiratory: normal respiratory effort, lungs clear to auscultation, with mild wheeze that clears with cough, no rales, rhonchi. Normal insp/exp effort, no accessory muscle use Cardiovascular: RRR, no murmur, no edema Vessels: no JVD or carotid bruit Chest: normal inspection of chest Abdomen: normal bowel sounds, soft, nontender, no hepatosplenomegaly Musculoskeletal: no cyanosis or clubbing, extremities motor strength 5/5 , LLE with slight erythema mid pre tibial area to left ankle, trace swelling, no abscess, no warmth, good DP, PT and popliteal pulse +2, +prosthesis Skin: no rashes, warm and dry normal turgor Neurologic: PERRL, EOMI, accommodation nl, no face palsy, no dysarthria CN's II-XI intact bilaterally and moves all extremities Psychiatric: A+Ox3, euthymic affect Lymphatic: no cervical or axillary lymphadenopathy : deferred Results & Data Results & Data Vital Signs (Past 12 Hours) Vital Signs Temp Pulse Pulse Resp BP BP Pulse Ox 08/28/23 08:39 81 08/28/23 08:39 81 18 94 08/28/23 08:39 81 18 151/94 H 94 08/28/23 07:45 36.3 C L 99 H 14 155/82 H 96 O2 Del Method 08/28/23 08:39 08/28/23 08:39 Room Air 08/28/23 08:39 Room Air 08/28/23 07:45 Room Air Diagnostic Findings Knee X-Ray 08/28/23 07:58 XR knee LT 1 or 2V routine CLINICAL HISTORY: LLE pain,erythema, edema COMPARISON: Left knee radiographs February 11, 2023. FINDINGS: Alignment of the total left knee arthroplasty is anatomic. There is no periprosthetic fracture or lucency. A moderate-sized left knee joint effusion is present. There is soft tissue swelling. There are no osseous lesions. IMPRESSION: 1. Status post total left knee arthroplasty. No periprosthetic fracture or lucency. 2. Moderate-sized left knee joint effusion. Left knee soft tissue swelling. ACT 112: Negative or not required by law. Electronically signed by: Ric Hull M.D. 08/28/2023 9:05 AM Tibia/Fibula X-Ray 08/28/23 07:58 XR tibia fibula LT 2V CLINICAL HISTORY: LLE pain,erythema, edema COMPARISON STUDY: None. FINDINGS: There is a left total knee arthroplasty. No fracture or dislocation within the left tibia or fibula. No bony destructive changes to suggest an osteomyelitis. No radiopaque foreign bodies. Anterior lateral soft tissue edema within the left lower leg. No soft tissue gas identified. IMPRESSION: 1. Soft tissue swelling within the left lower leg. 2. No underlying bony abnormality. ACT 112: Negative or not required by law. Electronically signed by: Sergio Gao M.D. 08/28/2023 8:53 AM Medications Administered Medication List Daptomycin 300 mg/ Syringe 6 mls @ 3 mls/min IV Q24H [facility]; Protocol Stop: 08/30/23 08:14 Last Admin: 08/28/23 09:08 Dose: 3 mls/min Documented By: MELVIN Discontinued Medications Cefepime HCl (Maxipime) 2,000 mg in 20 mls @ 5 mls/min IV NOW STA; Protocol Stop: 08/28/23 08:12 Last Admin: 08/28/23 08:27 Dose: 5 mls/min Documented By: MELVIN Morphine Sulfate (Morphine Sulfate 4 Mg/Ml 1 Ml Carp\\Vial) 4 mg IV NOW STA Stop: 08/28/23 08:08 Last Admin: 08/28/23 08:27 Dose: 4 mg Documented By: MELVIN Ondansetron HCl (Ondansetron Inj 2 Mg/Ml 2 Ml Vial) 4 mg IV NOW STA Stop: 08/28/23 08:08 Last Admin: 08/28/23 08:27 Dose: 4 mg Documented By: MELVIN ECG Additional Comments: I have independently reviewed and interpreted patient's admitting EKG which revealed: 94 bpm, low voltage QRS COVID-19 Results Results COVID-19 Adm Lab Results: RBC 4.76 M/uL (4.20-5.40) 08/28/23 WBC 9.82 K/ul (4.8-10.8) 08/28/23 Hgb 14.3 g/dl (12.0-16.0) 08/28/23 Hct 42.4 % (37.0-47.0) 08/28/23 Plt Count 232 K/uL (130-400) 08/28/23 Neutrophils (%) (Auto) 56.2 % 08/28/23 Lymphocytes (%) (Auto) 33.0 % 08/28/23 Monocytes # (Auto) 0.84 K/uL (0.11-0.59) H 08/28/23 Eosinophils # (Auto) 0.08 K/uL (0.00-0.50) 08/28/23 Immature Granulocyte % (Auto) 0.7 % 08/28/23 Neutrophils # (Auto) 5.52 K/uL (1.40-6.50) 08/28/23 Lymphocytes # (Auto) 3.24 K/uL (1.20-3.40) 08/28/23 Monocytes # (Auto) 0.84 K/uL (0.11-0.59) H 08/28/23 Eosinophils # (Auto) 0.08 K/uL (0.00-0.50) 08/28/23 Basophils # (Auto) 0.07 K/uL (0.00-0.20) 08/28/23 Immature Granulocyte # (Auto) 0.07 K/uL (0.01-0.20) 4 Na 140 mmol/L (136-145) 08/28/23 K 3.4 mmol/L (3.5-5.1) L 08/28/23 Cl 109 mmol/L (98-107) H 08/28/23 CO2 24 mmol/L (21-32) 08/28/23 Anion Gap 7 (3-11) 08/28/23 BUN 13 mg/dl (6-23) 08/28/23 Creatinine 0.88 mg/dl (0.6-1.2) 08/28/23 BUN/Creatinine Ratio 14.8 (10-20) 08/28/23 Glucose Level 112 mg/dl (70-99(Fasting)) H 08/28/23 Ca 8.9 mg/dl (8.6-10.3) 08/28/23 Total Bilirubin 0.3 mg/dl (0.2-1.0) 08/28/23 AST/SGOT 19 U/L (13-39) 08/28/23 ALT/SGPT 25 U/L (7-52) 08/28/23 Alkaline Phosphatase 110 U/L (34-104) H 08/28/23 Total Protein 6.5 gm/dl (6.0-8.3) 08/28/23 Albumin 3.9 gm/dl (3.4-5.0) 08/28/23 Globulin 2.6 gm/dl (2.5-4.0) 08/28/23 Albumin/Globulin Ratio 1.5 (0.9-2) 08/28/23 Total CK 69 U/L (26-192) 08/28/23 CRP 0.63 mg/dl (0-0.5) H 08/28/23 Procalcitonin < 0.02 ng/ml (0-0.5) 08/28/23 PTT 26 Seconds (21-31) 08/28/23 INR 0.9 (0.9-1.1) 08/28/23 Code Status & VTE Plan Code Status FULL CODE VTE Prophylaxis Plan VTE Prophylaxis will be ordered: Yes Supervising Physician Co-Signing Physician Notes I have seen and examined the patient and have discussed the case with the provider above. I have reviewed the advanced practitioner's documentation, and I agree with, and take responsibility for that plan of care. 63 yo F s/p BTK amputation of right leg in prior years after an infection, presents with post op knee pain after TKA 9 months ago. She had been doing well with PT, but has recently noted pain and swelling that are progressive in her left knee. She is able to bear weight without issue, and uses Tylenol and ice twice daily for pain management. She has good ROM of her knee on exam but knee is swollen and TTP over the tibial plateau and in the posterior knee as well as now proximal to the knee which is new. She has no fevers or chills and where she admits to feeling sick last admission, she is better after the recent course of ciprofloxacin. On exam, she is stable and afebrile and in no acute distress. She is sitting up in bed. Exam is unremarkable other than her left knee (and leg) being larger in size that her right leg (she still has her right knee). As noted above, there is a pick tint to her skin from the foot to the tibial plateau. Although the erythema is confluent, there is no warmth. This does not appear to be consistent with cellulitis. However, I do agree with empiric broad antibiotics given her history of infection progressing to amputation pending the outcome of the ortho exam and intraarticular aspiration planned for this afternoon. She is feeling better with morphine and will add some oral narcotics on there for her, also. Pt/OT to also assess and will cont to clinically monitor. She was given education on potential side effects of narcotics including possibility of addiction and GI complications. Rigo, DO
[2023-08-28] MEDS ORDERED: ACETAMINOPHEN 325 MG TAB PO PRN (11:04)
[2023-08-28] MEDS ORDERED: CARBOHYDRATES FOR HYPOGLYCEMIA PO PRN (11:06)
[2023-08-28] MEDS ORDERED: GLUCAGON FOR INJ 1 MG VIAL SQ PRN (11:06)
[2023-08-28] MEDS ORDERED: GLUCOSE 10 TAB/TUBE PO PRN (11:06)
[2023-08-28] MEDS ORDERED: GLUCOSE 40% GEL 15 GM TUBE PO PRN (11:06)
[2023-08-28] MEDS ORDERED: DEXTROSE 50% 50 ML SYRINGE IV PRN (11:06)
--- OUTSIDE RECORDS SUMMARY | 2023-08-28 11:40 | External Medical Summary | Summary of Care ---
Author Name Unknown Organization [facility] Address [address] [facility] [place] [address] Phone [phone] Care Team Providers Care Mold Maker Helper Name Role Phone Joselin Henao MD Primary Care Provider [phone] Encounter Details Date Type Department Care Team (Late st Contact Info) Description 08/25/2023 Patient Reported Data Patient Survey Ortho FORCE [...] as of this encounter (statuses as of 08/25/2023) Medications Medication Sig Dispensed Refills Start Date [...] as of this encounter (statuses as of 08/25/2023) Active Problems Problem Noted Date Diagnosed Date [...] 08/27/2016 Biliary dyskinesia 10/27/2014 Overview: cholecystectomy in [place] Vitamin D deficiency 10/07/2014 Dyslipidemia, goal LDL below 100 01/05/2010 Fibromyalgia Gastroparesis HTN, goal below 140/80 documented as of this encounter (statuses as of 08/25/2023) Resolved Problems Problem Noted Date Diagnosed Date [...] 08/28/2017 MEDICATION USE AGREEMENT 06/30/2009 Overview: With [facility] pain management clinic. Orofacial dyskinesia [...] as of this encounter (statuses as of 08/25/2023) Immunizations Name Administration Dates Next Due COVID-19 mRNA, LNP-s, No Pre serve, 2-Dose Series (Igneous Systems) 04/13/2021,09/19/2020,08/27/2020 COVID-19, MRNA-LNP, 23-24, P F, 30 MCG/0.3 mL, 12 YRS AND ABOVE, IM (Ovo Cosmico-Comirnat) 02/15/2023 Covid-19, Mrna, Lnp-s, Pf, B ivalent, 30 Mcg, IM, 12 yrs and above (Pfizer) 03/29/2022 Hepatitis B, 20+ yrs 07/05/2022,02/21/2022,01/04 Pneumococcal Conjugate Vacci ne, 20-valent ([id number]) 01/04/2022 Pneumococcal Polysaccharide PPV23 (Pneumovax) 09/17/2008 Seasonal [...] Answer Date Recorded PHQ Adult Total Score 1 02/15/2023 Hunger Vital Sign Answer Date Recorded Within [...] PM EDT Office Visit General Internal Medicine [facility] [address] [place] [address] Joselin Henao MD [address] [facility] [place] [place] [address] 09/07/2023 1:30 PM EDT Office Visit Orthopaedics [facility] [address] [facility] [place] [address] Vineet Hodges PA-C [address] [place] [address] Health Maintenance Due Date Last Done Comments DISCUSS TOBACCO CESSATION (REFER TO SMARTSET #3291) 1962 Cologuard 2007 Fecal Occult Blood Test 2007 Sigmoidoscopy 2007 Mammogram 09/13/2022 09/13/2021, 08/23, 03/01/2021, Additional history exists Diabetic Eye Exam 02/21/2023 02/21/2022 Albumin/Creatinine Ratio 11/04/2023 023, 12/28/2021, 02/19/2009 HbA1c 01/12/2024 07/12/2023, 01/23, 11/03/2022, Additional history exists Depression Screening 02/16/2024 02/15/2023 Diabetic Foot Exam 02/16/2024 02/15/2023, 01/04/2022 GFR 08/11/2024 08/12/2023, 08/0 04/2022, 11/03/2022, Additional history exists Colonoscopy 10/07/2026 10/07/2021, 07/24, 06/02/2015, Additional history exists Colorectal Cancer Screening 10/07/2026 Lipid Panel 11/04/2027 11/03/2022, 10/2022, 05/31/2022, Additional history exists DTaP,Tdap,and Td Vaccines (4 - Td or Tdap) 04/30/2028 04/30/2018, 04/30/2018, 07/25/2003 RETIRED - COLONOSCOPY-EVERY 5 YRS AGES 18-100 Discontinued 10/07/2021, 08/18/2016, 06/02/2015, Additional history exists Pneumococcal Vaccine: Pediatrics (0 to 5 Years) and At-Risk Patients (6 to 64 Years) Completed 01/04/2022, 09/17/2008 Hepatitis B Completed 07/05/2022, 01/24, 01/04/2022 Zoster Vaccines Completed 08/23/2022, 06/01/2022 COVID-19 Vaccine Completed 02/15/2023, 09/2021, 04/13/2021, Additional history exists Influenza Vaccine (FLU shot) Completed 02/15/2023, 01/04/2022, 01/03/2020, Additional history exists GARDASIL-HPV IMMUNIZATION SERIES Aged Out No longer eligible based on patient's age to complete this topic MENINGOCOCCAL (MENACTRA/MENVEO) Aged Out No longer eligible based on patient's age to complete this topic documented as of this encounter Medical Devices Implanted Type Area Orthopedic Tech Device Identifier Shelf Expiration Date Model / Serial / Lot Baseplate #4 Tritanium - [id number] Implanted:Qty: 1 on 11/21/2022 by Juan Carlos Tijerina DO at [facility] Left: Knee PATRICE : ORTHOPAEDICS 08/30/2027 5536-[id number] / / [id number] Knee Triathlon Bead No Philippe L 4 - [id number] Implanted:Qty: 1 on 11/21/2022 by Juan Carlos Tijerina DO at OR [facility] Left: Knee PATRICE : ORTHOPAEDICS 09/14/2027 [id number] / / [id number] Knee X3 Ins Pos Cs Sz4 9 - [id number] Implanted:Qty: 1 on 11/21/2022 by Juan Carlos Tijerina DO at OR [facility] Left: Knee PATRICE : ORTHOPAEDICS [...] the patient have Health Care Power of Health Practice Manager? No Full Code 10/02/2018 4:09 PM 10/04/2018 10:30 PM Question Answer Comments Discussion of Advance Directives occurred with: Not Discussed Care Teams Mold Maker Helper Relationship Specialty Start Date End Date Joselin Henao MD [address] [facility] [place] [address] PCP - General Internal Medicine 08/02/21 documented as of this encounter
--- NOTE | 2023-08-28 12:00 | Ultrasound Report ---
LEFT LOWER EXTREMITY VENOUS DOPPLER HISTORY: Left leg redness, pain COMPARISON STUDY: None. FINDINGS: There is normal compressibility, flow, and augmentation within the left lower extremity moose p venous system. IMPRESSION: No DVT within the left lower extremity. ACT 112: Negative or not required by law. Electronically signed by: Sergio Gao M.D. 08/28/2023 11:59 AM
[2023-08-28] MEDS: POTASSIUM CHLORIDE CRTAB 20 MEQ TABCR PO STA (12:21)
[2023-08-28] MEDS: NICOTINE 21 MG/24 HR TDSY TD SCH (12:22)
[2023-08-28] MEDS: SACCHAROMYCES BOULARDII 250 MG CAP PO SCH (12:37)
[2023-08-28] MEDS: oxyCODONE HCL IR 5 MG TAB (IMMEDIATE RELEASE) PO STA (13:36)
[2023-08-28] MEDS: INSULIN ASPART PER UNIT CHARGE SC SCH (13:41)
[2023-08-28] MEDS: CEFEPIME 2,000 MG in SYRINGE 0 ML IV SCH (14:31)
--- NOTE | 2023-08-28 14:37 | Ultrasound Report ---
Ultrasound-guided left knee joint aspiration INDICATION: Left lower extremity cellulitis; left knee joint effusion with prior history of knee repl acement PROCEDURE: Procedure and risks were explained. Informed consent was obtained. A final timeout was com pleted. The left knee was prepped and draped in sterile fashion. 1% buffered lidocaine was utilized f or skin anesthesia. Utilizing ultrasound guidance, a 5 Greenlandic safety centesis catheter was advanced into the complex flui d collection at the suprapatellar region. Ultrasound images were obtained. Approximately 17 mL of blo od-tinged joint fluid was aspirated and sent to the lab for analysis. The catheter was removed and Ba nd-Aid applied. The patient tolerated the procedure well. IMPRESSION: Left knee joint aspiration as detailed above. Performed, dictated, and signed by Fei Payne PA-C; to be co-signed by Dr. Sergio Gao. Electronically signed by: Sergio Gao M.D. 08/28/2023 3:16 PM
[2023-08-28 15:42] LABS: Appearance Synovial Fluid Cloudy; Color Synovial Fluid Pink; Mononuclear WBC Synovial 77.9 %; Polynuclear WBC Synovial 22.1 %; RBC Synovial Fluid Auto 19000 /uL; Source Synovial Fluid Left Knee; WBC Synovial Fluid Auto 194 /ul (0-200)
[2023-08-28] MEDS: oxyCODONE HCL IR 5 MG TAB (IMMEDIATE RELEASE) PO PRN (17:51)
--- NOTE | 2023-08-28 19:56 | Communication Note ---
Date of Service: August 28, 2023 Left synovial fluid aspiration reviewed. Aspiration showed a negative Gram stain with 192 nucleated cells and 22% PMNs. Given this aspiration, there is no current evidence to support prosthetic joint infection. Recommend following synovial fluid cultures until finalized. May otherwise treat as cellulitis
[2023-08-28] MEDS ORDERED: NORTRIPTYLINE HCL 25 MG CAP PO SCH (21:00)
[2023-08-28] MEDS: NORTRIPTYLINE HCL 25 MG CAP PO SCH (21:04)
[2023-08-28] MEDS: hydrOXYzine HCl 25 MG TAB PO SCH (21:04)
[2023-08-28] MEDS: FAMOTIDINE 40 MG TABLET PO SCH (21:05)
[2023-08-28] MEDS: TOPIRAMATE 50 MG TAB PO SCH (21:05)
[2023-08-29] MEDS: PANTOprazole 40 MG TAB PO SCH (05:49)
[2023-08-29 07:10] LABS: Basophils # (auto) 0.03 K/uL (0.00-0.20); Basophils % (auto) 0.5 %; Eosinophils # (auto) 0.09 K/uL (0.00-0.50); Eosinophils % (auto) 1.4 %; Hematocrit (blood only) 40.6 % (37.0-47.0); Hemoglobin 13.5 g/dl (12.0-16.0); Immature Granulocytes # (auto) 0.03 K/uL (0.01-0.20); Immature Granulocytes % (auto) 0.5 %; Lymphocytes # (auto) 2.44 K/uL (1.20-3.40); Lymphocytes % (auto) 37.8 %; Mean Corpuscular Hemoglobin 29.7 pg (25.0-34.0); Mean Corpuscular Hgb Conc 33.3 g/dL (32.0-36.0); Mean Corpuscular Volume 89.2 fL (80.0-100.0); Mean Platelet Volume 10.2 fL (9.4-12.4); Monocytes # (auto) 0.59 K/uL (0.11-0.59); Monocytes % (auto) 9.1 %; Neutrophils # (auto) 3.27 K/uL (1.40-6.50); Neutrophils % (auto) 50.7 %; Platelet Count 212 K/uL (130-400); RDW Coefficient of Variation 13.7 % (11.5-14.5); RDW Standard Deviation 44.9 fL (36.4-46.3); Red Blood Count 4.55 M/uL (4.20-5.40); White Blood Count 6.45 K/ul (4.8-10.8)
--- NOTE | 2023-08-29 07:31 | Hospitalist Progress Note ---
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 Left lower extremity cellulitis History of left knee replacement by Dr. Tijerina -[facility] Patient with 10 days of symptoms prior to admission on 08/16 failed treatment of Keflex While hospitalized received IV Rocephin and daptomycin and transition to a course of oral Cipro at discharge Redness has improved since discharge, but patient continues to have significant amount of pain, slight swelling and continued erythema (light pink, but not warm) She also has pain in area of Tibial tubercle -this has her concerned given history of left knee replacement and prior history of right ankle infection requiring BKA She follows [facility] orthopedics -had evaluation in June with x-ray showing proper placement of hardware and benign synovial fluid Left knee x-ray on admission showing moderate effusion, which is new She does not meet sepsis criteria Continue IV cefepime and daptomycin, baseline CK normal, add Florastor Consult infectious disease- appreciate recs Consult orthopedics for evaluation for possible arthrocentesis, appreciate recs -knee joint, left aspirated on 08/27, cultures pending -per ortho treat like cellulitis Hypertension Chronic, stable Continue amlodipine and valsartan Hyperlipidemia Chronic, stable Hold statin while on daptomycin Hypokalemia potassium chloride oral replaced bmp in a.m. Bipolar disorder Chronic, stable Continue Topamax, nortriptyline and Vraylar Pre Diabetes a1c 5.9 in June hold rybelsus ac/hs, sliding scale as needed Tobacco abuse Encourage cessation Nicotine patch DVT prophylaxis: SCDS until seen by ortho to determine if arthrocentesis warranted, add chemical prophylaxis as soon as able Full code PCP: Dr. Henao Dispo: PT/OT ordered for further recs Admission and Anticipated Discharge Date Admission Date: August 28, 2023 Subjective pt was seen sitting at the side of the bed. No acute distress. Denies fevers, chills. Review of Systems Review of Systems: All systems reviewed & are unremarkable except as noted in Subjective Physical Exam Physical Exam: General: Alert, oriented. No acute distress Skin: slight erythema to LLE Psych: Appropriate mood and affect Neuro: No gross deficits while laying in bed HEENT: NC/AT CV: RRR Resp: Breath sounds clear bilaterally, no increased effort of breathing. Abdomen: Soft, nontender, nondistended. Extremities: RE BKA amputation, LLE with no open wounds, slight erythema Results & Data Results & Data Vital Signs (Past 12 Hours) Vital Signs Temp Pulse Pulse Resp BP Pulse Ox O2 Del Method 08/29/23 07:14 36.6 C 76 15 119/76 94 Room Air 08/29/23 03:46 36.5 C 74 18 122/74 94 Room Air 08/29/23 00:35 Room Air 08/28/23 22:58 36.6 C 74 18 123/79 96 Room Air 08/28/23 22:00 73 08/28/23 20:01 36.4 C L 76 20 135/84 98 Room Air
[2023-08-29 07:33] LABS: Albumin Level 3.6 gm/dl (3.4-5.0); BUN Creatinine Ratio 15.2 (10-20); Calcium 8.2 mg/dl (8.6-10.3); Est GFR (African American) 93.6 ml/min; Est GFR (Non-African American) 80.8 ml/min; Potassium 3.8 mmol/L (3.5-5.1)
[2023-08-29 07:46] LABS: Albumin Globulin Ratio 1.5 (0.9-2); Bilirubin,Total 0.5 mg/dl (0.2-1.0); Globulin 2.4 gm/dl (2.5-4.0)
[2023-08-29] MEDS: CHOLECALCIFEROL 25 MCG (1000 UNITS) TAB PO SCH (07:47)
[2023-08-29] MEDS: amLODIPine BESYLATE 5 MG TAB PO SCH (07:47)
[2023-08-29] MEDS: ASPIRIN 81 MG ECTAB PO SCH (07:47)
[2023-08-29] MEDS: CYANOCOBALAMIN (B-12) 500 MCG TABLET PO SCH (07:48)
[2023-08-29] MEDS: TOPIRAMATE 100 MG TAB PO SCH (07:48)
[2023-08-29] MEDS: CARIPRAZINE HCL 3 MG CAP PO SCH (07:48)
[2023-08-29] MEDS: VALSARTAN 80 MG TAB PO SCH (07:49)
[2023-08-29] MEDS: DAPTOmycin 300 MG in SYRINGE 0 ML IV SCH (07:50)
--- NOTE | 2023-08-29 14:34 | Infectious Disease Consult ---
Date of Service August 29, 2023 Telehealth Information I performed this visit using a real-time telehealth connection between my location and the patients location ([facility]). After connecting through interactive tele-video, patient was identified by name and date of and/or wristband check.Patient (or authorized healthcare mill representative) was informed that this was a telemedicine visit and it was being conducted confidentially over secure lines. My office door was closed and no one else was present in the room with me.Patient (or authorized healthcare mill representative) provided consent to proceed with the visit, expressed an understanding of privacy and security of the telemedicine visit, and gave permission to have a hospital mill representative in the room in order to assist with the visit and to conduct portions of the visit, as needed. I informed the patient (or authorized healthcare mill representative) that I reviewed their record and presented the opportunity for them to ask any questions regarding the visit today. The patient agreed to participate. 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 Patient was started on cefepime and daptomycin and has been assessed by orthopedics and aspiration was done which was not concerning for infection .WBC is WNL and her cultures have so far been NGTD Allergies Allergy/AdvReac Type Severity Reaction Status Date / Time duloxetine AdvReac Severe SHUT DOWN, Verified 08/28/23 09:51 HEART AND BREATHING SLOWED, LETHARGIC fentanyl AdvReac Intermediate GI SYMPTOMS Verified 08/28/23 09:51 metoclopramide AdvReac Intermediate TARDITIVE Verified 08/28/23 09:51 DYSKENESIA pregabalin [From Lyrica] AdvReac Intermediate NAUSEA/VOMI Verified 08/28/23 09:51 TING tramadol AdvReac Intermediate NAUSEA/VOMI Verified 08/28/23 09:51 TING chlorpromazine AdvReac Mild dry mouth Verified 08/28/23 09:51 Home Medications Medication Instructions Recorded Confirmed Type amlodipine 5 mg tablet 5 mg PO QAM 10/29/19 08/28/23 History famotidine 40 mg tablet 40 mg PO HS 10/29/19 08/28/23 History cariprazine 3 mg capsule (Vraylar) 3 mg PO QAM 08/11/20 08/28/23 History nortriptyline 75 mg capsule 75 mg PO HS 08/11/20 08/28/23 History aspirin 81 mg tablet,delayed 81 mg PO DAILY 11/28/22 08/28/23 History release atorvastatin 40 mg tablet 40 mg PO HS 11/28/22 08/28/23 History cholecalciferol (vitamin D3) 25 25 mcg PO DAILY 11/28/22 08/28/23 History mcg (1,000 unit) capsule (Vitamin D3) cyanocobalamin (vitamin B-12) 1,000 mcg PO DAILY 11/28/22 08/28/23 History 1,000 mcg tablet (Vitamin B-12) esomeprazole magnesium 40 mg 40 mg PO DAILYBB 11/28/22 08/28/23 History capsule,delayed release nicotine 21 mg/24 hr daily 1 patch transdermal DAILY PRN 11/28/22 08/28/23 History transdermal patch SMOKE CESSATION nortriptyline 25 mg capsule 25 mg PO HS 11/28/22 08/28/23 History ondansetron HCl 4 mg tablet 4 mg PO Q6H PRN Nausea 11/28/22 08/28/23 History topiramate 100 mg tablet 100 mg PO QAM 11/28/22 08/28/23 History valsartan 320 mg tablet 320 mg PO QAM 11/28/22 08/28/23 History topiramate 50 mg tablet 50 mg PO HS 08/17/23 08/28/23 History hydroxyzine HCl 50 mg tablet 150 mg PO HS 08/28/23 08/28/23 History semaglutide 7 mg tablet (Rybelsus) 7 mg PO DAILY 08/28/23 08/28/23 History Patient History Medical History Dyslipidemia Migraine Biliary dyskinesia Essential hypertension GERD (gastroesophageal reflux disease) Vitamin D deficiency Type 2 diabetes mellitus Gastroparesis Hyperlipidemia Transaminitis Pyelonephritis History of renal calculi History of Clostridium difficile colitis Hypothyroidism Chronic abdominal pain History of suicide attempt PTSD (post-traumatic stress disorder) Enterohemorrhagic E. coli infection (12/24/13) Anxiety Fibromyalgia Surgical History History of total left knee replacement (TKR) October 2022 - Dr. Tijerina at [facility] Hx of right BKA Status post right oophorectomy Status post left oophorectomy Status post hernia repair Status post hysterectomy S/P appendectomy S/P tonsillectomy and adenoidectomy S/P cholecystectomy Family History Other Cancer Diabetes Heart disease Hypertension Social History (Updated 08/28/23 @ 10:41 by Lilian Salas PA-C) Smoking Status: Current every day smoker Tobacco Type: Cigarettes packs per day: 1; Second Hand Exposure: Yes; Do You Dip or Chew Tobacco: No; Hx Alcohol Use: No Hx Substance Use: No Preferred Language: Italian Communication Ability: Effective Agricultural Extension 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: No Beliefs That Will Affect Care: None marital status: Current Living Situation: Spouse current occupational status: disabled Feels Safe at Home: Yes Safety Concerns: Feels Safe At This Time Assistive Devices: Cane, Prosthesis, Raised Toilet Seat and Walker Review of Systems Patient in no distress afebrile erythema to LLE s/p Right BKA Physical Exam Patient alert orientated no distress cellulitis to LLE Results & Data Vital Signs (Past 12 Hours) Vital Signs Temp Pulse Pulse Resp BP Pulse Ox O2 Del Method 08/29/23 11:06 36.7 C 79 15 121/78 95 Room Air 08/29/23 08:00 Room Air 08/29/23 07:14 36.6 C 76 15 119/76 94 Room Air 08/29/23 07:00 75 08/29/23 03:46 36.5 C 74 18 122/74 94 Room Air Laboratory Results WBC 6450 Diagnostic Findings IMPRESSION: 1. Status post total left knee arthroplasty. No periprosthetic fracture or lucency. 2. Moderate-sized left knee joint effusion. Left knee soft tissue swelling.
[2023-08-29] MEDS: ENOXAPARIN INJ 40 MG/0.4 ML SYR SQ SCH (15:12)
--- NOTE | 2023-08-29 22:06 | Orthopedic Consultation ---
Date of Consultation August 29, 2023 Assessment & Plan (1) Cellulitis of left le-year-old female with left cellulitis -Weight-bear as tolerated left lower extremity -PT/OT -DVT prophylaxis -Antibiotic therapy per infectious disease -Med management -Patient's left knee aspiration to date did not show any concerning findings for potential infection. Gram stain, cell count, and PMNs are all below threshold for prosthetic joint infection. Would recommend following synovial fluid cultures. No further orthopedic intervention at this time. Patient may follow- up with [facility] orthopedics as an outpatient if needed History of Present Illness Reason for Consultation: Left knee effusion/rule out infection Attending Physician: Jose D Middleton MD History of Present Illness 63-year-old female presenting for left lower extremity cellulitis. Has a history of a left total knee arthroplasty performed at [facility] 9 months ago. Orthopedics was consulted to rule out infection. Allergies Allergy/AdvReac Type Severity Reaction Status Date / Time duloxetine AdvReac Severe SHUT DOWN, Verified 08/28/23 09:51 HEART AND BREATHING SLOWED, LETHARGIC fentanyl AdvReac Intermediate GI SYMPTOMS Verified 08/28/23 09:51 metoclopramide AdvReac Intermediate TARDITIVE Verified 08/28/23 09:51 DYSKENESIA pregabalin [From Lyrica] AdvReac Intermediate NAUSEA/VOMI Verified 08/28/23 09:51 TING tramadol AdvReac Intermediate NAUSEA/VOMI Verified 08/28/23 09:51 TING chlorpromazine AdvReac Mild dry mouth Verified 08/28/23 09:51 Home Medications Medication Instructions Recorded Confirmed Type amlodipine 5 mg tablet 5 mg PO QAM 10/29/19 08/28/23 History famotidine 40 mg tablet 40 mg PO HS 10/29/19 08/28/23 History cariprazine 3 mg capsule (Vraylar) 3 mg PO QAM 08/11/20 08/28/23 History nortriptyline 75 mg capsule 75 mg PO HS 08/11/20 08/28/23 History aspirin 81 mg tablet,delayed 81 mg PO DAILY 11/28/22 08/28/23 History release atorvastatin 40 mg tablet 40 mg PO HS 11/28/22 08/28/23 History cholecalciferol (vitamin D3) 25 25 mcg PO DAILY 11/28/22 08/28/23 History mcg (1,000 unit) capsule (Vitamin D3) cyanocobalamin (vitamin B-12) 1,000 mcg PO DAILY 11/28/22 08/28/23 History 1,000 mcg tablet (Vitamin B-12) esomeprazole magnesium 40 mg 40 mg PO DAILYBB 11/28/22 08/28/23 History capsule,delayed release nicotine 21 mg/24 hr daily 1 patch transdermal DAILY PRN 11/28/22 08/28/23 History transdermal patch SMOKE CESSATION nortriptyline 25 mg capsule 25 mg PO HS 11/28/22 08/28/23 History ondansetron HCl 4 mg tablet 4 mg PO Q6H PRN Nausea 11/28/22 08/28/23 History topiramate 100 mg tablet 100 mg PO QAM 11/28/22 08/28/23 History valsartan 320 mg tablet 320 mg PO QAM 11/28/22 08/28/23 History topiramate 50 mg tablet 50 mg PO HS 08/17/23 08/28/23 History hydroxyzine HCl 50 mg tablet 150 mg PO HS 08/28/23 08/28/23 History semaglutide 7 mg tablet (Rybelsus) 7 mg PO DAILY 08/28/23 08/28/23 History Patient History Medical History Dyslipidemia Migraine Biliary dyskinesia Essential hypertension GERD (gastroesophageal reflux disease) Vitamin D deficiency Type 2 diabetes mellitus Gastroparesis Hyperlipidemia Transaminitis Pyelonephritis History of renal calculi History of Clostridium difficile colitis Hypothyroidism Chronic abdominal pain History of suicide attempt PTSD (post-traumatic stress disorder) Enterohemorrhagic E. coli infection (12/24/13) Anxiety Fibromyalgia Surgical History History of total left knee replacement (TKR) October 2022 - Dr. Tijerina at [facility] Hx of right BKA Status post right oophorectomy Status post left oophorectomy Status post hernia repair Status post hysterectomy S/P appendectomy S/P tonsillectomy and adenoidectomy S/P cholecystectomy Family History Other Cancer Diabetes Heart disease Hypertension Social History (Updated 08/28/23 @ 10:41 by Lilian Salas PA-C) Smoking Status: Current every day smoker Tobacco Type: Cigarettes packs per day: 1; Second Hand Exposure: Yes; Do You Dip or Chew Tobacco: No; Hx Alcohol Use: No Hx Substance Use: No Preferred Language: Spanish Communication Ability: Effective Sugar Laboratory Assistant Required: No Beliefs That Will Affect Care: None marital status: Current Living Situation: Spouse current occupational status: disabled Feels Safe at Home: Yes Safety Concerns: Feels Safe At This Time Assistive Devices: Cane, Prosthesis, Raised Toilet Seat and Walker Physical Exam Constitutional: NAD, resting in bed Musculoskeletal: LLE - cellulitis over mid/distal tibia - painless AROM of knee 0-115 deg - mild effusion - silt s/spn/dpn/t/s - fires ta/ehl/gsc + dp/pt Results & Data Vital Signs (Past 12 Hours) Vital Signs Temp Pulse Pulse Resp BP Pulse Ox O2 Del Method 08/29/23 19:46 36.8 C 91 H 20 121/78 98 Room Air 08/29/23 17:19 Room Air 08/29/23 15:28 36.5 C 77 17 144/82 H 97 Room Air 08/29/23 13:59 75 08/29/23 11:06 36.7 C 79 15 121/78 95 Room Air
[2023-08-30 06:48] LABS: Basophils # (auto) 0.06 K/uL (0.00-0.20); Basophils % (auto) 0.8 %; Eosinophils # (auto) 0.15 K/uL (0.00-0.50); Hematocrit (blood only) 42.4 % (37.0-47.0); Hemoglobin 14.3 g/dl (12.0-16.0); Immature Granulocytes # (auto) 0.05 K/uL (0.01-0.20); Immature Granulocytes % (auto) 0.7 %; Lymphocytes # (auto) 3.13 K/uL (1.20-3.40); Lymphocytes % (auto) 42.3 %; Mean Corpuscular Hemoglobin 29.8 pg (25.0-34.0); Mean Corpuscular Hgb Conc 33.7 g/dL (32.0-36.0); Mean Corpuscular Volume 88.3 fL (80.0-100.0); Mean Platelet Volume 10.1 fL (9.4-12.4); Monocytes # (auto) 0.69 K/uL (0.11-0.59); Monocytes % (auto) 9.3 %; Neutrophils # (auto) 3.32 K/uL (1.40-6.50); Neutrophils % (auto) 44.9 %; Platelet Count 223 K/uL (130-400); RDW Coefficient of Variation 13.5 % (11.5-14.5); RDW Standard Deviation 44.1 fL (36.4-46.3)
[2023-08-30 07:08] LABS: Albumin Globulin Ratio 1.5 (0.9-2); Albumin Level 3.8 gm/dl (3.4-5.0); Bilirubin,Total 0.4 mg/dl (0.2-1.0); Calcium 8.5 mg/dl (8.6-10.3); Creatinine Clr Calc Pharmacy 81.5 ml/min; Est GFR (African American) 84.5 ml/min; Est GFR (Non-African American) 72.9 ml/min; Globulin 2.6 gm/dl (2.5-4.0); Magnesium 2.1 mg/dl (1.7-2.4); Phosphorus 2.9 mg/dl (2.5-4.9); Potassium 3.7 mmol/L (3.5-5.1); Total Protein 6.4 gm/dl (6.0-8.3)
[2023-08-30] MEDS ORDERED: VANCOMYCIN CONSULT ACTIVE PRN ×2 (09:46)
[2023-08-30] MEDS ORDERED: VANCOMYCIN HCL 1,000 MG in SODIUM CHLORIDE 0.9% 250 ML IV STA (09:46)
--- NOTE | 2023-08-30 09:51 | Hospitalist Progress Note ---
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 Left lower extremity cellulitis History of left knee replacement by Dr. Tijerina -[facility] Patient with 10 days of symptoms prior to admission on 08/16 failed treatment of Keflex While hospitalized received IV Rocephin and daptomycin and transition to a course of oral Cipro at discharge Redness has improved since discharge, but patient continues to have significant amount of pain, slight swelling and continued erythema (light pink, but not warm) She also has pain in area of Tibial tubercle -this has her concerned given history of left knee replacement and prior history of right ankle infection requiring BKA She follows [facility] orthopedics -had evaluation in June with x-ray showing proper placement of hardware and benign synovial fluid Left knee x-ray on admission showing moderate effusion, which is new She does not meet sepsis criteria Continue IV cefepime and daptomycin, baseline CK normal, add Florastor Consult infectious disease- appreciate recs Consult orthopedics for evaluation for possible arthrocentesis, appreciate recs -knee joint, left aspirated on 08/27, cultures pending -per ortho treat like cellulitis - no signs of septic joint, follow cultx Seen by ID - treat as cellulitis - switch to vancomycin - when seen improvement switch to to doxy to finish 14 day course Hypertension Chronic, stable Continue amlodipine and valsartan Hyperlipidemia Chronic, stable Hold statin while on daptomycin Hypokalemia potassium chloride oral replaced bmp in a.m. Bipolar disorder Chronic, stable Continue Topamax, nortriptyline and Vraylar Pre Diabetes a1c 5.9 in June hold rybelsus ac/hs, sliding scale as needed Tobacco abuse Encourage cessation Nicotine patch DVT prophylaxis: lovenox Full code PCP: Dr. Henao Dispo: PT/OT ordered for further recs Admission and Anticipated Discharge Date Admission Date: August 28, 2023 Subjective Pt seen in follow up of LE cellulitis Currently sitting up in bed in [facility] Denies any fever, chills, chest pain, shortness of breath Reports some pain below her L knee. Also reports her LE erythema is improving and she is inquiring about going home. She was seen by ID yesterday - and it was recommended that abx were changed to vancomycin, pt understands. Review of Systems Review of Systems: All systems reviewed & are unremarkable except as noted in Subjective Physical Exam Physical Exam: General: Alert, oriented. No acute distress Skin: slight erythema to LLE Psych: Appropriate mood and affect Neuro: No gross deficits while laying in bed HEENT: NC/AT CV: RRR Resp: Breath sounds clear bilaterally, no increased effort of breathing. Abdomen: Soft, nontender, nondistended. Extremities: RLE BKA amputation, LLE with no open wounds, slight erythema Results & Data Results & Data Vital Signs (Past 12 Hours) Vital Signs Temp Pulse Pulse Resp BP Pulse Ox O2 Del Method 08/30/23 09:43 75 08/30/23 08:20 36.5 C 75 20 133/82 96 Room Air 08/30/23 04:13 36.5 C 74 20 147/90 H 96 Room Air 08/30/23 02:45 Room Air 08/29/23 23:15 36.7 C 84 20 131/78 93 Room Air 08/29/23 21:58 81 Laboratory Results 08/30/23 08/30/23 08/29/23 Range/Units 08:11 05:50 20:12 WBC 7.40 (4.8-10.8) K/ul RBC 4.80 (4.20-5.40) M/uL Hgb 14.3 (12.0-16.0) g/dl Hct 42.4 (37.0-47.0) % MCV 88.3 (80.0-100.0) fL MCH 29.8 (25.0-34.0) pg MCHC 33.7 (32.0-36.0) g/dL RDW Std Deviation 44.1 (36.4-46.3) fL RDW Coeff of [place] 13.5 (11.5-14.5) % Plt Count 223 (130-400) K/uL MPV 10.1 (9.4-12.4) fL Immature Gran % (Auto) 0.7 % Neut % (Auto) 44.9 % Lymph % (Auto) 42.3 % [place] % (Auto) 9.3 % Eos % (Auto) 2.0 % Baso % (Auto) 0.8 % Neut # (Auto) 3.32 (1.40-6.50) K/uL Lymph # (Auto) 3.13 (1.20-3.40) K/uL [place] # (Auto) 0.69 H (0.11-0.59) K/uL Eos # (Auto) 0.15 (0.00-0.50) K/uL Baso # (Auto) 0.06 (0.00-0.20) K/uL Immature Gran # (Auto) 0.05 (0.01-0.20) K/uL Sodium 138 (136-145) mmol/L Potassium 3.7 (3.5-5.1) mmol/L Chloride 109 H (98-107) mmol/L Carbon Dioxide 23 (21-32) mmol/L Anion Gap 6 (3-11) BUN 12 (6-23) mg/dl Creatinine 0.86 (0.6-1.2) mg/dl Est Cr Clr Drug Dosing 81.5 ml/min Est GFR ( Amer) 84.5 ml/min Est GFR (Non-Af Amer) 72.9 ml/min BUN/Creatinine Ratio 14.0 (10-20) Glucose 121 H (70-99(Fasting)) mg/dl POC Glucose 109 H 110 H (70-99) mg/dl Calcium 8.5 L (8.6-10.3) mg/dl Phosphorus 2.9 (2.5-4.9) mg/dl Magnesium 2.1 (1.7-2.4) mg/dl Total Bilirubin 0.4 (0.2-1.0) mg/dl AST 42 H (13-39) U/L ALT 69 H (7-52) U/L Alkaline Phosphatase 143 H (34-104) U/L Total Protein 6.4 (6.0-8.3) gm/dl Albumin 3.8 (3.4-5.0) gm/dl Globulin 2.6 (2.5-4.0) gm/dl Albumin/Globulin Ratio 1.5 (0.9-2) Synovial Crystals 08/29/23 08/29/23 08/28/23 Range/Units 17:14 12:20 Unknown WBC (4.8-10.8) K/ul RBC (4.20-5.40) M/uL Hgb (12.0-16.0) g/dl Hct (37.0-47.0) % MCV (80.0-100.0) fL MCH (25.0-34.0) pg MCHC (32.0-36.0) g/dL RDW Std Deviation (36.4-46.3) fL RDW Coeff of [place] (11.5-14.5) % Plt Count (130-400) K/uL MPV (9.4-12.4) fL Immature Gran % (Auto) % Neut % (Auto) % Lymph % (Auto) % [place] % (Auto) % Eos % (Auto) % Baso % (Auto) % Neut # (Auto) (1.40-6.50) K/uL Lymph # (Auto) (1.20-3.40) K/uL [place] # (Auto) (0.11-0.59) K/uL Eos # (Auto) (0.00-0.50) K/uL Baso # (Auto) (0.00-0.20) K/uL Immature Gran # (Auto) (0.01-0.20) K/uL Sodium (136-145) mmol/L Potassium (3.5-5.1) mmol/L Chloride (98-107) mmol/L Carbon Dioxide (21-32) mmol/L Anion Gap (3-11) BUN (6-23) mg/dl Creatinine (0.6-1.2) mg/dl Est Cr Clr Drug Dosing ml/min Est GFR ( Amer) ml/min Est GFR (Non-Af Amer) ml/min BUN/Creatinine Ratio (10-20) Glucose (70-99(Fasting)) mg/dl POC Glucose 124 H 105 H (70-99) mg/dl Calcium (8.6-10.3) mg/dl Phosphorus (2.5-4.9) mg/dl Magnesium (1.7-2.4) mg/dl Total Bilirubin (0.2-1.0) mg/dl AST (13-39) U/L ALT (7-52) U/L Alkaline Phosphatase (34-104) U/L Total Protein (6.0-8.3) gm/dl Albumin (3.4-5.0) gm/dl Globulin (2.5-4.0) gm/dl Albumin/Globulin Ratio (0.9-2) Synovial Crystals Medications Administered 08/30/23 08/30/23 08/29/23 Range/Units 08:11 05:50 20:12 WBC 7.40 (4.8-10.8) K/ul RBC 4.80 (4.20-5.40) M/uL Hgb 14.3 (12.0-16.0) g/dl Hct 42.4 (37.0-47.0) % MCV 88.3 (80.0-100.0) fL MCH 29.8 (25.0-34.0) pg MCHC 33.7 (32.0-36.0) g/dL RDW Std Deviation 44.1 (36.4-46.3) fL RDW Coeff of Maria [place] 13.5 (11.5-14.5) % Plt Count 223 (130-400) K/uL MPV 10.1 (9.4-12.4) fL Immature Gran % (Auto) 0.7 % Neut % (Auto) 44.9 % Lymph % (Auto) 42.3 % [place] % (Auto) 9.3 % Eos % (Auto) 2.0 % Baso % (Auto) 0.8 % Neut # (Auto) 3.32 (1.40-6.50) K/uL Lymph # (Auto) 3.13 (1.20-3.40) K/uL [place] # (Auto) 0.69 H (0.11-0.59) K/uL Eos # (Auto) 0.15 (0.00-0.50) K/uL Baso # (Auto) 0.06 (0.00-0.20) K/uL Immature Gran # (Auto) 0.05 (0.01-0.20) K/uL Sodium 138 (136-145) mmol/L Potassium 3.7 (3.5-5.1) mmol/L Chloride 109 H (98-107) mmol/L Carbon Dioxide 23 (21-32) mmol/L Anion Gap 6 (3-11) BUN 12 (6-23) mg/dl Creatinine 0.86 (0.6-1.2) mg/dl Est Cr Clr Drug Dosing 81.5 ml/min Est GFR ( Amer) 84.5 ml/min Est GFR (Non-Af Amer) 72.9 ml/min BUN/Creatinine Ratio 14.0 (10-20) Glucose 121 H (70-99(Fasting)) mg/dl POC Glucose 109 H 110 H (70-99) mg/dl Calcium 8.5 L (8.6-10.3) mg/dl Phosphorus 2.9 (2.5-4.9) mg/dl Magnesium 2.1 (1.7-2.4) mg/dl Total Bilirubin 0.4 (0.2-1.0) mg/dl AST 42 H (13-39) U/L ALT 69 H (7-52) U/L Alkaline Phosphatase 143 H (34-104) U/L Total Protein 6.4 (6.0-8.3) gm/dl Albumin 3.8 (3.4-5.0) gm/dl Globulin 2.6 (2.5-4.0) gm/dl Albumin/Globulin Ratio 1.5 (0.9-2) Synovial Crystals 08/29/23 08/29/23 08/28/23 Range/Units 17:14 12:20 Unknown WBC (4.8-10.8) K/ul RBC (4.20-5.40) M/uL Hgb (12.0-16.0) g/dl Hct (37.0-47.0) % MCV (80.0-100.0) fL MCH (25.0-34.0) pg MCHC (32.0-36.0) g/dL RDW Std Deviation (36.4-46.3) fL RDW Coeff of [place] (11.5-14.5) % Plt Count (130-400) K/uL MPV (9.4-12.4) fL Immature Gran % (Auto) % Neut % (Auto) % Lymph % (Auto) % [place] % (Auto) % Eos % (Auto) % Baso % (Auto) % Neut # (Auto) (1.40-6.50) K/uL Lymph # (Auto) (1.20-3.40) K/uL [place] # (Auto) (0.11-0.59) K/uL Eos # (Auto) (0.00-0.50) K/uL Baso # (Auto) (0.00-0.20) K/uL Immature Gran # (Auto) (0.01-0.20) K/uL Sodium (136-145) mmol/L Potassium (3.5-5.1) mmol/L Chloride (98-107) mmol/L Carbon Dioxide (21-32) mmol/L Anion Gap (3-11) BUN (6-23) mg/dl Creatinine (0.6-1.2) mg/dl Est Cr Clr Drug Dosing ml/min Est GFR ( Amer) ml/min Est GFR (Non-Af Amer) ml/min BUN/Creatinine Ratio (10-20) Glucose (70-99(Fasting)) mg/dl POC Glucose 124 H 105 H (70-99) mg/dl Calcium (8.6-10.3) mg/dl Phosphorus (2.5-4.9) mg/dl Magnesium (1.7-2.4) mg/dl Total Bilirubin (0.2-1.0) mg/dl AST (13-39) U/L ALT (7-52) U/L Alkaline Phosphatase (34-104) U/L Total Protein (6.0-8.3) gm/dl Albumin (3.4-5.0) gm/dl Globulin (2.5-4.0) gm/dl Albumin/Globulin Ratio (0.9-2) Synovial Crystals
[2023-08-30] MEDS: VANCOMYCIN HCL 2,000 MG in SODIUM CHLORIDE 0.9% 500 ML IV ONE (10:11)
--- NOTE | 2023-08-30 11:52 | Pharmacy Report ---
Pharmacy PK ABX Note - Date of Service August 30, 2023 - Assessment and Plan Assessment 63 year old F receiving vancomycin for treatment of lower left extremity cellulitis. Pertinent microbiologic data includes: blood cultures and knee fluid culture pending. She has a history of a left knee replacement. She was seen in late July for similar complaints and was treated with ceftriaxone/daptomycin and transitioned to oral Cipro. Before that admission, she had failed outpatient Keflex. ID recommended vancomycin with transition to doxycycline on discharge. Day # 1 of vancomycin therapy. Plan Vancomycin * Loading dose: 2000 mg IV x 1 * Maintenance dose: 1000 mg IV every 12 hours * Regimen is predicted to achieve target AUC/ZAIRE of 400-600 mg/L.hr * Random level ordered for: 09/01/23 with AM labs Pharmacy will continue to follow and will adjust dose/frequency as necessary. Thank you. Pharmacy has transitioned to AUC monitoring for vancomycin. AUC/ZAIRE is the preferred PK/PD target and is associated with decreased risk of nephrotoxicity compared to traditional trough targets.
[2023-08-30] MEDS: VANCOMYCIN HCL 1,000 MG in SODIUM CHLORIDE 0.9% 250 ML IV SCH (22:15)
[2023-08-31 07:06] LABS: Hematocrit (blood only) 42.5 % (37.0-47.0); Hemoglobin 14.2 g/dl (12.0-16.0); Mean Corpuscular Hemoglobin 30.3 pg (25.0-34.0); Mean Corpuscular Hgb Conc 33.4 g/dL (32.0-36.0); Mean Corpuscular Volume 90.6 fL (80.0-100.0); Mean Platelet Volume 10.2 fL (9.4-12.4); Platelet Count 228 K/uL (130-400); RDW Coefficient of Variation 13.9 % (11.5-14.5); RDW Standard Deviation 45.8 fL (36.4-46.3); Red Blood Count 4.69 M/uL (4.20-5.40); White Blood Count 7.72 K/ul (4.8-10.8)
[2023-08-31 07:26] LABS: BUN Creatinine Ratio 13.7 (10-20); Blood Urea Nitrogen 10 mg/dl (6-23); Calcium 8.5 mg/dl (8.6-10.3); Carbon Dioxide 23 mmol/L (21-32); Chloride 110 mmol/L (98-107); Creatinine Clr Calc Pharmacy 96.5 ml/min; Est GFR (Non-African American) 88.9 ml/min; Glucose 118 mg/dl (70-99(Fasting))
[2023-08-31 08:34] LABS: Magnesium 2.2 mg/dl (1.7-2.4); Phosphorus 2.5 mg/dl (2.5-4.9); Potassium 3.9 mmol/L (3.5-5.1)
--- NOTE | 2023-08-31 13:40 | Hospitalist Progress Note ---
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 Left lower extremity cellulitis History of left knee replacement by Dr. Tijerina -[facility] Patient with 10 days of symptoms prior to admission on 08/16 failed treatment of Keflex While hospitalized received IV Rocephin and daptomycin and transition to a course of oral Cipro at discharge Redness has improved since discharge, but patient continues to have significant amount of pain, slight swelling and continued erythema (light pink, but not warm) She also has pain in area of Tibial tubercle -this has her concerned given history of left knee replacement and prior history of right ankle infection requiring BKA She follows [facility] -had evaluation in June with x-ray showing proper placement of hardware and benign synovial fluid Left knee x-ray on admission showing moderate effusion, which is new She does not meet sepsis criteria Continue IV cefepime and daptomycin, baseline CK normal, add Florastor Consult infectious disease- appreciate recs Consult orthopedics for evaluation for possible arthrocentesis, appreciate recs -knee joint, left aspirated on 08/27, cultures pending -per ortho treat like cellulitis - no signs of septic joint, follow cultx Seen by ID - treat as cellulitis - switch to vancomycin - when seen improvement switch to to doxy to finish 14 day course 08/30 Pt switched to vanco on 08/29. LE erythema improving, likely DC tmrw on oral abx Hypertension Chronic, stable Continue amlodipine and valsartan Hyperlipidemia Chronic, stable Hold statin while on daptomycin Hypokalemia replete and monitor bmp in a.m. Bipolar disorder Chronic, stable Continue Topamax, nortriptyline and Vraylar Pre Diabetes a1c 5.9 in June hold rybelsus ac/hs, sliding scale as needed Tobacco abuse Encourage cessation Nicotine patch DVT prophylaxis: lovenox Full code PCP: Dr. Henao Dispo: PT/OT ordered for further recs Admission and Anticipated Discharge Date Admission Date: August 28, 2023 Subjective Pt seen in follow up of LE cellulitis Currently sitting up in bed in NAD Denies any fever, chills, chest pain, shortness of breath LE erythema is improving She was seen by ID - and it was recommended that abx were changed to vancomycin, then doxy on discharge Review of Systems Review of Systems: All systems reviewed & are unremarkable except as noted in Subjective Physical Exam Physical Exam: General: Alert, oriented. No acute distress Skin: slight erythema to LLE (improved) Psych: Appropriate mood and affect Neuro: awake, alert, answers appropriately, speech fluent, moves extremities HEENT: NC/AT CV: RRR Resp: Breath sounds clear bilaterally, no increased effort of breathing. Abdomen: Soft, nontender, nondistended. Extremities: RLE BKA amputation, LLE with no open wounds, slight erythema Results & Data Results & Data Vital Signs (Past 12 Hours) Vital Signs Temp Pulse Pulse Resp BP Pulse Ox O2 Del Method 08/31/23 11:14 36.7 C 86 18 121/72 94 Room Air 08/31/23 07:54 36.5 C 79 18 128/74 94 Room Air 08/31/23 07:50 Room Air 08/31/23 07:00 84 08/31/23 04:02 36.6 C 81 20 125/78 97 Room Air Laboratory Results 08/31/23 08/31/23 08/31/23 Range/Units 12:30 08:27 07:45 WBC (4.8-10.8) K/ul RBC (4.20-5.40) M/uL Hgb (12.0-16.0) g/dl Hct (37.0-47.0) % MCV (80.0-100.0) fL MCH (25.0-34.0) pg MCHC (32.0-36.0) g/dL RDW Std Deviation (36.4-46.3) fL RDW Coeff of Maria Del Carmen (11.5-14.5) % Plt Count (130-400) K/uL MPV (9.4-12.4) fL Sodium 141 Potassium 3.9 Chloride (98-107) mmol/L Carbon Dioxide (21-32) mmol/L Anion Gap BUN (6-23) mg/dl Creatinine (0.6-1.2) mg/dl Est Cr Clr Drug Dosing ml/min Est GFR ( Amer) ml/min Est GFR (Non-Af Amer) ml/min BUN/Creatinine Ratio (10-20) Glucose (70-99(Fasting)) mg/dl POC Glucose 109 H 110 H (70-99) mg/dl Calcium (8.6-10.3) mg/dl Phosphorus 2.5 Magnesium 2.2 08/31/23 08/30/23 08/30/23 Range/Units 05:48 20:34 16:58 WBC 7.72 (4.8-10.8) K/ul RBC 4.69 (4.20-5.40) M/uL Hgb 14.2 (12.0-16.0) g/dl Hct 42.5 (37.0-47.0) % MCV 90.6 (80.0-100.0) fL MCH 30.3 (25.0-34.0) pg MCHC 33.4 (32.0-36.0) g/dL RDW Std Deviation 45.8 (36.4-46.3) fL RDW Coeff of Maria Del Carmen 13.9 (11.5-14.5) % Plt Count 228 (130-400) K/uL MPV 10.2 (9.4-12.4) fL Sodium TNP Potassium TNP Chloride 110 H (98-107) mmol/L Carbon Dioxide 23 (21-32) mmol/L Anion Gap TNP BUN 10 (6-23) mg/dl Creatinine 0.73 (0.6-1.2) mg/dl Est Cr Clr Drug Dosing 96.5 ml/min Est GFR ( Amer) 103.0 ml/min Est GFR (Non-Af Amer) 88.9 ml/min BUN/Creatinine Ratio 13.7 (10-20) Glucose 118 H (70-99(Fasting)) mg/dl POC Glucose 131 H 102 H (70-99) mg/dl Calcium 8.5 L (8.6-10.3) mg/dl Phosphorus TNP Magnesium TNP Medications Administered Current Inpatient Medications Acetaminophen (Acetaminophen 325 Mg Tab) 650 mg PO Q4H PRN PRN Reason: Pain or Fever Stop: 09/27/23 11:03 Amlodipine Besylate (Amlodipine Besylate 5 Mg Tab) 5 mg PO QAM [facility]AVEZ Stop: 09/28/23 08:59 Last Admin: 08/31/23 07:48 Dose: 5 mg Aspirin (Aspirin 81 Mg Ectab) 81 mg PO DAILY CH[facility]Z Stop: 09/28/23 08:59 Last Admin: 08/31/23 07:47 Dose: 81 mg Cariprazine (Cariprazine Hcl 3 Mg Cap) 3 mg PO QAM CH[facility]Z Stop: 09/28/23 08:59 Last Admin: 08/31/23 07:48 Dose: 3 mg Cyanocobalamin (Cyanocobalamin (B-12) 500 Mcg Tablet) 1,000 mcg PO DAILY CHAVEZ Stop: 09/28/23 08:59 Last Admin: 08/31/23 07:48 Dose: 1,000 mcg Dextrose (Dextrose 50% 50 Ml Syringe) 25 - 50 ml IV UD PRN; Protocol PRN Reason: Hypoglycemia Protocol Stop: 09/27/23 11:05 Enoxaparin Sodium (Enoxaparin Inj 40 Mg/0.4 Ml Syr) 40 mg SQ Q24H [facility]Z Stop: 09/28/23 13:59 Last Admin: 08/31/23 12:10 Dose: 40 mg Famotidine (Famotidine 40 Mg Tablet) 40 mg PO HS CHAVEZ Stop: 09/27/23 20:59 Last Admin: 08/30/23 20:23 Dose: 40 mg Glucagon (Glucagon For Inj 1 Mg Vial) 1 mg SQ UD PRN; Protocol PRN Reason: Hypoglycemia Protocol Stop: 09/27/23 11:05 Glucose (Glucose 40% Gel 15 Gm Tube) 15 - 30 gm PO UD PRN; Protocol PRN Reason: Hypoglycemia Protocol Stop: 09/27/23 11:05 Glucose (Glucose 10 Tab/Tube) 4 - 8 tab PO UD PRN; Protocol PRN Reason: Hypoglycemia Treatment Stop: 09/27/23 11:05 Hydroxyzine HCl (Hydroxyzine Hcl 25 Mg Tab) 150 mg PO HS CHAVEZ Stop: 09/27/23 20:59 Last Admin: 08/30/23 20:30 Dose: 150 mg Vancomycin HCl 1,000 mg/ (Sodium Chloride) 270 mls @ 200 mls/hr IV Q12H [facility]Z Stop: 09/06/23 21:59 Last Infusion: 08/31/23 10:33 Dose: Infused Insulin Aspart (Insulin Aspart Per Unit Charge) 0 units SC ACHS [facility]Z Stop: 09/27/23 11:29 Last Admin: 08/31/23 12:35 Dose: Not Given Miscellaneous (Remove Nicoderm Patch) 1 each N/A DAILY@0859 [facility] Stop: 09/28/23 08:58 Last Admin: 08/31/23 07:48 Dose: 1 each Miscellaneous (Carbohydrates For Hypoglycemia ) 15 - 30 gm PO UD PRN PRN Reason: Hypoglycemia Protocol Stop: 09/27/23 11:05 Miscellaneous Information (Vancomycin Consult Active) 1 each N/A UD PRN PRN Reason: Consult Stop: 09/29/23 09:45 Nicotine (Nicotine 21 Mg/24 Hr Tdsy) 1 patch TD DAILY [facility] Stop: 09/27/23 11:29 Last Admin: 08/31/23 07:49 Dose: 1 patch Nortriptyline HCl (Nortriptyline Hcl 25 Mg Cap) 100 mg PO [facility] Stop: 09/27/23 20:59 Last Admin: 08/30/23 20:24 Dose: 100 mg Oxycodone HCl (Oxycodone Hcl Ir 5 Mg Tab (Immediate Release)) 5 mg PO Q4H PRN PRN Reason: Severe Pain (Scale 7, 8, 9,10) Stop: 09/11/23 12:39 Last Admin: 08/31/23 12:09 Dose: 5 mg Pantoprazole Sodium (Pantoprazole 40 Mg Tab) 40 mg PO DAILYBB [facility] Stop: 09/28/23 06:29 Last Admin: 08/31/23 05:53 Dose: 40 mg Saccharomyces Boulardii (Saccharomyces Boulardii 250 Mg Cap) 250 mg PO DAILY [facility] Stop: 09/27/23 11:29 Last Admin: 08/31/23 07:47 Dose: 250 mg Topiramate (Topiramate 100 Mg Tab) 100 mg PO QAM [facility] Stop: 09/28/23 08:59 Last Admin: 08/31/23 07:48 Dose: 100 mg Topiramate (Topiramate 50 Mg Tab) 50 mg PO HS [facility] Stop: 09/27/23 20:59 Last Admin: 08/30/23 20:40 Dose: 50 mg Valsartan (Valsartan 80 Mg Tab) 320 mg PO QAM [facility] Stop: 09/28/23 08:59 Last Admin: 08/31/23 07:47 Dose: 320 mg Vitamin D (Cholecalciferol 25 Mcg (1000 Units) Tab) 25 mcg PO DAILY [facility] Stop: 09/28/23 08:59 Last Admin: 08/31/23 07:48 Dose: 25 mcg
[2023-09-01 05:52] LABS: Hematocrit (blood only) 41.2 % (37.0-47.0); Hemoglobin 13.9 g/dl (12.0-16.0); Mean Corpuscular Hemoglobin 30.1 pg (25.0-34.0); Mean Corpuscular Hgb Conc 33.7 g/dL (32.0-36.0); Mean Corpuscular Volume 89.2 fL (80.0-100.0); Mean Platelet Volume 9.7 fL (9.4-12.4); Platelet Count 220 K/uL (130-400); RDW Coefficient of Variation 13.6 % (11.5-14.5); RDW Standard Deviation 44.6 fL (36.4-46.3); Red Blood Count 4.62 M/uL (4.20-5.40)
[2023-09-01 06:06] LABS: BUN Creatinine Ratio 13.9 (10-20); Calcium 8.9 mg/dl (8.6-10.3); Creatinine Clr Calc Pharmacy 89.1 ml/min; Est GFR (African American) 93.6 ml/min; Est GFR (Non-African American) 80.8 ml/min; Phosphorus 2.5 mg/dl (2.5-4.9); Potassium 3.6 mmol/L (3.5-5.1)
--- NOTE | 2023-09-01 10:20 | Pharmacy Report ---
Pharmacy PK ABX Note - Date of Service September 01, 2023 - Assessment and Plan Assessment 08/31: Day 3 of Vancomycin therapy. Renal function stable. * Patient is on Vancomycin 1000 mg IV Q12h. * Random level obtained this AM = 15.9 mcg/ml. 08/31/23: 63 year old F receiving vancomycin for treatment of lower left extremity cellulitis. Pertinent microbiologic data includes: blood cultures and knee fluid culture pending. She has a history of a left knee replacement. She was seen in late July for similar complaints and was treated with ceftriaxone/daptomycin and transitioned to oral Cipro. Before that admission, she had failed outpatient Keflex. ID recommended vancomycin with transition to doxycycline on discharge. Plan Vancomycin * Current regimen: 1000 mg IV every 12 hours * Random level obtained today at 05:16 resulted as 15.9 mcg/mL. This is predicted to achieve target AUC/ZAIRE of 400-600 mg/L.hr * Predicted AUC at steady state: 491 mg/L.hr * Continue Vancomycin 1000 mg IV q12h * Will repeat level in the next 48-72 hours if therapy is continued and/or change in patient clinical status Pharmacy will continue to follow and will adjust dose/frequency as necessary. Thank you. Pharmacy has transitioned to AUC monitoring for vancomycin. AUC/ZAIRE is the preferred PK/PD target and is associated with decreased risk of nephrotoxicity compared to traditional trough targets.
[2023-09-01] MEDS: VANCOMYCIN LEVEL ONE (10:36)
--- NOTE | 2023-09-01 13:07 | Discharge Summary ---
Date of Service September 01, 2023 Admission HPI Per Admitting Provider This is a 63-year-old female with significant past medical history HTN, HLD, prediabetes, fibromyalgia, PTSD, bipolar disorder, gastroparesis, GERD, history of right BKA in setting of right ankle wound who presents to ED secondary to worsening left lower extremity pain. Of significance patient was recently hospitalized 08/16 and discharged on 08/18 secondary to left lower extremity cellulitis. She was initially started on IV Rocephin and daptomycin. This was later transitioned to oral ciprofloxacin at discharge. She finished her oral course of antibiotics 2 days ago. She continues to have slight redness to the left lower extremity although she does report it is improved from previous admission. She continues to have left lower extremity swelling as well as significant pain that is worse with movement and walking. She further lists to having pain right below her left knee. Of significance she did undergo left knee replacement last October. She does not feel that her left knee is more swollen but describes significantly more pain. Due to her prior history with infection in her right ankle requiring amputation she is very concerned that her cellulitis may have progressed into her knee. She had some pain recently and was worked up by [facility] for intraarticular pathology which was benign. In June 2023, a left knee xray revealed Intact left total knee arthroplasty without evidence of hardware complication or failure. She denies any fever, chills, sweats, lightheadedness, dizziness, chest pain, shortness of breath, URI symptoms, nausea, vomiting or abdominal pain. She is tolerating diet and moving her bowels appropriately. She has been taking all of her medications, including this morning. She has been taking [id number] Tylenol for pain. She is a 1 pack/day smoker so she does have a, "smoker's cough." The patient remained hemodynamically stable. There was no overt signs of sepsis. She received IV daptomycin and cefepime. Admission Exam Per Admitting Provider Constitutional: Obese, F, WD/WN, vitals as above, NAD, sitting up in bed, pleasant, conversing easily Head: Normocephalic, Atraumatic Eyes: PERRL, conjunctivae normal, anicteric sclerae ENMT: external ear and nose normal, oropharynx normal Neck: trachea midline, no thyromegaly normal visual inspection Respiratory: normal respiratory effort, lungs clear to auscultation, with mild wheeze that clears with cough, no rales, rhonchi. Normal insp/exp effort, no accessory muscle use Cardiovascular: RRR, no murmur, no edema Vessels: no JVD or carotid bruit Chest: normal inspection of chest Abdomen: normal bowel sounds, soft, nontender, no hepatosplenomegaly Musculoskeletal: no cyanosis or clubbing, extremities motor strength 5/5 , LLE with slight erythema mid pre tibial area to left ankle, trace swelling, no abscess, no warmth, good DP, PT and popliteal pulse +2, +prosthesis Skin: no rashes, warm and dry normal turgor Neurologic: PERRL, EOMI, accommodation nl, no face palsy, no dysarthria CN's II-XI intact bilaterally and moves all extremities Psychiatric: A+Ox3, euthymic affect Lymphatic: no cervical or axillary lymphadenopathy : deferred Principal Diagnosis LLE cellulitis Discharge Exam General: Alert, oriented. No acute distress Skin: slight erythema to LLE (much improved) Psych: Appropriate mood and affect Neuro: awake, alert, answers appropriately, speech fluent, moves extremities HEENT: NC/AT CV: RRR Resp: Breath sounds clear bilaterally, no increased effort of breathing. Abdomen: Soft, nontender, nondistended. Extremities: RLE BKA amputation, LLE with no open wounds, slight erythema Discharge Data Allergies Allergy/AdvReac Type Severity Reaction Status Date / Time duloxetine AdvReac Severe SHUT DOWN, Verified 08/28/23 09:51 HEART AND BREATHING SLOWED, LETHARGIC fentanyl AdvReac Intermediate GI SYMPTOMS Verified 08/28/23 09:51 metoclopramide AdvReac Intermediate TARDITIVE Verified 08/28/23 09:51 DYSKENESIA pregabalin [From Lyrica] AdvReac Intermediate NAUSEA/VOMI Verified 08/28/23 09:51 TING tramadol AdvReac Intermediate NAUSEA/VOMI Verified 08/28/23 09:51 TING chlorpromazine AdvReac Mild dry mouth Verified 08/28/23 09:51 Consultations 08/28/23 09:22 ED Decision to Admit Stat 08/28/23 10:33 Consult Infectious Diseases Routine Consult Orthopedic Surgery Routine Ordered Studies 08/28/23 10:35 US venous doppler LE LT Stat FINDINGS: There is normal compressibility, flow, and augmentation within the left lower extremity deep venous system. IMPRESSION: No DVT within the left lower extremity. 08/28/23 11:44 IR aspinj mjr jnt sh,hip,kn LT Routine PROCEDURE: Procedure and risks were explained. Informed consent was obtained. A final timeout was completed. The left knee was prepped and draped in sterile fashion. 1% buffered lidocaine was utilized for skin anesthesia. Utilizing ultrasound guidance, a 5 Icelandic safety centesis catheter was advanced into the complex fluid collection at the suprapatellar region. Ultrasound images were obtained. Approximately 17 mL of blood-tinged joint fluid was aspirated and sent to the lab for analysis. The catheter was removed and Band-Aid applied. The patient tolerated the procedure well. IMPRESSION: Left knee joint aspiration as detailed above. Performed, dictated, and signed by Fei Payne PA-C; to be co-signed by Dr. Sergio Gao. 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 Left lower extremity cellulitis History of left knee replacement by Dr. Tijerina -[facility] Patient with 10 days of symptoms prior to admission on 08/16 failed treatment of Keflex While hospitalized received IV Rocephin and daptomycin and transition to a course of oral Cipro at discharge Redness has improved since discharge, but patient continues to have significant amount of pain, slight swelling and continued erythema (light pink, but not warm) She also has pain in area of Tibial tubercle -this has her concerned given history of left knee replacement and prior history of right ankle infection requiring BKA She follows [facility] -had evaluation in June with x-ray showing proper placement of hardware and benign synovial fluid Left knee x-ray on admission showing moderate effusion, which is new She does not meet sepsis criteria IV cefepime and daptomycin started on admission Consulted infectious disease- appreciate recs Consulted orthopedics for evaluation for possible arthrocentesis, appreciate recs -knee joint, left aspirated on 08/27, cultures pending -per ortho treat like cellulitis - no signs of septic joint, follow cultx Seen by ID - treat as cellulitis - switch to vancomycin - when seen improvement switch to to doxy to finish 14 day course 08/30 Pt switched to vanco on 08/29. LE erythema improving, likely DC tmrw on oral abx 08/31 pt is feeling well and erythema is much improved/ almost resolved - will DC on PO doxy to finish the abx course as recommended by ID Hypertension Chronic, stable Continue amlodipine and valsartan Hyperlipidemia Chronic, stable Held statin while on daptomycin Hypokalemia replete and monitor Bipolar disorder Chronic, stable Continue Topamax, nortriptyline and Vraylar Pre Diabetes a1c 5.9 in June hold rybelsus while inpt ac/hs, sliding scale as needed Tobacco abuse Encourage cessation Nicotine patch Total Time Total Time Spent Total Time Spent (In Minutes): 40 Discharge Plan Discharge Items Patient Disposition: Home - Self-Care Reason For Visit: LE INFECTION Discharge Diagnosis: LLE cellulitis Condition on Discharge: Good Activity: Per Instructions section Non-emergency contact: Primary Care Provider and Surgeon Call non-emergency contact if: you have any medication questions and your symptoms worsen Follow-up/Referrals: Joselin Henao MD [Primary Care Provider] - (Please note the time change Date & Time 09/05/2023 10:20 AM Provider Joselin Henao MD Department General Internal Medicine [facility] ) Diet: Carb Consistent or DM2 Addtl Attending Provider Instructions: Follow up with your primary care physician and your orthopedic surgeon. Finish antibiotic course as prescribed. Also recommend taking probiotic. Pending Studies at Discharge: Yes Studies:: synovial fluid cultx results Stand-Alone Forms: My [facility] Table8, Smoking Cessation Medications and DC Order Prescriptions: New Saccharomyces boulardii [Florastor] 250 mg Capsule 250 mg PO DAILY Qty: 7 0RF oxycodone 5 mg Tablet 5 mg PO Q4H PRN (Reason: pain) Qty: 7 0RF doxycycline hyclate 100 mg capsule 100 mg PO BID 9 Days Qty: 18 0RF Continued famotidine 40 mg Tablet 40 mg PO HS amlodipine 5 mg Tablet 5 mg PO QAM nortriptyline 75 mg Capsule 75 mg PO HS Rx Instructions: TOTAL DOSE 100 MG--TAKES WITH 25 MG CAP. Vraylar 3 mg Capsule 3 mg PO QAM atorvastatin 40 mg tablet 40 mg PO HS ondansetron HCl 4 mg tablet 4 mg PO Q6H PRN (Reason: Nausea) cyanocobalamin (vitamin B-12) [Vitamin B-12] 1,000 mcg Tablet 1,000 mcg PO DAILY aspirin 81 mg Tablet,Delayed Release (Dr/Ec) 81 mg PO DAILY nortriptyline 25 mg capsule 25 mg PO HS Rx Instructions: TOTAL DOSE 100 MG--TAKES WITH 75 MG CAP. esomeprazole magnesium 40 mg capsule,delayed release(DR/EC) 40 mg PO DAILYBB valsartan 320 mg tablet 320 mg PO QAM nicotine 21 mg/24 hr Patch 24 Hour 1 patch TRANSDERMAL DAILY PRN (Reason: SMOKE CESSATION) topiramate 100 mg tablet 100 mg PO QAM cholecalciferol (vitamin D3) [Vitamin D3] 25 mcg (1,000 unit) Capsule 25 mcg PO DAILY hydroxyzine HCl 50 mg tablet 150 mg PO HS Rybelsus 7 mg tablet 7 mg PO DAILY topiramate 50 mg tablet 50 mg PO HS Discharge Orders: Discharge Order (Routine); Ordered 09/01/23 Ordered By: Jose D Middleton Admission Data Admit Date/Time: 08/28/23 09:56 Attending Provider: Jose D Middleton Admit Provider: Miroslava Sierra Primary Care Provider: Joselin Henao Other Providers: Tyrone Willett; Wicho Castro; Michael Ahn I.; Ab Samayoa II; Soraya Teran; Eugenio Dumont; Troy Anaya; Myles Guo; Robel Grande Joshua R.; Miroslava Sierra
[2023-09-01 13:30] LABS: Lyme DNA PCR CSF or Synovial Not Detected (Not Detected); Lyme DNA Source SYNOVIAL FLUID
== END 2023-09-01 15:26 | disposition home or self-care (01) | DRG 603 ==
LOC: ED 07:34 → EDINP 09:56 → SUATTDRO 09:56 → 2N 11:03